=== PATIENT | male | born 1980 | race Caucasian/White ===

== ENCOUNTER → 2018-03-09 07:07 | Outpatient (CLI) | payer OTHER, SELFPAY ==
[2018-03-09 10:48] LABS: BUN 15 mg/dL (7-18); Creatinine, Serum 1.14 mg/dL (0.70-1.30); Glucose 75 mg/dL (74-106)
[2018-03-09 10:49] LABS: Anion Gap 9 (5-15); BUN/Creat Ratio 13.2 RATIO (10-20); Calcium,Total 8.8 mg/dL (8.5-10.1); Chloride 103 mmol/L (98-107); Cholesterol 195 mg/dL (200); EST Glomerular Filtration Rate 76 mL/min (>60); Est Glom Filt Rate - Afr Amer 92 mL/min (>60); High Density Lipoprotein 38 mg/dL; Sodium Level 137 mmol/L (136-145); Triglycerides 148 mg/dL; Very Low Density Lipoprotein 30 mg/dL (5-40)
[2018-03-09 11:01] LABS: Vitamin D,25 Hydroxy 23.7 ng/mL (29.95-100.01)
== END ==
PROVIDERS: Family Provider Family Medicine; PCP Family Medicine; Referring Provider Family Medicine; Visit Provider Family Medicine
DX: Z00.00 Encounter for general adult medical examination without abnormal findings (principal)
CPT/HCPCS: 36415; 80048; 80061; 82306

== ENCOUNTER → 2019-03-06 09:06 | Outpatient (CLI) | payer OTHER, SELFPAY ==
[2018-08-30 06:33] VITALS: BMI 28.1
[2019-03-06 10:48] LABS: Anion Gap 8 (5-15); BUN 20 mg/dL (7-18); BUN/Creat Ratio 17.2 RATIO (10-20); Calcium,Total 9.2 mg/dL (8.5-10.1); Chloride 102 mmol/L (98-107); Cholesterol 177 mg/dL (200); Creatinine, Serum 1.16 mg/dL (0.70-1.30); EST Glomerular Filtration Rate 74 mL/min (>60); Est Glom Filt Rate - Afr Amer 89 mL/min (>60); Glucose 96 mg/dL (74-106); High Density Lipoprotein 42 mg/dL; Potassium 4.1 mmol/L (3.5-5.1); Sodium Level 137 mmol/L (136-145); Triglycerides 164 mg/dL; Very Low Density Lipoprotein 33 mg/dL (5-40)
[2019-03-06 10:52] LABS: Vitamin D,25 Hydroxy 38.7 ng/mL (29.95-100.01)
== END ==
PROVIDERS: Family Provider Family Medicine; PCP Family Medicine; Visit Provider Family Medicine
DX: Z00.00 Encounter for general adult medical examination without abnormal findings (principal); E55.9 Vitamin D deficiency, unspecified
CPT/HCPCS: 36415; 80048; 80061; 82306

== ENCOUNTER → 2020-03-11 09:04 | Outpatient (CLI) | payer OTHER, SELFPAY ==
[2019-05-25 13:44] VITALS: BMI 28.1
[2020-03-11 10:27] LABS: Anion Gap 5 (5-15); BUN 20 mg/dL (7-18); BUN/Creat Ratio 17.4 RATIO (10-20); Calcium,Total 8.7 mg/dL (8.5-10.1); Chloride 105 mmol/L (98-107); Cholesterol 180 mg/dL (200); Creatinine, Serum 1.15 mg/dL (0.70-1.30); EST Glomerular Filtration Rate 74 mL/min (>60); Est Glom Filt Rate - Afr Amer 90 mL/min (>60); Glucose 93 mg/dL (74-106); High Density Lipoprotein 40 mg/dL; Potassium 4.1 mmol/L (3.5-5.1); Sodium Level 137 mmol/L (136-145); Triglycerides 126 mg/dL; Very Low Density Lipoprotein 25 mg/dL (5-40)
== END ==
PROVIDERS: PCP Family Medicine; Visit Provider Family Medicine
DX: Z00.00 Encounter for general adult medical examination without abnormal findings (principal); E55.9 Vitamin D deficiency, unspecified
CPT/HCPCS: 36415; 80048; 80061; 82306

== ENCOUNTER → 2021-02-14 10:14 | Outpatient (CLI) | payer OTHER, SELFPAY ==
[2021-02-14 12:18] LABS: Anion Gap 6 (5-15); BUN 20 mg/dL (7-18); BUN/Creat Ratio 17.5 RATIO (10-20); Chloride 103 mmol/L (98-107); Cholesterol 189 mg/dL (200); Creatinine, Serum 1.14 mg/dL (0.70-1.30); EST Glomerular Filtration Rate 75 mL/min (>60); Est Glom Filt Rate - Afr Amer 90 mL/min (>60); Glucose 92 mg/dL (74-106); High Density Lipoprotein 41 mg/dL; Potassium 4.3 mmol/L (3.5-5.1); Sodium Level 135 mmol/L (136-145); Triglycerides 96 mg/dL; Very Low Density Lipoprotein 19 mg/dL (5-40)
== END ==
PROVIDERS: PCP Family Medicine; Referring Provider Family Medicine; Visit Provider Family Medicine
DX: Z00.00 Encounter for general adult medical examination without abnormal findings (principal)
CPT/HCPCS: 36415; 80048; 80061

== ENCOUNTER 2021-04-21 16:08 | Outpatient (CLI) | payer OTHER, SELFPAY ==
--- NOTE | 2021-04-21 16:13 | RAD_ITS ---
STUDY: X-RAY CHEST REASON FOR EXAM: Male, 40 years old. SOB TECHNIQUE: Frontal and lateral views COMPARISON: None. FINDINGS: Large right pleural effusion opacifying nearly the entire right hemithorax. The left lung is clear. Normal size heart. Normal mediastinum and fazal. Normal visualized pulmonary arteries. Normal visualized aortic arch and descending thoracic aorta. Normal visualized thoracic spine. Normal visualized ribs, clavicles, and shoulders. There is no demonstrated abnormality of the visualized soft tissue structures of the upper abdomen. RAD/Chest PA and Lateral IMPRESSION: Large right pleural effusion. Electronically Signed: Mariano Molina DO at 16:33 EST Tel [phone], Service support ,
[2021-04-21 17:09] LABS: Hematocrit 47.5 % (40-54); Hemoglobin 15.6 g/dL (13.0-16.5); Mean Corp Hgb Conc 32.8 g/dL (32-36); Mean Corpuscular Volume 85.1 fL (80-94); Mean Platelet Vol. 9.5 fl (6.2-12.0); Platelet Count 417 K/mm3 (150-450); RBC Distribution Width CV 11.7 % (11.6-14.6); Red Blood Count 5.58 M/mm3 (4.6-6.2); White Blood Count 7.1 K/mm3 (4.4-11.0)
[2021-04-21 17:43] LABS: D-Dimer Quantitative (DVT/PE) 9.17 FEU/ug/m (0.27-0.49)
[2021-04-21 17:56] LABS: Anion Gap 7 (5-15); BUN 20 mg/dL (7-18); BUN/Creat Ratio 18.2 RATIO (10-20); Calcium,Total 9.3 mg/dL (8.5-10.1); Chloride 103 mmol/L (98-107); EST Glomerular Filtration Rate 78 mL/min (>60); Est Glom Filt Rate - Afr Amer 94 mL/min (>60); Glucose 84 mg/dL (74-106); Potassium 4.1 mmol/L (3.5-5.1); Sodium Level 137 mmol/L (136-145)
== END 2021-04-21 23:59 | disposition home or self-care (01) ==
PROVIDERS: PCP Family Medicine; Referring Provider Family Medicine; Visit Provider Family Medicine
DX: R06.02 Shortness of breath (principal)
CPT/HCPCS: 36415; 71046; 80048; 85027; 85379

== ENCOUNTER 2021-04-21 16:46 | Inpatient (IN) | payer OTHER, SELFPAY ==
[2021-04-21] VITALS (7 sets, daily range): BP systolic 125–156; BP diastolic 76–103; PULSE 98–107; RESP 16–25; TEMP 36.1–36.9; O2SAT 97–99; BMI 31.1; BMI 29.5
--- NOTE | 2021-04-21 17:07 | EDS_ITS ---
HPI History of Present Illness Chief Complaint: Shortness of Breath Informant: patient, spouse/S.O. and PCP Narrative Narrative: 40-year-old male presenting to the emergency department with a chief complaint of pneumothorax. The patient states that he became ill with a cough and runny nose fatigue and some dyspnea back [facility]. Slowly progressed and on Day went to an urgent care was given prednisone and a negative Covid test. He has developed some right upper quadrant or epigastric pain and was to do to follow-up with his primary care doctor after the urgent care visit. When he went there today noticed absent lung sounds and a chest x- ray obtained shows a large pleural effusion on the right side. Noted did not be hypoxic. Patient denies any trauma. He denies any aspirating events. No rashes he notes a 5 pound weight loss but states he really has not had much of an appetite. PFSH PFSH Medical History Non-smoker Medical History no medical history no medical history Home Medications cholecalciferol (vitamin D3) 25 mcg (1,000 unit) capsule 1,000 unit PO DAILY 08/30/18 [History Last Taken Unknown] Allergy/AdvReac Type Severity Reaction Status Date / Time codeine Allergy Nausea Verified 04/21/21 16:48 Iodinated Contrast Media Allergy Nausea Verified 04/21/21 16:48 [CONTRASTS] Surgical History H/O shoulder surgery History of ankle surgery Social History Smoking Status: Never smoker alcohol intake: never ROS ROS ED ROS Narrative Fatigue Constitutional Constitutional ED: Denies chills, fever(s) or weight loss Eyes Eyes: Denies change in vision or diplopia ENT ENT ED: Reports rhinorrhea; Denies ear pain or sore throat Cardiovascular Cardiovascular: Denies chest pain, orthopnea, palpitations or racing heartbeat Respiratory/Chest Respiratory/Chest: Reports cough and dyspnea; Denies orthopnea Gastrointestinal Gastrointestinal: Denies abdominal pain, diarrhea, nausea or vomiting Genitourinary Genitourinary ED: Denies dysuria, hematuria or urinary frequency Musculoskeletal Musculoskeletal: Denies arthralgias or myalgias Integumentary Denies abscess or rash Neurologic Neurologic: Denies headache(s) or weakness Psychiatric Psychiatric: Denies anxiety, depression, suicidal ideation or suicidal thoughts Endocrine Endocrinology: Denies polydipsia, polyphagia or polyuria Allergic/Immunologic Allergic/Immunologic ED: Denies mouth swelling, tongue swelling or urticaria EXAM Physical Exam Const Vital Signs: 04/21/21 16:49 04/21/21 16:54 04/21/21 16:56 Temperature 97 F L Temperature Source Temporal Pulse Rate 103 H 107 H Respiratory Rate 25 H 16 Respiratory Effort Normal Respiratory Depth Normal Respiratory Pattern Normal Blood Pressure 125/76 H 125/76 H Blood Pressure Mean 92 92 Pulse Ox 97 98 Oxygen Delivery Method Room Air Nasal Cannula Nasal Cannula Oxygen Flow Rate (L/min) 2 04/21/21 18:14 Temperature Temperature Source Pulse Rate 98 Respiratory Rate 16 Respiratory Effort Respiratory Depth Respiratory Pattern Blood Pressure 136/79 H Blood Pressure Mean 98 Pulse Ox 98 Oxygen Delivery Method Nasal Cannula Oxygen Flow Rate (L/min) 2 Positive well nourished and well developed General Appearance ED: well developed HEENT Reports normocephalic, head/scalp atraumatic, TM's clear and moist mucous membranes atraumatic Tympanic Membrane ED: Yes TM's clear Eyes PERRL and EOMs intact bilaterally Neck no lymphadenopathy, supple and no JVD Resp normal respiratory effort Resp Narrative: Absent breath sounds on right. There is no crepitance. Cardio regular rhythm and no murmurs Rate: tachycardic GI normal to inspection, nondistended, normoactive bowel sounds and non-tender Palpation: soft Back/Spine no CVA tenderness and normal ROM Extremity normal to inspection General Extremety ED: Negative for edema General Extremity: Negative for edema Neuro oriented x3 and CN's II-XII intact bilaterally Sensorium / Orientation: alert Motor Exam: strength 5/5 throughout Psych mental status grossly normal Mood & Affect: Negative for depressed or tearful Skin no rashes or lesions noted and no wounds MDM MDM MDM Narrative Medical decision making narrative: Basic blood work was obtained which demonstrates elevation of his liver enzymes alk phos and LDH. I personally reviewed the chest x-ray which shows a large pleural effusion on the right. CT the chest without contrast was obtained which demonstrates large pleural effusion and multiple mediastinal and hilar masses along with pleural-based densities. At this point plan will be for admission for thoracentesis and further evaluation. Lab Data Attestation: I reviewed the patient's lab results. Labs: Laboratory Results - last 24 hr 04/21/21 04/21/21 04/21/21 17:10 17:10 17:10 WBC 6.5 RBC 5.27 Hgb 14.8 Hct 44.8 MCV 85.0 MCH 28.1 MCHC 33.0 RDW Std Deviation 35.9 RDW Coeff of Vi 11.6 Plt Count 377 MPV 9.6 Immature Gran % (Auto) 0.500 Neut % (Auto) 48.3 Lymph % (Auto) 35.2 Rains % (Auto) 12.7 H Eos % (Auto) 2.8 Baso % (Auto) 0.5 Absolute Neuts (auto) 3.1 Absolute Lymphs (auto) 2.28 Nucleated RBC % 0 PT 14.1 INR 1.2 APTT 29.8 Sodium 136 Potassium 3.9 Chloride 103 Carbon Dioxide 27.0 Anion Gap 6 BUN 20 H Creatinine 1.16 Estim Creat Clear Calc 80.26 Est GFR (MDRD) Af Amer 88 Est GFR (MDRD) Non-Af 73 BUN/Creatinine Ratio 17.2 Glucose 99 Lactic Acid Calcium 8.9 Total Bilirubin 0.60 Direct Bilirubin 0.29 AST 156 H ALT 313 H Alkaline Phosphatase 157 H Lactate Dehydrogenase 461 H Troponin I High Sens 6 B-Natriuretic Peptide Total Protein 8.2 Albumin 3.0 L Globulin 5.2 H Lipase 203 04/21/21 04/21/21 17:10 17:10 WBC RBC Hgb Hct MCV MCH MCHC RDW Std Deviation RDW Coeff of Vi Plt Count MPV Immature Gran % (Auto) Neut % (Auto) Lymph % (Auto) Rains % (Auto) Eos % (Auto) Baso % (Auto) Absolute Neuts (auto) Absolute Lymphs (auto) Nucleated RBC % PT INR APTT Sodium Potassium Chloride Carbon Dioxide Anion Gap BUN Creatinine Estim Creat Clear Calc Est GFR (MDRD) Af Amer Est GFR (MDRD) Non-Af BUN/Creatinine Ratio Glucose Lactic Acid 1.5 Calcium Total Bilirubin Direct Bilirubin AST ALT Alkaline Phosphatase Lactate Dehydrogenase Troponin I High Sens B-Natriuretic Peptide 8.7 Total Protein Albumin Globulin Lipase Radiography Diagnostic Testing: Clinical Impression(s) from Imaging Studies Chest CT 04/21/21 17:21 IMPRESSION: There is a large right pleural effusion with collapse of the right lung. There are pleural-based densities along the right hemithorax. Malignancy is suspected. The right effusion slightly compresses and deviates the trachea to the left. Mediastinal and right hilar mass lesions. Evaluation is limited without intravenous contrast. Electronically Signed: Mariano Moilna DO at 18:57 EST Tel [phone], Service support , Discharge Plan Dx/Rx/DC Orders Clinical Impression: Pleural effusion, right, Acute dyspnea, Hilar mass, Mass of mediastinum Disposition Disposition: Acute Care Hospital [facility]
--- NOTE | 2021-04-21 17:21 | CT_ITS ---
STUDY: CT CHEST WITHOUT CONTRAST REASON FOR EXAM: Male, 40 years old. Pleural effusion RADIATION DOSAGE (If Supplied By Facility): CTDIvol = ( 11.35 ) mGy, DLP = ( 499.23 ) mGycm TECHNIQUE: Transaxial imaging was performed without the administration of intravenous contrast material. Individualized dose optimization techniques were used for this CT. COMPARISON: None. FINDINGS: There is a large right pleural effusion with collapse of the right lung. There are pleural-based densities along the right hemithorax. Malignancy is suspected. The large effusion slightly compresses and deviates the trachea to the left. Normal heart and pericardium. Mediastinal and right hilar mass lesions. Normal unenhanced pulmonary arteries. Normal aorta arch and descending thoracic aorta. Normal osseous structures. There is no demonstrated abnormality of the visualized upper abdomen. CT/Chest without Contrast IMPRESSION: There is a large right pleural effusion with collapse of the right lung. There are pleural-based densities along the right hemithorax. Malignancy is suspected. The right effusion slightly compresses and deviates the trachea to the left. Mediastinal and right hilar mass lesions. Evaluation is limited without intravenous contrast. Electronically Signed: Mariano Molina DO at 18:57 EST Tel [phone], Service support ,
[2021-04-21 17:29] LABS: Absolute Lymphocyte Count 2.28 X10^3/uL (0.83-4.51); Absolute Neutrophil Count 3.1 X10^3/uL (2.0-7.7); Basophil# 0.03 X10^3/uL; Basophil% 0.5 % (0-1); Eosinophil# 0.18 X10^3/uL; Eosinophils% 2.8 % (0-5); Hematocrit 44.8 % (40-54); Hemoglobin 14.8 g/dL (13.0-16.5); Lymphocyte # 2.28 X10^3/ul (0.83-4.51); Lymphocyte % 35.2 % (19-41); Mean Corpuscular Hgb 28.1 pg (27.0-32.0); Mean Platelet Vol. 9.6 fl (6.2-12.0); Monocyte# 0.82 X10^3/uL; Monocyte% 12.7 % (0-10); NRBC Flagged by Analyzer 0 % (0-5); Neutrophil # 3.13 X10^3/uL (2.7-7.7); Neutrophil % 48.3 % (47-70); Platelet Count 377 K/mm3 (150-450); RBC Distribution Width CV 11.6 % (11.6-14.6); RBC Distribution Width SD 35.9 fl (35.1-43.9); Red Blood Count 5.27 M/mm3 (4.6-6.2); White Blood Count 6.5 K/mm3 (4.4-11.0)
[2021-04-21 17:41] LABS: International Normalized Ratio 1.2; Partial Thromboplast Time 29.8 Seconds (24.1-36.2); Prothrombin Time (Protime)PT. 14.1 SECONDS (11.7-14.9)
[2021-04-21 17:45] LABS: AST(SGOT) 156 U/L (15-37); Alanine Aminotransfer ALT/SGPT 313 U/L (16-61); Alkaline Phosphatase 157 U/L (45-117); Anion Gap 6 (5-15); BUN 20 mg/dL (7-18); BUN/Creat Ratio 17.2 RATIO (10-20); Bilirubin, Direct 0.29 mg/dL (0.00-0.30); Calcium,Total 8.9 mg/dL (8.5-10.1); Chloride 103 mmol/L (98-107); Creatinine, Serum 1.16 mg/dL (0.70-1.30); EST Glomerular Filtration Rate 73 mL/min (>60); Est Glom Filt Rate - Afr Amer 88 mL/min (>60); Estimated Creatinine Clearance 80.26 ml/min; Globulin 5.2 g/dL (2.2-4.2); Glucose 99 mg/dL (74-106); LDH 461 U/L (87-241); Lipase 203 U/L (73-393); Potassium 3.9 mmol/L (3.5-5.1); Protein, Total 8.2 g/dL (6.4-8.2); Sodium Level 136 mmol/L (136-145); Troponin-I HS 6 pg/mL (3.0-78.0)
[2021-04-21 17:49] LABS: Lactic Acid 1.5 mmol/L (0.4-1.9)
[2021-04-21 17:56] LABS: BNP,B-Type NATRIURETIC PEPTIDE 8.7 pg/mL (0-100)
--- NOTE | 2021-04-21 19:33 | PCM.HP.STD ---
HPI - General General Date of Admission: 04/21/21 HPI Narrative BARTOLO ROBERT, is a 40 M with a significant history of vitamin D deficiency who presents to emergency department with a cough and shortness of breath. His symptoms started a day after Thanksgiving with a cough and a cold. Because his symptoms persisted he went to the urgent care and on April 12, 2021. His reports that patient's was originally very active but now he gets very dyspneic with exertion. He was given some steroids. Because his symptoms still persisted he went to see his PCP. A chest x-ray was done and patient was told that he has a collapsed lungs so he was instructed counseled to the emergency department. Also patient report that he has been evaluated recently for right upper quadrant pain and he was told that it may probably be a muscle strain. He reports about 5 pound weight loss with his symptoms which he attributes to a decrease in appetite. [facility] Medical History (Updated 04/21/21 @ 21:43 by Primitivo Cordero) Depression Migraines Non-smoker Vitamin D deficiency Medical History no medical history Home Medications cholecalciferol (vitamin D3) 25 mcg (1,000 unit) capsule 1,000 unit PO DAILY 08/30/18 [History Last Taken 04/21/21] Allergy/AdvReac Type Severity Reaction Status Date / Time codeine Allergy Nausea Verified 04/21/21 16:48 Iodinated Contrast Media Allergy Nausea Verified 04/21/21 16:48 [CONTRASTS] Family History (Updated 04/21/21 @ 19:[address] Kobi Mccann MD) Other Diabetes Heart disease Hypertension Surgical History H/O shoulder surgery History of ankle surgery Social History Smoking Status: Never smoker alcohol intake: never ROS ROS Narrative Constitutional: Reports anorexia and weight loss. Denies fever, or chills. Eyes: Denies blurry vision, change in eye color, change in vision, discharge from eye(s), double vision, erythema, eye pain, loss of vision or other HEENT: Denies abnormal hearing, dysphagia, ear pain, epistaxis, headache(s), hearing loss, nasal congestion, nasal discharge, post nasal drip, sinus pressure, sore throat or other Cardiovascular: Denies chest pain or palpitations. Reports dyspnea with exertion Respiratory/Chest: Reports cough, and excessive phlegm production. Denies wheezes. Gastrointestinal: Reports right upper quadrant pain. Denies coffee ground emesis, constipation, diarrhea, dyspepsia, hematemesis, hematochezia, loose stools, melena, nausea, vomiting or other Genitourinary: Denies burning urination, difficulty urinating, dysuria, hematuria, nocturia, urinary frequency, urinary hesitancy, urinary incontinence, urinary urgency or other Musculoskeletal: Denies arthralgias, back pain, joint pain, joint stiffness, joint swelling, myalgias, neck pain or other Neurologic: Denies abnormal gait, abnormal speech, confusion, disequilibrium, dizziness, focal weakness, headache(s), numbness, paresthesias, seizure-like activity, seizures, syncope, tingling, tremor(s) or other Psychiatric: Denies anxiety, depression, homicidal ideation, suicidal ideation or other Endocrinology: Denies change in body appearance, cold intolerance, excessive sweating, heat intolerance, polydipsia, polyuria or other Hematologic/Lymphatic: Denies anemia, easy bleeding, easy bruising, lymphadenopathy or other Integumentary: Denies rashes Allergic/Immunologic: Denies rhinitis, hives, eczema, asthma or other Vital Signs Vital Signs Vital Signs: 04/21/21 16:49 04/21/21 16:54 04/21/21 16:56 Temperature 97 F L Temperature Source Temporal Pulse Rate 103 H 107 H Respiratory Rate 25 H 16 Respiratory Effort Normal Respiratory Depth Normal Respiratory Pattern Normal Blood Pressure 125/76 H 125/76 H Blood Pressure Mean 92 92 Pulse Ox 97 98 Oxygen Delivery Method Room Air Nasal Cannula Nasal Cannula Oxygen Flow Rate (L/min) 2 04/21/21 18:14 Temperature Temperature Source Pulse Rate 98 Respiratory Rate 16 Respiratory Effort Respiratory Depth Respiratory Pattern Blood Pressure 136/79 H Blood Pressure Mean 98 Pulse Ox 98 Oxygen Delivery Method Nasal Cannula Oxygen Flow Rate (L/min) 2 Weight Weight: 93.1 kg Body Mass Index (BMI) 31.1 Physical Exam Narrative Physical exam: General: Well-nourished, well-developed. Head: Normocephalic, atraumatic, no tenderness Eyes: PERRLA, EOMI ENT, no trauma, moist mucous membranes, no rhinorrhea Neck: Nontender, full range of motion, no spinal tenderness, deformities, step-off CVS: Regular rate and rhythm. S1-S2 present. No murmur, gallop or rub. Respiratory : No lung sounds auscultated on right posterior lung chou. Lung sounds clear on all left chou. No wheezing Abdomen: Soft, nontender, nondistended, normal bowel sounds, no masses : Deferred Back: Nontender, no CVA tenderness, no midline spinal tenderness, deformities, step-offs Extremities: Nontender full range of motion, no trauma Skin: Normal color, no trauma, abrasions Neuro: Alert, oriented, cranial nerves II through XII grossly intact. Psychiatry: Normal mood. Normal affect. Not depressed. Not anxious. Results Lab / Micro Data Result Diagrams: 04/21/21 17:10 04/21/21 17:10 Labs: Laboratory Results - last 24 hr 04/21/21 17:10: WBC 6.5, RBC 5.27, Hgb 14.8, Hct 44.8, MCV 85.0, MCH 28.1, MCHC 33.0, RDW Std Deviation 35.9, RDW Coeff of Vi 11.6, Plt Count 377, MPV 9.6, Immature Gran % (Auto) 0.500, Neut % (Auto) 48.3, Lymph % (Auto) 35.2, [place] % (Auto) 12.7 H, Eos % (Auto) 2.8, Baso % (Auto) 0.5, Absolute Neuts (auto) 3.1, Absolute Lymphs (auto) 2.28, Nucleated RBC % 0 04/21/21 17:10: PT 14.1, INR 1.2, APTT 29.8 04/21/21 17:10: Sodium 136, Potassium 3.9, Chloride 103, Carbon Dioxide 27.0, Anion Gap 6, BUN 20 H, Creatinine 1.16, Estim Creat Clear Calc 80.26, Est GFR (MDRD) Af Amer 88, Est GFR (MDRD) Non-Af 73, BUN/Creatinine Ratio 17.2, Glucose 99, Calcium 8.9, Total Bilirubin 0.60, Direct Bilirubin 0.29, AST 156 H, ALT 313 H, Alkaline Phosphatase 157 H, Lactate Dehydrogenase 461 H, Troponin I High Sens 6, Total Protein 8.2, Albumin 3.0 L, Globulin 5.2 H, Lipase 203 04/21/21 17:10: Lactic Acid 1.5 04/21/21 17:10: B-Natriuretic Peptide 8.[address] 04/21/21 17:21 IMPRESSION: There is a large right pleural effusion with collapse of the right lung. There are pleural-based densities along the right hemithorax. Malignancy is suspected. The right effusion slightly compresses and deviates the trachea to the left. Mediastinal and right hilar mass lesions. Evaluation is limited without intravenous contrast. Electronically Signed: Mariano Molina DO at 18:57 EST Tel [phone], Service support , Assessment & Plan Assessment/Plan (1) Pleural effusion, right: (2) Elevated liver enzymes: PLAN: Right pleural effusion Chest x-ray taken outpatient was independently interpreted: Chest x-ray showed large right pleural effusion and I with agree radiologist interpretation. Chest CTA shows collapse of right lung; large right upper lobe air effusion; and pleural-based densities tracheal deviation; mediastinal and right hilar mass lesions. Malignancy is very high on differential diagnosis. Diagnostic ultrasound thoracentesis ordered. Fluid studies with cytology ordered. CBC reviewed showed normal white count. Coagulation studies was unremarkable. Consult pulmonology. Elevated liver enzymes Review of Emergency department labs showed elevated AST, ALT, alkaline phosphatase, and LDH. Albumin was low at 3.0. And globulin was high at 5.2. Could be due to malignancy. Check acute hepatitis panel. Check ultrasound. N.p.o. for ultrasound DVT prophylaxis: High risk but patient because of ordered thoracentesis will order SCD. No chemical thromboprophylaxis at this time. Charges/Coding Visit Charges Inpatient E&M: 85721 Init Hosp L3
[2021-04-21] MEDS: guaiFENesin 1,200 MG Tablet 1200 MG PO (22:15)
[2021-04-22] VITALS (8 sets, daily range): BP systolic 104–150; BP diastolic 54–94; PULSE 93–118; RESP 16–18; TEMP 36.5–36.8; O2SAT 92–98
--- NOTE | 2021-04-22 | IMM_PTH ---
PATIENT: BARTOLO ROBERT LOC: MS2 U#:[id number] AGE/SX: 40/M ROOM: [facility] RE04/21/[address]: Dr. Tawny Arroyo MD : 1980 BED: 1 DIS: 04/23/2021 SPEC #: [id number] RECD: 04/23/21 12:35 STATUS: SOUDiomedes REQ #: [id number] SHEREE: 04/22/21 00:[address]: Kobi Mccann DEPT: IMMUNOHISTOCHEMISTRY RECD BY: Juani Siegel ENTERED: 04/23/21 12:37 SP TYPE: IMMUNO OTHR DR: MD Dr. Pipo Flores MD Dr. Paul Nielsen, MD Tissues: THORACIC FLUID Procedures: NAPSIN A (add) Carlos Eduardo Ret (add) CD20 (add) CD3 (add) CD45 (add) CD5 (add) CD79A (add) CK5-6 (add) CK7 (add) CK8 (add) KI-67 (add) TTF1 (add) Vimentin (add) Pankeratin (initial) PHYSICIAN & [place] [phone] SPECIMEN INFORMATION: Tissue Source: Thoracentesis fluid Clinical Info: Pleural effusion Specimen Number: [id number] CPT code: 85650, 69575 x13 METHODOLOGY: Deparaffinized sections of prefer/formalin-fixed tissue or PAP/DQ stained slides are incubated with monoclonal/polyclonal antibodies/oligonucleotide probes. Localization is made via biotin free immunoperoxidase method. Appropriate controls are performed and reacted as expected. Results on target cell population are indicated in the following table: RESULTS: ANTIBODY / CLONE RESULT AE1-3 (AE1/AE3/PCK26) negative CK7 (OV-TL12/30) negative CK8 (38htnaZ86) negative CD3 (PS1) positive CD5 (SP10) positive CD20 (L26) positive CD45 (RP2/18) positive CD79a (11E3) positive Vimentin (V9) positive TTF-1 (8G7G3/1) negative Napsin A (Rabbit Polyclonal) negative CALRET (polyclonal) negative CK5-6 (D5 & 1684) negative Ki-67 (30-9) positive, very low These tests were developed and their performance characteristics determined by [facility]. They may not have been cleared or approved by the U.S. Food and Drug Administration. The FDA has determined that such clearance or approval is not necessary. The above immunohistochemical/dualISH markers are ordered and reviewed by the Pathologist. INTERPRETATION: Thoracentesis fluid: Negative for carcinoma. Lymphocytes are polytypic in nature. SJ:syed 04/25/2021 Case has been reviewed in consultation with Dr. Brock who concurs with the above diagnosis. IDC:AM
--- NOTE | 2021-04-22 04:05 | PCS.PANDOC ---
PANDEMIC DOCUMENTATION INITIATED: Date: 04/21/21 Time: 2300
--- NOTE | 2021-04-22 05:55 | US_ITS ---
STUDY: ABDOMINAL ULTRASOUND - RIGHT UPPER QUADRANT REASON FOR VISIT: Male, 40 years old Elevated liver enzymes; concerned for tumor -- scanning 7:15 am TECHNIQUE: Ultrasound evaluation of the right upper quadrant was performed with real-time and static bedoya-scale imaging. TECHNICAL QUALITY: Adequate. COMPARISON: None. FINDINGS: Liver: The liver measures 14.2 cm. There is increased echogenicity consistent with fatty infiltration. The bile ducts are within normal limits. There is hepatic color flow. The direction of portal flow is hepatopetal. There is no demonstrated mass lesion. Gallbladder: Normal distended gallbladder. The gallbladder wall measures 2.6 mm. There is a negative sonographic Villafana''s sign. There is no pericholecystic fluid. There are no gallstones. Common Bile Duct (C.B.D.): The common bile duct measures 3.2 mm. Pancreas: Normal size of the head, body and tail of the pancreas. There is increased echogenicity of the pancreas. There is no demonstrated pancreatic mass or cyst. Right Kidney: Normal size of the right kidney. The right kidney measures 11.5 cm x 6.5 cm x 4.8 cm. Normal renal cortex. The right cortex measures 2.1 cm. There is no demonstrated renal mass or cyst. There is no right hydronephrosis. US/Liver IMPRESSION: Fatty infiltration of the liver. Electronically Signed: Conner Pierre MD at 10:01 EST , Service support ,
--- NOTE | 2021-04-22 07:48 | PCM.PN.HOSP ---
Subjective Subjective Follow-up on acute massive pleural effusion: Patient was seen and examined. He denied any new complaints. He is comfortable on 2 L of oxygen. Denied any fever or chills Objective Data Objective Data Vital Signs: Vital Signs Temp Pulse Resp BP Pulse Ox 98.1 F 99 18 137/85 H 96 04/22/21 04:30 04/22/21 04:30 04/22/21 04:30 04/22/21 04:30 04/22/21 04:30 Oxygen Flow Rate (L/min) 2 Oxygen Delivery Method Nasal Cannula Weight: 87.9 kg Body Mass Index (BMI) 29.5 Intake & Output: Intake and Output for Last 24 Hours 04/20/21 04/21/21 04/22/21 23:59 23:59 23:59 Intake Total 300 / 300 Balance 300 / 300 Lab / Micro Data Result Diagrams: 04/22/21 08:30 04/22/21 08:30 Labs: Laboratory Results - last 24 hr 04/21/21 17:10: WBC 6.5, RBC 5.27, Hgb 14.8, Hct 44.8, MCV 85.0, MCH 28.1, MCHC 33.0, RDW Std Deviation 35.9, RDW Coeff of Vi 11.6, Plt Count 377, MPV 9.6, Immature Gran % (Auto) 0.500, Neut % (Auto) 48.3, Lymph % (Auto) 35.2, [place] % (Auto) 12.7 H, Eos % (Auto) 2.8, Baso % (Auto) 0.5, Absolute Neuts (auto) 3.1, Absolute Lymphs (auto) 2.28, Nucleated RBC % 0 04/21/21 17:10: PT 14.1, INR 1.2, APTT 29.8 04/21/21 17:10: Sodium 136, Potassium 3.9, Chloride 103, Carbon Dioxide 27.0, Anion Gap 6, BUN 20 H, Creatinine 1.16, Estim Creat Clear Calc 80.26, Est GFR (MDRD) Af Amer 88, Est GFR (MDRD) Non-Af 73, BUN/Creatinine Ratio 17.2, Glucose 99, Calcium 8.9, Total Bilirubin 0.60, Direct Bilirubin 0.29, AST 156 H, ALT 313 H, Alkaline Phosphatase 157 H, Lactate Dehydrogenase 461 H, Troponin I High Sens 6, Total Protein 8.2, Albumin 3.0 L, Globulin 5.2 H, Lipase 203 04/21/21 17:10: Lactic Acid 1.5 04/21/21 17:10: B-Natriuretic Peptide 8.7 Radiography Diagnostic Testing: Radiology Impression Chest CT 04/21/21 17:21 IMPRESSION: There is a large right pleural effusion with collapse of the right lung. There are pleural-based densities along the right hemithorax. Malignancy is suspected. The right effusion slightly compresses and deviates the trachea to the left. Mediastinal and right hilar mass lesions. Evaluation is limited without intravenous contrast. Electronically Signed: Mariano Molina DO at 18:57 EST Tel [phone], Service support , Physical Exam Narrative Physical exam: General: Alert, Oriented x3, Cooperative, No apparent distress, Well developed, on 2 L of oxygen HEENT: Atraumatic Oral: Moist Mucosa Neck: Supple Lungs: Decreased air entry from right middle to lower lung zone, no wheezes heard Cardiovascular: HS I+II, regular, no murmurs Abdomen: Bowel Sounds Present, Soft, Non Tender Extremities: No edema Assessment & Plan Assessment/Plan (1) Pleural effusion, right: (2) Elevated liver enzymes: PLAN: 1. Acute massive right pleural effusion, confirmed on admitting chest x-ray and CTA of the chest There is associated right lung collapse, tracheal deviation, mediastinal or hilar masses Patient is going for ultrasound-guided thoracocentesis Pulmonology consulted, will follow up on results 2. Elevated liver enzymes, likely secondary to fatty liver, trending down Ultrasound of liver shows fatty liver Hepatitis profile pending 3. DVT prophylaxis?SCDs Charges/Coding Visit Charges Inpatient E&M: 81867 Subs Hosp L3
[2021-04-22 08:37] LABS: Absolute Lymphocyte Count 1.46 X10^3/uL (0.83-4.51); Absolute Neutrophil Count 6.1 X10^3/uL (2.0-7.7); Basophil# 0.02 X10^3/uL; Basophil% 0.2 % (0-1); Eosinophil# 0.06 X10^3/uL; Eosinophils% 0.7 % (0-5); Hemoglobin 15.3 g/dL (13.0-16.5); Lymphocyte # 1.46 X10^3/ul (0.83-4.51); Lymphocyte % 17.3 % (19-41); Mean Corp Hgb Conc 33.3 g/dL (32-36); Mean Corpuscular Hgb 28.4 pg (27.0-32.0); Mean Corpuscular Volume 85.5 fL (80-94); Mean Platelet Vol. 9.3 fl (6.2-12.0); Monocyte# 0.84 X10^3/uL; Monocyte% 9.9 % (0-10); NRBC Flagged by Analyzer 0 % (0-5); Neutrophil # 6.05 X10^3/uL (2.7-7.7); Neutrophil % 71.7 % (47-70); Platelet Count 360 K/mm3 (150-450); RBC Distribution Width CV 11.9 % (11.6-14.6); RBC Distribution Width SD 36.7 fl (35.1-43.9); Red Blood Count 5.38 M/mm3 (4.6-6.2); White Blood Count 8.5 K/mm3 (4.4-11.0)
[2021-04-22 09:11] LABS: ALB/GLOB Ratio 0.6 RATIO (0.9-2.4); AST(SGOT) 97 U/L (15-37); Alanine Aminotransfer ALT/SGPT 252 U/L (16-61); Albumin, Serum 3.1 g/dL (3.2-5.0); Alkaline Phosphatase 149 U/L (45-117); Anion Gap 7 (5-15); BUN 19 mg/dL (7-18); BUN/Creat Ratio 17.1 RATIO (10-20); Calcium,Total 9.6 mg/dL (8.5-10.1); Chloride 101 mmol/L (98-107); Creatinine, Serum 1.11 mg/dL (0.70-1.30); EST Glomerular Filtration Rate 77 mL/min (>60); Est Glom Filt Rate - Afr Amer 93 mL/min (>60); Estimated Creatinine Clearance 83.87 ml/min; Globulin 5.3 g/dL (2.2-4.2); Glucose 105 mg/dL (74-106); LDH 415 U/L (87-241); Potassium 4.2 mmol/L (3.5-5.1); Protein, Total 8.4 g/dL (6.4-8.2); Sodium Level 134 mmol/L (136-145)
--- NOTE | 2021-04-22 09:30 | US_ITS ---
PROCEDURE: ULTRASOUND GUIDED THORACENTESIS. DATE: 04/22/2021. INDICATION: Male, 40 years old. Right pleural effusion PHYSICIAN: Conner Pierre M.D. PROCEDURE: The risks, benefits, and alternatives to the procedure were explained to the patient. The specific risks of bleeding, infection, and pneumothorax requiring chest tube insertion were discussed and accepted. Written informed consent was obtained. Ultrasonographic evaluation of the right lower pleural space was carried out. An adequate pocket was identified. The patient was placed in the sitting, upright position. The overlying skin was prepped and draped in sterile fashion. 1% lidocaine was administered subcutaneously for local anesthesia. Under ultrasound guidance, a 5 Belarusian thoracentesis needle/catheter system was advanced into the right posterior lower pleural fluid collection. Approximately 1700 mL of bloody fluid was drained. The catheter was removed, and a sterile dressing was applied. A specimen was collected and sent to the laboratory for analysis, as requested by the referring clinician. The patient tolerated the procedure well. A chest x-ray was ordered. US/Thoracentesis W US IMPRESSION: Ultrasound-guided right thoracentesis. Electronically Signed: Conner Pierre MD at 12:41 EST , Service support ,
--- NOTE | 2021-04-22 11:30 | RAD_ITS ---
STUDY: X-RAY CHEST REASON FOR EXAM: Male, 40 years old. Post thoracentesis TECHNIQUE: AP inspiration and expiration views. COMPARISON: Comparison is made with prior examination dated 04/21/2021. FINDINGS: The patient is status post right thoracentesis. No evidence of pneumothorax. Residual right pleural-parenchymal changes persist with findings suggestive of masses in the right upper lobe. RAD/Chest Insp/Exp 2 View IMPRESSION: Status post right thoracentesis. No evidence of pneumothorax. Right pulmonary masses. The left lung is clear. Electronically Signed: Conner Pierre MD at 12:42 EST , Service support ,
--- NOTE | 2021-04-22 11:40 | FLU_PTH ---
PATIENT: BARTOLO ROBERT LOC: MS2 U#:[id number] AGE/SX: 40/M ROOM: [facility] [place] RE04/21/[address]: Dr. Tawny Arroyo MD : 1980 BED: 1 DIS: 04/23/2021 SPEC #: [id number] RECD: 04/22/21 12:25 STATUS: ELMER REQ #: [id number] SHEREE: 04/22/21 11:[address]: Kobi Mccann DEPT: CYTOLOGY RECD BY: Kamla Sanchez ENTERED: 04/22/21 12:51 SP TYPE: Fluid OTHR DR: MD Dr. Pipo Flores MD Dr. Joseph Agyepong, MD Dr. Paul Nielsen, MD Tissues: Pleural fluid, NOS Procedures: Special Stain Group II Surgery Specimen Level IV Cytospin Fluid Comments: @ Ordering doctor for SSII edited from to DR.JAGYEP Crenshaw by CAROL at 04/23/21 0903 @ Ordering doctor for SUIV edited from to DR.JAGYEP Crenshaw by CAROL at 04/23/21 0903 @ Ordering doctor for CYSPIN edited from to DR.JAGYEP Crenshaw by CAROL at 04/23/21 0903 @ Submitting doctor edited from to DR.JAGYEP Crenshaw by RGOSCARLETT at 04/23/21 0903 HEADER OPERATION: Thoracentesis right PRE-OP DIAGNOSIS: Pleural effusion TISSUE SUBMITTED: Thoracentesis fluid for cytology DIAGNOSIS CYTOLOGY Thoracentesis fluid for cytology (cytospin and cell block): Negative for malignant cells. Consistent with lymphocytic effusion. See comment. SJ:syed 04/25/2021 COMMENT Immunohistochemistry (RF22-17) is negative for carcinoma and shows lymphocytes to be polytypic in nature. Flow cytometry study from [facility] Culture shows no evidence of B or T-cell lymphoma. The complete report is viewable in patient?s EMR. Please also make reference to additional S22-58, mediastinal mass, core biopsy. Case has been reviewed in consultation with Dr. Brock who concurs with the above diagnosis. IDC:AM CYTOLOGY STUDY Slides are reviewed. CYTOLOGY GROSS Received is 90 ml of dark red cloudy fluid labeled with the patient's name and and designated per the requisition as thoracentesis. Submitted for cytology preparation including cell block. / syed 04/22/2021 TC:5 CPT: 47674, 14803
[2021-04-22 12:26] LABS: Cytology, Body Fluid / CSF SEE PATHOLOGY REPORT
--- NOTE | 2021-04-22 12:35 | CASEMGMT ---
RN CM Face to Face with patient for initial transition planning/care coordination assessment. RN CM introduced self and role at [facility]. Patient lying in bed, alert and oriented. Patient willing to participate in assessment and is able to answer all questions appropriately. Care providers, pharmacy, and demographics verified. Patient wishes to discharge home, denies need for home health at this time. Patient states he has no further needs or concerns at this time. CM to follow for discharge planning needs that may arise. PCP: Am[facility]car Specialists: none Preferred Pharmacy: [facility] Insurance: [employer] Prescription Benefit: yes Living Will/HPOA: yes, Autumn García LNOK: Living Arrangements: Patient lives with and 3 young sons in a 2 story home with bed and bath on first floor. Patient is independent and able to ambulate stairs. Transportation: self/ DME/HHC: Patient denies DME. No previous HHC Disposition Plan: Patient to discharge home with family support and follow-up plans in place. Rachael CARIAS, RN, CM
[2021-04-22 13:11] LABS: Body Fluid Mononuclear WBC # 2.754 10^3/uL; Body Fluid Mononuclear WBC % 99.3 %; Body Fluid Polynuclear WBC % 0.7 %; Body Fluid Total Cells Counted 2.811 10^3/ul; Red Cell Count/Body Fluid 0.074 10^6/ul; White Blood Count/Body Fluid 2.774 10^3/uL
[2021-04-22 13:23] LABS: Glucose, Body Fluid 85 mg/dL (40-70); LDH,Body Fluid 1399 Units/l (Not Establ.); Protein, Body Fluid 5.3 g/dL (Not Establ.)
--- NOTE | 2021-04-22 13:25 | CASEMGMT ---
Tertiary facilities in-network with patient's insurance: [facility], [facility], , [facility].
[2021-04-22 14:16] LABS: Auto B Fluid Analyzer BKGD Ct COUNTS W/IN LIMITS (W/IN LIMITS); Source- Body Fluid THORACENTESIS
[2021-04-22 14:17] LABS: Appearance/Body Fluid SL CLDY; Color/Body Fluid RED
[2021-04-22 14:23] LABS: Body Fluid QC Type(s) BF1Q; Lymphocytes 83 %; Mesothelial Cells 1 %; Monocytes 14 %; Neutrophil (Segs) 2 %
--- NOTE | 2021-04-22 15:36 | CT_ITS ---
STUDY: CT CHEST, ABDOMEN T PELVIS WITH CONTRAST REASON FOR EXAM: Male, 40 years old. Exudative pleural effusion RADIATION DOSAGE (If Supplied By Facility): CTDIvol = ( 14.58 ) mGy, DLP = ( 1592.77 ) mGycm TECHNIQUE: Transaxial imaging was performed following intravenous administration of IV 100mL Isovue-370. Individualized dose optimization techniques were used for this CT. COMPARISON: No relevant priors. FINDINGS: CHEST Significant right pleural effusion with slight interval reduction. There is significant collapse of the right lung Patchy right pulmonary infiltrates. There are pleural-based irregular masses. Mediastinal, right paratracheal and right hilar masses are noted. There is compression of the trachea. Normal heart and pericardium. Normal unenhanced pulmonary arteries. Normal aorta arch and descending thoracic aorta. Normal osseous structures. There is a 1.5 cm periesophageal nodule. ABDOMEN Fatty liver. Normal gallbladder and extrahepatic biliary system. Normal spleen. Normal pancreas. Normal bilateral adrenal glands. Normal right kidney. Normal left kidney. Normal visualized stomach. Normal small intestine. Normal colon. The appendix is visualized and appears normal. Normal abdominal aorta. Normal inferior vena cava. Normal retroperitoneum. Normal abdominal wall. Normal osseous structures. PELVIS Normal urinary bladder. There is no pelvic fluid. There is no pelvic lymphadenopathy or mass lesion. Normal visualized pelvic arteries. CT/CT Chest, Abd, Pel w/Contrast IMPRESSION: Significant right pleural effusion with slight interval reduction. There is significant collapse of the right lung Patchy right pulmonary infiltrates. There are pleural-based irregular masses. Mediastinal, right paratracheal and right hilar masses are noted. There is compression of the trachea. Paraesophageal nodule. Malignancy is suspected. Electronically Signed: Mariano Molina DO at 18:56 EST Tel [phone], Service support ,
--- NOTE | 2021-04-22 15:54 | CON.PCM.CC_ITS ---
Assessment & Plan Assessment/Plan (1) Pleural effusion, right: (2) Hilar mass: PLAN: RECOMMENDATIONS: 1. Obtain CTA of chest abdomen and pelvis 2. Potential biopsy pending results 3. May complete biopsy as an outpatient pending on findings 4. Repeat chest x-ray in a.m. if patient becomes more symptomatic 5. Walking oximetry prior to discharge IMPRESSIONS: 1. Acute respiratory insufficiency secondary to new onset right exudative pleural effusion Patient with thoracentesis and over 1700 cc removed. Chest x-ray still shows significant shadow, but CT was suggestive of loculated appearance. Patient does have what appears to be hilar adenopathy versus pleural-based masses. Fluid from thoracentesis is suggestive of a lymphocytic exudate, which is concerning for TB or more likely malignancy. Patient does not have any TB risk factors. Will obtain a CTA of the chest, abdomen and pelvis. If patient has difficulty getting biopsy, may complete as an outpatient. Patient will need a walking oximetry prior to discharge. If patient becomes more symptomatic, a repeat chest x-ray can be obtained in the morning. If patient has significant recurrence, transfer to a tertiary center for VATS procedure would be a consid eration. Given age, lymphoma is a significant risk. Will attempt to send fluid for flow cytometry. 2. Weight loss/hepatitis Complicates care, management, recovery and prognosis. Patient may have an element of congestive hepatology. Liver ultrasound showed some fatty liver disease. Patient is reportedly just a social drinker. HPI Consult Data Date of Consult: 04/22/21 HPI Narrative HPI Narrative: BARTOLO ROBERT is a 40 M, with past medical history listed below, who presents to [facility] 04/21/2021 secondary to shortness of breath and reported pneumothorax. Patient reportedly had become ill with rhinorrhea, cough and dyspnea back around [facility]. Patient felt that this had slowly progressed and on Anali went to an urgent care center where he was given prednisone and had a negative Covid test. Patient had developed some right upper quadrant discomfort and epigastric pain. Patient was seen by his PCP who then sent him in for evaluation by the ER. Patient was not hypoxic and denied any trauma. Patient did not have any aspiration events. Patient did report a 5 pound weight loss, but had attributed this to decreased appetite. In the ER, patient was tachycardic at 107 bpm, but normotensive and afebrile. Patient was saturating well on room air. Laboratory work-up was relatively unremarkable with a normal CBC, coagulation studies and chemistry. Patient did have some elevated liver enzymes and LDH. Albumin was slightly decreased at 3 and lactic acid was normal. BNP was within normal limits. A chest x-ray was noted to have a large right-sided pleural effusion. This was subsequently followed up with a noncontrasted CT showing a large right loculated pleural eff usion with collapse of the right lung. There does appear to be some pleural- based densities with tracheal deviation. Patient denies any history of smoking. Patient describes himself as a social drinker, drinking 3-4 drinks per week. Patient does not report any intoxication or aspiration events. Patient does not have any previous lung history. Patient reports some right upper quadrant discomfort, but no nausea or vomiting. No hemoptysis has been reported. Patient is not taking any herbal supplements. Patient does report a history of nausea associated with IV contrast. Patient does have some young children that like to roughhouse but there have been no incidences where he felt that he had sustained serious injury. Review of systems otherwise negative from a constitutional, HEENT, respiratory, cardiovascular, GI, genitourinary, musculoskeletal, skin, neurologic, psychiatric and hematologic system unless stated above. [facility] Medical History (Updated 04/21/21 @ 21:43 by Primitivo Cordero) Depression Migraines Non-smoker Vitamin D deficiency Medical History no medical history Home Medications cholecalciferol (vitamin D3) 25 mcg (1,000 unit) capsule 1,000 unit PO DAILY 08/30/18 [History Last Taken 04/21/21] Allergy/AdvReac Type Severity Reaction Status Date / Time codeine Allergy Nausea Verified 04/21/21 16:48 Iodinated Contrast Media Allergy Nausea Verified 04/21/21 16:48 [CONTRASTS] Family History (Updated 04/21/21 @ 19:[address] Kobi Mccann MD) Other Diabetes Heart disease Hypertension Surgical History H/O shoulder surgery History of ankle surgery Social History Smoking Status: Never smoker alcohol intake: never ROS ROS Narrative See HPI Physical Exam Const alert, oriented x3 and no apparent distress General Appearance: cooperative and well developed HEENT normocephalic, head/scalp atraumatic and moist oral mucous membranes Eyes PERRL and EOMs intact bilaterally Neck full ROM and no lymphadenopathy Chest inspection of chest normal Resp normal respiratory effort and no use of accessory muscles Effort and Inspection: able to speak in complete sentences Auscultation: clear to auscultation bilaterally; Negative for rales, rhonchi or wheezes Percussion: dullness Mid: right and Lower: right Cardio regular rate, regular rhythm, S1 normal heart sound, S2 normal heart sound, no murmurs, no rub and no gallops GI normal to inspection, nondistended, normoactive bowel sounds no CVA tenderness Extremity no clubbing, cyanosis or edema Skin no rashes or lesions noted Neuro oriented x3, CN's II-XII intact bilaterally, moves all extremities and no focal motor deficits Psych cooperative and affect normal Lab / Micro Data Result Diagrams: 04/22/21 08:30 04/22/21 08:30 Labs: Laboratory Results - last 24 hr 04/21/21 17:10: WBC 6.5, RBC 5.27, Hgb 14.8, Hct 44.8, MCV 85.0, MCH 28.1, MCHC 33.0, RDW Std Deviation 35.9, RDW Coeff of Vi 11.6, Plt Count 377, MPV 9.6, Immature Gran % (Auto) 0.500, Neut % (Auto) 48.3, Lymph % (Auto) 35.2, [place] % (Auto) 12.7 H, Eos % (Auto) 2.8, Baso % (Auto) 0.5, Absolute Neuts (auto) 3.1, Absolute Lymphs (auto) 2.28, Nucleated RBC % 0 04/21/21 17:10: PT 14.1, INR 1.2, APTT 29.8 04/21/21 17:10: Sodium 136, Potassium 3.9, Chloride 103, Carbon Dioxide 27.0, Anion Gap 6, BUN 20 H, Creatinine 1.16, Estim Creat Clear Calc 80.26, Est GFR (MDRD) Af Amer 88, Est GFR (MDRD) Non-Af 73, BUN/Creatinine Ratio 17.2, Glucose 99, Calcium 8.9, Total Bilirubin 0.60, Direct Bilirubin 0.29, AST 156 H, ALT 313 H, Alkaline Phosphatase 157 H, Lactate Dehydrogenase 461 H, Troponin I High Sens 6, Total Protein 8.2, Albumin 3.0 L, Globulin 5.2 H, Lipase 203 04/21/21 17:10: Lactic Acid 1.5 04/21/21 17:10: B-Natriuretic Peptide 8.7 04/22/21 08:30: WBC 8.5, RBC 5.38, Hgb 15.3, Hct 46.0, MCV 85.5, MCH 28.4, MCHC 33.3, RDW Std Deviation 36.7, RDW Coeff of Vi 11.9, Plt Count 360, MPV 9.3, Immature Gran % (Auto) 0.200, Neut % (Auto) 71.7 H, Lymph % (Auto) 17.3 L, [place] % (Auto) 9.9, Eos % (Auto) 0.7, Baso % (Auto) 0.2, Absolute Neuts (auto) 6.1, Absolute Lymphs (auto) 1.46, Nucleated RBC % 0 04/22/21 08:30: Sodium 134 L, Potassium 4.2, Chloride 101, Carbon Dioxide 26.0, Anion Gap 7, BUN 19 H, Creatinine 1.11, Estim Creat Clear Calc 83.87, Est GFR (MDRD) Af Amer 93, Est GFR (MDRD) Non-Af 77, BUN/Creatinine Ratio 17.1, Glucose 105, Calcium 9.6, Total Bilirubin 0.70, AST 97 H, ALT 252 H, Alkaline Phosphatase 149 H, Lactate Dehydrogenase 415 H, Total Protein 8.4 H, Albumin 3.1 L, Globulin 5.3 H, Albumin/Globulin Ratio 0.6 L 04/22/21 11:40: Fluid Glucose 85 H, Fluid Total Protein 5.3, Fluid LDH 1399 04/22/21 11:40: Fluid Source THORACENTESIS, Fluid Color RED, Fluid Appearance SL CLDY, Fluid WBC 2.774, Fluid RBC 0.074, Fluid Tot Cell Count 2.811, Fld Polynuclear WBCs # 0.020, Fld Polynuclear WBCs % 0.7, Fluid Mononuclear WBCs 2.754, Fld Mononuclear WBCs % 99.3, Fluid Neutrophils 2, Fluid Lymphocytes 83, Fluid Monocytes 14, Fld Mesothelial Cells 1, Fl Pathologist Comment May follow, Fluid Comment 2 SEE COMMENT Micro: Microbiology 04/22/21 11:40 Fluid - Thoracentesis Fluid Gram Stain - Final Radiology Impression Chest CT 04/21/21 17:21 IMPRESSION: There is a large right pleural effusion with collapse of the right lung. There are pleural-based densities along the right hemithorax. Malignancy is suspected. The right effusion slightly compresses and deviates the trachea to the left. Mediastinal and right hilar mass lesions. Evaluation is limited without intravenous contrast. Electronically Signed: Mariano Molina DO at 18:57 EST Tel [phone], Service support , Liver Ultrasound 04/22/21 05:55 IMPRESSION: Fatty infiltration of the liver. Electronically Signed: Conner Pierre MD at 10:01 EST , Service support , Thoracentesis Ultrasound 04/22/21 09:30 IMPRESSION: Ultrasound-guided right thoracentesis. Electronically Signed: Conner Pierre MD at 12:41 EST , Service support , Chest X-Ray 04/22/21 11:30 IMPRESSION: Status post right thoracentesis. No evidence of pneumothorax. Right pulmonary masses. The left lung is clear. Electronically Signed: Conner Pierre MD at 12:42 EST , Service support , Charges/Coding Visit Charges Inpatient E&M: 87441 Init Hosp L2
[2021-04-22] MEDS: 0.9% Saline Lock 10 ML Syringe IV (16:18)
[2021-04-22] MEDS: DiphenhydrAMINE 50 MG/ML Syringe IV (16:18)
[2021-04-22] MEDS: guaiFENesin 1,200 MG Tablet 1200 MG PO (22:03)
[2021-04-22] MEDS: LORazepam 0.5 MG Tablet PO (22:03)
[2021-04-23] VITALS (11 sets, daily range): BP systolic 102–134; BP diastolic 63–91; PULSE 92–111; RESP 16–18; TEMP 36.6–37.9; O2SAT 34–98; BMI 29.6
--- NOTE | 2021-04-23 | ASPIGT_PTH ---
PATIENT: BARTOLO ROBERT LOC: MS2 U#:[id number] AGE/SX: 40/M ROOM: [facility] [id number] RE04/21/[address]: Dr. Tawny Arroyo MD : 1980 BED: 1 DIS: 04/23/2021 SPEC #: [id number] RECD: 04/23/21 11:00 STATUS: ELMER JAVI #: [id number] SHEREE: 04/23/21 00:[address]: Pipo Lee DEPT: SURGICAL PATHOLOGY RECD BY: Roseanne Tamayo ENTERED: 04/23/21 13:32 SP TYPE: ASP RAD OTHR DR: MD Dr. Kobi Flores MD Dr. Paul Nielsen, MD Tissues: Pleural cavity, NOS Procedures: FNA Specimen Adequacy Special Stain Group II Surgery Specimen Level IV Imprint (control) HEADER OPERATION: Right mediastinal mass CT-guided needle core biopsy PRE-OP DIAGNOSIS: Pleural mass TISSUE SUBMITTED: Right mediastinal mass 18-gauge x7 MICROSCOPIC DIAGNOSIS Right mediastinal mass, CT-guided needle core biopsy: Malignant, necrotic small blue cell neoplasm See comment. AM:syed 04/29/2021 COMMENT The specimen is evaluated at the time of biopsy by Dr. Walsh. Immediate Evaluation = Numerous lymphocytes are noted. Immunohistochemistry ([id number]) does not favor a lymphoma. This case was discussed with Dr. Lee on 04/28/2021. Re-biopsy of lesion for procurement of additional tissue is recommended. An addendum will follow definitive classification of neoplasm. Case has been reviewed in consultation with Dr. Walsh who concurs with the above diagnosis. IDC:SJ MICROSCOPIC DESCRIPTION Slides are reviewed. GROSS DESCRIPTION Received in fixative is one container labeled with the patient's name and designated mediastinal mass, CT-guided core biopsy. The specimen consists of multiple irregular fragments of morse soft tissue that in aggregate measure 1 x 0.2 x 0.1 cm. The specimen is totally submitted in one cassette. A core is submitted for flow cytometry studies. Five touch imprints are prepared at the time of core biopsy. / SJ:rg 04/23/21 TC:0 [facility]: [id number], [id number] ADDENDUM ADDENDUM ADDENDUM ADDENDUM ADDENDUM ADDENDUM ADDENDUM 05/27/2021 11:43 ADDENDUM 06/03/2021 14:11 ADDENDUM 09/29/2021 09:52 ADDENDUM 05/27/2021 11:43 ADDENDUM 05/27/2021 11:43 ADDENDUM 05/27/2021 11:43 ADDENDUM 05/27/2021 11:43 This case was seen in consultation with Dr. 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 The complete consultative report is viewable in EMR. Case has been reviewed in consultation with Dr. Walsh who concurs with the above diagnosis. IDC:SJ FISH probe XL EWSR1 (22q12) cancelled on block due to insufficient lesional tissue seen ([employer] This addendum is added to incorporate an outside pathology consultation report. The case was examined at [facility] (#[id number]) and the following diagnosis was rendered. 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 Please see complete above mentioned consultation report in EMR
--- NOTE | 2021-04-23 | IMM_PTH ---
PATIENT: BARTOLO ROBERT LOC: MS2 U#:[id number] AGE/SX: 40/M [place] [facility] [id number]04/21/[address]: Dr. Tawny Arroyo MD : 1980 BED: 1 DIS: 04/23/2021 SPEC #: [id number] RECD: 04/24/21 14:17 STATUS: SOUDiomedes REQ #: [id number] SHEREE: 04/23/21 00:[address]: Pipo Lee DEPT: IMMUNOHISTOCHEMISTRY RECD BY: Juani Siegel ENTERED: 04/24/21 14:20 SP TYPE: IMMUNO OTHR DR: MD Dr. Kobi Flores MD Dr. Paul Nielsen, MD Tissues: Mediastinum, NOS Procedures: Synapto (add) RCC (add) Thyroglobulin (add) NAPSIN A (add) BCL-2 (add) BCL-6 (add) CD10 (add) CD138 (add) CD15 (add) CD20 (add) CD23 (add) CD3 (add) CD30 (add) CD43 (add) CD45 (add) CD5 (add) CD56 (add) CD79A (add) CEA (add) CHROMO (add) CK14 (add) CK20 (add) CK7 (add) CK8 (add) POZO-2 (add) CYCLIN (add) NATALIE (add) HEP PAR (add) KAPPA (add) KI-67 (add) LAMBDA (add) MPO (add) P53 (add) TTF1 (add) Vimentin (add) 34BE12 (add) MUM1 (add) C-MYC (add) Pankeratin (initial) P40 (add) PSAP (add) NSE (add) S-100 (add) PHYSICIAN & INSTITUTION [address] [address] SPECIMEN INFORMATION: Tissue Source: Right mediastinal mass Clinical Info: Right mediastinal mass Specimen Number: [id number] CPT code: 14707, 97740 x42 METHODOLOGY: Deparaffinized sections of prefer/formalin-fixed tissue or PAP/DQ stained slides are incubated with monoclonal/polyclonal antibodies/oligonucleotide probes. Localization is made via biotin free immunoperoxidase method. Appropriate controls are performed and reacted as expected. Results on target cell population are indicated in the following table: RESULTS: ANTIBODY / CLONE RESULT AE1-3 (AE1/AE3/PCK26) negative CK7 (OV-TL12/30) negative CK8 (46cowhJ68) negative CK20 (KS20.8) negative POZO-2 (SP21) negative Vimentin (V9) positive 34BE12 (34BE12) negative S-100 (4C4.9) negative CD56 (123C3.D5) positive, focal Chromo (LK2H10) negative Synapto (polyclonal) negative NSE Neuron Specific Enolase positive TTF-1 (8G7G3/1) negative Napsin A (Rabbit Polyclonal) negative HepPar (OCh1E5) negative RCC (PN-15) negative PSAP (PASE/4LJ) negative Thyro (2H11+6E1) negative CK14 (LL002) negative P40 (BC28) negative NATALIE (E29) negative CEA (11-7/TF-3HB-1) negative P53 (DO-7) positive, 5% Ki-67 (30-9) positive, 75% CD3 (PS1) negative CD5 (SP10) negative CD10 (56C6) negative CD15 (MMA) negative CD20 (L26) negative CD23 (1B12) negative CD30 (Irving-H2) negative CD43 (L60) negative CD45 (RP2/18) negative CD79a (11E3) negative CD138 (B-A38) negative BCL-2 (bcl-2/100/D5) negative BCL-6 (BQ663B/A8) negative Cyclin D1/BCL-1 (SP4) negative MUM1 (MRQ-43) negative C-MYC (Y69) positive MPO (polyclonal) negative Wren (polyclonal) negative Lambda (polyclonal) negative These tests were developed and their performance characteristics determined by [facility]. They may not have been cleared or approved by the U.S. Food and Drug Administration. The FDA has determined that such clearance or approval is not necessary. The above immunohistochemical/dualISH markers are ordered and reviewed by the Pathologist. INTERPRETATION: Right mediastinal mass, biopsy: Malignant necrotic small blue cell neoplasm. See comment. AM:syed 04/29/2021 Comment: The findings are consistent with malignant neoplasm with blue cell morphology. There is no evidence of lymphoma. FLOW studies were cancelled due to paucity of viable tumor cells. Additional studies will be performed on re-biopsied issue for a more definitive classification and an addendum will follow. Case has been reviewed in consultation with Dr. Walsh who concurs with the above diagnosis. IDC:ERIKA
[2021-04-23 05:48] LABS: Absolute Neutrophil Count 7.3 X10^3/uL (2.0-7.7); Basophil# 0.01 X10^3/uL; Basophil% 0.1 % (0-1); Eosinophil# 0.03 X10^3/uL; Eosinophils% 0.3 % (0-5); Hematocrit 46.1 % (40-54); Hemoglobin 15.5 g/dL (13.0-16.5); Lymphocyte % 17.7 % (19-41); Mean Corp Hgb Conc 33.6 g/dL (32-36); Mean Corpuscular Hgb 28.8 pg (27.0-32.0); Mean Corpuscular Volume 85.5 fL (80-94); Mean Platelet Vol. 9.5 fl (6.2-12.0); Monocyte# 1.01 X10^3/uL; Monocyte% 9.9 % (0-10); NRBC Flagged by Analyzer 0 % (0-5); Neutrophil # 7.28 X10^3/uL (2.7-7.7); Neutrophil % 71.6 % (47-70); Platelet Count 393 K/mm3 (150-450); RBC Distribution Width CV 11.8 % (11.6-14.6); RBC Distribution Width SD 36.6 fl (35.1-43.9); Red Blood Count 5.39 M/mm3 (4.6-6.2); White Blood Count 10.2 K/mm3 (4.4-11.0)
[2021-04-23 06:12] LABS: ALB/GLOB Ratio 0.6 RATIO (0.9-2.4); AST(SGOT) 55 U/L (15-37); Alanine Aminotransfer ALT/SGPT 189 U/L (16-61); Albumin, Serum 3.1 g/dL (3.2-5.0); Alkaline Phosphatase 143 U/L (45-117); Anion Gap 10 (5-15); BUN 22 mg/dL (7-18); BUN/Creat Ratio 20.4 RATIO (10-20); Calcium,Total 9.8 mg/dL (8.5-10.1); Chloride 101 mmol/L (98-107); Creatinine, Serum 1.08 mg/dL (0.70-1.30); EST Glomerular Filtration Rate 79 mL/min (>60); Est Glom Filt Rate - Afr Amer 96 mL/min (>60); Globulin 5.5 g/dL (2.2-4.2); Glucose 110 mg/dL (74-106); Potassium 4.1 mmol/L (3.5-5.1); Protein, Total 8.6 g/dL (6.4-8.2); Sodium Level 135 mmol/L (136-145)
[2021-04-23 07:08] LABS: HEPATITIS B SURFACE AG Negative (Negative); Hepatitis A IgM Antibody Negative (Negative); Hepatitis B Core AB IgM Negative (Negative)
--- NOTE | 2021-04-23 08:13 | PN.CC_ITS ---
Assessment & Plan Assessment/Plan (1) Pleural effusion, right: (2) Hilar mass: PLAN: RECOMMENDATIONS: 1. Obtain CT-guided biopsy later today 2. Await flow cytometry from pleural fluid 3. Okay to discharge if no complications from CT-guided biopsy 4. Patient will follow up in our office once pathology results are available 5. Walking oximetry prior to discharge IMPRESSIONS: 1. Acute respiratory insufficiency secondary to new onset right exudative pleural effusion Patient with thoracentesis and over 1700 cc removed. Chest x-ray still shows significant shadow, but CT was suggestive of loculated appearance. Patient does have what appears to be hilar adenopathy versus pleural-based masses. Fluid from thoracentesis is suggestive of a lymphocytic exudate, which is concerning for TB or more likely malignancy. Patient does not have any TB risk factors. Findings on CT scan are suggestive of possible lymphoma. Patient will have a CT-guided biopsy today. If able to tolerate this, anticipate discharge later today. Once biopsy results are available, patient will have an outpatient office appointment with myself. Patient does not need to remain hospitalized waiting on results. 2. Weight loss/hepatitis Complicates care, management, recovery and prognosis. Patient may have an element of congestive hepatology. Liver ultrasound showed some fatty liver disease. Patient is reportedly just a social drinker. Subjective Subjective Patient is doing well this morning. Patient states he is having a cough pr oductive of green sputum, but no fever overnight. Patient is not reporting any chest pain. Patient has not had any significant dyspnea on exertion. Objective Data Objective Data Vital Signs: Vital Signs Temp Pulse Resp BP Pulse Ox 37.9 C H 104 H 18 123/81 H 94 04/23/21 07:00 04/23/21 07:00 04/23/21 07:00 04/23/21 07:00 04/23/21 07:00 Oxygen Flow Rate (L/min) [4] 3 Oxygen Flow Rate (L/min) [3] 3 Oxygen Flow Rate (L/min) [2] 3 Oxygen Flow Rate (L/min) [1 ( 3 Initial Baseline)] Oxygen Flow Rate (L/min) 2 Oxygen Delivery Method [4] Nasal Cannula Oxygen Delivery Method [3] Nasal Cannula Oxygen Delivery Method [2] Nasal Cannula Oxygen Delivery Method [1 ( Nasal Cannula Initial Baseline)] Oxygen Delivery Method Room Air Weight: 87.9 kg Body Mass Index (BMI) 29.5 Intake & Output: Intake and Output for Last 24 Hours 04/21/21 04/22/21 04/23/21 23:59 23:59 23:59 Intake Total 800 / 800 Output Total 1700 / 1700 Balance -900 / -900 Lab / Micro Data Result Diagrams: 04/23/21 05:15 04/23/21 05:15 Labs: Laboratory Results - last 24 hr 04/22/21 08:30: WBC 8.5, RBC 5.38, Hgb 15.3, Hct 46.0, MCV 85.5, MCH 28.4, MCHC 33.3, RDW Std Deviation 36.7, RDW Coeff of Vi 11.9, Plt Count 360, MPV 9.3, Immature Gran % (Auto) 0.200, Neut % (Auto) 71.7 H, Lymph % (Auto) 17.3 L, [place] % (Auto) 9.9, Eos % (Auto) 0.7, Baso % (Auto) 0.2, Absolute Neuts (auto) 6.1, Absolute Lymphs (auto) 1.46, Nucleated RBC % 0 04/22/21 08:30: Sodium 134 L, Potassium 4.2, Chloride 101, Carbon Dioxide 26.0, Anion Gap 7, BUN 19 H, Creatinine 1.11, Estim Creat Clear Calc 83.87, Est GFR (MDRD) Af Amer 93, Est GFR (MDRD) Non-Af 77, BUN/Creatinine Ratio 17.1, Glucose 105, Calcium 9.6, Total Bilirubin 0.70, AST 97 H, ALT 252 H, Alkaline Phosphatase 149 H, Lactate Dehydrogenase 415 H, Total Protein 8.4 H, Albumin 3.1 L, Globulin 5.3 H, Albumin/Globulin Ratio 0.6 L 04/22/21 11:40: Fluid Glucose 85 H, Fluid Total Protein 5.3, Fluid LDH 1399 04/22/21 11:40: Fluid Source THORACENTESIS, Fluid Color RED, Fluid Appearance SL CLDY, Fluid WBC 2.774, Fluid RBC 0.074, Fluid Tot Cell Count 2.811, Fld Polynuclear WBCs # 0.020, Fld Polynuclear WBCs % 0.7, Fluid Mononuclear WBCs 2.754, Fld Mononuclear WBCs % 99.3, Fluid Neutrophils 2, Fluid Lymphocytes 83, Fluid Monocytes 14, Fld Mesothelial Cells 1, Fl Pathologist Comment May follow, Fluid Comment 2 SEE COMMENT 04/23/21 05:15: WBC 10.2, RBC 5.39, Hgb 15.5, Hct 46.1, MCV 85.5, MCH 28.8, MCHC 33.6, RDW Std Deviation 36.6, RDW Coeff of Vi 11.8, Plt Count 393, MPV 9.5, Immature Gran % (Auto) 0.400, Neut % (Auto) 71.6 H, Lymph % (Auto) 17.7 L, [place] % (Auto) 9.9, Eos % (Auto) 0.3, Baso % (Auto) 0.1, Absolute Neuts (auto) 7.3, Absolute Lymphs (auto) 1.80, Nucleated RBC % 0 04/23/21 05:15: Sodium 135 L, Potassium 4.1, Chloride 101, Carbon Dioxide 24.0, Anion Gap 10, BUN 22 H, Creatinine 1.08, Estim Creat Clear Calc 86.20, Est GFR (MDRD) Af Amer 96, Est GFR (MDRD) Non-Af 79, BUN/Creatinine Ratio 20.4 H, Glucose 110 H, Calcium 9.8, Total Bilirubin 0.60, AST 55 H, ALT 189 H, Alkaline Phosphatase 143 H, Total Protein 8.6 H, Albumin 3.1 L, Globulin 5.5 H, Albumin/Globulin Ratio 0.6 L Micro: Microbiology 04/22/21 11:40 Fluid - Thoracentesis Fluid Gram Stain - Final Radiography Diagnostic Testing: Radiology Impression Liver Ultrasound 04/22/21 05:55 IMPRESSION: Fatty infiltration of the liver. Electronically Signed: Conner Pierre MD at 10:01 EST , Service support , Thoracentesis Ultrasound 04/22/21 09:30 IMPRESSION: Ultrasound-guided right thoracentesis. Electronically Signed: Conner Pierre MD at 12:41 EST , Service support , Chest X-Ray 04/22/21 11:30 IMPRESSION: Status post right thoracentesis. No evidence of pneumothorax. Right pulmonary masses. The left lung is clear. Electronically Signed: Conner Pierre MD at 12:42 EST , Service support , Chest/Abdomen/Pelvis CT 04/22/21 15:36 IMPRESSION: Significant right pleural effusion with slight interval reduction. There is significant collapse of the right lung Patchy right pulmonary infiltrates. There are pleural-based irregular masses. Mediastinal, right paratracheal and right hilar masses are noted. There is compression of the trachea. Paraesophageal nodule. Malignancy is suspected. Electronically Signed: Mariano Molina DO at 18:56 EST Tel [phone], Service support , Physical Exam Const alert, oriented x3 and no apparent distress General Appearance: cooperative and well developed HEENT normocephalic, head/scalp atraumatic and moist oral mucous membranes Eyes PERRL and EOMs intact bilaterally Neck full ROM and no lymphadenopathy Chest inspection of chest normal Resp normal respiratory effort and no use of accessory muscles Effort and Inspection: able to speak in complete sentences Auscultation: clear to auscultation bilaterally; Negative for rales, rhonchi or wheezes Percussion: dullness Mid: right and Lower: right Cardio regular rate, regular rhythm, S1 normal heart sound, S2 normal heart sound, no murmurs, no rub and no gallops GI normal to inspection, nondistended, normoactive bowel sounds no CVA tenderness Extremity no clubbing, cyanosis or edema Skin no rashes or lesions noted Neuro oriented x3, CN's II-XII intact bilaterally, moves all extremities and no focal motor deficits Psych cooperative and affect normal Charges/Coding Visit Charges Inpatient E&M: 29292 Subs Hosp L2
--- NOTE | 2021-04-23 11:25 | CT_ITS ---
PROCEDURE: CT GUIDED CORE NEEDLE BIOPSY OF A right upper mediastinal LESION INDICATION: Male, 40 years old. Mediastinal and pleural masses. PHYSICIAN: Dr. ADELITA STEVENS CONSENT: Written informed consent was obtained having explained the risks, benefits and alternatives in detail with the patient who accepted the risks and agreed to proceed. Laboratory review and clinical assessment was performed. CONSCIOUS SEDATION PROTOCOL: The Drugs used were: 2 mg Versed, IV., and 50 mcg Fentanyl, IV. The sedation time was: 24 minutes. Conscience sedation was started 11:28 AM and terminated at 11:52 AM. The conscious sedation protocol was independently monitored. RADIATION DOSAGE (If Supplied By Facility): CTDIvol = ( 10 ) mGy, DLP = ( 494.54 ) mGycm Individualized dose optimization techniques were used for this CT. TECHNIQUE: The patient was placed in the prone position. A noncontrast CT was performed to localize the lesion in the upper right mediastinum . The skin surface was prepped and draped in a sterile fashion. 1% lidocaine was used for local anesthesia. Using CT guidance, a 18-gauge coaxial biopsy device was advanced to the periphery of the lesion. A total of 7 core specimens were obtained. The specimens were placed in a formalin solution. A post procedure CT demonstrated no adverse sequelae or pneumothorax. The patient tolerated the procedure well without adverse event. A negative biopsy does not exclude malignancy. Further imaging or clinical followup based on patient condition and degree of clinical suspicion for malignancy. Suggest rebiopsy, if biopsy results do not match with clinical scenario. CT/Biopsy/Inj or Needle Placement IMPRESSION: 1. CT directed core needle biopsy of the right upper mediastinal mass using CT image guidance with image documentation as described. Pathology results are pending. 2. Conscious Sedation protocol utilized with independent monitoring. Electronically Signed: Conner Pierre MD at 12:24 EST , Service support ,
[2021-04-23] MEDS: fentaNYL 100 MCG/2 ML Ampul IV (11:28)
[2021-04-23] MEDS: Midazolam 2 MG/2 ML Syringe IV (11:29)
[2021-04-23] MEDS: Lidocaine 2% (20 ml mdv) 20 ML Vial INFILT (11:30)
[2021-04-23] MEDS: 0.9% Saline Lock 10 ML Syringe IV (11:31)
--- NOTE | 2021-04-23 13:01 | PN.HOSP_ITS ---
Subjective Subjective Follow-up on acute massive pleural effusion: Patient was seen and examined. He had a CT-guided biopsy of right mediastinal upper mass today. Patient overnight developed low-grade fevers. COVID-19 PCR is negative. Objective Data Objective Data Vital Signs: Vital Signs Temp Pulse Resp BP Pulse Ox 98.8 F 101 H 16 118/84 H 93 04/23/21 10:51 04/23/21 12:47 04/23/21 12:47 04/23/21 12:47 04/23/21 12:47 Oxygen Flow Rate (L/min) [6] 2 Oxygen Flow Rate (L/min) [5] 2 Oxygen Flow Rate (L/min) [4] 2 Oxygen Flow Rate (L/min) [3] 2 Oxygen Flow Rate (L/min) [2] 2 Oxygen Flow Rate (L/min) [1 ( 2 Initial Baseline)] Oxygen Flow Rate (L/min) 2 Oxygen Delivery Method [6] Nasal Cannula Oxygen Delivery Method [5] Nasal Cannula Oxygen Delivery Method [4] Nasal Cannula Oxygen Delivery Method [3] Nasal Cannula Oxygen Delivery Method [2] Nasal Cannula Oxygen Delivery Method [1 ( Nasal Cannula Initial Baseline)] Oxygen Delivery Method Room Air Weight: 88.451 kg Body Mass Index (BMI) 29.6 Intake & Output: Intake and Output for Last 24 Hours 04/21/21 04/22/21 04/23/21 23:59 23:59 23:59 Intake Total 800 / 800 Output Total 1700 / 1700 Balance -900 / -900 Lab / Micro Data Result Diagrams: 04/23/21 05:15 04/23/21 05:15 Labs: Laboratory Results - last 24 hr 04/22/21 11:40: Fluid Glucose 85 H, Fluid Total Protein 5.3, Fluid LDH 1399 04/22/21 11:40: Fluid Source THORACENTESIS, Fluid Color RED, Fluid Appearance SL CLDY, Fluid WBC 2.774, Fluid RBC 0.074, Fluid Tot Cell Count 2.811, Fld Polynuclear WBCs # 0.020, Fld Polynuclear WBCs % 0.7, Fluid Mononuclear WBCs 2.754, Fld Mononuclear WBCs % 99.3, Fluid Neutrophils 2, Fluid Lymphocytes 83, Fluid Monocytes 14, Fld Mesothelial Cells 1, Fl Pathologist Comment May follow, Fluid Comment 2 SEE COMMENT 04/23/21 05:15: WBC 10.2, RBC 5.39, Hgb 15.5, Hct 46.1, MCV 85.5, MCH 28.8, MCHC 33.6, RDW Std Deviation 36.6, RDW Coeff of Vi 11.8, Plt Count 393, MPV 9.5, Immature Gran % (Auto) 0.400, Neut % (Auto) 71.6 H, Lymph % (Auto) 17.7 L, [place] % (Auto) 9.9, Eos % (Auto) 0.3, Baso % (Auto) 0.1, Absolute Neuts (auto) 7.3, Absolute Lymphs (auto) 1.80, Nucleated RBC % 0 04/23/21 05:15: Sodium 135 L, Potassium 4.1, Chloride 101, Carbon Dioxide 24.0, Anion Gap 10, BUN 22 H, Creatinine 1.08, Estim Creat Clear Calc 86.20, Est GFR (MDRD) Af Amer 96, Est GFR (MDRD) Non-Af 79, BUN/Creatinine Ratio 20.4 H, Glucose 110 H, Calcium 9.8, Total Bilirubin 0.60, AST 55 H, ALT 189 H, Alkaline Phosphatase 143 H, Total Protein 8.6 H, Albumin 3.1 L, Globulin 5.5 H, Albumin/Globulin Ratio 0.6 L 04/23/21 10:05: COVID-19 (ANALISA) Not Detected Micro: Microbiology 04/22/21 11:40 Fluid - Thoracentesis Fluid Gram Stain - Final 04/22/21 11:40 Fluid - Thoracentesis Fluid Body Fluid Culture - Preliminary No growth-Final to follow Radiography Diagnostic Testing: Radiology Impression Chest/Abdomen/Pelvis CT 04/22/21 15:36 IMPRESSION: Significant right pleural effusion with slight interval reduction. There is significant collapse of the right lung Patchy right pulmonary infiltrates. There are pleural-based irregular masses. Mediastinal, right paratracheal and right hilar masses are noted. There is compression of the trachea. Paraesophageal nodule. Malignancy is suspected. Electronically Signed: Mariano Molina DO at 18:56 EST Tel [phone], Service support , Biopsy CT 04/23/21 11:25 IMPRESSION: 1. CT directed core needle biopsy of the right upper mediastinal mass using CT image guidance with image documentation as described. Pathology results are pending. 2. Conscious Sedation protocol utilized with independent monitoring. Electronically Signed: Conner Pierre MD at 12:24 EST , Service support , Physical Exam Narrative Physical exam: General: Alert, Oriented x3, Cooperative, No apparent distress, Well developed, comfortable, off oxygen HEENT: Atraumatic Oral: Moist Mucosa Neck: Supple Lungs: Decreased air entry from right middle to lower lung zone, no wheezes heard Cardiovascular: HS I+II, regular, no murmurs Abdomen: Bowel Sounds Present, Soft, Non Tender Extremities: No edema Assessment & Plan Assessment/Plan (1) Pleural effusion, right: (2) Elevated liver enzymes: PLAN: 1. Acute hypoxic respiratory insufficiency secondary to acute massive right pleural effusion, exudative in nature Status post thoracocentesis on 04/22/21; 1700 mils of reddish fluid was removed Pleural effusion seen on on admitting chest x-ray and CTA of the chest with associated right lung collapse, tracheal deviation, mediastinal or hilar masses Patient remains on 2 L of oxygen 2. Probable malignancy, repeat chest x-ray post right thoracocentesis shows right pulmonary masses. CT of the abdomen and pelvis shows persistent collapse of the right lung, pleural-based irregular masses, mediastinal, right paratracheal and right hilar masses with compression of the trachea Status post CT-guided biopsy of right upper mediastinal lesion today Information Assurance Officer following 3. Elevated liver enzymes, likely secondary to fatty liver, continues to trend down Ultrasound of liver shows fatty liver Hepatitis profile pending 4. DVT prophylaxis?SCDs Charges/Coding Visit Charges Inpatient E&M: 73486 Subs Hosp L3
[2021-04-23 13:17] LABS: Pathologist Comment/Body Fluid Reviewed
[2021-04-23 14:08] LABS: Hep C Antibodies <0.1 s/co ratio (0.0-0.9)
--- NOTE | 2021-04-23 14:17 | PCM.DC ---
Discharge Instructions Diet Discharge Diet: No restrictions Activity Discharge Activity: Return to Normal Activity Weight Bearing Status: Weight bearing as tolerated Follow Up Care Test Results: Test results from this visit will be discussed in further detail at your follow-up appointment, if applicable. Discharge Plan Admission Admit Date/Time: 04/21/21 19:24 Primary Reason for Your Visit: Acute right pleural effusion Attending Provider: Tawny Arroyo Primary Care Provider: Trey Fitzgerald Consulting Providers: Pipo Lee Instructions Patient Instructions: Image-Guided Biopsy, Procedural Sedation Additional Instructions / Restrictions: Continue to use incentive spirometer. Follow-up with pulmonology as scheduled Discharge Orders/Prescriptions Prescriptions: No Action cholecalciferol (vitamin D3) 1,000 unit capsule 1,000 unit capsule 1,000 unit PO DAILY RF: 0 Referrals / Follow Up: Pipo Lee MD [STAFF PHYSICIAN] - In 1 Week Trey Fitzgerald MD [Primary Care Provider] - Within 2 Weeks Disposition Disposition (needs filled in before D/C Order can be placed): Home, Self Care
--- NOTE | 2021-04-23 14:19 | PCM.DC.SUM ---
Providers Date of Admission: 04/21/21 Date of Discharge: 04/23/21 Primary Care Physician: Dr. Trey Fitzgerald MD Consultations 04/21/21 21:12 Consult: Budget Consultant / Pulmonary Medicine Routine Consulting Provider: Pipo Lee Reason for Consult: Pleural effusion and masses EMERGENT Consult: No MD Notified: Yes Date Notified: 04/22/21 Time Notified: 07:28 Method of Notification: Verbal Reason For Visit: RIGHT PLEURAL EFFUSION Diagnosis Discharge Diagnosis (1) Pleural effusion, right: Status: Acute Code(s): J90 - Pleural effusion, not elsewhere classified (2) Elevated liver enzymes: Status: Acute Code(s): R74.8 - Abnormal levels of other serum enzymes Medications at Discharge Home Medications cholecalciferol (vitamin D3) 25 mcg (1,000 unit) capsule 1,000 unit PO DAILY 08/30/18 Hospital Course Operations None Procedures None Summary of Care Provided Minutes Spent on Discharge: 45 Hospital Course: 38-year-old male who presents with progressive shortness of breath ongoing for some days. Patient admits to dyspnea on exertion. Chest x-ray was done in the outpatient that showed collapsed right lung with massive pleural effusion was asked to come to the emergency room. Patient underwent thoracocentesis on 04/22/21 that showed exudative pleural effusion with pulmonary masses, pleural-based masses and mediastinal and hilar adenopathy. Patient was off oxygen after thoracocentesis. He had CT-guided biopsy of the right upper mediastinal masses. Patient was evaluated for home oxygen and did not qualify. He was encouraged to use his incentive spirometer and monitor his oxygen saturations. He will follow-up within a week with pulmonology in the outpatient. Physical Exam Narrative See progress note Weight / BMI Weight Weight: 88.451 kg Body Mass Index (BMI) 29.6 ABG / Lab / Microbiology Data Result Diagrams: 04/23/21 05:15 04/23/21 05:15 Laboratory: Laboratory Results - last 24 hr 04/21/21 17:10: Hepatitis A IgM Ab Negative, Hep Bs Antigen Negative, Hep B Core IgM Ab Negative, Hepatitis C Ab (EIA) <0.1 04/22/21 11:40: Fluid Neutrophils 2, Fluid Lymphocytes 83, Fluid Monocytes 14, Fld Mesothelial Cells 1, Fl Pathologist Comment Reviewed 04/23/21 05:15: WBC 10.2, RBC 5.39, Hgb 15.5, Hct 46.1, MCV 85.5, MCH 28.8, MCHC 33.6, RDW Std Deviation 36.6, RDW Coeff of Vi 11.8, Plt Count 393, MPV 9.5, Immature Gran % (Auto) 0.400, Neut % (Auto) 71.6 H, Lymph % (Auto) 17.7 L, [place] % (Auto) 9.9, Eos % (Auto) 0.3, Baso % (Auto) 0.1, Absolute Neuts (auto) 7.3, Absolute Lymphs (auto) 1.80, Nucleated RBC % 0 04/23/21 05:15: Sodium 135 L, Potassium 4.1, Chloride 101, Carbon Dioxide 24.0, Anion Gap 10, BUN 22 H, Creatinine 1.08, Estim Creat Clear Calc 86.20, Est GFR (MDRD) Af Amer 96, Est GFR (MDRD) Non-Af 79, BUN/Creatinine Ratio 20.4 H, Glucose 110 H, Calcium 9.8, Total Bilirubin 0.60, AST 55 H, ALT 189 H, Alkaline Phosphatase 143 H, Total Protein 8.6 H, Albumin 3.1 L, Globulin 5.5 H, Albumin/Globulin Ratio 0.6 L 04/23/21 10:05: COVID-19 (ANALISA) Not Detected Microbiology: Microbiology 04/22/21 11:40 Fluid - Thoracentesis Fluid Gram Stain - Final 04/22/21 11:40 Fluid - Thoracentesis Fluid Body Fluid Culture - Preliminary No growth-Final to follow Radiography Diagnostic Testing: Radiology Impression Chest/Abdomen/Pelvis CT 04/22/21 15:36 IMPRESSION: Significant right pleural effusion with slight interval reduction. There is significant collapse of the right lung Patchy right pulmonary infiltrates. There are pleural-based irregular masses. Mediastinal, right paratracheal and right hilar masses are noted. There is compression of the trachea. Paraesophageal nodule. Malignancy is suspected. Electronically Signed: Mariano Molina DO at 18:56 EST Tel [phone], Service support , Biopsy CT 04/23/21 11:25 IMPRESSION: 1. CT directed core needle biopsy of the right upper mediastinal mass using CT image guidance with image documentation as described. Pathology results are pending. 2. Conscious Sedation protocol utilized with independent monitoring. Electronically Signed: Conner Pierre MD at 12:24 EST , Service support , D/C Instructions Discharge Diet: No restrictions Weight Bearing Status: Weight bearing as tolerated Meaningful Use Info Meaningful Use Diagnoses (Choose all that apply): None applicable Discharge Plan Admission Admit Date/Time: 04/21/21 19:24 Primary Reason for Your Visit: Acute right pleural effusion Attending Provider: Tawny Arroyo Primary Care Provider: Trey Fitzgerald Consulting Providers: Pipo Lee Instructions Patient Instructions: Image-Guided Biopsy, Procedural Sedation Additional Instructions / Restrictions: Continue to use incentive spirometer. Monitor your oxygen levels with a pulse ox. Follow-up with pulmonology as scheduled Discharge Orders/Prescriptions Prescriptions: Continued cholecalciferol (vitamin D3) 1,000 unit capsule 1,000 unit capsule 1,000 unit PO DAILY RF: 0 Referrals / Follow Up: Pipo Lee MD [STAFF PHYSICIAN] - In 1 Week Trey Fitzgerald MD [Primary Care Provider] - Within 2 Weeks Disposition Disposition (needs filled in before D/C Order can be placed): Home, Self Care Charges/Coding Visit Charges Inpatient E&M: 41278 Disch Hosp
== END 2021-04-23 15:30 | disposition home or self-care (01) | DRG 167 ==
LOC: ED 18:00 → MS2 20:43
PROVIDERS: Internal Medicine Critical Care Medicine; Admitting Provider Hospitalist; Emergency Provider Emergency Medicine; PCP Family Medicine; Visit Provider Internal Medicine
DX: J90 Pleural effusion, not elsewhere classified (principal); C38.3 Malignant neoplasm of mediastinum, part unspecified; J98.19 Other pulmonary collapse; J39.8 Other specified diseases of upper respiratory tract; K76.0 Fatty (change of) liver, not elsewhere classified; R19.8 Other specified symptoms and signs involving the digestive system and abdomen; E55.9 Vitamin D deficiency, unspecified; R59.0 Localized enlarged lymph nodes; R63.4 Abnormal weight loss; Z68.31 Body mass index [BMI] 31.0-31.9, adult
CPT/HCPCS: 32555; 36415; 71046; 71250; 71260; 74177; 76705; 77012; 80048; 80053; 80074; 80076; 82945; 83605; 83615; 83690; 83880; 84157; 84484; 85025; 85610; 85730; 87070; 87075; 87205; 87635; 88108; 88172; 88305; 88313; 88341; 88342; 89050; 97802; 99156; 99285; J7040; Q9967; A4216; U0003; U0005

== ENCOUNTER 2021-05-02 08:13 | Outpatient (CLI) | payer OTHER, SELFPAY ==
--- NOTE | 2021-05-02 08:16 | NM_ITS ---
CLINICAL: 40-year-old male with reported history of carcinoma of the lung. WHOLE BODY 99m Tc MDP RADIONUCLIDE BONE SCINTIGRAPHY COMPARISON: CT of the chest, abdomen and pelvis reports 04/22/2021, FDG PET CT study report 04/30/2021 FINDINGS: Following the intravenous administration of 26.0 mCi of 99m Tc MDP, whole body bone images reveal: 1. Increased radiopharmaceutical concentration is defined in the right posterior lateral ninth rib, bilateral inferior pubic ramus, the right femoral neck. 2. Enhanced tracer uptake is observed in the acromioclavicular compartments of both shoulders, patellofemoral compartment of the right knee. 3. The remaining skeletal structures are scintigraphically unremarkable with normal-appearing renal images and urinary bladder activity identified. There is facilitated uptake visualized in the bilateral maxilla most consistent with periodontal disease and/or periostitis. NM/Bone Scan Whole Body IMPRESSION: 1. The increase in tracer uptake observed in the right posterior lateral ninth rib, right-left inferior pubic ramus and right femoral neck may be further investigated with plain film radiography in the setting of known primary breast carcinoma. 2. Degenerative arthritis appears expressed in the bilateral shoulders, the right knee. Electronically Signed: Bienvenido Stover DO at 13:19 EST Tel , Service support ,
== END 2021-05-02 23:59 | disposition short-term general hospital (02) ==
LOC: NM 08:16
PROVIDERS: PCP Family Medicine; Referring Provider Internal Medicine Medical Oncology; Visit Provider Internal Medicine Medical Oncology
DX: R91.8 Other nonspecific abnormal finding of lung field (principal)
CPT/HCPCS: 78306; A9503

== ENCOUNTER 2021-05-05 10:17 | Outpatient (CLI) | payer OTHER, SELFPAY ==
--- NOTE | 2021-05-05 10:17 | MRI_ITS ---
STUDY: MRI BRAIN WITH AND WITHOUT CONTRAST REASON FOR EXAM: Male, 40 years old. INITIAL STAGING TECHNIQUE: Standardized multiplanar fat and water weighted pulse sequences were obtained. IV 18 CC DOTAREM was administered for the contrast portion of the examination. COMPARISON: None. FINDINGS: Normal size of the ventricles and extra-axial spaces for the patient''s age. Normal white matter tracts of the supratentorial brain. Normal bilateral basal ganglia. Normal thalami. There is no extra-axial fluid accumulation. There is no enhancing intra-axial or extra-axial abnormality. Normal sella turcica, pituitary gland, infundibular stalk, optic chiasm and hypothalamus. Normal tectal plate and pineal gland. Normal midbrain, cassandra and medulla. Normal cerebellum. Normal basal cisterns. Normal bilateral temporal bones. Normal bilateral internal auditory canals. MRI/Brain W/WO Contrast IMPRESSION: No evidence of intracranial metastatic disease. Electronically Signed: Dante Arreguin MD at 11:52 EST Tel , Service support ,
== END 2021-05-05 23:59 | disposition short-term general hospital (02) ==
LOC: MRI 10:17
PROVIDERS: PCP Family Medicine; Referring Provider Internal Medicine Medical Oncology; Visit Provider Internal Medicine Medical Oncology
DX: R91.8 Other nonspecific abnormal finding of lung field (principal)
CPT/HCPCS: 70553; A9575

== ENCOUNTER 2021-05-07 08:54 | Outpatient (CLI) | payer OTHER, SELFPAY ==
[2021-05-07] VITALS (8 sets, daily range): BP systolic 115–138; BP diastolic 76–92; PULSE 94–104; RESP 14–27; TEMP 36.6; O2SAT 90–98; BMI 27.0
--- NOTE | 2021-05-07 08:55 | CT_ITS ---
PROCEDURE: CT GUIDED CORE NEEDLE BIOPSY OF A right anterior pleural-based LUNG LESION INDICATION: Male, 40 years old. Pathology requesting more tissue for diagnosis PHYSICIAN: Dr. ADELITA Scott CONSENT: Written informed consent was obtained having explained the risks, benefits and alternatives in detail with the patient who accepted the risks and agreed to proceed. Laboratory review and clinical assessment was performed. CONSCIOUS SEDATION PROTOCOL: The Drugs used were: 3 mg Versed, IV., and 75 mcg Fentanyl, IV. The sedation time was: 26 minutes. Conscious sedation was started at 9:54 AM and terminated at 1020 The conscious sedation protocol was independently monitored. RADIATION DOSAGE (If Supplied By Facility): CTDIvol = ( 13 ) mGy, DLP = ( 418.26 ) mGycm Individualized dose optimization techniques were used for this CT. TECHNIQUE: The patient was placed in the supine position. A noncontrast CT was performed to localize the lesion in the anterior right pleural space . The skin surface was prepped and draped in a sterile fashion. 1% lidocaine was used for local anesthesia. Using CT guidance, a 18-gauge coaxial biopsy device was advanced to the periphery of the lesion. A total of 6 core specimens were obtained. The specimens were placed in a formalin solution. A post procedure CT demonstrated no adverse sequelae or pneumothorax. The patient tolerated the procedure well without adverse event. A negative biopsy does not exclude malignancy. Further imaging or clinical followup based on patient condition and degree of clinical suspicion for malignancy. Suggest rebiopsy, if biopsy results do not match with clinical scenario. CT/Biopsy/Inj or Needle Placement IMPRESSION: 1. CT directed core needle biopsy of the pleural-based mass in the right anterior hemithorax using CT image guidance with image documentation as described. Pathology results are pending. 2. Conscious Sedation protocol utilized with independent monitoring. Electronically Signed: Conner Pierre MD at 10:43 EST , Service support ,
[2021-05-07] MEDS: fentaNYL 100 MCG/2 ML Ampul IV ×2 (09:54→10:15)
[2021-05-07] MEDS: Midazolam 2 MG/2 ML Syringe IV ×2 (09:57→10:16)
[2021-05-07] MEDS: Lidocaine 2% (20 ml mdv) 20 ML Vial INFILT (10:00)
--- NOTE | 2021-05-07 10:00 | ASPIGT_PTH ---
PATIENT: BARTOLO ROBERT LOC: CT U#:[id number] AGE/SX: 40/M ROOM: RE05/07/[address]: Dr. Pipo Lee MD : 1980 BED: DIS: 05/07/2021 SPEC #: [id number] RECD: 05/07/21 10:56 STATUS: [facility] #: [id number] SHEREE: 05/07/21 10:[address]: Pipo Lee DEPT: SURGICAL PATHOLOGY RECD BY: Kamla Sanchez ENTERED: 05/07/21 10:56 SP TYPE: ASP RAD OTHR DR: Dr. Trey Fitzgerald MD Tissues: Lung, NOS Procedures: FNA Specimen Adequacy Special Stain Group II Surgery Specimen Level IV Imprint (control) HEADER OPERATION: CT-guided lung biopsy PRE-OP DIAGNOSIS: Lung lesions TISSUE SUBMITTED: Right pleural mass 18-gauge x6 MICROSCOPIC DIAGNOSIS Right pleural mass, CT-guided core biopsy: Small round blue cell tumor, favor Bay-like sarcoma. See comment. AM:syed 05/20/2021 COMMENT The specimen is evaluated at the time of biopsy by Dr. Walsh. Immediate Evaluation = Malignant cells present. Small round blue cell tumor. This case was seen in consultation with Dr. Chand of [facility]. Please see the complete consultative report in EMR. Case has been reviewed in consultation with Dr. Walsh who concurs with the above diagnosis. KHADIJAH:ERIAK MICROSCOPIC DESCRIPTION Slides are reviewed. GROSS DESCRIPTION Received in fixative is one container labeled with the patient's name and designated right lung mass, CT-guided core biopsy. The specimen consists of multiple irregular fragments of morse soft tissue that in aggregate measure 2 x 0.1 x 0.1 cm. The specimen is totally submitted in one cassette. Six touch imprints are prepared at the time of core biopsy. / ERIKA:syed 05/07/2021 TC:0 [facility]: [id number] ADDENDUM ADDENDUM ADDENDUM ADDENDUM ADDENDUM ADDENDUM ADDENDUM ADDENDUM ADDENDUM ADDENDUM 06/03/2021 14:20 ADDENDUM 09/29/2021 09:55 ADDENDUM 06/03/2021 14:20 ADDENDUM 06/03/2021 14:20 ADDENDUM 06/03/2021 14:20 ADDENDUM 06/03/2021 14:20 This case was seen in consultation with Dr. Chand of [facility] and a diagnosis of ?round cell sarcoma? was identified. The complete consultation report in viewable in EMR. 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 Additional molecular testing (E.G., NGS) is recommended to confirm the diagnosis. FISH is positive for EWSR1 Break Apart Rearrangement on block V32-223-2. Comment: An EWSR1 translocation is present, which is seen in a variety of sarcomas, including Bay?s sarcoma/PNET. Histopathologic correlation is suggested for further characterization. The complete report is viewable in patient?s EMR. This addendum is added to incorporate an outside pathology consultation report. The case was examined at [facility] (#[id number]) and the following diagnosis was rendered. Pleura, right, biopsy: EWSR1 rearranged round cell sarcoma, favor Bay sarcoma. Please see complete above mentioned consultation report in EMR
[2021-05-07] MEDS: 0.9% Saline Lock 10 ML Syringe IV (10:02)
--- NOTE | 2021-05-07 10:28 | RAD_ITS ---
STUDY: X-RAY CHEST REASON FOR EXAM: Male, 40 years old. Post lung space bx -- Immediately post lung biopsy TECHNIQUE: AP inspiration and expiration views following right pleural biopsy. COMPARISON: Comparison is made with prior examination dated 05/06/2021. FINDINGS: No evidence of pneumothorax on the immediate post right lung biopsy radiographs. RAD/Chest Insp/Exp 2 View IMPRESSION: No evidence of pneumothorax on the immediate post right lung biopsy radiographs. Electronically Signed: Conner Pierre MD at 10:52 EST , Service support ,
== END 2021-05-07 23:59 | disposition home or self-care (01) ==
LOC: CT 08:55
PROVIDERS: PCP Family Medicine; Referring Provider Internal Medicine Critical Care Medicine; Visit Provider Internal Medicine Critical Care Medicine
DX: C38.4 Malignant neoplasm of pleura (principal); J91.0 Malignant pleural effusion; E55.9 Vitamin D deficiency, unspecified
CPT/HCPCS: 32408; 71046; 77012; 88172; 88305; 88313; 99156; J7040; A4216

== ENCOUNTER 2021-05-13 11:53 | Outpatient (CLI) | payer OTHER, SELFPAY ==
--- NOTE | 2021-05-13 11:54 | US_ITS ---
PROCEDURE: ULTRASOUND GUIDED THORACENTESIS. DATE: 05/13/2021. INDICATION: Male, 40 years old. Right pleural effusion. PHYSICIAN: Conner Pierre M.D. PROCEDURE: The risks, benefits, and alternatives to the procedure were explained to the patient. The specific risks of bleeding, infection, and pneumothorax requiring chest tube insertion were discussed and accepted. Written informed consent was obtained. Ultrasonographic evaluation of the right lower pleural space was carried out. An adequate pocket was identified. The patient was placed in the sitting, upright position. The overlying skin was prepped and draped in sterile fashion. 1% lidocaine was administered subcutaneously for local anesthesia. Under ultrasound guidance, a 5 Upper Sorbian thoracentesis needle/catheter system was advanced into the right posterior lower pleural fluid collection. Approximately 850 mL of blood tinged fluid was drained. The catheter was removed, and a sterile dressing was applied. The patient tolerated the procedure well. A chest x-ray was ordered. US/Thoracentesis W US IMPRESSION: Ultrasound-guided right thoracentesis. Electronically Signed: Conner Pierre MD at 13:12 EST ,
[2021-05-13 12:10] VITALS: BP 114/72; BP 116/71; BP 128/79; BP 131/78; PULSE 101; PULSE 106; PULSE 112; PULSE 99; RESP 26; RESP 30; RESP 31; TEMP 36.9; O2SAT 93; O2SAT 95; O2SAT 96
[2021-05-13] MEDS: Lidocaine 2% (20 ml mdv) 20 ML Vial INFILT (12:15)
--- NOTE | 2021-05-13 12:22 | RAD_ITS ---
STUDY: X-RAY CHEST REASON FOR EXAM: Male, 40 years old. Pneumothorax -- immediately post thoracentesis TECHNIQUE: AP inspiration and expiration views. COMPARISON: Comparison is made with prior examination dated 05/07/2021. FINDINGS: The patient is status post right thoracentesis. No evidence of pneumothorax. RAD/Chest Insp/Exp 2 View IMPRESSION: No evidence of pneumothorax on the immediate post right thoracentesis images. Electronically Signed: Conner Pierre MD at 12:42 EST ,
[2021-05-13 12:30] VITALS: BP 131/78; PULSE 101; RESP 30; O2SAT 93
== END 2021-05-13 23:59 | disposition home or self-care (01) ==
LOC: US 11:54
PROVIDERS: PCP Family Medicine; Referring Provider Internal Medicine Critical Care Medicine; Visit Provider Internal Medicine Critical Care Medicine
DX: J93.9 Pneumothorax, unspecified (principal)
CPT/HCPCS: 32555; 71046

== ENCOUNTER 2021-05-20 11:54 | Outpatient (CLI) | payer OTHER, SELFPAY ==
--- NOTE | 2021-05-20 11:57 | US_ITS ---
PROCEDURE: ULTRASOUND GUIDED THORACENTESIS. DATE: 05/20/2021.. INDICATION: Male, 40 years old. Right pleural effusion. PHYSICIAN: Conner Pierre M.D. PROCEDURE: The risks, benefits, and alternatives to the procedure were explained to the patient. The specific risks of bleeding, infection, and pneumothorax requiring chest tube insertion were discussed and accepted. Written informed consent was obtained. Ultrasonographic evaluation of the right lower pleural space was carried out. An adequate pocket was identified. The patient was placed in the sitting, upright position. The overlying skin was prepped and draped in sterile fashion. 1% lidocaine was administered subcutaneously for local anesthesia. Under ultrasound guidance, a 5French thoracentesis needle/catheter system was advanced into the right posterior lower pleural fluid collection. Approximately 900 mL of blood tinged fluid was drained. The catheter was removed, and a sterile dressing was applied. The patient tolerated the procedure well. A chest x-ray was ordered. US/Thoracentesis W US IMPRESSION: Ultrasound-guided thoracentesis. Electronically Signed: Conner Pierre MD at 13:14 EST ,
[2021-05-20 12:17] VITALS: BP 109/76; BP 121/85; BP 127/77; BP 132/76; PULSE 101; PULSE 103; PULSE 107; RESP 26; TEMP 36.5; O2SAT 93; O2SAT 95
[2021-05-20] MEDS: Lidocaine 2% (20 ml mdv) 20 ML Vial INFILT (12:17)
--- NOTE | 2021-05-20 12:30 | RAD_ITS ---
STUDY: X-RAY CHEST REASON FOR EXAM: Male, 40 years old. PNEUMOTHORAX TECHNIQUE: AP inspiration and expiration views. COMPARISON: Comparison is made with prior study dated 05/13/2021. FINDINGS: The patient is status post right thoracentesis. No evidence of pneumothorax. RAD/Chest Insp/Exp 2 View IMPRESSION: Status post right thoracentesis. There is no evidence of pneumothorax. Electronically Signed: Conner Pierre MD at 12:43 EST ,
== END 2021-05-20 23:59 | disposition short-term general hospital (02) ==
PROVIDERS: PCP Family Medicine; Referring Provider Internal Medicine Critical Care Medicine; Visit Provider Internal Medicine Critical Care Medicine
DX: J90 Pleural effusion, not elsewhere classified (principal); R91.8 Other nonspecific abnormal finding of lung field
CPT/HCPCS: 32555; 71046

== ENCOUNTER 2021-05-27 09:00 | Outpatient (CLI) | payer OTHER, SELFPAY ==
--- NOTE | 2021-05-27 09:02 | US_ITS ---
PROCEDURE: ULTRASOUND GUIDED THORACENTESIS. DATE: 05/27/2021.. INDICATION: Male, 40 years old. Right pleural effusion. PHYSICIAN: Conner Pierre M.D. PROCEDURE: The risks, benefits, and alternatives to the procedure were explained to the patient. The specific risks of bleeding, infection, and pneumothorax requiring chest tube insertion were discussed and accepted. Written informed consent was obtained. Ultrasonographic evaluation of the right lower pleural space was carried out. An adequate pocket was identified. The patient was placed in the sitting, upright position. The overlying skin was prepped and draped in sterile fashion. 1% lidocaine was administered subcutaneously for local anesthesia. Under ultrasound guidance, a 5 Beninese thoracentesis needle/catheter system was advanced into the right posterior lower pleural fluid collection. Approximately 200 mL of kenzie-colored fluid was drained. The catheter was removed, and a sterile dressing was applied. The patient tolerated the procedure well. A chest x-ray was ordered. US/Thoracentesis W US IMPRESSION: Ultrasound-guided right thoracentesis. Electronically Signed: Conner Pierre MD at 10:15 EST ,
[2021-05-27] MEDS: Lidocaine 2% (20 ml mdv) 20 ML Vial INFILT (09:35)
--- NOTE | 2021-05-27 09:41 | RAD_ITS ---
STUDY: X-RAY CHEST REASON FOR EXAM: Male, 40 years old. Post thoracentesis TECHNIQUE: AP inspiration and expiration views. COMPARISON: Comparison is made with prior study dated 05/20/2021. FINDINGS: The patient is status post right thoracentesis. No evidence of pneumothorax. Stable right pleural and mediastinal masses. RAD/Chest Insp/Exp 2 View IMPRESSION: Status post right thoracentesis. No evidence of pneumothorax. Electronically Signed: Conner Pierre MD at 9:51 EST ,
[2021-05-27 09:45] VITALS: BP 115/67; BP 126/86; BP 127/75; PULSE 104; PULSE 108; RESP 24; RESP 28; TEMP 35.8; O2SAT 93; O2SAT 94; O2SAT 95
--- NOTE | 2021-05-27 10:45 | NURSING ---
Pt going to [facility] this afternoon to meet with a new oncologist to determine best plan of care for his cancer. Pt was referred by Dr. Zhou due to the potential need for inpatient chemotherapy. Pt and are made aware if he needs a thoracentesis while not in [place] in the future the order can be faxed to our radiology department so he would not have to go to [place] for a thoracentesis procedure.
== END 2021-05-27 23:59 | disposition home or self-care (01) ==
LOC: US 09:01
PROVIDERS: PCP Family Medicine; Referring Provider Internal Medicine Critical Care Medicine; Visit Provider Internal Medicine Critical Care Medicine
DX: C80.1 Malignant (primary) neoplasm, unspecified (principal); J91.0 Malignant pleural effusion
CPT/HCPCS: 32555; 71046

== ENCOUNTER 2021-06-10 15:12 | Inpatient (IN) | payer OTHER, SELFPAY ==
[2021-06-10] VITALS (12 sets, daily range): BP systolic 135–153; BP diastolic 79–92; PULSE 119–131; RESP 20–35; TEMP 36.8–37.9; O2SAT 90–96; BMI 26.4; BMI 26.9
--- NOTE | 2021-06-10 16:57 | EX.ED.DYSGE1 ---
HPI History of Present Illness Chief Complaint: Fever Detail of Chief Complaint: Temperature 100.7 status post chemo. Informant: patient and spouse/S.O. Onset/Context/Timing Onset: Today Context: Sudden Onset Timing: Intermittent Quality: Temperature 100.7. 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 He denies headache. Eyes visual, ocular auditory sense. Does complain of sore throat he has not looked in his throat. He states it hurts to swallow liquids or solids. He is short of breath and has been short of breath due to the malignant pleural effusion and mass because of significant compression of his right lung. He does report mild congestion which is chronic. He does have mild cough which is chronic. He denies increased chest pain. He denies increased dyspnea on exertion or dyspnea at rest. He denies abdominal pain, nausea, vomiting diarrhea. He denies dysuria, frequency, urgency or hematuria. He denies rash or any skin lesions. He denies paresthesia, anesthesia or motor weakness. Prior similar symptoms: No Recent Illness/Hospitalization: Yes [facility] Medical History (Updated 06/10/21 @ 18:[address] Lam Kelly MD) Depression Bay sarcoma Migraines Non-smoker Vitamin D deficiency Home Medications cholecalciferol (vitamin D3) 25 mcg PO DAILY 06/10/21 [History Last Taken 06/10/21] methylphenidate HCl 5 mg PO BID 06/10/21 [History Last Taken 06/10/21] nortriptyline 50 mg PO QHS 06/10/21 [History Last Taken 06/09/21] ondansetron HCl 8 mg PO TID PRN 06/10/21 [History Last Taken Unknown] oxycodone 5 - 10 mg PO Q4H PRN PRN 06/10/21 [History Last Taken 06/10/21 12:00] oxycodone myristate [Xtampza ER] 18 mg PO BID 06/10/21 [History Last Taken 06/10/21] prochlorperazine maleate 10 mg PO TID PRN 06/10/21 [History Last Taken Unknown] sennosides [senna] 17.2 mg PO QHS 06/10/21 [History Last Taken 06/09/21] Allergy/AdvReac Type Severity Reaction Status Date / Time codeine Allergy Nausea Verified 06/10/21 15:16 Iodinated Contrast Media Allergy Nausea Verified 06/10/21 15:16 [CONTRASTS] Family History Other Diabetes Heart disease Hypertension Surgical History H/O shoulder surgery History of ankle surgery History of thoracentesis Social History (Updated 06/10/21 @ 17:[address] Lam Kelly MD) household members: spouse Smoking Status: Never smoker alcohol intake: never substance use type: does not use ROS ROS ED Constitutional Constitutional ED: Reports fever(s); Denies chills, subjective or sweats Eyes Eyes: Denies blurry vision, change in vision or diplopia ENT ENT ED: Reports rhinorrhea and sore throat; Denies ear pain Cardiovascular Cardiovascular: Denies chest pain, orthopnea, palpitations, paroxysmal nocturnal dyspnea or racing heartbeat Respiratory/Chest Respiratory/Chest: Reports cough, dyspnea, dyspnea on exertion and sputum; Denies orthopnea or paroxysmal nocturnal dyspnea Gastrointestinal Gastrointestinal: Denies abdominal pain, constipation, diarrhea, melena, nausea or vomiting Genitourinary Genitourinary ED: Denies dysuria, hematuria or urinary frequency Musculoskeletal Musculoskeletal: Denies arthralgias, back pain, myalgias or neck pain Integumentary Denies abscess, Abrasions or rash Neurologic Neurologic: Denies headache(s) or weakness Endocrine Endocrinology: Denies polydipsia, polyphagia or polyuria Hematologic/Lymphatic Hematologic/Lymphatic: Denies anemia, easy bleeding or easy bruising EXAM Physical Exam Const Vital Signs: 06/10/21 15:14 06/10/21 16:56 06/10/21 16:57 Temperature 98.3 F 99.2 F H Temperature Source Temporal Oral Pulse Rate 131 H 123 H Respiratory Rate 22 H 26 H Respiratory Effort Short of Breath Labored Respiratory Pattern Tachypnea Blood Pressure 148/92 H 140/82 H Blood Pressure Mean 110 101 Pulse Ox 96 93 Oxygen Delivery Method Room Air Room Air Oxygen Flow Rate (L/min) 06/10/21 16:58 06/10/21 18:00 06/10/21 18:06 Temperature 99.2 F H 99.9 F H Temperature Source Oral Temporal Pulse Rate 119 H Respiratory Rate 29 H Respiratory Effort Respiratory Pattern Blood Pressure 135/81 H Blood Pressure Mean 99 Pulse Ox 90 92 Oxygen Delivery Method Room Air Nasal Cannula Oxygen Flow Rate (L/min) 1 06/10/21 18:48 Temperature 100.3 F H Temperature Source Oral Pulse Rate 120 H Respiratory Rate 22 H Respiratory Effort Respiratory Pattern Blood Pressure 135/81 H Blood Pressure Mean 99 Pulse Ox 94 Oxygen Delivery Method Nasal Cannula Oxygen Flow Rate (L/min) 1 Patient is tachypneic which he states is normal since April Positive well nourished and well developed General Appearance ED: well developed; Negative for cyanotic, diaphoretic, NAD or pallor HEENT Reports TM's clear; Denies moist mucous membranes HEENT Narrative: Patient findings consistent with thrush. Negative for trauma or tenderness Tympanic Membrane ED: Yes TM's clear Eyes PERRL and EOMs intact bilaterally General Eye ED: Negative for pale conjunctiva or scleral icterus Neck no lymphadenopathy, supple and no JVD Chest Wall Negative for inspection of chest normal or palpation of chest normal Chest Narrative: Patient has a erythematous warm blanching rash consistent with cellulitis between the anterior and posterior axillary line on the right side. Resp No normal respiratory effort and No clear to auscultation bilaterally Auscultation: rales right and diminished lung sounds right Cardio regular rhythm, S1 normal heart sound, S2 normal heart sound and no murmurs Rate: tachycardic GI normal to inspection, nondistended, normoactive bowel sounds, non-tender and non-distended Palpation: soft Back/Spine no CVA tenderness Cervical Spine: Negative for cervical spine tenderness Thoracic Spine / Upper Back: Negative for thoracic spinal tenderness or paraspinal muscle tenderness Lumbar Spine / Lower Back: Negative for lumbar spinal tenderness Extremity normal to inspection General Extremety ED: Negative for edema or tenderness General Extremity: Negative for edema Neuro oriented x3, CN's II-XII intact bilaterally and no sensory deficits noted Sensorium / Orientation: alert Motor Exam: strength 5/5 throughout Psych mental status grossly normal Skin No no rashes or lesions noted and no wounds General Skin Exam: Negative for jaundice or pallor MDM MDM MDM Narrative Medical decision making narrative: Febrile immune suppressed patient. Based on exam he has thrush and evidence of cellulitis. ED neutropenic order set was initiated and he was started on Unasyn for the cellulitis and Diflucan for the thrush. Lab Data Attestation: I reviewed the patient's lab results. Labs: Laboratory Results - last 24 hr 06/10/21 06/10/21 06/10/21 17:38 17:38 17:38 WBC 0.1 L* RBC 3.72 L Hgb 10.6 L Hct 30.6 L MCV 82.3 MCH 28.5 MCHC 34.6 RDW Std Deviation 39.2 RDW Coeff of Vi 13.1 Plt Count 93 L MPV 9.9 Neut % (Auto) Not Reportable Absolute Neuts (auto) 0.0 L Absolute Lymphs (auto) 0.04 L Total Counted 20 Neutrophils % (Manual) 5 L Lymphocytes % (Manual) 40 Monocytes % (Manual) 25 H Metamyelocytes % 10 H Myelocytes % 20 H Diff Path Review May foll Platelet Estimate MOD DEC RBC Morphology NORM C+C Anisocytosis RARE Sodium 124 L Potassium 4.1 Chloride 91 L Carbon Dioxide 25.0 Anion Gap 8 BUN 17 Creatinine 0.61 L Estim Creat Clear Calc 152.62 Est GFR (MDRD) Af Amer 184 Est GFR (MDRD) Non-Af 152 BUN/Creatinine Ratio 27.7 H Glucose 99 Serum Osmolality Lactic Acid 1.4 Calcium 8.6 Total Bilirubin 3.00 H AST 58 H ALT 37 Alkaline Phosphatase 110 Total Protein 6.9 Albumin 2.3 L Globulin 4.6 H Albumin/Globulin Ratio 0.5 L 06/10/21 17:38 WBC RBC Hgb Hct MCV MCH MCHC RDW Std Deviation RDW Coeff of Vi Plt Count MPV Neut % (Auto) Absolute Neuts (auto) Absolute Lymphs (auto) Total Counted Neutrophils % (Manual) Lymphocytes % (Manual) Monocytes % (Manual) Metamyelocytes % Myelocytes % Diff Path Review Platelet Estimate RBC Morphology Anisocytosis Sodium Potassium Chloride Carbon Dioxide Anion Gap BUN Creatinine Estim Creat Clear Calc Est GFR (MDRD) Af Amer Est GFR (MDRD) Non-Af BUN/Creatinine Ratio Glucose Serum Osmolality 260 L Lactic Acid Calcium Total Bilirubin AST ALT Alkaline Phosphatase Total Protein Albumin Globulin Albumin/Globulin Ratio Radiography Chest X-Ray - ED: 1 View and Read by ED Physician (Large right sided lung mass with pleural effusion. Left parenchyma is unchanged from prior. There is no obvious infiltrate.) Rhythm Strip Rhythm Strip: Sinus Tach Rate: 128 Discharge Plan Triage Chief Complaint: Fever ED Provider: Lam Kelly Dx/Rx/DC Orders Clinical Impression: Cellulitis, trunk, Pancytopenia with fever, Acute hyponatremia, Candidiasis of mouth, Bay's sarcoma Prescriptions: No Action sennosides [senna] 8.6 mg Tablet 17.2 mg PO QHS RF: 0 ondansetron HCl 8 mg tablet 8 mg PO TID PRN (Reason: Nausea) RF: 0 methylphenidate HCl 5 mg tablet 5 mg PO BID RF: 0 prochlorperazine maleate 10 mg tablet 10 mg PO TID PRN (Reason: Nausea) RF: 0 nortriptyline 25 mg capsule 50 mg PO QHS RF: 0 oxycodone 5 mg tablet 5 - 10 mg PO Q4H PRN PRN (Reason: Pain) RF: 0 cholecalciferol (vitamin D3) 25 mcg (1,000 unit) Capsule 25 mcg PO DAILY RF: 0 Xtampza ER 18 mg cap,sprinkl,ER12hr(DONT CRUSH) 18 mg PO BID RF: 0 Primary Care Provider: Trey Fitzgerald Referrals: Trey Fitzgerald MD [Primary Care Provider] - Disposition Disposition: Acute Care Hospital [facility]
[2021-06-10] MEDS: 0.9% Normal Saline 1,000 ML 250 ML IV (17:45)
[2021-06-10] MEDS: Fluconazole 100 MG Tablet 200 MG PO (17:46)
[2021-06-10 17:48] LABS: Hematocrit 30.6 % (40-54); Hemoglobin 10.6 g/dL (13.0-16.5); Mean Corp Hgb Conc 34.6 g/dL (32-36); Mean Corpuscular Hgb 28.5 pg (27.0-32.0); Mean Corpuscular Volume 82.3 fL (80-94); Mean Platelet Vol. 9.9 fl (6.2-12.0); POSITIVE COUNT YES; POSITIVE DIFFERENTIAL YES; POSITIVE MORPHOLOGY YES; Platelet Count 93 K/mm3 (150-450); RBC Distribution Width CV 13.1 % (11.6-14.6); RBC Distribution Width SD 39.2 fl (35.1-43.9); Red Blood Count 3.72 M/mm3 (4.6-6.2)
--- NOTE | 2021-06-10 18:00 | RAD_ITS ---
STUDY: X-RAY CHEST REASON FOR EXAM: Male, 40 years old. Fever TECHNIQUE: Frontal and lateral views of the chest. COMPARISON: 05/27/2021 FINDINGS: Almost complete opacification right hemithorax due to pleural effusion and edema. Left lung remains relatively clear. New right IJ MediPort terminates in the superior vena cava. No pneumothorax. Normal size heart. Normal mediastinum and fazal. Normal visualized pulmonary arteries. Normal visualized aortic arch and descending thoracic aorta. Normal visualized thoracic spine. Normal visualized ribs, clavicles, and shoulders. There is no demonstrated abnormality of the visualized soft tissue structures of the upper abdomen. RAD/Chest PA and Lateral IMPRESSION: Large right pleural effusion increased since the previous exam. Right IJ catheter in the SVC. No pneumothorax. Electronically Signed: Joselito Bonilla MD at 19:36 EST ,
[2021-06-10 18:07] LABS: ALB/GLOB Ratio 0.5 RATIO (0.9-2.4); AST(SGOT) 58 U/L (15-37); Alanine Aminotransfer ALT/SGPT 37 U/L (16-61); Albumin, Serum 2.3 g/dL (3.2-5.0); Alkaline Phosphatase 110 U/L (45-117); Anion Gap 8 (5-15); BUN 17 mg/dL (7-18); BUN/Creat Ratio 27.7 RATIO (10-20); Calcium,Total 8.6 mg/dL (8.5-10.1); Chloride 91 mmol/L (98-107); Creatinine, Serum 0.61 mg/dL (0.70-1.30); EST Glomerular Filtration Rate 152 mL/min (>60); Est Glom Filt Rate - Afr Amer 184 mL/min (>60); Estimated Creatinine Clearance 152.62 ml/min; Globulin 4.6 g/dL (2.2-4.2); Glucose 99 mg/dL (74-106); Potassium 4.1 mmol/L (3.5-5.1); Protein, Total 6.9 g/dL (6.4-8.2); Sodium Level 124 mmol/L (136-145)
[2021-06-10 18:26] LABS: Lactic Acid 1.4 mmol/L (0.4-1.9)
[2021-06-10 18:32] LABS: Differential Indicated MANUAL DIFF
[2021-06-10 18:34] LABS: White Blood Count 0.1 K/mm3 (4.4-11.0)
[2021-06-10 18:44] LABS: Lymphocyte 40 % (19-41); Metamyelocyte 10 % (0-1); Monocyte 25 % (0-10); Myelocyte 20 % (0-0); Neutrophil-Segmented 5 % (47-70); Osmolality, Serum 260 mOsm/KG (275-295); Total Cells Counted 20 (MANUAL DIFF)
[2021-06-10 18:48] LABS: Absolute Lymphocyte Count 0.04 X10^3/uL (0.83-4.51)
[2021-06-10 18:49] LABS: Platelet Estimate MOD DEC (ADEQ)
[2021-06-10 18:50] LABS: Anisocytosis RARE; Red Cell Morphology NORM C+C NORMAL (NORM C&C)
--- NOTE | 2021-06-10 18:52 | HP.PCM.HOS_ITS ---
HPI - General General Date of Admission: 06/10/21 Date of Service: 06/10/21 Chief Complaint: Fever, sore throat, recent chemotherapy HPI Narrative The patient is a 40 y/o M w/ PMHx: Depression and Anxiety, Chronic migraines, recent diagnosis Bay cell sarcoma initially following with Dr. Zhou however referred to tertiary facility therefore transitioned to [facility] for inpatient chemotherapy following with Oncology at [facility], history of recent [facility] admission Wednesday-Wednesday with tachycardia and dyspnea secondary to R sided malignant effusion which could not be removed with radiology as well as CT surgery evaluation with eventual discharge to home on no abx therapy who no presents to the [facility] ED on 06/10/21 with onset fever, T 100.7 with ongoing unchanged mild cough, congestion with noted oral thrush on ED evaluation with incidentally noted R lateral flank small area of cellulitis with mild discomfort to palpation as well as increased warmth to touch. Of note patient's most recent chemotherapy was approximately 1 week prior to current presentation. He notes the most recent thoracentesis of the right side was approximately 2 weeks prior to current presentation. Work-up in the ED included T up to 100.3, heart rate 131, BP 140/92, respiratory rate 22, 96% on room air, CBC with WC 0.1, hemoglobin 10.6, platelet 93 with lymphopenia and neutropenia, BMP with sodium 124, chloride 91, BUN/creatinine 17/0.61, lactic acid 1.4, total bilirubin 3.0, AST/ALT 58/37, chest x-ray with a large right pleural effusion increased since the prior chest x-ray done at [facility], evidence right IJ catheter in the SVC, no evidence of any pneumothoraces, blood culture x2 pending per ED. In the ED patient ministered normal saline, oral fluconazole 200 mg p.o. x1, IV Unasyn. [facility] Medical History (Updated 06/10/21 @ 19:[address] Alaina Bullard MD) Depression Bay sarcoma Migraines Non-smoker Vitamin D deficiency Home Medications cholecalciferol (vitamin D3) 25 mcg PO DAILY 06/10/21 [History Last Taken 06/10/21] methylphenidate HCl 5 mg PO BID 06/10/21 [History Last Taken 06/10/21] nortriptyline 50 mg PO QHS 06/10/21 [History Last Taken 06/09/21] ondansetron HCl 8 mg PO TID PRN 06/10/21 [History Last Taken Unknown] oxycodone 5 - 10 mg PO Q4H PRN PRN 06/10/21 [History Last Taken 06/10/21 12:00] oxycodone myristate [Xtampza ER] 18 mg PO BID 06/10/21 [History Last Taken 06/10/21] prochlorperazine maleate 10 mg PO TID PRN 06/10/21 [History Last Taken Unknown] sennosides [senna] 17.2 mg PO QHS 06/10/21 [History Last Taken 06/09/21] Allergy/AdvReac Type Severity Reaction Status Date / Time codeine Allergy Nausea Verified 06/10/21 15:16 Iodinated Contrast Media Allergy Nausea Verified 06/10/21 15:16 [CONTRASTS] Family History (Updated 06/10/21 @ 19:[address] Alaina Bullard MD) Mother Heart disease Hypertension Diabetes Father Hypertension CVA (cerebral vascular accident) Testicular cancer Surgical History (Updated 06/10/21 @ 19:[address] Alaina Bullard MD) H/O shoulder surgery History of ankle surgery History of thoracentesis Social History (Updated 06/10/21 @ 17:[address] Lam Kelly MD) household members: spouse Smoking Status: Never smoker alcohol intake: never substance use type: does not use ROS ROS Narrative Admission Review of Systems: CONSTITUTIONAL: No weight loss, + fever, chills, weakness or fatigue. HEENT: Eyes: No visual loss, blurred vision, double vision or yellow sclerae. Ears, Nose, Throat: No hearing loss, sneezing, congestion, runny nose or sore throat. SKIN: No rash or itching, lesions, wounds. CARDIOVASCULAR: No chest pain, chest pressure or chest discomfort, palpitations, edema, orthopnea, syncopal events. RESPIRATORY: + Shortness of breath, cough, No increased sputum, wheezing, hemoptysis. GASTROINTESTINAL: + Anorexia, No nausea, vomiting, diarrhea, abdominal pain, melena, BRBPR. GENITOURINARY: No dysuria, frequency, urgency or retention. NEUROLOGICAL: + Chronic headaches. No dizziness, syncope, paralysis, ataxia, numbness or tingling in the extremities, focal weakness, change in bowel or bladder control, seizure. MUSCULOSKELETAL: + muscle, back pain, joint pain or stiffness. HEMATOLOGIC: + anemia, bleeding or bruising. LYMPHATICS: No enlarged nodes. No history of splenectomy. PSYCHIATRIC: + history of depression or anxiety. ENDOCRINOLOGIC: No reports of sweating, cold or heat intolerance. No polyuria or polydipsia. ALLERGIES: No history of asthma, hives, eczema or rhinitis. Vital Signs Vital Signs Vital Signs: 06/10/21 15:14 06/10/21 16:56 06/10/21 16:57 Temperature 98.3 F 99.2 F H Temperature Source Temporal Oral Pulse Rate 131 H 123 H Respiratory Rate 22 H 26 H Respiratory Effort Short of Breath Labored Respiratory Pattern Tachypnea Blood Pressure 148/92 H 140/82 H Blood Pressure Mean 110 101 Pulse Ox 96 93 Oxygen Delivery Method Room Air Room Air Oxygen Flow Rate (L/min) 06/10/21 16:58 06/10/21 18:00 06/10/21 18:06 Temperature 99.2 F H 99.9 F H Temperature Source Oral Temporal Pulse Rate 119 H Respiratory Rate 29 H Respiratory Effort Respiratory Pattern Blood Pressure 135/81 H Blood Pressure Mean 99 Pulse Ox 90 92 Oxygen Delivery Method Room Air Nasal Cannula Oxygen Flow Rate (L/min) 1 06/10/21 18:48 Temperature 100.3 F H Temperature Source Oral Pulse Rate 120 H Respiratory Rate 22 H Respiratory Effort Respiratory Pattern Blood Pressure 135/81 H Blood Pressure Mean 99 Pulse Ox 94 Oxygen Delivery Method Nasal Cannula Oxygen Flow Rate (L/min) 1 Weight Weight: 174 lb Body Mass Index (BMI) 26.4 Physical Exam Narrative Physical Examination: General: Awake, alert, oriented x 3 and cooperative, seated upright in the ED bed, fatigued and ill appearing. Skin: Normal color, normal turgor, no icterus, no cyanosis except R lateral flank patch of erythema, warm to touch, mildly tender. HEENT: AT/NC, EOMI, PERRLA, MMM, no carotid bruits or JVD noted. Lungs: Diminished, significantly right-sided especially, mid to base, increased respiratory rate, no ronchi or wheezing. Heart: Tachycardic with regular rhythm; no gallop, rub audible. Abdomen: Soft, NTTP, ND, distant mildly hypoactive BS, no obvious evidence of HSM. Extremities: No cyanosis, clubbing, or edema. Neurological: Patient awake, alert, oriented as noted, cognitive function intac t; pupils equally reactive to light and accommodation, cranial nerves II-XII grossly normal, moving all 4 extremities, no focal deficits, strength moderately to severely go decree secondary to acute presentation and underlying comorbidities Psychiatric: Affect appears flat, fatigued, ill-appearing, no acute evidence of depressive or anxiety feelings. Results Lab / Micro Data Result Diagrams: 06/10/21 17:38 06/10/21 17:38 Labs: Laboratory Results - last 24 hr 06/10/21 17:38: WBC 0.1 L*, RBC 3.72 L, Hgb 10.6 L, Hct 30.6 L, MCV 82.3, MCH 28.5, MCHC 34.6, RDW Std Deviation 39.2, RDW Coeff of Vi 13.1, Plt Count 93 L, MPV 9.9, Neut % (Auto) Not Reportable, Absolute Neuts (auto) 0.0 L, Absolute Lymphs (auto) 0.04 L, Total Counted 20, Neutrophils % (Manual) 5 L, Lymphocytes % (Manual) 40, Monocytes % (Manual) 25 H, Metamyelocytes % 10 H, Myelocytes % 20 H, Diff Path Review August, Platelet Estimate MOD DEC, RBC Morphology NORM C+C, Anisocytosis RARE 06/10/21 17:38: Sodium 124 L, Potassium 4.1, Chloride 91 L, Carbon Dioxide 25.0, Anion Gap 8, BUN 17, Creatinine 0.61 L, Estim Creat Clear Calc 152.62, Est GFR (MDRD) Af Amer 184, Est GFR (MDRD) Non-Af 152, BUN/Creatinine Ratio 27.7 H, Glucose 99, Calcium 8.6, Total Bilirubin 3.00 H, AST 58 H, ALT 37, Alkaline Phosphatase 110, Total Protein 6.9, Albumin 2.3 L, Globulin 4.6 H, Albumin/Globulin Ratio 0.5 L 06/10/21 17:38: Lactic Acid 1.4 06/10/21 17:38: Serum Osmolality 260 L Assessment & Plan Assessment/Plan (1) Cellulitis, trunk: QUALIFIERS: Site of cellulitis of trunk: unspecified site Qualified Code(s): L03.319 - Cellulitis of trunk, unspecified (2) Pancytopenia with fever: (3) Candidiasis of mouth: (4) Acute hyponatremia: PLAN: The patient is a 40 y/o M w/ PMHx: Depression and Anxiety, Chronic migraines, recent diagnosis Bay cell sarcoma with elevated Bilirubin/LFTs initially following with Dr. Zhou however referred to tertiary facility therefore transitioned to [facility] for inpatient chemotherapy following with Oncology at [facility], history of recent [facility] admission Wednesday-Wednesday with tachycardia and dyspnea secondary to R sided malignant effusion which could not be removed with radiology as well as CT surgery evaluation with eventual discharge to home on no abx therapy who no presents to the [facility] ED on 06/10/21 with onset fever, T 100.7 with ongoing unchanged mild cough, congestion with noted oral thrush on ED evaluation with incidentally noted R lateral flank small area of cellulitis with mild discomfort to palpation as well as increased warmth to touch. #1. Acute Sepsis secondary to Acute R lateral flank Cellulitis with Neutropenic fever with pancytopenia on active chemotherapy: Will admit to [facility] telemetry[facility], maintain on IV unasyn pending MRSA screen, plan repeat CBC in AM, monitor erythema outline with VS check, continue IV fluids, continue patient chronic pain regimen, pending blood culture x2 per ED given neutropenic presentation. If necessary may involve [facility] oncology however patient does not follow with them he follows with the [facility] only. #2. Bay cell sarcoma with recent elevated bilirubin, elevated LFTs with significant malignant large R sided effusion with pancytopenia: Patient with recent [facility] admission with inability to drain the right- sided effusion despite several evaluations including by radiology and CT surgery, not candidate for Pleurx catheter secondary to significant tumor burden. Likely this contributes to ongoing tachycardia and dyspnea complaints as well as increased respiratory rate. Patient will benefit from continued ongoing chemotherapy which will hopefully shrink the tumor burden. Ongoing chemotherapy, mag and Phos requested. Will repeat CBC in a.m. with noted pancytopenia upon presentation likely contributing to neutropenic presentation. Will repeat CMP in am as admission T bili 3.0, AST/ALT 58/37, alk phos 110 and has been elevated prior as well. Records requested from recent main admission. #3. Elevated BP without HTN diagnosis: Elevated BP while in the ED, not severe, potentially related with acute presentation, will continue monitor and if appropriate add oral regimen, as needed IV hydralazine in interim. #4. Acute hyponatremia, unclear specific etiology: Sodium level 124, chloride 91, BUN/: 17/0.61, discussed with ED physician and intention for serum osmolality and urine osmolality to be obtained, additionally will request TSH, magnesium, FeNa as well as cortisol level to further evaluate for possible SIADH. In the interim will judiciously hydrate and repeat level in AM. #5. Oral thrush: Will initiate oral nystatin regimen, administered 1 dose oral fluconazole per ED physician. #6. Chronic pain syndrome: Related with patient significant tumor burden, will continue patient's oxycodone regimen. #7. Depression and anxiety/ADHD: We will continue patient's methylphenidate regimen however given that he is not required to focus it may be beneficial especially given his vitals to hold this regimen in the future, not on any anxiety or depressive medications but given his current diagnosis will benefit from continued close evaluation in addition if appropriate as well as counseling. #8. DVT prophylaxis: SCDs, Lovenox cautiously with close continue platelet monitoring. #9. CODE status: Patient HCPOA is his and living will is currently in place. Discussed CODE status at length including difference between FULL code, DNR-CCA and DNR-CC status. Following discussions about the differences in these status, requested Full Code status. Advanced Care Planning Face to Face Time: 16 minutes. Charges/Coding Visit Charges Inpatient E&M: 77106 Init Hosp L3 Procedures Hospitalists Procedures: 26299 Advncd Care Plan 30 Min
--- NOTE | 2021-06-10 19:30 | CASEMGMT ---
SKYLER LEE Assessment: RN CM to room to meet with patient for initial transition planning/care coordination assessment. SKYLER LEE introduced self and role at [facility]. Patient voices understanding and consents to assessment at this time. Patient's Autumn Mcleod present at bedside. Patient is alert and oriented and answers all questions appropriately, lying on ER cart with oxygen per NC, appears fatigued. Care providers, pharmacy, and demographics verified/updated at this time. Admitting Dx: cellulitis, neutropenic fever PCP: Trey Fitzgerald Specialists: Dr. Larry Rondon- oncology ([facility]) Preferred Pharmacy: [facility] Insurance: [employer] Prescription Benefit: yes Living Will/HPOA: Patient reports he has a living will and HPOA is Autumn Mcleod. Patient made aware these forms are not on file at [facility] and may be brought in to be scanned into record. LNOK: Autumn Mcleod Living Arrangements: Patient lives with and three young sons in two story house with 2 steps to enter the home, no handrail present. Patient reports independent with ADLs prior to hospitalization, typically ambulates without the use of an assistive device. Patient currently employed full-time at [employer]. Smoking/ETOH: Never smoker, admits to ETOH use a couple times a week but denies any alcohol intake in the past 3 months Transportation: Patient states he is not currently driving. Patient's transports patient and patient denies transportation concerns. DME/HHC/SNF: Patient denies having any DME in the home and denies need for any DME at this time. Patient does not have home oxygen. Patient denies previous HHC or SNF stays. Patient currently undergoing chemotherapy per [facility]. Patient received first outpatient chemotherapy treatment on 06/03/21. reports plan for chemotherapy will be one outpatient treatment alternating with 5 day inpatient treatment every 2 weeks. First inpatient treatment was previously scheduled for 06/17/2021. Patient has no concerns with going home at time of discharge. Patient's mentions that patient's mother thinks patient would benefit from physical therapy, but patient states, Not right now. CM to follow for any discharge planning/needs. Patient and voice no concerns/needs at this time. Advised patient and to ask for CM if any questions/concerns/needs arise. Voices understanding. Plan: home
[2021-06-10 19:43] LABS: Magnesium 1.7 mg/dL (1.6-2.6); Phosphorus 3.4 mg/dL (2.5-4.9)
[2021-06-10 19:56] LABS: Bacteria 0 SEEN /hpf (None Seen); Mucous, Urine 0 SEEN /hpf (<or=2+); Red Blood Cells-Urine 0 SEEN /hpf (0-5); Squamous Epithelial Cells - UA 0 SEEN /hpf (0-5); White Blood Cells 0 SEEN /hpf (0-5)
[2021-06-10 20:04] LABS: Color, Urine Yellow (Yellow); Glucose, Dipstick Normal (Normal); Leukocyte Esterase-Dipstick 25 /ul (Negative); Nitrite-Dipstick Negative (Negative); Occult Blood-Urine 10 /ul (Negative); Protein-Dipstick 15 mg/dl (Negative); Specific Gravity, Urine 1.015 (1.002-1.030); Urine Clarity Clear (Clear); Urine Urobilinogen 4 mg/dl (Normal)
[2021-06-10 20:13] LABS: Urine Sodium 19 mmol/L (Not Establ.)
[2021-06-10 20:15] LABS: Osmolality, Urine 770 mOsm/KG
[2021-06-10 20:26] LABS: Urine Bilirubin Dipstick 3 mg/dL (Negative)
[2021-06-10 20:28] LABS: Ketone-Dipstick 150 mg/dl (Negative)
[2021-06-10] MEDS: 0.9% Normal Saline 1,000 ML 125 ML IV (21:29)
[2021-06-10] MEDS: Senna Tablet 2 TABLET PO (22:16)
[2021-06-10] MEDS: Nortriptyline 25 MG Capsule 50 MG PO (22:16)
[2021-06-10] MEDS: NYSTATIN 500,000 UNIT/5 ML UDC 500000 UNIT PO (22:16)
[2021-06-10] MEDS: oxyCODONE HCl Cr 10 MG Tablet 20 MG PO (22:16)
[2021-06-11] VITALS (13 sets, daily range): BP systolic 126–151; BP diastolic 81–90; PULSE 108–120; RESP 16–20; TEMP 36.5–37.2; O2SAT 96–97
[2021-06-11] MEDS: 0.9% Normal Saline 1,000 ML 125 ML IV (05:15)
[2021-06-11] MEDS: 0.9% Saline Lock 10 ML Syringe IV (05:26)
[2021-06-11 05:39] LABS: Absolute Lymphocyte Count 0.14 X10^3/uL (0.83-4.51); Absolute Neutrophil Count 0.1 X10^3/uL (2.0-7.7); Hematocrit 29.1 % (40-54); Hemoglobin 10.1 g/dL (13.0-16.5); Lymphocyte # 0.14 X10^3/ul (0.83-4.51); Lymphocyte % 60.9 % (19-41); Mean Corp Hgb Conc 34.7 g/dL (32-36); Mean Corpuscular Hgb 28.4 pg (27.0-32.0); Mean Corpuscular Volume 81.7 fL (80-94); Mean Platelet Vol. 9.7 fl (6.2-12.0); Monocyte# 0.04 X10^3/uL; Monocyte% 17.4 % (0-10); NRBC Flagged by Analyzer 0 % (0-5); Neutrophil # 0.05 X10^3/uL (2.7-7.7); Neutrophil % 21.7 % (47-70); POSITIVE COUNT YES; POSITIVE DIFFERENTIAL YES; POSITIVE MORPHOLOGY YES; Platelet Count 82 K/mm3 (150-450); RBC Distribution Width CV 13.2 % (11.6-14.6); RBC Distribution Width SD 39.1 fl (35.1-43.9); Red Blood Count 3.56 M/mm3 (4.6-6.2); White Blood Count 0.2 K/mm3 (4.4-11.0)
[2021-06-11 05:47] LABS: Differential Indicated SCAN CRITERIA MET
[2021-06-11 06:02] LABS: ALB/GLOB Ratio 0.5 RATIO (0.9-2.4); AST(SGOT) 52 U/L (15-37); Alanine Aminotransfer ALT/SGPT 33 U/L (16-61); Albumin, Serum 2.1 g/dL (3.2-5.0); Alkaline Phosphatase 104 U/L (45-117); Anion Gap 7 (5-15); BUN 15 mg/dL (7-18); BUN/Creat Ratio 27.3 RATIO (10-20); Chloride 94 mmol/L (98-107); Creatinine, Serum 0.55 mg/dL (0.70-1.30); EST Glomerular Filtration Rate 173 mL/min (>60); Est Glom Filt Rate - Afr Amer 210 mL/min (>60); Estimated Creatinine Clearance 169.27 ml/min; Globulin 4.6 g/dL (2.2-4.2); Glucose 87 mg/dL (74-106); Potassium 3.8 mmol/L (3.5-5.1); Protein, Total 6.7 g/dL (6.4-8.2); Sodium Level 126 mmol/L (136-145); Thyroid Stim Hormone (TSH) 1.41 uIU/mL (0.358-3.74)
[2021-06-11 08:16] LABS: CPK Total, Creatine Kinase 27 U/L (39-308)
[2021-06-11] MEDS: oxyCODONE HCl Cr 10 MG Tablet 20 MG PO ×2 (08:35→21:56)
[2021-06-11] MEDS: Enoxaparin 40 MG/0.4 ML Syringe SC (08:36)
[2021-06-11] MEDS: NYSTATIN 500,000 UNIT/5 ML UDC 500000 UNIT PO ×4 (08:36→21:57)
[2021-06-11] MEDS: TBO-FILGRASTIM 480 MCG/0.8 ML ML SC (09:21)
--- NOTE | 2021-06-11 09:37 | PN.HOSP_ITS ---
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 Patient admitted with fever temperature 100.7 ?F, mild cough chest congestion with oral thrush. Right lateral flank cellulitis noted. The patient had most recent chemotherapy 1 week prior to admission. Most recent thoracocentesis was about 2 weeks ago. Objective Data Objective Data Vital Signs: Vital Signs Temp Pulse Resp BP Pulse Ox 98.8 F 115 H 20 H 146/90 H 96 06/11/21 05:08 06/11/21 05:08 06/11/21 05:08 06/11/21 05:08 06/11/21 05:08 Oxygen Flow Rate (L/min) 2 Oxygen Delivery Method Nasal Cannula Weight: 177 lb 11.081 oz Body Mass Index (BMI) 26.9 Intake & Output: Intake and Output for Last 24 Hours 06/09/21 06/10/21 06/11/21 23:59 23:59 23:59 Intake Total 1255.75 / 1255.75 965.66 / 965.66 Output Total 400 / 400 300 / 300 Balance 855.75 / 855.75 665.66 / 665.66 Lab / Micro Data Result Diagrams: 06/11/21 05:30 06/11/21 05:30 Labs: Laboratory Results - last 24 hr 06/10/21 17:38: WBC 0.1 L*, RBC 3.72 L, Hgb 10.6 L, Hct 30.6 L, MCV 82.3, MCH 28.5, MCHC 34.6, RDW Std Deviation 39.2, RDW Coeff of Vi 13.1, Plt Count 93 L, MPV 9.9, Neut % (Auto) Not Reportable, Absolute Neuts (auto) 0.0 L, Absolute Lymphs (auto) 0.04 L, Total Counted 20, Neutrophils % (Manual) 5 L, Lymphocytes % (Manual) 40, Monocytes % (Manual) 25 H, Metamyelocytes % 10 H, Myelocytes % 20 H, Diff Path Review August, Platelet Estimate MOD DEC, RBC Morphology NORM C+C, Anisocytosis RARE 06/10/21 17:38: Sodium 124 L, Potassium 4.1, Chloride 91 L, Carbon Dioxide 25.0, Anion Gap 8, BUN 17, Creatinine 0.61 L, Estim Creat Clear Calc 152.62, Est GFR (MDRD) Af Amer 184, Est GFR (MDRD) Non-Af 152, BUN/Creatinine Ratio 27.7 H, Glucose 99, Calcium 8.6, Total Bilirubin 3.00 H, AST 58 H, ALT 37, Alkaline Phosphatase 110, Total Protein 6.9, Albumin 2.3 L, Globulin 4.6 H, Albumin/Globulin Ratio 0.5 L 06/10/21 17:38: Lactic Acid 1.4 06/10/21 17:38: Serum Osmolality 260 L 06/10/21 17:38: Phosphorus 3.4, Magnesium 1.7 06/10/21 19:45: Urine Color Yellow, Urine Clarity Clear, Urine pH 7.0, Ur Specific [place] 1.015, Urine Protein 15 H, Urine Glucose (UA) Normal, Urine Ketones 150 A*, Urine Occult Blood 10 H, Urine Nitrite Negative, Urine Bilirubin 3 H, Urine Urobilinogen 4 H, Ur Leukocyte Esterase 25 H, Urine RBC 0 SEEN, Urine WBC 0 SEEN, Ur Squamous Epith Cells 0 SEEN, Urine Bacteria 0 SEEN, Urine Mucus 0 SEEN 06/10/21 19:45: Urine Osmolality 770 06/10/21 19:45: Ur Random Sodium 19, Urine Creatinine 105.00 06/11/21 05:30: WBC 0.2 L*, RBC 3.56 L, Hgb 10.1 L, Hct 29.1 L, MCV 81.7, MCH 28.4, MCHC 34.7, RDW Std Deviation 39.1, RDW Coeff of Vi 13.2, Plt Count 82 L, MPV 9.7, Immature Gran % (Auto) 0.000, Neut % (Auto) 21.7 L, Lymph % (Auto) 60.9 H, Josephine % (Auto) 17.4 H, Eos % (Auto) 0.0, Baso % (Auto) 0.0, Absolute Neuts (auto) 0.1 L, Absolute Lymphs (auto) 0.14 L, Nucleated RBC % 0, Diff Path Review August06/11/21 05:30: Sodium 126 L, Potassium 3.8, Chloride 94 L, Carbon Dioxide 25.0, Anion Gap 7, BUN 15, Creatinine 0.55 L, Estim Creat Clear Calc 169.27, Est GFR (MDRD) Af Amer 210, Est GFR (MDRD) Non-Af 173, BUN/Creatinine Ratio 27.3 H, Glucose 87, Calcium 8.0 L, Total Bilirubin 2.80 H, AST 52 H, ALT 33, Alkaline Phosphatase 104, Total Protein 6.7, Albumin 2.1 L, Globulin 4.6 H, Albumin/Globulin Ratio 0.5 L, TSH 1.41 Radiography Diagnostic Testing: Radiology Impression Chest X-Ray 06/10/21 18:00 IMPRESSION: Large right pleural effusion increased since the previous exam. Right IJ catheter in the SVC. No pneumothorax. Electronically Signed: Joselito Bonilla MD at 19:36 EST Reading Location ID and State: [facility] / [place] , Service support , Rhythm Strip Rhythm Strip: Sinus Tach Rate: 128 Physical Exam Narrative Patient is started having mild shortness of breath, right-sided chest discomfort for about 2 months and diagnosed with eating sarcoma about a month ago. Patient initially saw Dr. Ross referred to [facility]. In [facility] there was found mass with complicated pleural effusion, not accessible by IR or CT surgeon on detailed evaluation there. Patient is started on chemotherapy a week ago. Physical exam General: Alert, Oriented x3, Cooperative, BMI 26.9 kg/m? HEENT: Atraumatic, PERRLA, EOMI, Normocephalic Oral: No Gingival or Mucosal Lesions/ Ulcerations Neck: Supple, No JVD, Negative Carotid Bruits Lungs: Air entry severely diminished on the right side. On percussion, dullness starts at sixth intercostal space. No crepitation or rhonchi. Tachypnea dysp chrissy on mild exertion. On 2 L of oxygen Cardiovascular: Sinus tachycardia, Normal S1, Normal S2, No murmurs Abdomen: Bowel Sounds Present, Soft, Non Tender, Non-Distended : No renal angle tenderness. No suprapubic tenderness. Extremities: No edema, Capillary Refill Less than 3 Seconds Skin: Redness induration and tenderness over right flank area about 8 to 9 cm x 2 to 3 cm oval in shape, cellulitis. No bruise or hematoma Musculoskeletal: No Tenderness to Palpation of Joints or Extremities Neurological: Cranial nerves II-XII grossly intact, DTR 2+/4 and Symmetrical, Neuro grossly intact Psych/Mental Status: Normal Affect, Appropriate. Assessment & Plan Assessment/Plan (1) Cellulitis, trunk: QUALIFIERS: Site of cellulitis of trunk: unspecified site Qualified Code(s): L03.319 - Cellulitis of trunk, unspecified (2) Pancytopenia with fever: (3) Candidiasis of mouth: (4) Acute hyponatremia: PLAN: The patient is a 40 y/o M was admitted for neutropenic fever and right flank cellulitis #1. Sepsis due to right lateral flank cellulitis with neutropenic fever: Patient had chemotherapy first time a week ago including clinic main campus. Patient oncologist is Dr. Larry Hodges, [facility]. Patient has fever, severe neutropenia, ANC 0.1 thousand, right malignant pleural effusion with mass with dyspnea. The patient IV antibiotic broadened to vancomycin and Zosyn. High risk for MRSA as patient was in clinic last week. I do not think patient needs antifungal for now. ID consulted for further opinion. Monitor blood cultures, temperature curve. Started on Granix. Patient sent to ER by [facility] oncologist Dr. Lundberg. Chest x-ray image reviewed shows right opacity in the right hemithorax. Patient had ultrasound-guided thoracocentesis in [facility] on May 13 and May 20, 2021. 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 We will try to get the medical record. Unclear why it was not done in the ER. Patient had chest abdomen pelvis CT with IV contrast on April 22, 2021 reported fatty liver, normal gallbladder and extrahepatic duct system. Normal spleen, normal pancreas. Significant right pleural effusion with slight interval reduction with significant collapse of right lung. Mediastinal right paratracheal right hilar masses noted. Pleural-based irregular masses. 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 No evidence of lymphoma. CK is low 27. Discussed with rendering equipment tender Dr. Perry. Ultrasound-guided thoracocentesis ordered. Dr. Granados called. Orders put in for pleural fluid analysis. 3. Elevated liver chemistry, hyperbilirubinemia exact etiology unclear possible due to tumor/chemotherapy: Patient last total bili was normal on 05/06/2021. Admitted with TB 3, most recent 2.8. ALT was high in April 2021 but now normal. AST also trending down. Right upper quadrant sonogram ordered. #3. Elevated BP without HTN diagnosis: Blood pressure is normal 126/83. Was elevated in ED. Might be stress response from shortness of breath. #4. Acute hyponatremia, unclear specific etiology: Serum sodium was normal 136, 135 on April 2021. Sodium is low 124/126 possible chemotherapeutic adverse effect/SIADH. TSH normal. Cortisol high. Urine osmolarity high 770, random sodium 19. Serum osmolarity ordered #5. Oral thrush: oral nystatin regimen, administered 1 dose oral fluconazole per ED physician. #6. Chronic pain syndrome: Related with patient significant tumor burden, will continue patient's oxycodone regimen. #7. Depression and anxiety/ADHD: Patient home methylphenidate held because of nonformulary. #8. DVT prophylaxis: SCDs, Lovenox cautiously with close continue platelet monitoring. Discontinue if platelet count drops less than 50,000 or hemoglobin less than 8 g% #9. CODE status: Patient PHILIP is his and living will is currently in place. Discussed CODE status at length including difference between FULL code, DNR-CCA and DNR-CC status. Following discussions about the differences in these status, requested Full Code status. Advanced Care Planning Face to Face Time: 16 minutes. Total time of the visit including total time spent in counseling or coordination of care, (more than 50% of the total time, spent in obtaining medical information from nurses and other ancillary care providers,explaining to the patient about labs, imaging, diagnosis and management), discussion with consultants ID and automotive product engineer, review of labs and imaging is 35 minutes. Charges/Coding Visit Charges Inpatient E&M: 42662 [facility] Hosp L3
--- NOTE | 2021-06-11 13:16 | PCM.RX.CS ---
Consult Pharmacy has been consulted to manage selected antiobiotic: Vancomycin Type of Consult: New start Suspected Infection: Skin/Soft tissue Prior Doses of Antibiotics Received/Current Regimen: Received 1250mg iv x 1 as initial dose. Labs: Sodium 126 mmol/L (136-145) L 06/11/21 05:30 Potassium 3.8 mmol/L (3.5-5.1) 06/11/21 05:30 Chloride 94 mmol/L (98-107) L 06/11/21 05:30 Carbon Dioxide 25.0 mmol/L (21.0-32.0) 06/11/21 05:30 Anion Gap 7 (5-15) 06/11/21 05:30 BUN 15 mg/dL (7-18) 06/11/21 05:30 Creatinine 0.55 mg/dL (0.70-1.30) L 06/11/21 05:30 Est GFR (MDRD) Af Amer 210 mL/min (>60) 06/11/21 05:30 Est GFR (MDRD) Non-Af 173 mL/min (>60) 06/11/21 05:30 BUN/Creatinine Ratio 27.3 RATIO (10-20) H 06/11/21 05:30 Glucose 87 mg/dL (74-106) 06/11/21 05:30 Weight used for dosin.6 kg Estimated Creatinine Clearance: >100ml/min Goal Trough: 15-20 mcg/mL Pharmacy Plan for Drug Dosing: Will start patient on 1gm iv q8h. Trough level ordered for tomorrow before 4th total dose. Pharmacy Service will continue to monitor and adjust dosing as required. Follow-Up Labs: Trough Vancomycin - 2.24.22@1130 before 1200 dose
--- NOTE | 2021-06-11 13:37 | US_ITS ---
STUDY: SUPERFICIAL ULTRASOUND - RIGHT PLEURAL CAVITY. REASON FOR EXAM: Male, 40 years old. Right malignant effusion TECHNIQUE: A superficial ultrasound was performed with real-time and static bedoya-scale imaging. COMPARISON: None. FINDINGS: Imaging of the right pleural cavity was performed. There is evidence of a combination of the diffuse infiltration with the loculated pleural fluid. The patient and the family decided not to proceed with thoracentesis. US/Chest IMPRESSION: Loculated right pleural effusion. The patient and the family decided to not proceed with the thoracentesis. Electronically Signed: Conner Pierre MD at 9:18 EST ,
--- NOTE | 2021-06-11 14:35 | NURSING ---
Patient off unit to US.
[2021-06-11 15:16] LABS: Osmolality, Serum 149 mOsm/KG (275-295)
[2021-06-11 15:20] LABS: Pathologist Review Reviewed
--- NOTE | 2021-06-11 17:05 | CON.PCM.ID_ITS ---
Assessment & Plan Assessment/Plan (1) Cellulitis, trunk: QUALIFIERS: Site of cellulitis of trunk: unspecified site Qualified Code(s): L03.319 - Cellulitis of trunk, unspecified (2) Pancytopenia with fever: PLAN: On empiric vanc/zosyn. Recent admit to [facility] after starting chemo. He is not sure what prophylaxis for infection he has been on. Covid vaccine x2. Has erythema on R flank, does not appear to be connected to thoracentesis (last was several weeks ago). Shingles is on differential dx, but appearance is not consistent. Temps improved with vanc/zosyn. Will follow cxs, cont nystatin. Pulm to see. Would recommend thoracentesis if possible. Will follow, thank you, d/w nursing (3) Bay's sarcoma: (4) Candidiasis of mouth: HPI Consult Data Date of Consult: 06/11/21 HPI Narrative HPI Narrative: BARTOLO ROBERT, is a 40 M who presented 06/10 with fever, chills. Dx with Bay sarcoma in April, started on chemo last week via R chest port. Admitted to [facility] with dyspnea the day after, was there for a week, given abx, unable to have thoracentesis. Now with thrush, fever, and new rash on R flank. Had chicken pox as a kid, rash is not painful, no lesions/drainage. Vaccinated for covid x2. Admitted here on vanc/zosyn. Additional history obtained from his . Full ROS performed and neg except as noted above. COUNTS INCLUDE 234 BEDS AT THE [facility] Medical History Depression Bay sarcoma Migraines Non-smoker Vitamin D deficiency Home Medications cholecalciferol (vitamin D3) 25 mcg PO DAILY 06/10/21 [History Last Taken 0 06/10/21] methylphenidate HCl 5 mg PO BID 06/10/21 [History Last Taken 06/10/21] nortriptyline 50 mg PO QHS 06/10/21 [History Last Taken 06/09/21] ondansetron HCl 8 mg PO TID PRN 06/10/21 [History Last Taken Unknown] oxycodone 5 - 10 mg PO Q4H PRN PRN 06/10/21 [History Last Taken 06/10/21 12:00] oxycodone myristate [Xtampza ER] 18 mg PO BID 06/10/21 [History Last Taken 06/10/21] prochlorperazine maleate 10 mg PO TID PRN 06/10/21 [History Last Taken Unknown] sennosides [senna] 17.2 mg PO QHS 06/10/21 [History Last Taken 06/09/21] Allergy/AdvReac Type Severity Reaction Status Date / Time codeine Allergy Nausea Verified 06/10/21 15:16 Iodinated Contrast Media Allergy Nausea Verified 06/10/21 15:16 [CONTRASTS] Family History (Updated 06/10/21 @ 19:[address] Alaina Bullard MD) Mother Heart disease Hypertension Diabetes Father Hypertension CVA (cerebral vascular accident) Testicular cancer Surgical History H/O shoulder surgery History of ankle surgery History of thoracentesis Social History (Updated 06/10/21 @ 17:[address] Lam Kelly MD) household members: spouse Smoking Status: Never smoker alcohol intake: never substance use type: does not use Physical Exam Const alert, oriented x3 and no apparent distress General Appearance: cooperative Exam Limitations: no limitations HEENT normocephalic and head/scalp atraumatic HEENT Narrative: thrush and shallow ulcers in mouth Eyes PERRL and EOMs intact bilaterally Neck supple Resp Resp Narrative: absent breath sounds on R Cardio regular rate and regular rhythm GI soft to palpation, non-tender and non-distended Extremity no clubbing, cyanosis or edema Skin Skin Narrative: Linear erythema on lateral R flank. R chest port nontender, no redness Neuro CN's II-XII intact bilaterally Medical Records Data Medical Nutrition Assessment Dietitian: Malnutrition Criteria Met Start: 06/11/21 13:35 Freq: Status: Active Protocol: Document 06/11/21 13:36 RMA (Rec: 06/11/21 13:36 RMA [id number]) Nutrition Malnutrition Evidence of Malnutrition Exists Yes Malnutrition (severe): Acute Illness/Injury,Chronic Evidenced By Suboptimal Energy Intake ( Severe),Weight Loss (Severe) Clinical Problem Acute Disease or Injury Related Malnutrition Etiology Severe protein/calorie malnutrition in the context of acute/chronic disease related to inadequate oral intake and increased energy expenditure due to sarcoma/chemo Signs/Symptoms as evidenced by 9-10% weight loss x 8 weeks and PO meeting less than 50-75% estimated nutrition needs x past 2 or more months Status Active Problem Recommendation Dietitian Recommendations/Changes Continue regular diet as ordered. Will add 240 ml ensure enlive TID w/ meals. Adjust ONS as needed to optimize PO and prevent further wt loss. Lab / Micro Data Result Diagrams: 06/11/21 05:30 06/11/21 05:30 Labs: Laboratory Results - last 24 hr 06/10/21 17:38: WBC 0.1 L*, RBC 3.72 L, Hgb 10.6 L, Hct 30.6 L, MCV 82.3, MCH 28.5, MCHC 34.6, RDW Std Deviation 39.2, RDW Coeff of Vi 13.1, Plt Count 93 L, MPV 9.9, Neut % (Auto) Not Reportable, Absolute Neuts (auto) 0.0 L, Absolute Lymphs (auto) 0.04 L, Total Counted 20, Neutrophils % (Manual) 5 L, Lymphocytes % (Manual) 40, Monocytes % (Manual) 25 H, Metamyelocytes % 10 H, Myelocytes % 20 H, Diff Path Review Reviewed, Platelet Estimate MOD DEC, RBC Morphology NORM C+C, Anisocytosis RARE 06/10/21 17:38: Sodium 124 L, Potassium 4.1, Chloride 91 L, Carbon Dioxide 25.0, Anion Gap 8, BUN 17, Creatinine 0.61 L, Estim Creat Clear Calc 152.62, Est GFR (MDRD) Af Amer 184, Est GFR (MDRD) Non-Af 152, BUN/Creatinine Ratio 27.7 H, Glucose 99, Calcium 8.6, Total Bilirubin 3.00 H, AST 58 H, ALT 37, Alkaline Phosphatase 110, Total Protein 6.9, Albumin 2.3 L, Globulin 4.6 H, Albumin/Globulin Ratio 0.5 L 06/10/21 17:38: Lactic Acid 1.4 06/10/21 17:38: Serum Osmolality 260 L 06/10/21 17:38: Phosphorus 3.4, Magnesium 1.7 06/10/21 19:45: Urine Color Yellow, Urine Clarity Clear, Urine pH 7.0, Ur Specific [place] 1.015, Urine Protein 15 H, Urine Glucose (UA) Normal, Urine Ketones 150 A*, Urine Occult Blood 10 H, Urine Nitrite Negative, Urine Bilirubin 3 H, Urine Urobilinogen 4 H, Ur Leukocyte Esterase 25 H, Urine RBC 0 SEEN, Urine WBC 0 SEEN, Ur Squamous Epith Cells 0 SEEN, Urine Bacteria 0 SEEN, Urine Mucus 0 SEEN 06/10/21 19:45: Urine Osmolality 770 06/10/21 19:45: Ur Random Sodium 19, Urine Creatinine 105.00 06/11/21 05:30: WBC 0.2 L*, RBC 3.56 L, Hgb 10.1 L, Hct 29.1 L, MCV 81.7, MCH 28.4, MCHC 34.7, RDW Std Deviation 39.1, RDW Coeff of Vi 13.2, Plt Count 82 L, MPV 9.7, Immature Gran % (Auto) 0.000, Neut % (Auto) 21.7 L, Lymph % (Auto) 60.9 H, [place] % (Auto) 17.4 H, Eos % (Auto) 0.0, Baso % (Auto) 0.0, Absolute Neuts (auto) 0.1 L, Absolute Lymphs (auto) 0.14 L, Nucleated RBC % 0, Diff Path Review August06/11/21 05:30: Sodium 126 L, Potassium 3.8, Chloride 94 L, Carbon Dioxide 25.0, Anion Gap 7, BUN 15, Creatinine 0.55 L, Estim Creat Clear Calc 169.27, Est GFR (MDRD) Af Amer 210, Est GFR (MDRD) Non-Af 173, BUN/Creatinine Ratio 27.3 H, Glucose 87, Calcium 8.0 L, Total Bilirubin 2.80 H, AST 52 H, ALT 33, Alkaline Phosphatase 104, Total Protein 6.7, Albumin 2.1 L, Globulin 4.6 H, Albumin/Globulin Ratio 0.5 L, TSH 1.41 06/11/21 05:30: Cortisol 44.50 H 06/11/21 05:30: Total Creatine Kinase 27 L 06/11/21 05:30: Serum Osmolality 149 L Rhythm Strip Rhythm Strip: Sinus Tach Rate: 128 Radiology Impression Chest X-Ray 06/10/21 18:00 IMPRESSION: Large right pleural effusion increased since the previous exam. Right IJ catheter in the SVC. No pneumothorax. Electronically Signed: Bartolo Bonilla MD at 19:36 EST ,
[2021-06-11] MEDS: Vancomycin IV 1,000 MG/200 ML BAG 200 MG IV (20:08)
[2021-06-11] MEDS: BMX LIQUID 180 ML 10 ML PO (20:09)
[2021-06-11] MEDS: Nortriptyline 25 MG Capsule 50 MG PO (21:57)
[2021-06-11] MEDS: Senna Tablet 2 TABLET PO (21:57)
[2021-06-12] VITALS (11 sets, daily range): BP systolic 128–145; BP diastolic 79–88; PULSE 109–126; RESP 16–38; TEMP 36.5–37.1; O2SAT 95–98
--- NOTE | 2021-06-12 | FLU_PTH ---
PATIENT: BARTOLO ROBERT LOC: MS3 U#:[id number] AGE/SX: 40/M ROOM: ND313 RE06/10/[address]: Dr. Clay Banegas MD : 1980 BED: 1 DIS: 06/14/2021 SPEC #: [id number] RECD: 06/12/21 14:34 STATUS: ELMER RERadha #: [id number] SHEREE: 06/12/21 00:[address]: Clay Banegas DEPT: CYTOLOGY RECD BY: Agustín Lomeli ENTERED: 06/13/21 08:30 SP TYPE: Fluid OTHR DR: MD Dr. Pipo Coley MD Dr. Derek Brown, DO Dr. Paul Nielsen, MD Dr. Robert Leininger, MD Christina Muller, RADIO INTERFERENCE INVESTIGATOR-C Tissues: THORACIC FLUID Procedures: Special Stain Group II Surgery Specimen Level IV Cytospin Fluid HEADER OPERATION: Thoracentesis, right PRE-OP DIAGNOSIS: Right pleural effusion TISSUE SUBMITTED: Thoracentesis fluid for cytology DIAGNOSIS CYTOLOGY Thoracentesis fluid for cytology (cytospin and cell block): Scant polymorphous lymphocytes. See comment. AM:syed 06/16/2021 COMMENT The specimen is negative for malignancy. Clinical correlation is suggested. CYTOLOGY STUDY Slides are reviewed. CYTOLOGY GROSS Received is 105 ml of yellow, cloudy fluid labeled with the patient's name and and designated per the requisition as thoracentesis. Submitted for cytology preparation including cell block. / syed 06/13/2021 TC:5 CPT: 95399, 88499
[2021-06-12] MEDS: Vancomycin IV 1,000 MG/200 ML BAG 200 MG IV ×2 (03:21→12:58)
[2021-06-12 06:31] LABS: Absolute Lymphocyte Count 0.34 X10^3/uL (0.83-4.51); Absolute Neutrophil Count 0.1 X10^3/uL (2.0-7.7); Basophil# 0.01 X10^3/uL; Basophil% 1.4 % (0-1); Eosinophil# 0.01 X10^3/uL; Eosinophils% 1.4 % (0-5); Hematocrit 29.4 % (40-54); Lymphocyte # 0.34 X10^3/ul (0.83-4.51); Lymphocyte % 49.3 % (19-41); Mean Corpuscular Hgb 28.1 pg (27.0-32.0); Mean Corpuscular Volume 82.6 fL (80-94); Monocyte# 0.18 X10^3/uL; Monocyte% 26.1 % (0-10); NRBC Flagged by Analyzer 0 % (0-5); Neutrophil # 0.14 X10^3/uL (2.7-7.7); Neutrophil % 20.4 % (47-70); POSITIVE COUNT YES; POSITIVE DIFFERENTIAL YES; POSITIVE MORPHOLOGY YES; Platelet Count 82 K/mm3 (150-450); RBC Distribution Width CV 13.2 % (11.6-14.6); RBC Distribution Width SD 39.8 fl (35.1-43.9); Red Blood Count 3.56 M/mm3 (4.6-6.2); White Blood Count 0.7 K/mm3 (4.4-11.0)
[2021-06-12 06:39] LABS: Differential Indicated SCAN CRITERIA MET
[2021-06-12 07:03] LABS: ALB/GLOB Ratio 0.4 RATIO (0.9-2.4); AST(SGOT) 37 U/L (15-37); Alanine Aminotransfer ALT/SGPT 29 U/L (16-61); Alkaline Phosphatase 98 U/L (45-117); Anion Gap 6 (5-15); BUN 17 mg/dL (7-18); BUN/Creat Ratio 33.5 RATIO (10-20); Calcium,Total 8.2 mg/dL (8.5-10.1); Chloride 94 mmol/L (98-107); Creatinine, Serum 0.51 mg/dL (0.70-1.30); EST Glomerular Filtration Rate 190 mL/min (>60); Est Glom Filt Rate - Afr Amer 230 mL/min (>60); Estimated Creatinine Clearance 182.55 ml/min; Globulin 4.5 g/dL (2.2-4.2); Glucose 84 mg/dL (74-106); LDH 726 U/L (87-241); Magnesium 2.2 mg/dL (1.6-2.6); Phosphorus 2.3 mg/dL (2.5-4.9); Potassium 3.7 mmol/L (3.5-5.1); Protein, Total 6.5 g/dL (6.4-8.2); Sodium Level 127 mmol/L (136-145)
--- NOTE | 2021-06-12 07:29 | PCA ---
sent request for medical records to [facility] havent recieved any back yet
--- NOTE | 2021-06-12 07:45 | PCM.PN.HOSP ---
Subjective Subjective Seen and examined. 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 Last fever on 06/10 evening. Afebrile since then. Seen by ID yesterday, consult reviewed and appreciated. Mild tachycardia. Yesterday patient was taken for thoracocentesis to radiology but he and his requested to wait as told by [facility] physician that it will reaccumulate and might improve after chemotherapy that we know because of malignant effusion and loculation. I explained today that we are trying to get drainage of 1 pocket to get sample for pleural fluid study and analysis Objective Data Objective Data Vital Signs: Vital Signs Temp Pulse Resp BP Pulse Ox 97.9 F 114 H 18 128/83 H 96 06/12/21 03:17 06/12/21 03:17 06/12/21 03:17 06/12/21 03:17 06/12/21 03:17 Oxygen Flow Rate (L/min) 2 Oxygen Delivery Method Nasal Cannula Weight: 177 lb 11.081 oz Body Mass Index (BMI) 26.9 Intake & Output: Intake and Output for Last 24 Hours 06/10/21 06/11/21 06/12/21 23:59 23:59 23:59 Intake Total 1255.75 / 1255.75 2565.41 / 2565.41 250 / 250 Output Total 400 / 400 550 / 550 250 / 250 Balance 855.75 / 855.75 / 0 / 0 Medical Nutrition Assessment Dietitian: Malnutrition Criteria Met Start: 06/11/21 13:35 Freq: Status: Active Protocol: Document 06/11/21 13:36 RMA (Rec: 06/11/21 13:36 RMA [id number]) Nutrition Malnutrition Evidence of Malnutrition Exists Yes Malnutrition (severe): Acute Illness/Injury,Chronic Evidenced By Suboptimal Energy Intake ( Severe),Weight Loss (Severe) Clinical Problem Acute Disease or Injury Related Malnutrition Etiology Severe protein/calorie malnutrition in the context of acute/chronic disease related to inadequate oral intake and increased energy expenditure due to sarcoma/chemo Signs/Symptoms as evidenced by 9-10% weight loss x 8 weeks and PO meeting less than 50-75% estimated nutrition needs x past 2 or more months Status Active Problem Recommendation Dietitian Recommendations/Changes Continue regular diet as ordered. Will add 240 ml ensure enlive TID w/ meals. Adjust ONS as needed to optimize PO and prevent further wt loss. Lab / Micro Data Result Diagrams: 06/12/21 06:00 06/12/21 06:00 Labs: Laboratory Results - last 24 hr 06/10/21 17:38: Diff Path Review Reviewed 06/11/21 05:30: Cortisol 44.50 H 06/11/21 05:30: Total Creatine Kinase 27 L 06/11/21 05:30: Serum Osmolality 149 L 06/12/21 06:00: WBC 0.7 L*, RBC 3.56 L, Hgb 10.0 L, Hct 29.4 L, MCV 82.6, MCH 28.1, MCHC 34.0, RDW Std Deviation 39.8, RDW Coeff of Vi 13.2, Plt Count 82 L, MPV 10.0, Immature Gran % (Auto) 1.400 H, Neut % (Auto) 20.4 L, Lymph % (Auto) 49.3 H, [place] % (Auto) 26.1 H, Eos % (Auto) 1.4, Baso % (Auto) 1.4 H, Absolute Neuts (auto) 0.1 L, Absolute Lymphs (auto) 0.34 L, Nucleated RBC % 0, Diff Path Review May 06/12/21 06:00: Sodium 127 L, Potassium 3.7, Chloride 94 L, Carbon Dioxide 27.0, Anion Gap 6, BUN 17, Creatinine 0.51 L, Estim Creat Clear Calc 182.55, Est GFR (MDRD) Af Amer 230, Est GFR (MDRD) Non-Af 190, BUN/Creatinine Ratio 33.5 H, Glucose 84, Calcium 8.2 L, Phosphorus 2.3 L, Magnesium 2.2, Total Bilirubin 1.70 H, AST 37, ALT 29, Alkaline Phosphatase 98, Lactate Dehydrogenase 726 H, Total Protein 6.5, Albumin 2.0 L, Globulin 4.5 H, Albumin/Globulin Ratio 0.4 L Rhythm Strip Rhythm Strip: Sinus Tach Rate: 128 Physical Exam Narrative . Physical exam General: Alert, Oriented x3, Cooperative, BMI 26.9 kg/m? HEENT: Atraumatic, PERRLA, EOMI, Normocephalic Oral: No Gingival or Mucosal Lesions/ Ulcerations Neck: Supple, No JVD, Negative Carotid Bruits Lungs: Air entry severely diminished on the right side. Right complicated pleural effusion/mass no crepitation or rhonchi. Hypoxia resolved. Cardiovascular: Sinus tachycardia, Normal S1, Normal S2, No murmurs Abdomen: Bowel Sounds Present, Soft, Non Tender, Non-Distended : No renal angle tenderness. No suprapubic tenderness. Extremities: No edema, Capillary Refill Less than 3 Seconds Skin: Right flank cellulitis. No bruise or hematoma Musculoskeletal: No Tenderness to Palpation of Joints or Extremities Neurological: Cranial nerves II-XII grossly intact, DTR 2+/4 and Symmetrical, Neuro grossly intact Psych/Mental Status: Normal Affect, Appropriate. Assessment & Plan Assessment/Plan (1) Cellulitis, trunk: QUALIFIERS: Site of cellulitis of trunk: unspecified site Qualified Code(s): L03.319 - Cellulitis of trunk, unspecified (2) Pancytopenia with fever: (3) Candidiasis of mouth: (4) Acute hyponatremia: PLAN: The patient is a 40 y/o M was admitted for neutropenic fever and right flank cellulitis.Patient is started having mild shortness of breath, right-sided chest discomfort for about 2 months and diagnosed with Bay sarcoma about a month ago. Patient initially saw Dr. Zhou had thoracocentesis with reaccumulation and CT-guided biopsy. Referred to [facility]. In [facility] there was could not get Pleurx catheter due to complicated pleural effusion, not accessible by IR or CT surgeon on detailed evaluation there. Patient had first chemotherapy a week ago prior to admission #1. Sepsis due to right lateral flank cellulitis with neutropenic fever: qSOFA score 1 1/3, tachypnea. Patient had chemotherapy first time a week ago including clinic main campus. Patient oncologist is Dr. Larry Hodges, [facility]. Patient has fever, severe neutropenia, ANC 0.1 thousand, right malignant pleural effusion with mass with dyspnea. The patient IV antibiotic broadened to vancomycin and Zosyn. High risk for MRSA as patient was in clinic last week. I do not think patient needs antifungal for now. ID consulted for further opinion. Monitor blood cultures, temperature curve. Started on Granix. Patient sent to ER by [facility] oncologist Dr. Lundberg. Chest x-ray image reviewed shows right opacity in the right hemithorax. Patient had ultrasound-guided thoracocentesis in [facility] on May 13 and May 20, 2021 with reaccumulation and significantly short period of time. 06/12: Patient is responding with IV antibiotic. Increase in ANC. Platelet count no significant change. Hemoglobin no significant drop. Continue IV antibiotic. Monitor fluid culture and blood cultures x2. 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 We will try to get the medical record. Unclear why it was not done in the ER. Patient had chest abdomen pelvis CT with IV contrast on April 22, 2021 reported fatty liver, normal gallbladder and extrahepatic duct system. Normal spleen, normal pancreas. Significant right pleural effusion with slight interval reduction with significant collapse of right lung. Mediastinal right paratracheal right hilar masses noted. Pleural-based irregular masses. 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 No evidence of lymphoma. CK is low 27. 06/12: Discussed with retail project merchandiser . I discussed with the patient and explained that ultrasound-guided thoracentesis which will be diagnostic with drainage of one pocket. I further communicated with Dr. Pierre. Ultrasound-guided thoracocentesis ordered as it was canceled yesterday because patient and family wanted to wait to see the effect of chemotherapy. Patient had approximately 970 mL of dark kenzie-colored fluid drained. No postprocedure pneumothorax. 3. Elevated liver chemistry, hyperbilirubinemia exact etiology unclear possible due to sepsis or tumor/chemotherapy: Patient last total bili was normal on 05/06/2021. Admitted with TB 3, most recent 2.8. ALT was high in April 2021 but now normal. AST also trending down. Right upper quadrant sonogram ordered. 06/12: AST improved to normal. Total bilirubin 1.7. Right upper quadrant sonogram pending. #3. Elevated BP without HTN diagnosis: Blood pressure is normal 126/83. Was elevated in ED. Might be stress response from shortness of breath. #4. Acute hyponatremia, unclear specific etiology: Serum sodium was normal 136, 135 on April 2021. Sodium is low 124/126 possible chemotherapeutic adverse effect/SIADH. TSH normal. Cortisol high. Urine osmolarity high 770, random sodium 19. Serum osmolarity ordered 06/12: Serum sodium 127. Serum osmolarity 149 much lower than urine osmolarity. 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 Oral thrush: oral nystatin regimen, administered 1 dose oral fluconazole per ED physician. #6. Chronic pain syndrome: Related with patient significant tumor burden, will continue patient's oxycodone regimen. #7. Depression and anxiety/ADHD: Patient home methylphenidate held because of nonformulary. #8. DVT prophylaxis: SCDs, Lovenox cautiously with close continue platelet monitoring. Discontinue if platelet count drops less than 50,000 or hemoglobin less than 8 g% #9. CODE status: Patient PHILIP is his and living will is currently in place. Discussed CODE status at length including difference between FULL code, DNR-CCA and DNR-CC status. Following discussions about the differences in these status, requested Full Code status. Advanced Care Planning Face to Face Time: 16 minutes. Total time of the visit including total time spent in counseling or coordination of care, (more than 50% of the total time, spent in obtaining medical information from nurses and other ancillary care providers,explaining to the patient about labs, imaging, diagnosis and management), discussion with consultants ID and bowling alley attendant, review of labs and imaging is 35 minutes. Charges/Coding Visit Charges Inpatient E&M: 81966 Subs Hosp L3
--- NOTE | 2021-06-12 08:09 | EX.PCM.CONCC ---
Assessment & Plan Assessment/Plan (1) Neutropenic fever: PLAN: RECOMMENDATIONS: 1. Continue empiric antimicrobials per ID recommendations. 2. Proceed with ultrasound-guided thoracentesis. 3. Continue Granix as ordered. 4. Send pleural fluid for LDH, total protein, cell count, culture and cytology. IMPRESSIONS: 1. 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 He was then referred to the emergency department after developing a fever. He has a known right-sided pleural effusion, which is complicated and loculated. He has been on broad-spectrum antimicrobials under the discretion of infectious diseases. There are tentative plans to proceed with a diagnostic thoracentesis today to evaluate the pleural fluid for the presence of potential infection. At the present time, the patient is stable from a respiratory perspective on room air. 2. 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 Continue home medications as indicated. This note was generated with [employer] dictation software. It may contain incorrect words, spelling, and punctuation that were not noted in checking the note before signing. HPI Consult Data Date of Consult: 06/12/21 HPI Narrative Reason for Consultation: Neutropenic fever HPI Narrative: The patient is a 40-year-old male, with a history as outlined below, who presented to the emergency department on June 10 with a fever and pleural effusion. The patient's medical history is significant for a recent diagnosis of Bay like sarcoma. The patient has had multiple thoracenteses since April. 2 separate pleural fluid cytology failed to demonstrate malignant cells. He was just recently last week started on chemotherapy through [facility]. On presentation to the emergency department, the patient was noted to have a low-grade fever and was tachycardic and tachypneic. He was, however, hemodynamically stable. Initial laboratory evaluation revealed evidence of pancytopenia. Chemistry profile was notable for a sodium of 124, Hannah 91 and normal creatinine. Lactate was within normal limits. Total bili was increased at 3.0. Urinalysis was largely unremarkable. The patient was subsequently placed on antimicrobials and admitted to the hospital for further management. [facility] Medical History Depression Bay sarcoma Migraines Non-smoker Vitamin D deficiency Home Medications cholecalciferol (vitamin D3) 25 mcg PO DAILY 06/10/21 [History Last Taken 06/10/21] methylphenidate HCl 5 mg PO BID 06/10/21 [History Last Taken 06/10/21] nortriptyline 50 mg PO QHS 06/10/21 [History Last Taken 06/09/21] ondansetron HCl 8 mg PO TID PRN 06/10/21 [History Last Taken Unknown] oxycodone 5 - 10 mg PO Q4H PRN PRN 06/10/21 [History Last Taken 06/10/21 12:00] oxycodone myristate [Xtampza ER] 18 mg PO BID 06/10/21 [History Last Taken 06/10/21] prochlorperazine maleate 10 mg PO TID PRN 06/10/21 [History Last Taken Unknown] sennosides [senna] 17.2 mg PO QHS 06/10/21 [History Last Taken 06/09/21] Allergy/AdvReac Type Severity Reaction Status Date / Time codeine Allergy Nausea Verified 06/10/21 15:16 Iodinated Contrast Media Allergy Nausea Verified 06/10/21 15:16 [CONTRASTS] Family History (Updated 06/10/21 @ 19:[address] Alaina Bullard MD) Mother Heart disease Hypertension Diabetes Father Hypertension CVA (cerebral vascular accident) Testicular cancer Surgical History H/O shoulder surgery History of ankle surgery History of thoracentesis Social History (Updated 06/10/21 @ 17:[address] Lam Kelly MD) household members: spouse Smoking Status: Never smoker alcohol intake: never substance use type: does not use ROS Constitutional Constitutional: Reports chills and fever(s) Eyes Eyes: Denies blurry vision or change in vision ENT HEENT: Denies dysphagia, epistaxis or headache(s) Cardiovascular Cardiovascular: Reports dyspnea; Denies chest pain Respiratory/Chest Respiratory/Chest: Reports dyspnea; Denies cough Gastrointestinal Gastrointestinal: Denies abdominal pain, diarrhea, nausea or vomiting Genitourinary Genitourinary: Denies difficulty urinating Musculoskeletal Musculoskeletal: Denies arthralgias or back pain Integumentary Integumentary: Reports rash Neurologic Neurologic: Denies abnormal gait or abnormal speech Psychiatric Psychiatric: Denies anxiety or depression Endocrine Endocrinology: Denies fatigue, polydipsia or polyuria Hematologic/Lymphatic Hematologic/Lymphatic: Denies easy bleeding or easy bruising Physical Exam Const alert and no apparent distress Constitutional Narrative: Sitting upright in bed. is present at the bedside. General Appearance: cooperative HEENT normocephalic, head/scalp atraumatic and moist oral mucous membranes Eyes PERRL, EOMs intact bilaterally and conjunctivae normal Neck supple General: trachea midline Resp Resp Narrative: Notably diminished air movement throughout right hemithorax. No accessory muscle use. Cardio regular rate and regular rhythm GI normal to inspection, nondistended, normoactive bowel sounds Extremity no clubbing, cyanosis or edema Skin Skin Narrative: Localized right flank erythema Neuro CN's II-XII intact bilaterally, moves all extremities and no focal motor deficits Psych cooperative and affect normal Medical Records Data Medical Nutrition Assessment Dietitian: Malnutrition Criteria Met Start: 06/11/21 13:35 Freq: Status: Active Protocol: Document 06/11/21 13:36 RMA (Rec: 06/11/21 13:36 RMA [id number]) Nutrition Malnutrition Evidence of Malnutrition Exists Yes Malnutrition (severe): Acute Illness/Injury,Chronic Evidenced By Suboptimal Energy Intake ( Severe),Weight Loss (Severe) Clinical Problem Acute Disease or Injury Related Malnutrition Etiology Severe protein/calorie malnutrition in the context of acute/chronic disease related to inadequate oral intake and increased energy expenditure due to sarcoma/chemo Signs/Symptoms as evidenced by 9-10% weight loss x 8 weeks and PO meeting less than 50-75% estimated nutrition needs x past 2 or more months Status Active Problem Recommendation Dietitian Recommendations/Changes Continue regular diet as ordered. Will add 240 ml ensure enlive TID w/ meals. Adjust ONS as needed to optimize PO and prevent further wt loss. Lab / Micro Data Result Diagrams: 06/12/21 06:00 06/12/21 06:00 Labs: Laboratory Results - last 24 hr 06/10/21 17:38: Diff Path Review Reviewed 06/11/21 05:30: Cortisol 44.50 H 06/11/21 05:30: Total Creatine Kinase 27 L 06/11/21 05:30: Serum Osmolality 149 L 06/12/21 06:00: WBC 0.7 L*, RBC 3.56 L, Hgb 10.0 L, Hct 29.4 L, MCV 82.6, MCH 28.1, MCHC 34.0, RDW Std Deviation 39.8, RDW Coeff of Vi 13.2, Plt Count 82 L, MPV 10.0, Immature Gran % (Auto) 1.400 H, Neut % (Auto) 20.4 L, Lymph % (Auto) 49.3 H, [place] % (Auto) 26.1 H, Eos % (Auto) 1.4, Baso % (Auto) 1.4 H, Absolute Neuts (auto) 0.1 L, Absolute Lymphs (auto) 0.34 L, Nucleated RBC % 0, Diff Path Review August06/12/21 06:00: Sodium 127 L, Potassium 3.7, Chloride 94 L, Carbon Dioxide 27.0, Anion Gap 6, BUN 17, Creatinine 0.51 L, Estim Creat Clear Calc 182.55, Est GFR (MDRD) Af Amer 230, Est GFR (MDRD) Non-Af 190, BUN/Creatinine Ratio 33.5 H, Glucose 84, Calcium 8.2 L, Phosphorus 2.3 L, Magnesium 2.2, Total Bilirubin 1.70 H, AST 37, ALT 29, Alkaline Phosphatase 98, Lactate Dehydrogenase 726 H, Total Protein 6.5, Albumin 2.0 L, Globulin 4.5 H, Albumin/Globulin Ratio 0.4 L Rhythm Strip Rhythm Strip: Sinus Tach Rate: 128 Charges/Coding Visit Charges Inpatient E&M: 50667 Init Hosp L3
--- NOTE | 2021-06-12 08:16 | US_ITS ---
PROCEDURE: ULTRASOUND GUIDED THORACENTESIS. DATE: 06/12/2021. INDICATION: Male, 40 years old. Right pleural effusion. PHYSICIAN: Conner Pierre M.D. PROCEDURE: The risks, benefits, and alternatives to the procedure were explained to the patient. The specific risks of bleeding, infection, and pneumothorax requiring chest tube insertion were discussed and accepted. Written informed consent was obtained. Ultrasonographic evaluation of the right lower pleural space was carried out. An adequate pocket was identified. The patient was placed in the sitting, upright position. The overlying skin was prepped and draped in sterile fashion. 1% lidocaine was administered subcutaneously for local anesthesia. Under ultrasound guidance, a 5 Cuban thoracentesis needle/catheter system was advanced into the right posterior lower pleural fluid collection. Approximately 970 mL of dark kenzie-colored fluid was drained. The catheter was removed, and a sterile dressing was applied. A specimen was collected and sent to the laboratory for analysis, as requested by the referring clinician. The patient tolerated the procedure well. A chest x-ray was ordered. US/Thoracentesis W US IMPRESSION: Ultrasound-guided right thoracentesis. Electronically Signed: Conner Pierre MD at 14:42 EST ,
[2021-06-12] MEDS: oxyCODONE HCl Cr 10 MG Tablet 20 MG PO ×2 (09:24→21:12)
[2021-06-12] MEDS: NYSTATIN 500,000 UNIT/5 ML UDC 500000 UNIT PO ×4 (09:24→21:12)
[2021-06-12] MEDS: BMX LIQUID 180 ML 20 ML PO ×2 (09:27→15:08)
[2021-06-12 09:48] LABS: LDH 691 U/L (87-241)
--- NOTE | 2021-06-12 09:51 | PCM.PN.ID ---
Physical Exam Narrative Feeling better, mouth still sore. No fever. No abd pain, no n/v/d. No pain on R flank. Const alert General Appearance: cooperative HEENT HEENT Narrative: mucositis Resp Resp Narrative: absent breath sounds on R Cardio regular rate and regular rhythm GI soft to palpation, non-tender and non-distended Skin Skin Narrative: R flank erythema, slightly faded ID ID: Route of nutrition/ use of supplements: [] Nutritional Intake: [] IV Site: [] Ahmadi Catheter: [] Assessment & Plan Assessment/Plan (1) Cellulitis, trunk: QUALIFIERS: Site of cellulitis of trunk: unspecified site Qualified Code(s): L03.319 - Cellulitis of trunk, unspecified (2) Pancytopenia with fever: PLAN: On empiric vanc/zosyn. Recent admit to [facility] after starting chemo. He is not sure what prophylaxis for infection he has been on. Covid vaccine x2. Has erythema on R flank, does not appear to be connected to thoracentesis (last was several weeks ago). Shingles is on differential dx, but appearance is not consistent. Temps improved with vanc/zosyn. Will follow cxs, cont nystatin. Pulm following, thora planned. Would send fluid for cell count, diff, LDH, protein, path, de leon-cx. Will follow (3) Bay's sarcoma: (4) Candidiasis of mouth:
[2021-06-12 12:24] LABS: Vancomycin, Trough Level 7.8 ug/mL (5.0-15.0)
--- NOTE | 2021-06-12 13:24 | PCM.RX.CS ---
Consult Type of Consult: Follow-up Suspected Infection: Skin/Soft tissue - Cellulitis (trunk) Labs: Sodium 127 mmol/L (136-145) L 06/12/21 06:00 Potassium 3.7 mmol/L (3.5-5.1) 06/12/21 06:00 Chloride 94 mmol/L (98-107) L 06/12/21 06:00 Carbon Dioxide 27.0 mmol/L (21.0-32.0) 06/12/21 06:00 Anion Gap 6 (5-15) 06/12/21 06:00 BUN 17 mg/dL (7-18) 06/12/21 06:00 Creatinine 0.51 mg/dL (0.70-1.30) L 06/12/21 06:00 Est GFR (MDRD) Af Amer 230 mL/min (>60) 06/12/21 06:00 Est GFR (MDRD) Non-Af 190 mL/min (>60) 06/12/21 06:00 BUN/Creatinine Ratio 33.5 RATIO (10-20) H 06/12/21 06:00 Glucose 84 mg/dL (74-106) 06/12/21 06:00 Vancomycin Trough 7.8 ug/mL (5.0-15.0) 06/12/21 11:30 Goal Trough: 15-20 mcg/mL Pharmacy Plan for Drug Dosing: VANCOMYCIN LEVEL RECEIVED Current Vancomycin Dose: 1000mg Q8H Number of Doses Received: 3 Vancomycin Level: 7.8 Hours Since Last Dose: 8 hours Renal Function: sCr 0.51, CrCl > 100 ml/min Renal Function Trend: stable Vancomycin Plan/Comments: Increase Vancomycin dosing to 1500mg Q8H, to start with next dose at 199906/12/21 Pending Level: Vancomycin trough @ 192906/13/21 Pharmacy Service will continue to monitor and adjust dosing as required. Labs to be done on [date and time ordered]: Vancomycin trough @ 192906/13/21
--- NOTE | 2021-06-12 13:29 | RAD_ITS ---
STUDY: X-RAY CHEST REASON FOR EXAM: Male, 40 years old. POST THORA TECHNIQUE: AP inspiration and expiration views. COMPARISON: Comparison is made with prior examination dated 06/10/2021. FINDINGS: The patient is status post right thoracentesis. There is no evidence of pneumothorax. RAD/Chest Insp/Exp 2 View IMPRESSION: No evidence of pneumothorax following the right thoracentesis. Electronically Signed: Conner Pierre MD at 14:40 EST ,
--- NOTE | 2021-06-12 13:58 | US_ITS ---
STUDY: ABDOMINAL ULTRASOUND - RIGHT UPPER QUADRANT REASON FOR VISIT: Male, 40 years old. ABDOMEN PAIN malignat castro tumor with elevated LFT -- doing at 1300 TECHNIQUE: Ultrasound evaluation of the right upper quadrant was performed with real-time and static bedoya-scale imaging. TECHNICAL QUALITY: Adequate. COMPARISON: US chest 06.11.21 FINDINGS: Liver: There is normal echogenicity of the liver. The bile ducts are within normal limits. There is hepatic color flow. The direction of portal flow is hepatopetal. There is no demonstrated mass lesion. Gallbladder: Normal distended gallbladder. The gallbladder wall measures 1.8 mm. There is a negative sonographic Villafana''s sign. There is no pericholecystic fluid. There is biliary sludge dependent within the gallbladder vs small gallstones. Common Bile Duct (C.B.D.): The common bile duct measures ( in mm): 4.2 Pancreas: Normal size of the head, body of the pancreas. There is normal echogenicity of the pancreas. There is no demonstrated pancreatic mass or cyst. Right Kidney: Normal size of the right kidney. The right kidney measures 13.6 cm. . Normal renal cortex. There is no demonstrated renal mass or cyst. There is no right hydronephrosis. Aorta: It is not visualized. There is too much overlying bowel gas. . Trace ascites. Complex right pleural effusion. US/Abdomen Limited IMPRESSION: There is biliary sludge dependent within the gallbladder vs small gallstones. Trace ascites. Complex right pleural effusion. Please see US chest done yesterday. Electronically Signed: Modesto Streeter MD at 15:58 EST ,
[2021-06-12 14:41] LABS: Cytology, Body Fluid / CSF SEE PATHOLOGY REPORT
[2021-06-12] MEDS: Enoxaparin 40 MG/0.4 ML Syringe SC (14:56)
[2021-06-12] MEDS: TBO-FILGRASTIM 300 MCG/0.5 ML ML SC (14:56)
[2021-06-12 15:02] LABS: Pathologist Review Reviewed
[2021-06-12 15:20] LABS: Body Fluid Mononuclear WBC # 0.074 10^3/uL; Body Fluid Mononuclear WBC % 97.4 %; Body Fluid Polynuclear WBC # 0.002 10^3/uL; Body Fluid Polynuclear WBC % 2.6 %; Body Fluid Total Cells Counted 0.077 10^3/ul; White Blood Count/Body Fluid 0.076 10^3/uL
[2021-06-12 15:24] LABS: Auto B Fluid Analyzer BKGD Ct COUNTS W/IN LIMITS (W/IN LIMITS); Color/Body Fluid YELLOW; Source- Body Fluid THORACENTESIS
[2021-06-12 15:25] LABS: Appearance/Body Fluid CLEAR
[2021-06-12 17:04] LABS: Lymphocytes 89 %; Macrophages 6 %; Mesothelial Cells 1 %; Monocytes 4 %
[2021-06-12 17:07] LABS: Red Cell Count/Body Fluid 1008 /mm3
[2021-06-12 17:08] LABS: Body Fluid QC Type(s) BF1Q
[2021-06-12 17:45] LABS: Glucose, Body Fluid 30 mg/dL (40-70); LDH,Body Fluid > 4000 Units/l (Not Establ.); Protein, Body Fluid 2.5 g/dL (Not Establ.)
[2021-06-12] MEDS: Nortriptyline 25 MG Capsule 50 MG PO (21:12)
[2021-06-12] MEDS: Senna Tablet 2 TABLET PO (21:12)
[2021-06-13] VITALS (11 sets, daily range): BP systolic 141–150; BP diastolic 89–95; PULSE 107–118; RESP 16–20; TEMP 36.8–37.2; O2SAT 95–99
[2021-06-13 06:02] LABS: Hematocrit 29.8 % (40-54); Hemoglobin 10.1 g/dL (13.0-16.5); Mean Corp Hgb Conc 33.9 g/dL (32-36); Mean Corpuscular Hgb 27.8 pg (27.0-32.0); Mean Corpuscular Volume 82.1 fL (80-94); Mean Platelet Vol. 10.5 fl (6.2-12.0); POSITIVE COUNT YES; POSITIVE DIFFERENTIAL YES; POSITIVE MORPHOLOGY YES; Platelet Count 99 K/mm3 (150-450); RBC Distribution Width CV 13.2 % (11.6-14.6); RBC Distribution Width SD 39.8 fl (35.1-43.9); Red Blood Count 3.63 M/mm3 (4.6-6.2)
[2021-06-13 06:03] LABS: Differential Indicated MANUAL DIFF
[2021-06-13 06:22] LABS: Absolute Lymphocyte Count 0.46 X10^3/uL (0.83-4.51); Absolute Neutrophil Count 0.9 X10^3/uL (2.0-7.7); Lymphocyte 23 % (19-41); Monocyte 25 % (0-10); Myelocyte 5 % (0-0); Neutrophil-Band 18 % (0-5); Neutrophil-Segmented 28 % (47-70); Promyelocyte 1 % (0-0); Total Cells Counted 100 (MANUAL DIFF)
[2021-06-13 06:23] LABS: Atypical Lymphocyte 2+ %; Platelet Estimate MOD DEC (ADEQ); Red Cell Morphology NORM C+C NORMAL (NORM C&C)
[2021-06-13 06:38] LABS: ALB/GLOB Ratio 0.4 RATIO (0.9-2.4); AST(SGOT) 28 U/L (15-37); Alanine Aminotransfer ALT/SGPT 25 U/L (16-61); Albumin, Serum 1.8 g/dL (3.2-5.0); Alkaline Phosphatase 97 U/L (45-117); Anion Gap 7 (5-15); BUN 14 mg/dL (7-18); Calcium,Total 8.1 mg/dL (8.5-10.1); Chloride 97 mmol/L (98-107); Creatinine, Serum 0.45 mg/dL (0.70-1.30); EST Glomerular Filtration Rate 217 mL/min (>60); Est Glom Filt Rate - Afr Amer 263 mL/min (>60); Estimated Creatinine Clearance 206.89 ml/min; Globulin 4.4 g/dL (2.2-4.2); Glucose 91 mg/dL (74-106); Phosphorus 2.7 mg/dL (2.5-4.9); Potassium 3.3 mmol/L (3.5-5.1); Protein, Total 6.2 g/dL (6.4-8.2); Sodium Level 129 mmol/L (136-145)
--- NOTE | 2021-06-13 07:15 | PN.CC_ITS ---
Subjective Subjective The patient was seen and examined at the bedside this morning. Events from the last 24 hours have been reviewed. The patient is currently afebrile, hemodynamically stable and maintaining appropriate oxygen saturations on 2 L/min via nasal cannula. The patient underwent ultrasound-guided thoracentesis yesterday with 970 mL of fluid removed. The patient remains pancytopenic. Sodium is somewhat improved today to 129 with a potassium of 3.3. Objective Data Objective Data The patient's most recent lab work, culture data and imaging studies have all been personally reviewed. Blood cultures have shown no growth to date. Pleural fluid cultures are pending. Vital Signs: Vital Signs Temp Pulse Resp BP Pulse Ox 98.5 F 110 H 18 144/91 H 99 06/13/21 02:19 06/13/21 03:51 06/13/21 02:19 06/13/21 02:19 06/13/21 02:19 Oxygen Flow Rate (L/min) [3] 2 Oxygen Flow Rate (L/min) [2] 2 Oxygen Flow Rate (L/min) [1 ( 2 Initial Baseline)] Oxygen Flow Rate (L/min) 2 Oxygen Delivery Method [3] Nasal Cannula Oxygen Delivery Method [2] Nasal Cannula Oxygen Delivery Method [1 ( Nasal Cannula Initial Baseline)] Oxygen Delivery Method Nasal Cannula Weight: 80.6 kg Body Mass Index (BMI) 26.9 Intake & Output: Intake and Output for Last 24 Hours 06/11/21 06/12/21 06/13/21 23:59 23:59 23:59 Intake Total 2565.41 / 2565.41 1030 / 1030 530 / 530 Output Total 550 / 550 1420 / 1770 650 / 650 Balance 2014.41 -390 / -740 -120 / -120 Medical Nutrition Assessment Dietitian: Malnutrition Criteria Met Start: 06/11/21 13:35 Freq: Status: Active Protocol: Document 06/11/21 13:36 RMA (Rec: 06/11/21 13:36 RMA [id number]) Nutrition Malnutrition Evidence of Malnutrition Exists Yes Malnutrition (severe): Acute Illness/Injury,Chronic Evidenced By Suboptimal Energy Intake ( Severe),Weight Loss (Severe) Clinical Problem Acute Disease or Injury Related Malnutrition Etiology Severe protein/calorie malnutrition in the context of acute/chronic disease related to inadequate oral intake and increased energy expenditure due to sarcoma/chemo Signs/Symptoms as evidenced by 9-10% weight loss x 8 weeks and PO meeting less than 50-75% estimated nutrition needs x past 2 or more months Status Active Problem Recommendation Dietitian Recommendations/Changes Continue regular diet as ordered. Will add 240 ml ensure enlive TID w/ meals. Adjust ONS as needed to optimize PO and prevent further wt loss. Lab / Micro Data Attestation: I reviewed the patient's lab results. Result Diagrams: 06/13/21 05:36 06/13/21 05:36 Labs: Laboratory Results - last 24 hr 06/11/21 05:30: Diff Path Review Reviewed 06/12/21 09:25: Lactate Dehydrogenase 691 H 06/12/21 11:30: Vancomycin Trough 7.8 06/12/21 14:10: Fluid Glucose 30 L*, Fluid Total Protein 2.5, Fluid LDH > 4000 06/12/21 14:10: Fluid Source THORACENTESIS, Fluid Color YELLOW, Fluid Appearance CLEAR, Fluid WBC 0.076, Fluid RBC 1008, Fluid Tot Cell Count 0.077, Fld Polynuclear WBCs # 0.002, Fld Polynuclear WBCs % 2.6, Fluid Mononuclear WBCs 0. 074, Fld Mononuclear WBCs % 97.4, Fluid Lymphocytes 89, Fluid Monocytes 4, Fluid Macrophages 6, Fld Mesothelial Cells 1, Fl Pathologist Comment May follow, Fluid Comment 2 SEE COMMENT 06/13/21 05:36: WBC 2.0 L, RBC 3.63 L, Hgb 10.1 L, Hct 29.8 L, MCV 82.1, MCH 27.8, MCHC 33.9, RDW Std Deviation 39.8, RDW Coeff of Vi 13.2, Plt Count 99 L, MPV 10.5, Neut % (Auto) Not Reportable, Absolute Neuts (auto) 0.9 L, Absolute Lymphs (auto) 0.46 L, Total Counted 100, Neutrophils % (Manual) 28 L, Band Neutrophils % 18 H, Lymphocytes % (Manual) 23, Monocytes % (Manual) 25 H, Myelocytes % 5 H, Promyelocytes % 1 H, Diff Path Review May foll, Atypical Lymphocytes 2+, Platelet Estimate MOD DEC, RBC Morphology NORM C+C 06/13/21 05:36: Sodium 129 L, Potassium 3.3 L, Chloride 97 L, Carbon Dioxide 25.0, Anion Gap 7, BUN 14, Creatinine 0.45 L, Estim Creat Clear Calc 206.89, Est GFR (MDRD) Af Amer 263, Est GFR (MDRD) Non-Af 217, BUN/Creatinine Ratio 31.0 H, Glucose 91, Calcium 8.1 L, Phosphorus 2.7, Total Bilirubin 1.50 H, AST 28, ALT 25, Alkaline Phosphatase 97, Total Protein 6.2 L, Albumin 1.8 L, Globulin 4.4 H, Albumin/Globulin Ratio 0.4 L Radiography Diagnostic Testing: Radiology Impression Chest Ultrasound 06/11/21 13:37 IMPRESSION: Loculated right pleural effusion. The patient and the family decided to not proceed with the thoracentesis. Electronically Signed: Conner Pierre MD at 9:18 EST , Thoracentesis Ultrasound 06/12/21 08:16 IMPRESSION: Ultrasound-guided right thoracentesis. Electronically Signed: Conner Pierre MD at 14:42 EST , Chest X-Ray 06/12/21 13:29 IMPRESSION: No evidence of pneumothorax following the right thoracentesis. Electronically Signed: Conner Pierre MD at 14:40 EST , Abdomen Ultrasound 06/12/21 13:58 IMPRESSION: There is biliary sludge dependent within the gallbladder vs small gallstones. Trace ascites. Complex right pleural effusion. Please see US chest done yesterday. Electronically Signed: Modesto Streeter MD at 15:58 EST , Rhythm Strip Rhythm Strip: Sinus Tach Rate: 128 Physical Exam Const alert and no apparent distress Constitutional Narrative: Sitting upright in bed. is present at the bedside. General Appearance: cooperative HEENT normocephalic, head/scalp atraumatic and moist oral mucous membranes Eyes PERRL, EOMs intact bilaterally and conjunctivae normal Neck supple General: trachea midline Resp Resp Narrative: Notably diminished air movement throughout right hemithorax. No accessory muscle use. Cardio regular rate and regular rhythm GI normal to inspection, nondistended, normoactive bowel sounds Extremity no clubbing, cyanosis or edema Skin Skin Narrative: Localized right flank erythema Neuro CN's II-XII intact bilaterally, moves all extremities and no focal motor deficits Psych cooperative and affect normal Charges/Coding Visit Charges Inpatient E&M: 11887 Subs Hosp L2 Assessment/Plan Assessment/Plan (1) Neutropenic fever: CODE(S): D70.9 - Neutropenia, unspecified; R50.81 - Fever presenting with conditions classified elsewhere PLAN: RECOMMENDATIONS: 1. Continue empiric antimicrobials per ID recommendations. 2. Continue Granix as ordered. 3. Wean supplemental oxygen to maintain saturations at or above 90%. 4. Encourage incentive spirometer use and mobilize patient as tolerated. IMPRESSIONS: 1. 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 He was then referred to the emergency department after developing a fever. He has a known right-sided pleural effusion, which is complicated and loculated. He has been on broad-spectrum antimicrobials under the discretion of infectious diseases. Ultrasound-guided thoracentesis was completed on June 12 with 970 mL fluid removed. Per traditional Light's criteria, if at least one of the following three is fulfilled, the fluid would be considered an exudate: 1. Pleural fluid protein/serum protein ratio greater than 0.5 2. Pleural fluid LDH/serum LDH ratio greater than 0.6 3. Pleural fluid LDH greater than two thirds the upper limits of the laboratories normal serum LDH Based upon my review of the patient's pleural fluid analysis, along with serum LDH and total protein levels, the pleural fluid would be considered exudative in nature. I do suspect that the patient's effusion is likely malignant in nature. Unfortunately, he does have a rather complicated pleural space. It is reasonable to continue antimicrobials for now while awaiting finalized culture results. 2. 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 Continue home medications as indicated. This note was generated with [email or web address]comation software. It may contain incorrect words, spelling, and punctuation that were not noted in checking the note before signing.
--- NOTE | 2021-06-13 07:19 | PCM.PN.HOSP ---
Subjective Subjective Patient did not had any fever or chills. On 2 L of oxygen. Thoracocentesis yesterday. Objective Data Objective Data Vital Signs: Vital Signs Temp Pulse Resp BP Pulse Ox 98.5 F 110 H 18 144/91 H 99 06/13/21 02:19 06/13/21 03:51 06/13/21 02:19 06/13/21 02:19 06/13/21 02:19 Oxygen Flow Rate (L/min) [3] 2 Oxygen Flow Rate (L/min) [2] 2 Oxygen Flow Rate (L/min) [1 ( 2 Initial Baseline)] Oxygen Flow Rate (L/min) 2 Oxygen Delivery Method [3] Nasal Cannula Oxygen Delivery Method [2] Nasal Cannula Oxygen Delivery Method [1 ( Nasal Cannula Initial Baseline)] Oxygen Delivery Method Nasal Cannula Weight: 177 lb 11.081 oz Body Mass Index (BMI) 26.9 Intake & Output: Intake and Output for Last 24 Hours 06/11/21 06/12/21 06/13/21 23:59 23:59 23:59 Intake Total 2565.41 / 2565.41 1030 / 1030 530 / 530 Output Total 550 / 550 1420 / 1770 650 / 650 Balance -390 / -740 -120 / -120 Medical Nutrition Assessment Dietitian: Malnutrition Criteria Met Start: 06/11/21 13:35 Freq: Status: Active Protocol: Document 06/11/21 13:36 RMA (Rec: 06/11/21 13:36 RMA [id number]) Nutrition Malnutrition Evidence of Malnutrition Exists Yes Malnutrition (severe): Acute Illness/Injury,Chronic Evidenced By Suboptimal Energy Intake ( Severe),Weight Loss (Severe) Clinical Problem Acute Disease or Injury Related Malnutrition Etiology Severe protein/calorie malnutrition in the context of acute/chronic disease related to inadequate oral intake and increased energy expenditure due to sarcoma/chemo Signs/Symptoms as evidenced by 9-10% weight loss x 8 weeks and PO meeting less than 50-75% estimated nutrition needs x past 2 or more months Status Active Problem Recommendation Dietitian Recommendations/Changes Continue regular diet as ordered. Will add 240 ml ensure enlive TID w/ meals. Adjust ONS as needed to optimize PO and prevent further wt loss. Lab / Micro Data Result Diagrams: 06/13/21 05:36 06/13/21 05:36 Labs: Laboratory Results - last 24 hr 06/11/21 05:30: Diff Path Review Reviewed 06/12/21 09:25: Lactate Dehydrogenase 691 H 06/12/21 11:30: Vancomycin Trough 7.8 06/12/21 14:10: Fluid Glucose 30 L*, Fluid Total Protein 2.5, Fluid LDH > 4000 06/12/21 14:10: Fluid Source THORACENTESIS, Fluid Color YELLOW, Fluid Appearance CLEAR, Fluid WBC 0.076, Fluid RBC 1008, Fluid Tot Cell Count 0.077, Fld Polynuclear WBCs # 0.002, Fld Polynuclear WBCs % 2.6, Fluid Mononuclear WBCs 0.074, Fld Mononuclear WBCs % 97.4, Fluid Lymphocytes 89, Fluid Monocytes 4, Fluid Macrophages 6, Fld Mesothelial Cells 1, Fl Pathologist Comment May follow, Fluid Comment 2 SEE COMMENT 06/13/21 05:36: WBC 2.0 L, RBC 3.63 L, Hgb 10.1 L, Hct 29.8 L, MCV 82.1, MCH 27.8, MCHC 33.9, RDW Std Deviation 39.8, RDW Coeff of Vi 13.2, Plt Count 99 L, MPV 10.5, Neut % (Auto) Not Reportable, Absolute Neuts (auto) 0.9 L, Absolute Lymphs (auto) 0.46 L, Total Counted 100, Neutrophils % (Manual) 28 L, Band Neutrophils % 18 H, Lymphocytes % (Manual) 23, Monocytes % (Manual) 25 H, Myelocytes % 5 H, Promyelocytes % 1 H, Diff Path Review May foll, Atypical Lymphocytes 2+, Platelet Estimate MOD DEC, RBC Morphology NORM C+C 06/13/21 05:36: Sodium 129 L, Potassium 3.3 L, Chloride 97 L, Carbon Dioxide 25.0, Anion Gap 7, BUN 14, Creatinine 0.45 L, Estim Creat Clear Calc 206.89, Est GFR (MDRD) Af Amer 263, Est GFR (MDRD) Non-Af 217, BUN/Creatinine Ratio 31.0 H, Glucose 91, Calcium 8.1 L, Phosphorus 2.7, Total Bilirubin 1.50 H, AST 28, ALT 25, Alkaline Phosphatase 97, Total Protein 6.2 L, Albumin 1.8 L, Globulin 4.4 H, Albumin/Globulin Ratio 0.4 L Micro: Microbiology 06/10/21 17:20 Blood Culture (Wb) - Port Blood Culture - Preliminary No growth in 48 hours. 06/10/21 17:38 Blood Culture (Wb) #2 - Port Blood Culture - Preliminary No growth in 48 hours. Radiography Diagnostic Testing: Radiology Impression Chest Ultrasound 06/11/21 13:37 IMPRESSION: Loculated right pleural effusion. The patient and the family decided to not proceed with the thoracentesis. Electronically Signed: Conner Pierre MD at 9:18 EST , Thoracentesis Ultrasound 06/12/21 08:16 IMPRESSION: Ultrasound-guided right thoracentesis. Electronically Signed: Conner Pierre MD at 14:42 EST , Chest X-Ray 06/12/21 13:29 IMPRESSION: No evidence of pneumothorax following the right thoracentesis. Electronically Signed: Conner Pierre MD at 14:40 EST , Abdomen Ultrasound 06/12/21 13:58 IMPRESSION: There is biliary sludge dependent within the gallbladder vs small gallstones. Trace ascites. Complex right pleural effusion. Please see US chest done yesterday. Electronically Signed: Modesto Streeter MD at 15:58 EST , Rhythm Strip Rhythm Strip: Sinus Tach Rate: 128 Physical Exam Narrative . Physical exam General: Alert, Oriented x3, Cooperative, BMI 26.9 kg/m? HEENT: Atraumatic, PERRLA, EOMI, Normocephalic Oral: No Gingival or Mucosal Lesions/ Ulcerations Neck: Supple, No JVD, Negative Carotid Bruits Lungs: Air entry improved after right thoracocentesis on right side. Right complicated pleural effusion/mass. No crepitation or rhonchi. Cardiovascular: Sinus tachycardia, Normal S1, Normal S2, No murmurs Abdomen: Bowel Sounds Present, Soft, Non Tender, Non-Distended : No renal angle tenderness. No suprapubic tenderness. Extremities: No edema, Capillary Refill Less than 3 Seconds Skin: Right flank cellulitis. No bruise or hematoma Musculoskeletal: No Tenderness to Palpation of Joints or Extremities Neurological: Cranial nerves II-XII grossly intact, DTR 2+/4 and Symmetrical, Neuro grossly intact Psych/Mental Status: Normal Affect, Appropriate. Charges/Coding Visit Charges Inpatient E&M: 68386 Subs Hosp L2 Assessment & Plan Assessment & Plan (1) Cellulitis, trunk: Qualifiers: Site of cellulitis of trunk: unspecified site Qualified Code(s): L03.319 - Cellulitis of trunk, unspecified (2) Pancytopenia with fever: (3) Candidiasis of mouth: (4) Acute hyponatremia: Plan: The patient is a 40 y/o M was admitted for neutropenic fever and right flank cellulitis.Patient is started having mild shortness of breath, right-sided chest discomfort for about 2 months and diagnosed with Bay sarcoma about a month ago. Patient initially saw Dr. Zhou had thoracocentesis with reaccumulation and CT-guided biopsy. Referred to [facility]. In [facility] there was could not get Pleurx catheter due to complicated pleural effusion, not accessible by IR or CT surgeon on detailed evaluation there. Patient had first chemotherapy a week ago prior to admission #1. Sepsis due to right lateral flank cellulitis with neutropenic fever: qSOFA score 1 1/3, tachypnea. Patient had chemotherapy first time a week ago including clinic main campus. Patient oncologist is Dr. Larry Hodges, [facility]. Patient has fever, severe neutropenia, ANC 0.1 thousand, right malignant pleural effusion with mass with dyspnea. The patient IV antibiotic broadened to vancomycin and Zosyn. High risk for MRSA as patient was in clinic last week. I do not think patient needs antifungal for now. ID consulted for further opinion. Monitor blood cultures, temperature curve. Started on Granix. Patient sent to ER by [facility] oncologist Dr. Lundberg. Chest x-ray image reviewed shows right opacity in the right hemithorax. Patient had ultrasound-guided thoracocentesis in [place] on May 13 and May 20, 2021 with reaccumulation and significantly short period of time. 06/12: Patient is responding with IV antibiotic. Increase in ANC. Platelet count no significant change. Hemoglobin no significant drop. Continue IV antibiotic. Monitor fluid culture and blood cultures x2. 06/13: ID follow-up reviewed. Vancomycin stopped. Continue Zosyn. 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 We will try to get the medical record. Unclear why it was not done in the ER. Patient had chest abdomen pelvis CT with IV contrast on April 22, 2021 reported fatty liver, normal gallbladder and extrahepatic duct system. Normal spleen, normal pancreas. Significant right pleural effusion with slight interval reduction with significant collapse of right lung. Mediastinal right paratracheal right hilar masses noted. Pleural-based irregular masses. 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 No evidence of lymphoma. CK is low 27. 06/12: Discussed with real estate subagent . I discussed with the patient and explained that ultrasound-guided thoracentesis which will be diagnostic with drainage of one pocket. I further communicated with Dr. Pierre. Ultrasound-guided thoracocentesis ordered as it was canceled yesterday because patient and family wanted to wait to see the effect of chemotherapy. Patient had approximately 970 mL of dark kenzie-colored fluid drained. No postprocedure pneumothorax. 06/13: Pleural fluid analysis shows exudate with LDH criteria although pleural fluid is less than 0.5 serum protein. Pleural fluid Gram stain shows no organisms or cells. 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 Bandemia 18%. ANC 0.9 thousand improving. Lymphopenia. Overall suggestive of bone marrow is responding well to Granix after chemotherapy induced pancytopenia. 3. Elevated liver chemistry, hyperbilirubinemia exact etiology unclear possible due to sepsis or tumor/chemotherapy: Patient last total bili was normal on 05/06/2021. Admitted with TB 3, most recent 2.8. ALT was high in April 2021 but now normal. AST also trending down. Right upper quadrant sonogram ordered. 06/12: AST improved to normal. Total bilirubin 1.7. Right upper quadrant sonogram pending. Pleural fluids culture and cytology pending. Total cell count 77, polymorphs 2, mononuclear 74, mainly lymphocytes 37.4%. Patient not had fever. #3. Elevated BP without HTN diagnosis: Blood pressure is normal 126/83. Was elevated in ED. Might be stress response from shortness of breath. #4. Acute hyponatremia, unclear specific etiology: Serum sodium was normal 136, 135 on April 2021. Sodium is low 124/126 possible chemotherapeutic adverse effect/SIADH. TSH normal. Cortisol high. Urine osmolarity high 770, random sodium 19. Serum osmolarity ordered 06/12: Serum sodium 127. Serum osmolarity 149 much lower than urine osmolarity. 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 Magnesium level normal. Serum phosphorus on lower side of normal. Potassium and phosphorus replacement. Serum sodium showing improvement 129. #5. Oral thrush: oral nystatin regimen, administered 1 dose oral fluconazole per ED physician. Patient on BMX. #6. Chronic pain syndrome: Related with patient significant tumor burden, will continue patient's oxycodone regimen. #7. Depression and anxiety/ADHD: Patient home methylphenidate held because of nonformulary. #8. DVT prophylaxis: SCDs, Lovenox cautiously with close continue platelet monitoring. Discontinue if platelet count drops less than 50,000 or hemoglobin less than 8 g% #9. Patient has severe protein/calorie malnutrition in the context of acute/chronic disease related to inadequate oral intake and increased energy expenditure due to sarcoma/chemo as evidenced by 9-10% weight loss x 8 weeks and PO meeting less than 50-75% estimated nutrition needs x past 2 or more months Nutrition plan plan: Continue regular diet as ordered. 240 ml ensure enlive TID w/ meals. Phosphorus replacement CODE status: Patient PHILIP is his and living will is currently in place. Discussed CODE status at length including difference between FULL code, DNR-CCA and DNR-CC status. Following discussions about the differences in these status, requested Full Code status. Advanced Care Planning Face to Face Time: 16 minutes. Total time of the visit including total time spent in counseling or coordination of care, (more than 50% of the total time, spent in obtaining medical information from nurses and other ancillary care providers,explaining to the patient about labs, imaging, diagnosis and management), discussion with consultants ID and starbucks clerk, review of labs and imaging is 35 minutes.
[2021-06-13] MEDS: BMX LIQUID 180 ML 20 ML PO (07:44)
[2021-06-13] MEDS: Potassium Chloride Oral Tablet 20 MEQ 40 MEQ PO ×2 (08:53→13:00)
[2021-06-13] MEDS: TBO-FILGRASTIM 300 MCG/0.5 ML ML SC (11:14)
[2021-06-13] MEDS: Enoxaparin 40 MG/0.4 ML Syringe SC (11:14)
[2021-06-13] MEDS: NYSTATIN 500,000 UNIT/5 ML UDC 500000 UNIT PO ×4 (11:14→21:24)
[2021-06-13] MEDS: oxyCODONE HCl Cr 10 MG Tablet 20 MG PO ×2 (11:15→21:24)
--- NOTE | 2021-06-13 11:34 | CASEMGMT ---
SKYLER CM in to pt room, pt with visitor at bedside. Discussed dc planning and pt states he is fine to go home. Denies any homegoing needs including therapy.
[2021-06-13 12:37] LABS: Pathologist Comment/Body Fluid Reviewed
[2021-06-13 12:38] LABS: Pathologist Review Reviewed
[2021-06-13 12:49] LABS: Pathologist Review Reviewed
--- NOTE | 2021-06-13 14:08 | PCM.PN.ID ---
Physical Exam Narrative Feeling better, no fever, breathing easier s/p thora yesterday. Mouth still sore, slightly improved. No n/v/d. Const alert and no apparent distress General Appearance: cooperative Resp Resp Narrative: improved R sided breath sounds Cardio regular rate and regular rhythm GI soft to palpation, non-tender and non-distended Skin Skin Narrative: fading erythema on R lateral abd ID ID: Route of nutrition/ use of supplements: [] Nutritional Intake: [] IV Site: [] Ahmadi Catheter: [] Assessment & Plan Assessment/Plan (1) Cellulitis, trunk: QUALIFIERS: Site of cellulitis of trunk: unspecified site Qualified Code(s): L03.319 - Cellulitis of trunk, unspecified (2) Pancytopenia with fever: PLAN: On empiric vanc/zosyn. Recent admit to [facility] after starting chemo. He is not sure what prophylaxis for infection he has been on. Covid vaccine x2. Has erythema on R flank, improving. Thoracentesis showed exudate, no sign of infection at this time. ANC much improved today. On nystatin for thrush. Will stop vanc, cont zosyn for now. If cont to improve, plan on home with 5 days po keflex 500mg tid for cellulitis. Will follow (3) Bay's sarcoma: (4) Candidiasis of mouth:
[2021-06-13] MEDS: Na Biphos/Potassium Phosphate PACKET 1 PACKET PO ×2 (17:30→21:23)
[2021-06-13] MEDS: Nortriptyline 25 MG Capsule 50 MG PO (21:24)
[2021-06-13] MEDS: Senna Tablet 2 TABLET PO (21:24)
[2021-06-13] MEDS: guaiFENesin 1,200 MG Tablet 1200 MG PO (21:26)
[2021-06-14] VITALS (7 sets, daily range): BP systolic 146–151; BP diastolic 92–99; PULSE 104–122; RESP 16–18; TEMP 36.8–36.9; O2SAT 95–96
[2021-06-14] MEDS: Na Biphos/Potassium Phosphate PACKET 1 PACKET PO (05:44)
[2021-06-14 06:17] LABS: Hematocrit 31.8 % (40-54); Hemoglobin 10.7 g/dL (13.0-16.5); Mean Corp Hgb Conc 33.6 g/dL (32-36); Mean Corpuscular Hgb 27.8 pg (27.0-32.0); Mean Corpuscular Volume 82.6 fL (80-94); Mean Platelet Vol. 10.9 fl (6.2-12.0); POSITIVE COUNT YES; POSITIVE DIFFERENTIAL YES; POSITIVE MORPHOLOGY YES; Platelet Count 121 K/mm3 (150-450); RBC Distribution Width CV 13.5 % (11.6-14.6); RBC Distribution Width SD 40.4 fl (35.1-43.9); Red Blood Count 3.85 M/mm3 (4.6-6.2); White Blood Count 9.9 K/mm3 (4.4-11.0)
[2021-06-14 06:26] LABS: Differential Indicated MANUAL DIFF
[2021-06-14 06:50] LABS: Phosphorus 2.5 mg/dL (2.5-4.9)
[2021-06-14 06:53] LABS: ALB/GLOB Ratio 0.5 RATIO (0.9-2.4); AST(SGOT) 34 U/L (15-37); Alanine Aminotransfer ALT/SGPT 27 U/L (16-61); Albumin, Serum 1.9 g/dL (3.2-5.0); Alkaline Phosphatase 115 U/L (45-117); Anion Gap 7 (5-15); BUN 10 mg/dL (7-18); Calcium,Total 8.1 mg/dL (8.5-10.1); Chloride 97 mmol/L (98-107); Creatinine, Serum 0.45 mg/dL (0.70-1.30); EST Glomerular Filtration Rate 216 mL/min (>60); Est Glom Filt Rate - Afr Amer 261 mL/min (>60); Estimated Creatinine Clearance 206.89 ml/min; Globulin 4.2 g/dL (2.2-4.2); Glucose 79 mg/dL (74-106); Potassium 3.6 mmol/L (3.5-5.1); Protein, Total 6.1 g/dL (6.4-8.2); Sodium Level 130 mmol/L (136-145)
[2021-06-14 07:00] LABS: Lymphocyte 7 % (19-41); Metamyelocyte 17 % (0-1); Monocyte 10 % (0-10); Myelocyte 8 % (0-0); Neutrophil-Band 5 % (0-5); Neutrophil-Segmented 53 % (47-70); Total Cells Counted 100 (MANUAL DIFF)
[2021-06-14 07:03] LABS: Absolute Lymphocyte Count 0.69 X10^3/uL (0.83-4.51); Absolute Neutrophil Count 8.2 X10^3/uL (2.0-7.7); Lymphocyte # 0.69 X10^3/ul (0.83-4.51); Neutrophil # 8.23 X10^3/uL (2.7-7.7)
[2021-06-14 07:04] LABS: Platelet Estimate SLT DEC (ADEQ); Red Cell Morphology NORM C+C NORMAL (NORM C&C)
--- NOTE | 2021-06-14 08:12 | PN.CC_ITS ---
Assessment & Plan Assessment/Plan (1) Neutropenic fever: PLAN: RECOMMENDATIONS: 1. Antimicrobials per ID recommendations. 2. Wean supplemental oxygen to maintain saturations at or above 90%. 3. Encourage incentive spirometer use and mobilize patient as tolerated. 4. Will sign off from a pulmonary perspective. Please call with any additional questions. IMPRESSIONS: 1. 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 He was then referred to the emergency department after developing a fever. He has a known right-sided pleural effusion, which is complicated and loculated. He has been on broad-spectrum antimicrobials under the discretion of infectious diseases. Ultrasound-guided thoracentesis was completed on June 12 with 970 mL fluid removed. Per traditional Light's criteria, if at least one of the following three is fulfilled, the fluid would be considered an exudate: 1. Pleural fluid protein/serum protein ratio greater than 0.5 2. Pleural fluid LDH/serum LDH ratio greater than 0.6 3. Pleural fluid LDH greater than two thirds the upper limits of the laboratories normal serum LDH Based upon my review of the patient's pleural fluid analysis, along with serum LDH and total protein levels, the pleural fluid would be considered exudative in nature. I do suspect that the patient's effusion is likely malignant in nature. Unfortunately, he does have a rather complicated pleural space. Preliminary pleural fluid cultures have not demonstrated any growth to date. 2. 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 Continue home medications as indicated. This note was generated with [employer] dictation software. It may contain incorrect words, spelling, and punctuation that were not noted in checking the note before signing. Subjective Subjective The patient was seen and examined at the bedside this morning. Events from the last 24 hours have been reviewed. The patient is currently afebrile, hemodynamically stable and maintaining appropriate oxygen saturations on 2 L/min via nasal cannula. Blood counts are stable. Breathing quality remains stable. Objective Data Objective Data The patient's most recent lab work, culture data and imaging studies have all been personally reviewed. Blood cultures have shown no growth to date. Pleural fluid cultures have not demonstrated any growth to date. Vital Signs: Vital Signs Temp Pulse Resp BP Pulse Ox 98.4 F 112 H 16 146/92 H 96 06/14/21 03:00 06/14/21 05:52 06/14/21 03:00 06/14/21 03:00 06/14/21 03:00 Oxygen Flow Rate (L/min) [3] 2 Oxygen Flow Rate (L/min) [2] 2 Oxygen Flow Rate (L/min) [1 ( 2 Initial Baseline)] Oxygen Flow Rate (L/min) 2 Oxygen Delivery Method [3] Nasal Cannula Oxygen Delivery Method [2] Nasal Cannula Oxygen Delivery Method [1 ( Nasal Cannula Initial Baseline)] Oxygen Delivery Method Nasal Cannula Weight: 80.6 kg Body Mass Index (BMI) 26.9 Intake & Output: Intake and Output for Last 24 Hours 06/12/21 06/13/21 06/14/21 23:59 23:59 23:59 Intake Total 1030 / 1030 2460 / 2460 400 / 400 Output Total 1420 / 1770 1875 / 1875 875 / 875 Balance -390 / -740 585 / 585 -475 / -475 Medical Nutrition Assessment Dietitian: Malnutrition Criteria Met Start: 06/11/21 13:35 Freq: Status: Active Protocol: Document 06/11/21 13:36 RMA (Rec: 06/11/21 13:36 RMA [id number]) Nutrition Malnutrition Evidence of Malnutrition Exists Yes Malnutrition (severe): Acute Illness/Injury,Chronic Evidenced By Suboptimal Energy Intake ( Severe),Weight Loss (Severe) Clinical Problem Acute Disease or Injury Related Malnutrition Etiology Severe protein/calorie malnutrition in the context of acute/chronic disease related to inadequate oral intake and increased energy expenditure due to sarcoma/chemo Signs/Symptoms as evidenced by 9-10% weight loss x 8 weeks and PO meeting less than 50-75% estimated nutrition needs x past 2 or more months Status Active Problem Recommendation Dietitian Recommendations/Changes Continue regular diet as ordered. Will add 240 ml ensure enlive TID w/ meals. Adjust ONS as needed to optimize PO and prevent further wt loss. Lab / Micro Data Attestation: I reviewed the patient's lab results. Result Diagrams: 06/14/21 05:42 06/14/21 05:42 Labs: Laboratory Results - last 24 hr 06/12/21 06:00: Diff Path Review Reviewed 06/12/21 14:10: Fl Pathologist Comment Reviewed 06/13/21 05:36: Diff Path Review Reviewed 06/14/21 05:42: WBC 9.9, RBC 3.85 L, Hgb 10.7 L, Hct 31.8 L, MCV 82.6, MCH 27.8, MCHC 33.6, RDW Std Deviation 40.4, RDW Coeff of Vi 13.5, Plt Count 121 L, MPV 10.9, Neut % (Auto) Not Reportable, Absolute Neuts (auto) 8.2 H, Absolute Lymphs (auto) 0.69 L, Total Counted 100, Neutrophils % (Manual) 53, Band Neutrophils % 5, Lymphocytes % (Manual) 7 L, Monocytes % (Manual) 10, Metamyelocytes % 17 H, Myelocytes % 8 H, Diff Path Review August, Platelet Estimate SLT DEC, RBC Morphology NORM C+C 06/14/21 05:42: Sodium 130 L, Potassium 3.6, Chloride 97 L, Carbon Dioxide 26.0, Anion Gap 7, BUN 10, Creatinine 0.45 L, Estim Creat Clear Calc 206.89, Est GFR (MDRD) Af Amer 261, Est GFR (MDRD) Non-Af 216, BUN/Creatinine Ratio 22.0 H, Glucose 79, Calcium 8.1 L, Magnesium 2.0, Total Bilirubin 1.40 H, AST 34, ALT 27, Alkaline Phosphatase 115, Total Protein 6.1 L, Albumin 1.9 L, Globulin 4.2, Albumin/Globulin Ratio 0.5 L 06/14/21 05:42: Phosphorus 2.5 Micro: Microbiology 06/12/21 14:10 Fluid - Thoracentesis Fluid Gram Stain - Final 06/12/21 14:10 Fluid - Thoracentesis Fluid Body Fluid Culture - Preliminary No growth-Final to follow 06/10/21 17:20 Blood Culture (Wb) - Port Blood Culture - Preliminary No growth in 48 hours. 06/10/21 17:38 Blood Culture (Wb) #2 - Port Blood Culture - Preliminary No growth in 48 hours. Rhythm Strip Rhythm Strip: Sinus Tach Rate: 128 Physical Exam Const alert and no apparent distress General Appearance: cooperative HEENT normocephalic, head/scalp atraumatic and moist oral mucous membranes Eyes PERRL, EOMs intact bilaterally and conjunctivae normal Neck supple General: trachea midline Resp Resp Narrative: Notably diminished air movement throughout right hemithorax. No accessory muscle use. Cardio regular rate and regular rhythm GI normal to inspection, nondistended, normoactive bowel sounds Extremity no clubbing, cyanosis or edema Skin Skin Narrative: Localized right flank erythema Neuro CN's II-XII intact bilaterally, moves all extremities and no focal motor deficits Psych cooperative and affect normal Charges/Coding Visit Charges Inpatient E&M: 03416 Subs Hosp L2
[2021-06-14] MEDS: Potassium Chloride Oral Tablet 20 MEQ 40 MEQ PO (08:26)
--- NOTE | 2021-06-14 08:39 | DCINST_ITS ---
Discharge Instructions Diet Discharge Diet: Soft diet (Soft, slimy diet for next 5 days this patient has raw mouth from chemotherapy., Mucositis) Activity Discharge Activity: Return to Normal Activity and May Not Drive Dressing / Incision Call your doctor if you observe: Fever of 101 or Higher, Coldness, Increased Pain, Numbness or Tingling, Change in Color, Inability to urinate, Inability to have a bowel movement, Shortness of breath, Dizziness, Fainting spells, Swelling in the ankles, Chest pain, Prolonged hiccupping, Increased palpitations (irregular heartbeat), Calf discomfort and Uncontrolled pain Follow Up Care Test Results: Test results from this visit will be discussed in further detail at your follow-up appointment, if applicable. Discharge Plan Admission Admit Date/Time: 06/10/21 19:24 Primary Reason for Your Visit: Neutropenic fever. Attending Provider: Clay Banegas Primary Care Provider: Trey Fitzgerald Consulting Providers: Sacha Mccord ; Pipo Lee ; Kranthi Perry ; Batool Tavares [employer] Instructions Additional Instructions / Restrictions: Discharge with incentive spirometry and PEP/chest physiotherapy. Follow-up with the [facility] oncology Dr. Nolasco Advised soft slimy food for next 5 days as patient oral, pharyngeal and GI tract is raw from chemotherapy, mucositis Discharge Orders/Prescriptions Prescriptions: New MAGIC MOUTH WASH (BMX) 180 mL suspension 20 ml PO Q6H PRN PRN (Reason: mouth/throat irritatioon) Qty: 180 RF: 0 cephalexin 500 mg tablet 500 mg PO TID Qty: 15 RF: 0 guaifenesin [Mucinex] 600 mg tablet extended release 12hr 600 mg PO BID Qty: 14 RF: 0 Continued sennosides [senna] 8.6 mg Tablet 17.2 mg PO QHS RF: 0 ondansetron HCl 8 mg tablet 8 mg PO TID PRN (Reason: Nausea) RF: 0 methylphenidate HCl 5 mg tablet 5 mg PO BID RF: 0 prochlorperazine maleate 10 mg tablet 10 mg PO TID PRN (Reason: Nausea) RF: 0 nortriptyline 25 mg capsule 50 mg PO QHS RF: 0 oxycodone 5 mg tablet 5 - 10 mg PO Q4H PRN PRN (Reason: Pain) RF: 0 cholecalciferol (vitamin D3) 25 mcg (1,000 unit) Capsule 25 mcg PO DAILY RF: 0 Xtampza ER 18 mg cap,sprinkl,ER12hr(DONT CRUSH) 18 mg PO BID RF: 0 Referrals / Follow Up: Pipo Lee MD [STAFF PHYSICIAN] - Within 2 Weeks (COMPLICATE Effusion) Joel Lundberg MD [STAFF PHYSICIAN] - Within 2 Weeks (for neutropenia fever) Trey Fitzgerald MD [Primary Care Provider] - Within 2 Weeks Disposition Disposition (needs filled in before D/C Order can be placed): Home, Self Care
[2021-06-14] MEDS: NYSTATIN 500,000 UNIT/5 ML UDC 500000 UNIT PO (08:50)
[2021-06-14] MEDS: guaiFENesin 1,200 MG Tablet 1200 MG PO (08:50)
[2021-06-14] MEDS: Enoxaparin 40 MG/0.4 ML Syringe SC (08:50)
[2021-06-14] MEDS: oxyCODONE HCl Cr 10 MG Tablet 20 MG PO (10:19)
--- NOTE | 2021-06-14 11:15 | DS.PCM_ITS ---
Providers Date of Admission: 06/10/21 Date of Discharge: 06/14/21 Primary Care Physician: Dr. Trey Fitzgerald MD Consultations 06/11/21 07:39 Consult: Infectious Disease Routine Consulting Provider: Sacha Mccord Reason for Consult: Neutropenic fever, right flank cellulitis, complex nondrain pleural effusio EMERGENT Consult: No MD Notified: Yes Date Notified: 06/11/21 Time Notified: 07:41 Method of Notification: Text Comments:: Bay cell sarcoma 06/11/21 13:37 Consult: Steam Flattener / Pulmonary Medicine Routine Consulting Provider: Pulmonary Medicine [facility] Reason for Consult: Large right malignant effusion/white out with dyspnea EMERGENT Consult: No Notified: Yes Date Notified: 06/11/21 Time Notified: 13:37 Method of Notification: Verbal Reason For Visit: CELLULITIS, NEUTROPENIC FEVER Diagnosis Discharge Diagnosis (1) Cellulitis, trunk: Status: Acute Code(s): L03.319 - Cellulitis of trunk, unspecified Qualifiers: Site of cellulitis of trunk: unspecified site Qualified Code(s): L03.319 - Cellulitis of trunk, unspecified (2) Pancytopenia with fever: Status: Acute Code(s): D61.818 - Other pancytopenia; R50.81 - Fever presenting with conditions classified elsewhere (3) Candidiasis of mouth: Status: Acute Code(s): B37.0 - Candidal stomatitis (4) Acute hyponatremia: Status: Acute Code(s): E87.1 - Hypo-osmolality and hyponatremia Medications at Discharge Home Medications Xtampza ER 18 mg PO BID 06/10/21 cholecalciferol (vitamin D3) 25 mcg PO DAILY 06/10/21 methylphenidate HCl 5 mg PO BID 06/10/21 nortriptyline 50 mg PO QHS 06/10/21 ondansetron HCl 8 mg PO TID PRN 06/10/21 oxycodone 5 - 10 mg PO Q4H PRN PRN 06/10/21 prochlorperazine maleate 10 mg PO TID PRN 06/10/21 sennosides [senna] 17.2 mg PO QHS 06/10/21 MAGIC MOUTH WASH (BMX) 20 ml PO Q6H PRN PRN #180 ml 06/14/21 cephalexin 500 mg PO TID #15 tab 06/14/21 guaifenesin [Mucinex] 600 mg PO BID #14 tab 06/14/21 Hospital Course Summary of Care Provided Hospital Course: The patient is a 40 y/o M was admitted for neutropenic fever and right flank cellulitis.Patient is started having mild shortness of breath, right-sided chest discomfort for about 2 months and diagnosed with Bay sarcoma about a month ago. Patient initially saw Dr. Zhou had thoracocentesis with reaccumulation and CT-guided biopsy. Thereafter, he was referred to [facility]. In [facility] there was could not get Pleurx catheter due to complicated pleural effusion, not accessible by IR or CT surgeon on detailed evaluation there. Patient had first chemotherapy a week ago prior to admission #1. Sepsis due to right lateral flank cellulitis with neutropenic fever: qSOFA score 1 04/21, tachypnea. Patient had chemotherapy first time a week ago including clinic main campus. Patient oncologist is Dr. Larry Hodges, [facility]. Patient has fever, severe neutropenia, ANC 0.1 thousand, right malignant pleural effusion with mass with dyspnea. The patient IV antibiotic broadened to vancomycin and Zosyn. High risk for MRSA as patient was in clinic last week. I do not think patient needs antifungal for now. ID consulted for further opinion. Monitor blood cultures, temperature curve. Started on Granix. Patient sent to ER by [facility] oncologist Dr. Lundberg. Chest x-ray image reviewed shows right opacity in the right hemithorax. Patient had ultrasound-guided thoracocentesis in [facility] on May 13 and May 20, 2021 with reaccumulation and significantly short period of time. 06/12: Patient is responding with IV antibiotic. Increase in ANC. Platelet count no significant change. Hemoglobin no significant drop. Continue IV antibiotic. Monitor fluid culture and blood cultures x2. 06/13: ID follow-up reviewed. Vancomycin stopped. Continue Zosyn. If continued to improve plan for discharge on 5 days of Keflex 500 mg 3 times daily for cellulitis 06/14: Sepsis resolved. Vancomycin and Zosyn discontinued as per IR recommendation and discharged on 5 days of Keflex 500 mg 3 times daily. 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 We will try to get the medical record. Unclear why it was not done in the ER. Patient had chest abdomen pelvis CT with IV contrast on April 22, 2021 reported fatty liver, normal gallbladder and extrahepatic duct system. Normal spleen, normal pancreas. Significant right pleural effusion with slight interval reduction with significant collapse of right lung. Mediastinal right paratracheal right hilar masses noted. Pleural-based irregular masses. 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 No evidence of lymphoma. CK is low 27. 06/12: Discussed with lawn and tree service spray supervisor . I discussed with the patient and explained that ultrasound-guided thoracentesis which will be diagnostic with drainage of one pocket. I further communicated with Dr. Pierre. Ultrasound-guided thoracocentesis ordered as it was canceled yesterday because patient and family wanted to wait to see the effect of chemotherapy. Patient had approximately 970 mL of dark kenzie-colored fluid drained. No postprocedure pneumothorax. 06/13: Pleural fluid analysis shows exudate with LDH criteria although pleural fluid is less than 0.5 serum protein. Pleural fluid Gram stain shows no organisms or cells. 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 Bandemia 18%. ANC 0.9 thousand improving. Lymphopenia. Overall suggestive of bone marrow is responding well to Granix after chemotherapy induced pancytopenia. 06/14: WBC count normal 9.9 thousand, ANC 8.2 thousand. Patient has metamyelocytes and myelocytes suggestive of bone marrow response. Granix was discontinued 3. Elevated liver chemistry, hyperbilirubinemia exact etiology unclear possible due to sepsis or tumor/chemotherapy: Patient last total bili was normal on 05/06/2021. Admitted with TB 3, most recent 2.8. ALT was high in April 2021 but now normal. AST also trending down. Right upper quadrant sonogram ordered. 06/12: AST improved to normal. Total bilirubin 1.7. Right upper quadrant sonogram pending. Pleural fluids culture and cytology pending. Total cell count 77, polymorphs 2, mononuclear 74, mainly lymphocytes 37.4%. Patient not had fever. 06/14: ALT AST alkaline phosphatase normal. Total bilirubin 1.4. #3. Elevated BP without HTN diagnosis: Blood pressure is normal 126/83. Was elevated in ED. Might be stress response from shortness of breath. #4. Acute hyponatremia, unclear specific etiology: Serum sodium was normal 136, 135 on April 2021. Sodium is low 124/126 possible chemotherapeutic adverse effect/SIADH. TSH normal. Cortisol high. Urine osmolarity high 770, random sodium 19. Serum osmolarity ordered 06/12: Serum sodium 127. Serum osmolarity 149 much lower than urine osmolarity. 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 Magnesium level normal. Serum phosphorus on lower side of normal. Potassium and phosphorus replacement. Serum sodium showing improvement 129. 06/09: Serum sodium 130, potassium 3.6.Serum magnesium and phosphorus are normal. Patient has KDur stuck in throat most probably due to mucositis from chemotherapy with raw GI tract. It went on with swallowing water and patient did not had major complication. Advised soft diet for the next 5 days. Patient is discharged on Magic mouthwash. 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 #5. Oral thrush: oral nystatin regimen, administered 1 dose oral fluconazole per ED physician. Patient on BMX. #6. Chronic pain syndrome: Related with patient significant tumor burden, will continue patient's oxycodone regimen. #7. Depression and anxiety/ADHD: Patient home methylphenidate held because of nonformulary. #8. DVT prophylaxis: SCDs, Lovenox cautiously with close continue platelet monitoring. Discontinue if platelet count drops less than 50,000 or hemoglobin less than 8 g% #9. Patient has severe protein/calorie malnutrition in the context of acute/chronic disease related to inadequate oral intake and increased energy expenditure due to sarcoma/chemo as evidenced by 9-10% weight loss x 8 weeks and PO meeting less than 50-75% estimated nutrition needs x past 2 or more months Nutrition plan plan: Continue regular diet as ordered. 240 ml ensure enlive TID w/ meals. Phosphorus replacement Discharge medication reconciliation done. Discharge follow-up instructions completed. Discharge process discussed with the patient and all questions were answered to patient's satisfaction. Total time spent, exact 35 minutes on discharge meds reconciliation, examina tion, coordination of care with nurses and ancillary staff, review of imaging and blood test and discussion with the patient on follow-up instructions CODE status: Patient PHILIP is his and living will is currently in place. Discussed CODE status at length including difference between FULL code, DNR-CCA and DNR-CC status. Following discussions about the differences in these status, requested Full Code status. Advanced Care Planning Face to Face Time: 16 minutes. Total time of the visit including total time spent in counseling or coordination of care, (more than 50% of the total time, spent in obtaining medical information from nurses and other ancillary care providers,explaining to the patient about labs, imaging, diagnosis and management), discussion with consultants ID and operations professional, review of labs and imaging is 35 minutes. Physical Exam Narrative . Physical exam General: Alert, Oriented x3, Cooperative, BMI 26.9 kg/m? HEENT: Atraumatic, PERRLA, EOMI, Normocephalic Oral: Oral thrush, aphthous ulcer over buccal mucosa, present since admission; improving. Neck: Supple, No JVD, Negative Carotid Bruits Lungs: Air entry improved after right thoracocentesis on right side. Right complicated pleural effusion/mass. No crepitation or rhonchi. Cardiovascular: Sinus tachycardia, Normal S1, Normal S2, No murmurs. Sinus tachycardia most probably from pulmonary origin Abdomen: Mild oropharyngeal dysphagia due to potassium tablet stuck but resolved with swallow of water. Bowel Sounds Present, Soft, Non Tender, Non-Distended : No renal angle tenderness. No suprapubic tenderness. Extremities: No edema, Capillary Refill Less than 3 Seconds Skin: Right flank cellulitis. No bruise or hematoma Musculoskeletal: No Tenderness to Palpation of Joints or Extremities Neurological: Cranial nerves II-XII grossly intact, DTR 2+/4 and Symmetrical, Neuro grossly intact Psych/Mental Status: Normal Affect, Appropriate. Medical Records Data Medical Nutrition Assessment Dietitian: Malnutrition Criteria Met Start: 06/11/21 13:35 Freq: Status: Active Protocol: Document 06/11/21 13:36 RMA (Rec: 06/11/21 13:36 RMA [id number]) Nutrition Malnutrition Evidence of Malnutrition Exists Yes Malnutrition (severe): Acute Illness/Injury,Chronic Evidenced By Suboptimal Energy Intake ( Severe),Weight Loss (Severe) Clinical Problem Acute Disease or Injury Related Malnutrition Etiology Severe protein/calorie malnutrition in the context of acute/chronic disease related to inadequate oral intake and increased energy expenditure due to sarcoma/chemo Signs/Symptoms as evidenced by 9-10% weight loss x 8 weeks and PO meeting less than 50-75% estimated nutrition needs x past 2 or more months Status Active Problem Recommendation Dietitian Recommendations/Changes Continue regular diet as ordered. Will add 240 ml ensure enlive TID w/ meals. Adjust ONS as needed to optimize PO and prevent further wt loss. Weight / BMI Weight Weight: 177 lb 11.081 oz Body Mass Index (BMI) 26.9 ABG / Lab / Microbiology Data Result Diagrams: 06/14/21 05:42 06/14/21 05:42 Laboratory: Laboratory Results - last 24 hr 06/12/21 06:00: Diff Path Review Reviewed 06/12/21 14:10: Fl Pathologist Comment Reviewed 06/13/21 05:36: Diff Path Review Reviewed 06/14/21 05:42: WBC 9.9, RBC 3.85 L, Hgb 10.7 L, Hct 31.8 L, MCV 82.6, MCH 27.8, MCHC 33.6, RDW Std Deviation 40.4, RDW Coeff of Vi 13.5, Plt Count 121 L, MPV 10.9, Neut % (Auto) Not Reportable, Absolute Neuts (auto) 8.2 H, Absolute Lymphs (auto) 0.69 L, Total Counted 100, Neutrophils % (Manual) 53, Band Neutrophils % 5, Lymphocytes % (Manual) 7 L, Monocytes % (Manual) 10, Metamyelocytes % 17 H, Myelocytes % 8 H, Diff Path Review May saira, Platelet Estimate SLT DEC, RBC Morphology NORM C+C 06/14/21 05:42: Sodium 130 L, Potassium 3.6, Chloride 97 L, Carbon Dioxide 26.0, Anion Gap 7, BUN 10, Creatinine 0.45 L, Estim Creat Clear Calc 206.89, Est GFR (MDRD) Af Amer 261, Est GFR (MDRD) Non-Af 216, BUN/Creatinine Ratio 22.0 H, Glucose 79, Calcium 8.1 L, Magnesium 2.0, Total Bilirubin 1.40 H, AST 34, ALT 27, Alkaline Phosphatase 115, Total Protein 6.1 L, Albumin 1.9 L, Globulin 4.2, Albumin/Globulin Ratio 0.5 L 06/14/21 05:42: Phosphorus 2.5 Microbiology: Microbiology 06/12/21 14:10 Fluid - Thoracentesis Fluid Gram Stain - Final 06/12/21 14:10 Fluid - Thoracentesis Fluid Body Fluid Culture - Preliminary No growth-Final to follow 06/10/21 17:20 Blood Culture (Wb) - Port Blood Culture - Preliminary No growth in 48 hours. 06/10/21 17:38 Blood Culture (Wb) #2 - Port Blood Culture - Preliminary No growth in 48 hours. D/C Instructions Discharge Diet: No restrictions Meaningful Use Info Meaningful Use Diagnoses (Choose all that apply): None applicable Discharge Plan Admission Admit Date/Time: 06/10/21 19:24 Primary Reason for Your Visit: Neutropenic fever. Attending Provider: Clay Banegas Primary Care Provider: Trey Fitzgerald Consulting Providers: Sacha Mccord ; Pipo Lee ; Kranthi Perry ; Batool Tavares SURVEILLANCE ANALYST Instructions Additional Instructions / Restrictions: Discharge with incentive spirometry and PEP/chest physiotherapy. Follow-up with the [facility] oncology Dr. Nolasco Advised soft slimy food for next 5 days as patient oral, pharyngeal and GI tract is raw from chemotherapy, mucositis Discharge Orders/Prescriptions Prescriptions: New MAGIC MOUTH WASH (BMX) 180 mL suspension 20 ml PO Q6H PRN PRN (Reason: mouth/throat irritatioon) Qty: 180 RF: 0 cephalexin 500 mg tablet 500 mg PO TID Qty: 15 RF: 0 guaifenesin [Mucinex] 600 mg tablet extended release 12hr 600 mg PO BID Qty: 14 RF: 0 Continued sennosides [senna] 8.6 mg Tablet 17.2 mg PO QHS RF: 0 ondansetron HCl 8 mg tablet 8 mg PO TID PRN (Reason: Nausea) RF: 0 methylphenidate HCl 5 mg tablet 5 mg PO BID RF: 0 prochlorperazine maleate 10 mg tablet 10 mg PO TID PRN (Reason: Nausea) RF: 0 nortriptyline 25 mg capsule 50 mg PO QHS RF: 0 oxycodone 5 mg tablet 5 - 10 mg PO Q4H PRN PRN (Reason: Pain) RF: 0 cholecalciferol (vitamin D3) 25 mcg (1,000 unit) Capsule 25 mcg PO DAILY RF: 0 Xtampza ER 18 mg cap,sprinkl,ER12hr(DONT CRUSH) 18 mg PO BID RF: 0 Referrals / Follow Up: Pipo Lee MD [STAFF PHYSICIAN] - Within 2 Weeks (COMPLICATE Effusion) Joel Lundberg MD [STAFF PHYSICIAN] - Within 2 Weeks (for neutropenia fever) Trey Fitzgerald MD [Primary Care Provider] - Within 2 Weeks Disposition Disposition (needs filled in before D/C Order can be placed): Home, Self Care Charges/Coding Visit Charges Inpatient E&M: 90053 Disch Hosp
[2021-06-16 20:22] LABS: pH, Body Fluid 11254 7.2 (Not Estab.)
[2021-06-17 10:15] LABS: Pathologist Review Reviewed
== END 2021-06-14 11:50 | disposition home or self-care (01) | DRG 871 ==
LOC: ED 18:59 → MS3 20:07
PROVIDERS: Admitting Provider Family Medicine; Emergency Provider Emergency Medicine; PCP Family Medicine; Visit Provider Internal Medicine
DX: A41.9 Sepsis, unspecified organism (principal); E43 Unspecified severe protein-calorie malnutrition; D61.810 Antineoplastic chemotherapy induced pancytopenia; J18.9 Pneumonia, unspecified organism; E22.2 Syndrome of inappropriate secretion of antidiuretic hormone; C49.3 Malignant neoplasm of connective and soft tissue of thorax; B37.0 Candidal stomatitis; J91.0 Malignant pleural effusion; E87.1 Hypo-osmolality and hyponatremia; L03.319 Cellulitis of trunk, unspecified; D70.1 Agranulocytosis secondary to cancer chemotherapy; F41.9 Anxiety disorder, unspecified; E87.6 Hypokalemia; K12.31 Oral mucositis (ulcerative) due to antineoplastic therapy; T45.1X5A Adverse effect of antineoplastic and immunosuppressive drugs, initial encounter; R50.81 Fever presenting with conditions classified elsewhere; F32.A Depression, unspecified; G89.4 Chronic pain syndrome; F90.9 Attention-deficit hyperactivity disorder, unspecified type; R03.0 Elevated blood-pressure reading, without diagnosis of hypertension; Z79.899 Other long term (current) drug therapy
CPT/HCPCS: 32555; 36415; 36591; 71046; 76604; 76705; 80053; 80202; 81001; 82533; 82550; 82570; 82945; 83605; 83615; 83735; 83930; 83935; 83986; 84100; 84157; 84300; 84443; 85025; 87040; 87070; 87075; 87205; 88108; 88305; 88313; 89050; 99284; J7030; J7040; J7050; A4216; J0295; J1447

== ENCOUNTER 2021-08-22 21:00 | Inpatient (IN) | payer OTHER, SELFPAY ==
[2021-08-22] VITALS (8 sets, daily range): BP systolic 96–116; BP diastolic 53–75; PULSE 121–161; RESP 16–27; TEMP 36.9–38.3; O2SAT 88–97; BMI 20.9
--- NOTE | 2021-08-22 21:36 | EX.ED.DYSGE1 ---
HPI History of Present Illness Chief Complaint: Fever Informant: patient and spouse/S.O. 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 He had a week long inpatient chemotherapy last week at the [facility]. Since been feeling fatigue and today has had fevers as high as 101. Runny nose. Says he feels tired. Denies diarrhea. Denies dysuria. Denies any rash. No abdominal pain. Prior similar symptoms: No Recent Illness/Hospitalization: No PFSH PFS Medical History Depression Bay sarcoma Bay's sarcoma Migraines Non-smoker Vitamin D deficiency Home Medications Xtampza ER 18 mg PO BID 06/10/21 [History Last Taken 06/10/21] cholecalciferol (vitamin D3) 25 mcg PO DAILY 06/10/21 [History Last Taken 06/10/21] methylphenidate HCl 5 mg PO BID 06/10/21 [History Last Taken 06/10/21] nortriptyline 50 mg PO QHS 06/10/21 [History Last Taken 06/09/21] ondansetron HCl 8 mg PO TID PRN 06/10/21 [History Last Taken Unknown] oxycodone 5 - 10 mg PO Q4H PRN PRN 06/10/21 [History Last Taken 06/10/21 12:00] prochlorperazine maleate 10 mg PO TID PRN 06/10/21 [History Last Taken Unknown] sennosides [senna] 17.2 mg PO QHS 06/10/21 [History Last Taken 06/09/21] MAGIC MOUTH WASH (BMX) 20 ml PO Q6H PRN PRN #180 ml 06/14/21 [Rx Last Taken Unknown] cephalexin 500 mg PO TID #15 tab 06/14/21 [Rx Last Taken Unknown] guaifenesin [Mucinex] 600 mg PO BID #14 tab 06/14/21 [Rx Last Taken Unknown] dexamethasone 4 mg tablet 4 mg PO DAILY 08/07/21 [History Last Taken Unknown] lactulose 20 gram/30 mL oral solution 20 g PO BID PRN 08/07/21 [History Last Taken Unknown] metoclopramide HCl 5 mg tablet 5 mg PO QACHS 08/07/21 [History Last Taken Unknown] naloxone 4 mg/actuation nasal spray 1 spray INTRANASAL Q2M PRN 08/07/21 [History Last Taken Unknown] polyethylene glycol 3350 17 gram oral powder packet 17 g PO DAILY PRN 08/07/21 [History Last Taken Unknown] Allergy/AdvReac Type Severity Reaction Status Date / Time codeine Allergy Nausea Verified 08/22/21 21:03 Iodinated Contrast Media Allergy Nausea Verified 08/22/21 21:03 [CONTRASTS] Family History Mother Heart disease Hypertension Diabetes Father Hypertension CVA (cerebral vascular accident) Testicular cancer Surgical History H/O shoulder surgery History of ankle surgery History of thoracentesis Social History household members: spouse Smoking Status: Never smoker alcohol intake: never substance use type: does not use ROS ROS ED ROS Narrative Fever. Fatigue. Cough. Review of Systems ROS Unobtainable: Denies due to encephalopathy Constitutional Constitutional ED: Reports fever(s) Eyes Eyes: Denies change in vision ENT ENT ED: Reports rhinorrhea; Denies ear pain Cardiovascular Cardiovascular: Denies chest pain or palpitations Respiratory/Chest Respiratory/Chest: Reports cough; Denies dyspnea Gastrointestinal Gastrointestinal: Denies abdominal pain, constipation, diarrhea, nausea or vomiting Genitourinary Genitourinary ED: Denies dysuria Musculoskeletal Musculoskeletal: Denies myalgias Integumentary Denies abscess or rash Neurologic Neurologic: Denies headache(s) Psychiatric Psychiatric: Denies depression Endocrine Endocrinology: Denies polyuria Allergic/Immunologic Allergic/Immunologic ED: Denies urticaria EXAM Physical Exam Narrative Exam Narrative: 41-year-old male looks thin and cachectic. Vital signs show a heart rate of 161 pulse 100.9. Pulse ox 96%. His blood pressure was initially low at 99/73. H EENT exam mildly dry mucous membranes. Posterior pharynx unremarkable. Neck nontender. No lymphadenopathy. No meningismus. Lungs clear to auscultation bilaterally. Heart tachycardic no murmur rate about 150. Abdomen soft nontender normal bowel sounds no peritoneal signs. Moving all 4 extremities. Equal symmetrical assistant foreman strength. Dorsi plantarflexion intact. Calves are nontender without edema or cords. Back nontender. Skin dry flaking. No cellulitis. Neurologically is awake and alert with no focal motor deficits. Const Vital Signs: 08/22/21 21:00 08/22/21 22:00 08/22/21 22:02 Temperature 100.9 F H 100 F H Temperature Source Oral Oral Pulse Rate 161 H 144 H 145 H Respiratory Rate 16 27 H 26 H Respiratory Effort Blood Pressure 99/73 110/75 116/75 Blood Pressure Mean 81 86 88 Pulse Ox 96 95 96 Oxygen Delivery Method Room Air Room Air Room Air Oxygen Flow Rate (L/min) 08/22/21 22:56 08/22/21 22:57 08/22/21 23:00 Temperature 99.9 F H 99.9 F H 99.9 F H Temperature Source Oral Oral Oral Pulse Rate 140 H 134 H Respiratory Rate 24 H 27 H Respiratory Effort Blood Pressure 97/62 96/53 L Blood Pressure Mean 73 67 Pulse Ox 88 97 Oxygen Delivery Method Room Air Nasal Cannula Oxygen Flow Rate (L/min) 2 08/22/21 23:01 08/22/21 23:18 Temperature Temperature Source Pulse Rate Respiratory Rate Respiratory Effort Normal Non-Labored Blood Pressure Blood Pressure Mean Pulse Ox 88 Oxygen Delivery Method Room Air Oxygen Flow Rate (L/min) Positive well nourished and cachectic; Negative for well developed, obese or unkempt General Appearance ED: cachectic, NAD and pallor; Negative for unkempt, well developed, cyanotic or diaphoretic Nutritional Appearance: cachectic; Negative for obese HEENT Reports dry mucous membranes; Denies moist mucous membranes Negative for trauma or tenderness Mouth ED: Yes dry mucous membranes Mouth: dry mucous membranes Eyes PERRL and EOMs intact bilaterally Neck no lymphadenopathy, supple and no JVD General: Negative for tenderness Chest Wall inspection of chest normal and palpation of chest normal Resp normal respiratory effort and clear to auscultation bilaterally Effort and Inspection: Negative for pain with movement Auscultation: Negative for rales, rhonchi or wheezes Cardio regular rhythm, S1 normal heart sound, S2 normal heart sound and no murmurs; Negative for regular rate Rate: tachycardic GI normal to inspection, nondistended, normoactive bowel sounds, non-tender, non-distended and no masses Inspection: Negative for abdominal distention Auscultation: normoactive bowel sounds Palpation: soft; Negative for tender, guarding or rebound tenderness present Back/Spine no CVA tenderness General Back: Negative for CVA tenderness Cervical Spine: Negative for cervical spine tenderness Thoracic Spine / Upper Back: Negative for paraspinal muscle tenderness Lumbar Spine / Lower Back: Negative for lumbar spinal tenderness Extremity normal to inspection General Extremety ED: Negative for edema or tenderness General Extremity: Negative for edema Neuro oriented x3 Sensorium / Orientation: alert; Negative for orientation impaired, lethargic or stuporous Motor Exam: strength 5/5 throughout; Negative for general weakness Psych mental status grossly normal Appearance: Negative for unkempt Attitude: No agitated Mood & Affect: Negative for depressed or tearful Skin no rashes or lesions noted and no wounds General Skin Exam: pallor; Negative for jaundice MDM MDM MDM Narrative Medical decision making narrative: 41-year-old male immunocompromise due to chemotherapy which he had done last week for Bay's sarcoma in his chest. Concern is for neutropenic fever. He will undergo a septic work-up. Be treated with IV fluids and p.o. Tylenol. Repeat exam at 11:27 PM patient is doing well. Remains tachycardic at 135 after a liter of fluid. Will be given a second liter. Prior history he has had tachycardia in the past. Will also be started on IV Zosyn and vancomycin which been ordered. We do not have a specific source for his fever. I am going to speak to the [facility] to see if they will accept him in transfer they have been having issues with bed availability so he may be admitted here and he and his are fine with that. He has been admitted here before for similar episodes. Lab Data Attestation: I reviewed the patient's lab results. Lab results narrative: CBC shows a white count of 1. H&H is 6.8 and 20. Neutrophils 26 bands of 7. Lymphocytes of 34. PT is 16 INR 1.4. PTT 33. Electrolytes show sodium 123 has been hyponatremic before. Gap of 12. BUN of 15 creatinine 0.6. Glucose 111. Liver enzymes unremarkable except alk phos of 151. Lactic acid 2.5. Urinalysis negative. Chest x-ray shows chronic changes. Labs: Laboratory Results - last 24 hr 08/22/21 08/22/2108/22/22 22:05 22:05 22:05 WBC 1.0 L* RBC 2.40 L Hgb 6.8 L Hct 20.2 L MCV 84.2 MCH 28.3 MCHC 33.7 RDW Std Deviation 49.4 H RDW Coeff of Vi 16.5 H Plt Count 65 L MPV 10.0 Neut % (Auto) Not Reportable Absolute Neuts (auto) 0.3 L Absolute Lymphs (auto) 0.34 L Total Counted 100 Neutrophils % (Manual) 26 L Band Neutrophils % 7 H Lymphocytes % (Manual) 34 Monocytes % (Manual) 29 H Basophils % (Manual) 1 Metamyelocytes % 2 H Blast Cells % 1 H* Diff Path Review May foll Platelet Estimate MOD DEC RBC Morphology N CHROM Hypochromasia 1+ PT 16.5 H INR 1.4 APTT 33.8 Sodium 123 L Potassium 3.9 Chloride 90 L Carbon Dioxide 21.0 Anion Gap 12 BUN 15 Creatinine 0.61 L Estim Creat Clear Calc 138.25 Est GFR (MDRD) Af Amer 186 Est GFR (MDRD) Non-Af 154 BUN/Creatinine Ratio 24.6 H Glucose 111 H Lactic Acid Calcium 7.9 L Total Bilirubin 0.70 AST 22 ALT 32 Alkaline Phosphatase 151 H Total Protein 6.0 L Albumin 2.4 L Globulin 3.6 Albumin/Globulin Ratio 0.7 L Urine Color Urine Clarity Urine pH Ur Specific [place] Urine Protein Urine Glucose (UA) Urine Ketones Urine Occult Blood Urine Nitrite Urine Bilirubin Urine Urobilinogen Ur Leukocyte Esterase Urine RBC Urine WBC Ur Squamous Epith Cells Urine Bacteria Urine Mucus 08/22/21 08/22/21 22:05 22:15 WBC RBC Hgb Hct MCV MCH MCHC RDW Std Deviation RDW Coeff of Vi Plt Count MPV Neut % (Auto) Absolute Neuts (auto) Absolute Lymphs (auto) Total Counted Neutrophils % (Manual) Band Neutrophils % Lymphocytes % (Manual) Monocytes % (Manual) Basophils % (Manual) Metamyelocytes % Blast Cells % Diff Path Review Platelet Estimate RBC Morphology Hypochromasia PT INR APTT Sodium Potassium Chloride Carbon Dioxide Anion Gap BUN Creatinine Estim Creat Clear Calc Est GFR (MDRD) Af Amer Est GFR (MDRD) Non-Af BUN/Creatinine Ratio Glucose Lactic Acid 2.5 H* Calcium Total Bilirubin AST ALT Alkaline Phosphatase Total Protein Albumin Globulin Albumin/Globulin Ratio Urine Color Yellow Urine Clarity Clear Urine pH 6.0 Ur Specific [place] 1.015 Urine Protein 30 H Urine Glucose (UA) Normal Urine Ketones Negative Urine Occult Blood 10 H Urine Nitrite Negative Urine Bilirubin 1 H Urine Urobilinogen 4 H Ur Leukocyte Esterase 25 H Urine RBC 0 SEEN Urine WBC 0 SEEN Ur Squamous Epith Cells 0 SEEN Urine Bacteria 0 SEEN Urine Mucus 0 SEEN Radiography Chest X-Ray - ED: 1 View, Read by ED Physician, Heart, Lungs, Mediastinum, Bony Structures, No Acute Disease and Chronic Changes Diagnostic Testing: Clinical Impression(s) from Imaging Studies Chest X-Ray 08/22/21 22:16 IMPRESSION: Resolution of most of the previously noted right pleural effusion. Small amount of residual pleural fluid likely in the right major fissure and right costophrenic angle. Electronically Signed: Bernard Carr MD at 22:32 EDT , Chest x-ray, portable, single view interpreted by myself and the radiologist. There is residual fluid in the right hemithorax otherwise no acute infiltrate. Rhythm Strip Rhythm Strip: Sinus Tach Rate: 145 Ectopy: None EKG Initial EKG: Attestation: I personally reviewed and interpreted this EKG as follows: Interpretation: No Acute Injury Pattern and Sinus Tachycardia Comments: Sinus tachycardia rate of 145 no acute signs of VA or ischemia. Discharge Plan Triage Chief Complaint: Fever ED Provider: Michael Cedeno Dx/Rx/DC Orders Clinical Impression: Neutropenic fever, Acquired immunocompromised state, History of Bay's sarcoma, Acute hyponatremia, Anemia Prescriptions: No Action dexamethasone 4 mg tablet 4 mg PO DAILY RF: 0 lactulose 20 gram/30 mL solution 20 g PO BID PRNRF: 0 metoclopramide HCl 5 mg tablet 5 mg PO QACHS RF: 0 naloxone 4 mg/actuation spray,non-aerosol 1 spray intranasal Q2M PRNRF: 0 polyethylene glycol 3350 17 gram powder in packet 17 g PO DAILY PRNRF: 0 sennosides [senna] 8.6 mg Tablet 17.2 mg PO QHS RF: 0 ondansetron HCl 8 mg tablet 8 mg PO TID PRN (Reason: Nausea) RF: 0 methylphenidate HCl 5 mg tablet 5 mg PO BID RF: 0 prochlorperazine maleate 10 mg tablet 10 mg PO TID PRN (Reason: Nausea) RF: 0 nortriptyline 25 mg capsule 50 mg PO QHS RF: 0 oxycodone 5 mg tablet 5 - 10 mg PO Q4H PRN PRN (Reason: Pain) RF: 0 cholecalciferol (vitamin D3) 25 mcg (1,000 unit) Capsule 25 mcg PO DAILY RF: 0 Xtampza ER 18 mg cap,sprinkl,ER12hr(DONT CRUSH) 18 mg PO BID RF: 0 MAGIC MOUTH WASH (BMX) 180 mL suspension 20 ml PO Q6H PRN PRN (Reason: mouth/throat irritatioon) Qty: 180 RF: 0 cephalexin 500 mg tablet 500 mg PO TID Qty: 15 RF: 0 guaifenesin [Mucinex] 600 mg tablet extended release 12hr 600 mg PO BID Qty: 14 RF: 0 Primary Care Provider: Trey Fitzgerald Referrals: Trey Fitzgerald MD [Primary Care Provider] - Disposition Disposition: Acute Care Hospital [facility]
--- NOTE | 2021-08-22 21:40 | EKG12_ITS ---
Test Reason : DYSRYTHMIA Blood Pressure : / mmHG Vent. Rate : 145 BPM Atrial Rate : 145 BPM P-R Int : 134 ms QRS Dur : 070 ms QT Int : 262 ms P-R-T Axes : 061 019 072 degrees QTc Int : 406 ms Sinus tachycardia Nonspecific T wave abnormality Abnormal ECG Confirmed by ALEX STEVENS, KYLIE ([id number]), editor newspaper CARLOS TYSON ([id number]) on 08/25/2021 1:24:56 PM Referred By: ALEXYS Confirmed By:KYLIE JOHNSON MD
[2021-08-22] MEDS: 0.9% Normal Saline 1,000 ML 999 ML IV (22:04)
[2021-08-22] MEDS: Acetaminophen 500 MG Tablet 1000 MG PO (22:05)
--- NOTE | 2021-08-22 22:16 | RAD_ITS ---
EXAM: XR CHEST, 1 VIEW CLINICAL INDICATION: cough TECHNIQUE: Frontal view of the chest. This report was created using [employer] report generation technology. COMPARISON: 06/12/2021. FINDINGS: LUNGS AND PLEURAL SPACES: Resolution of most of the previously noted right pleural effusion. Small amount of residual pleural fluid likely in the right major fissure and right costophrenic angle. No pneumothorax. Lungs are clear. HEART: Unremarkable. Cardiac silhouette not enlarged. MEDIASTINUM: Central airways and mediastinal contour are unremarkable. BONES/JOINTS: Unremarkable. SOFT TISSUES: Unremarkable. TUBES, LINES AND DEVICES: No change in the central line. RAD/Chest 1 View (Portable) IMPRESSION: Resolution of most of the previously noted right pleural effusion. Small amount of residual pleural fluid likely in the right major fissure and right costophrenic angle. Electronically Signed: Bernard Carr MD at 22:32 EDT ,
[2021-08-22 22:17] LABS: Hematocrit 20.2 % (40-54); Hemoglobin 6.8 g/dL (13.0-16.5); Mean Corp Hgb Conc 33.7 g/dL (32-36); Mean Corpuscular Hgb 28.3 pg (27.0-32.0); Mean Corpuscular Volume 84.2 fL (80-94); POSITIVE COUNT YES; POSITIVE DIFFERENTIAL YES; POSITIVE MORPHOLOGY YES; Platelet Count 65 K/mm3 (150-450); RBC Distribution Width CV 16.5 % (11.6-14.6); RBC Distribution Width SD 49.4 fl (35.1-43.9)
[2021-08-22 22:23] LABS: Bacteria 0 SEEN /hpf (None Seen); Mucous, Urine 0 SEEN /hpf (<or=2+); Red Blood Cells-Urine 0 SEEN /hpf (0-5); Squamous Epithelial Cells - UA 0 SEEN /hpf (0-5); White Blood Cells 0 SEEN /hpf (0-5)
[2021-08-22 22:27] LABS: Differential Indicated MANUAL DIFF
[2021-08-22 22:27] LABS: Color, Urine Yellow (Yellow); Glucose, Dipstick Normal (Normal); Ketone-Dipstick Negative (Negative); Leukocyte Esterase-Dipstick 25 /ul (Negative); Nitrite-Dipstick Negative (Negative); Occult Blood-Urine 10 /ul (Negative); Protein-Dipstick 30 mg/dl (Negative); Specific Gravity, Urine 1.015 (1.002-1.030); Urine Clarity Clear (Clear); Urine Urobilinogen 4 mg/dl (Normal)
[2021-08-22 22:28] LABS: International Normalized Ratio 1.4; Prothrombin Time (Protime)PT. 16.5 SECONDS (11.7-14.9)
[2021-08-22 22:29] LABS: Partial Thromboplast Time 33.8 Seconds (24.1-36.2)
[2021-08-22 22:36] LABS: ALB/GLOB Ratio 0.7 RATIO (0.9-2.4); AST(SGOT) 22 U/L (15-37); Alanine Aminotransfer ALT/SGPT 32 U/L (16-61); Albumin, Serum 2.4 g/dL (3.2-5.0); Alkaline Phosphatase 151 U/L (45-117); Anion Gap 12 (5-15); BUN 15 mg/dL (7-18); BUN/Creat Ratio 24.6 RATIO (10-20); Calcium,Total 7.9 mg/dL (8.5-10.1); Chloride 90 mmol/L (98-107); Creatinine, Serum 0.61 mg/dL (0.70-1.30); EST Glomerular Filtration Rate 154 mL/min (>60); Est Glom Filt Rate - Afr Amer 186 mL/min (>60); Estimated Creatinine Clearance 138.25 ml/min; Globulin 3.6 g/dL (2.2-4.2); Glucose 111 mg/dL (74-106); Potassium 3.9 mmol/L (3.5-5.1); Sodium Level 123 mmol/L (136-145)
[2021-08-22 22:54] LABS: Lactic Acid 2.5 mmol/L (0.4-1.9)
[2021-08-22 22:57] LABS: Basophil 1 % (0-1); Blast 1 % (0-0); Lymphocyte 34 % (19-41); Metamyelocyte 2 % (0-1); Monocyte 29 % (0-10); Neutrophil-Band 7 % (0-5); Neutrophil-Segmented 26 % (47-70); Total Cells Counted 100 (MANUAL DIFF)
[2021-08-22 22:58] LABS: Hypochromasia 1+; Red Cell Morphology N CHROM NORMAL (NORM C&C)
[2021-08-22 23:00] LABS: Platelet Estimate MOD DEC (ADEQ)
--- NOTE | 2021-08-22 23:00 | PCM.HP.STD ---
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 Work-up in the ED included T1 100.9, heart rate initially 161, BP 99/73, respiratory rate 16, 96% on room air with most recent repeat vitals T99.9, heart rate 140, BP 97/62, respiratory rate 24, 88% on room air, CBC with WC 1, hemoglobin 6.8, platelets 65 with increased bands, coags with INR 1.4, PT 16.5, CMP with sodium 123, chloride 90, BUN/creatinine 15/0.61, glucose 111, lactic acid 2.5, alk phos 151, rapid COVID/influenza negative, blood culture x2 pending per ED, urine culture pending per ED, chest x-ray with resolution of most of the previously noted right pleural effusion with a small amount of residual pleural fluid likely in the right major fissure and right costophrenic angle, urinalysis without evidence of ischemia. In the ED patient ministered Tylenol and normal saline as well as IV zosyn, vanc. ED physician recommended transition to [facility] given significant history and did contact the clinic however patient declined transfer. [facility] Medical History Depression Bay sarcoma Bay's sarcoma Migraines Non-smoker Vitamin D deficiency Home Medications Xtampza ER 18 mg PO BID 06/10/21 [History Last Taken 06/10/21] cholecalciferol (vitamin D3) 25 mcg PO DAILY 06/10/21 [History Last Taken 06/10/21] nortriptyline 50 mg PO QHS 06/10/21 [History Last Taken 06/09/21] ondansetron HCl 8 mg PO TID PRN 06/10/21 [History Last Taken Unknown] oxycodone 5 - 10 mg PO Q4H PRN PRN 06/10/21 [History Last Taken 06/10/21 12:00] sennosides [senna] 17.2 mg PO QHS 06/10/21 [History Last Taken 06/09/21] lactulose 20 gram/30 mL oral solution 20 g PO BID PRN 08/07/21 [History Last Taken Unknown] naloxone 4 mg/actuation nasal spray 1 spray INTRANASAL Q2M PRN 08/07/21 [History Last Taken Unknown] polyethylene glycol 3350 17 gram oral powder packet 17 g PO DAILY PRN 08/07/21 [History Last Taken Unknown] Allergy/AdvReac Type Severity Reaction Status Date / Time codeine Allergy Nausea Verified 08/22/21 21:03 Iodinated Contrast Media Allergy Nausea Verified 08/22/21 21:03 [CONTRASTS] Family History Mother Heart disease Hypertension Diabetes Father Hypertension CVA (cerebral vascular accident) Testicular cancer Surgical History H/O shoulder surgery History of ankle surgery History of thoracentesis Social History household members: spouse Smoking Status: Never smoker alcohol intake: never substance use type: does not use ROS ROS Narrative Admission Review of Systems: CONSTITUTIONAL: No weight loss, + fever, chills, weakness or fatigue. HEENT: Eyes: No visual loss, blurred vision, double vision or yellow sclerae. Ears, Nose, Throat: No hearing loss, sneezing, congestion, runny nose or sore throat. SKIN: No rash or itching, lesions, wounds. CARDIOVASCULAR: + Tachycardia ongoing, No chest pain, chest pressure or chest discomfort, palpitations, edema, orthopnea, syncopal events. RESPIRATORY: No shortness of breath, cough or sputum, wheezing, hemoptysis. GASTROINTESTINAL: + Anorexia, nausea, vomiting, No diarrhea, abdominal pain, melena, BRBPR. GENITOURINARY: No dysuria, frequency, urgency or retention. NEUROLOGICAL: No headache, dizziness, syncope, paralysis, ataxia, numbness or tingling in the extremities, focal weakness, change in bowel or bladder control, seizure. MUSCULOSKELETAL: + muscle, back pain, joint pain or stiffness. HEMATOLOGIC: + anemia, bleeding or bruising. LYMPHATICS: No enlarged nodes. No history of splenectomy. PSYCHIATRIC: No history of depression or anxiety. ENDOCRINOLOGIC: No reports of sweating, cold or heat intolerance. No polyuria or polydipsia. ALLERGIES: No history of asthma, hives, eczema or rhinitis. Vital Signs Vital Signs Vital Signs: 08/22/21 21:00 08/22/21 22:00 08/22/21 22:02 Temperature 100.9 F H 100 F H Temperature Source Oral Oral Pulse Rate 161 H 144 H 145 H Respiratory Rate 16 27 H 26 H Blood Pressure 99/73 110/75 116/75 Blood Pressure Mean 81 86 88 Pulse Ox 96 95 96 Oxygen Delivery Method Room Air Room Air Room Air 08/22/21 22:56 08/22/21 22:57 Temperature 99.9 F H 99.9 F H Temperature Source Oral Oral Pulse Rate 140 H Respiratory Rate 24 H Blood Pressure 97/62 Blood Pressure Mean 73 Pulse Ox 88 Oxygen Delivery Method Room Air Weight Weight: 138 lb Body Mass Index (BMI) 20.9 Physical Exam Narrative Physical Examination: General: Awake, alert, oriented x 3 and cooperative, laying in the ED bed, fatigued and ill-appearing, cachectic. Skin: Normal color, normal turgor, no icterus, no cyanosis. HEENT: AT/NC, EOMI, PERRLA, dry MM, no carotid bruits or JVD noted. Lungs: Significantly diminished right mid to base, mildly decreased effort, mildly increased respiratory rate, no rales, ronchi or wheezing. Heart: Tachycardic with rhythm; no gallop, rub audible. Abdomen: Soft, cachectic, NTTP, ND, moderately hyperactive BS, no obvious HSM. Extremities: No cyanosis, clubbing, or edema. Neurological: Patient awake, alert, oriented as noted, cognitive function intact; pupils equally reactive to light and accommodation, cranial nerves II-XII grossly normal, moving all 4 extremities, no focal deficits, strength severely global decrease secondary to acute presentation. Psychiatric: Affect appears flat, fatigued, ill-appearing, no acute evidence of depressive or anxiety feelings. Results Lab / Micro Data Result Diagrams: 08/22/21 22:05 08/22/21 22:05 Labs: Laboratory Results - last 24 hr 08/22/21 22:05: WBC 1.0 L*, RBC 2.40 L, Hgb 6.8 L, Hct 20.2 L, MCV 84.2, MCH 28.3, MCHC 33.7, RDW Std Deviation 49.4 H, RDW Coeff of Vi 16.5 H, Plt Count 65 L, MPV 10.0, Neut % (Auto) Not Reportable, Total Counted 100, Neutrophils % (Manual) 26 L, Band Neutrophils % 7 H, Lymphocytes % (Manual) 34, Monocytes % (Manual) 29 H, Basophils % (Manual) 1, Metamyelocytes % 2 H, Blast Cells % 1 H*, Platelet Estimate MOD DEC, RBC Morphology N CHROM, Hypochromasia 1+ 08/22/21 22:05: PT 16.5 H, INR 1.4, APTT 33.8 08/22/21 22:05: Sodium 123 L, Potassium 3.9, Chloride 90 L, Carbon Dioxide 21.0, Anion Gap 12, BUN 15, Creatinine 0.61 L, Estim Creat Clear Calc 138.25, Est GFR (MDRD) Af Amer 186, Est GFR (MDRD) Non-Af 154, BUN/Creatinine Ratio 24.6 H, Glucose 111 H, Calcium 7.9 L, Total Bilirubin 0.70, AST 22, ALT 32, Alkaline Phosphatase 151 H, Total Protein 6.0 L, Albumin 2.4 L, Globulin 3.6, Albumin/Globulin Ratio 0.7 L 08/22/21 22:05: Lactic Acid 2.5 H* Micro: Microbiology 08/22/21 22:05 Nasal Secretion SARS-CoV-2 & FLU Antigen (Rapid) - Final Radiology Impression Chest X-Ray 08/22/21 22:16 IMPRESSION: Resolution of most of the previously noted right pleural effusion. Small amount of residual pleural fluid likely in the right major fissure and right costophrenic angle. 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 #1. SIRS with Acute Neutropenic fever with Acute on Chronic pancytopenia on active chemotherapy with associated hypotension: Will admit to PCU, maintain on telemetry, continue judicious fluids maintain on IV BSA vanc and zosyn given unclear source pending MRSA screen, plan repeat CBC in AM, monitor erythema outline with VS check, continue IV fluids, continue patient chronic pain regimen, pending blood culture x2 per ED given neutropenic presentation, obtain respiratory panel, obtain COVID PCR, obtain sputum cx and antigens to be cautious. Local [facility] Oncology consulted per discussion with patient. Patient has been evaluated by ID previously and may add consultation Wednesday if still appropriate. #2. 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 Last chemotherapy ~ 1 week prior. Mag and Phos requested. CBC w/ WBC 1, Hgb 6.8, Plts 65 with increased bands and blasts noted. Last Hgb 06/14/21 10.7, Plts 121. Will order 1 u PRBC for transfusion given Hgb < 7 with repeat CBC in AM. Local [facility] Oncology consulted per discussion with patient. #3. Acute hyponatremia, unclear specific etiology, possibly SIADH: Similar prior presentation, admission Na 123, will continue judicious hydration initially given unclear exact etiology, will obtain TSH, magnesium, FeNa, Osmolality and further alter treatment pending response/results, repeat CMP iN AM. #4. Chronic pain syndrome: Related with patient significant tumor burden, will continue patient's oxycodone regimen. #5. Depression and anxiety/ADHD: Patient previously on methylphenidate, regimen no longer listed. Given significant ongoing illness do recommend continued outpatient evaluation for counseling and medications if needed. #6. Severe protein calorie malnutrition: Evidenced by reducing BMI, obvious muscle and fat loss, cachectic appearing, mag and Phos requested, nutrition consulted. #7. DVT prophylaxis: SCDs, Lovenox cautiously with close continue platelet monitoring. #8. CODE status: Patient PHILIP is his and living will is currently in place. Discussed CODE status at length including difference between FULL code, DNR-CCA and DNR-CC status. Following discussions about the differences in these status, requested Full Code status. Advanced Care Planning Face to Face Time: 16 minutes. Charges/Coding Visit Charges Inpatient E&M: 26823 Init Hosp L3 Procedures Hospitalists Procedures: 30322 Advncd Care Plan 30 Min
[2021-08-22 23:01] LABS: Absolute Lymphocyte Count 0.34 X10^3/uL (0.83-4.51); Absolute Neutrophil Count 0.3 X10^3/uL (2.0-7.7)
[2021-08-22 23:12] LABS: Urine Bilirubin Dipstick 1 mg/dL (Negative)
[2021-08-23] VITALS (39 sets, daily range): BP systolic 85–169; BP diastolic 55–103; PULSE 110–161; RESP 12–31; TEMP 36.3–39.5; O2SAT 90–98; BMI 20.1
[2021-08-23] MEDS: 0.9% Normal Saline 1,000 ML 999 ML IV
[2021-08-23 00:19] LABS: Magnesium 1.4 mg/dL (1.6-2.6); Phosphorus 1.9 mg/dL (2.5-4.9)
[2021-08-23 00:20] LABS: Urine Sodium 27 mmol/L (Not Establ.)
[2021-08-23] MEDS: Vancomycin IV 1,000 MG/200 ML BAG 200 MG IV (00:28)
[2021-08-23 00:30] LABS: Procalcitonin 0.48 ng/mL (0.00-0.09)
[2021-08-23 01:32] LABS: Osmolality, Urine 600 mOsm/KG
[2021-08-23 01:33] LABS: Osmolality, Serum 251 mOsm/KG (275-295)
--- NOTE | 2021-08-23 01:46 | PCM.RX.CS ---
Consult Pharmacy has been consulted to manage selected antiobiotic: Vancomycin Type of Consult: New start Labs: Sodium 123 mmol/L (136-145) L 08/22/21 22:05 Potassium 3.9 mmol/L (3.5-5.1) 08/22/21 22:05 Chloride 90 mmol/L (98-107) L 08/22/21 22:05 Carbon Dioxide 21.0 mmol/L (21.0-32.0) 08/22/21 22:05 Anion Gap 12 (5-15) 08/22/21 22:05 BUN 15 mg/dL (7-18) 08/22/21 22:05 Creatinine 0.61 mg/dL (0.70-1.30) L 08/22/21 22:05 Est GFR (MDRD) Af Amer 186 mL/min (>60) 08/22/21 22:05 Est GFR (MDRD) Non-Af 154 mL/min (>60) 08/22/21 22:05 BUN/Creatinine Ratio 24.6 RATIO (10-20) H 08/22/21 22:05 Glucose 111 mg/dL (74-106) H 08/22/21 22:05 Microbiology: Microbiology 08/22/21 22:05 Nasal Secretion SARS-CoV-2 & FLU Antigen (Rapid) - Final Weight used for dosin kg Estimated Creatinine Clearance: 138 Goal Trough: 15-20 mcg/mL Pharmacy Plan for Drug Dosing: Pharmacy Service will continue to monitor and adjust dosing as required. Medications Vancomycin IV-PHARMACY TO DOSE (1 each/ Sodium Chloride) 500 mls @ 250 mls/hr IV X1 PRN; Protocol PRN Reason: Rx to Dose Vancomycin HCl 750 mg/ Sodium (Chloride) 265 mls @ 250 mls/hr IV Q8H JONY Follow-Up Labs: Trough Vancomycin Labs to be done on [date and time ordered]: 08/24 @ 0000
[2021-08-23 02:09] LABS: Reflex Lactate? Y
[2021-08-23] MEDS: 0.9% Normal Saline 1,000 ML 125 ML IV ×3 (02:23→18:45)
[2021-08-23] MEDS: 0.9% Saline Lock 10 ML Syringe IV ×4 (03:12→17:27)
[2021-08-23 03:42] LABS: Lactic Acid 1.7 mmol/L (0.4-1.9)
[2021-08-23] MEDS: Acetaminophen 325 MG Tablet 650 MG PO ×4 (05:13→20:15)
[2021-08-23 08:09] LABS: Hematocrit 21.9 % (40-54); Hemoglobin 7.5 g/dL (13.0-16.5); Mean Corp Hgb Conc 34.2 g/dL (32-36); Mean Corpuscular Hgb 28.6 pg (27.0-32.0); Mean Corpuscular Volume 83.6 fL (80-94); Mean Platelet Vol. 9.6 fl (6.2-12.0); POSITIVE COUNT YES; POSITIVE DIFFERENTIAL YES; POSITIVE MORPHOLOGY YES; Platelet Count 67 K/mm3 (150-450); RBC Distribution Width CV 15.7 % (11.6-14.6); RBC Distribution Width SD 46.5 fl (35.1-43.9); Red Blood Count 2.62 M/mm3 (4.6-6.2); White Blood Count 2.4 K/mm3 (4.4-11.0)
[2021-08-23 08:12] LABS: Differential Indicated MANUAL DIFF
[2021-08-23 08:42] LABS: ALB/GLOB Ratio 0.7 RATIO (0.9-2.4); AST(SGOT) 19 U/L (15-37); Alanine Aminotransfer ALT/SGPT 25 U/L (16-61); Alkaline Phosphatase 115 U/L (45-117); Anion Gap 8 (5-15); BUN 7 mg/dL (7-18); Calcium,Total 7.3 mg/dL (8.5-10.1); Chloride 96 mmol/L (98-107); Creatinine, Serum 0.39 mg/dL (0.70-1.30); EST Glomerular Filtration Rate 258 mL/min (>60); Est Glom Filt Rate - Afr Amer 312 mL/min (>60); Estimated Creatinine Clearance 207.26 ml/min; Glucose 99 mg/dL (74-106); Magnesium 1.8 mg/dL (1.6-2.6); Potassium 3.3 mmol/L (3.5-5.1); Sodium Level 127 mmol/L (136-145); Thyroid Stim Hormone (TSH) 2.24 uIU/mL (0.358-3.74)
[2021-08-23 08:53] LABS: Phosphorus 3.7 mg/dL (2.5-4.9)
[2021-08-23 09:17] LABS: Eosinophil 1 % (0-5); Lymphocyte 20 % (19-41); Metamyelocyte 3 % (0-1); Monocyte 10 % (0-10); Myelocyte 15 % (0-0); Neutrophil-Band 17 % (0-5); Neutrophil-Segmented 33 % (47-70); Promyelocyte 1 % (0-0); Total Cells Counted 100 (MANUAL DIFF)
[2021-08-23 09:19] LABS: Absolute Neutrophil Count 1.2 X10^3/uL (2.0-7.7); Platelet Estimate MOD (ADEQ); Red Cell Morphology NORM C+C NORMAL (NORM C&C)
[2021-08-23 09:20] LABS: Absolute Lymphocyte Count 0.48 X10^3/uL (0.83-4.51)
[2021-08-23 09:22] LABS: Toxic Granulation 2+
[2021-08-23] MEDS: Enoxaparin 40 MG/0.4 ML Syringe SC (10:30)
[2021-08-23] MEDS: oxyCODONE HCl Cr 10 MG Tablet 20 MG PO ×2 (10:30→21:05)
--- NOTE | 2021-08-23 10:59 | NURSING ---
Dr. Luque, [facility] Oncologist here to see patient and spoke with Dr. Batista in regards to patient plan of care.
[2021-08-23 11:42] LABS: M R Staph aureus DNA By PCR Negative (Negative); Probe Check PASS; Specimen Processing Control PASS
--- NOTE | 2021-08-23 12:15 | CASEMGMT ---
SKYLER LEE assessment: Face to Face with patient for initial transition planning/care coordination assessment. SKYLER LEE introduced self and role at [facility], pt voices understanding and consents to assessment. Pt is sitting up in bed in no distress on 5L nc. Pt is A/Ox4 and answers questions appropriately. Care providers, pharmacy, and demographics verified/updated. Presentation: Pt c/o fever, runny nose, fatigue-last chemo 7 days ago, hx Ewings sarcoma Admitting dx: SIRS, neutropenic fever PCP: [facility] Specialists: SÁNCHEZ [facility]ton main onc [facility]erred [facility]acy[facility] Insurance: [employer] Prescription Benefit: [employer] Living Will/HPOA: Pt has LW/HPOA and is aware that they are not on file at [facility]. Pt states his , Autumn Mcleod, is HPOA. LNOK: Autumn Mcleod, ; Shirley Mcleod, mother Living Arrangements: Pt lives with on main level of 2 story home and states no concerns at home. Pt is independent with ADL's. Transportation: Pt drives self or drives and states no transportation concerns. DME/HHC: Pt states no DME or need for any further DME. Pt states no preference for DME company, if qualifies for home oxygen. Pt states no hx of HHC or SNF. Pt states no concerns with going home at time of discharge. 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 Pt states does not smoke cigarettes or drink ETOH. Pt states no further concerns/needs. CM to follow for home oxygen or any further discharge planning/needs. Advised pt to ask for CM if any further questions/concerns/needs arise, voices understanding. Pt Goal: Home Plan: Home [place] SKYLER LEE
--- NOTE | 2021-08-23 13:54 | PN.HOSP_ITS ---
Subjective Subjective Patient seen and examined. HE says he is feeling better today. He denies any fever, chills, nausea, vomiting or diarrhea. Review of systems is otherwise negative. He remains tachypneic and tachycardic. Objective Data Objective Data Vital Signs: Vital Signs Temp Pulse Resp BP Pulse Ox 98.9 F 118 H 23 H 133/79 H 92 08/23/21 13:00 08/23/21 13:00 08/23/21 13:00 08/23/21 13:00 08/23/21 13:00 Oxygen Flow Rate (L/min) 4 Oxygen Delivery Method Nasal Cannula Weight: 132 lb 4.438 oz Body Mass Index (BMI) 20.1 Intake & Output: Intake and Output for Last 24 Hours 08/21/21 08/22/21 08/23/21 23:59 23:59 23:59 Intake Total 1000 / 1000 3600.25 / 3600.25 Output Total 1150 / 1150 Balance 1000 / 1000 2450.25 / 2450.25 Medical Nutrition Assessment Dietitian: Malnutrition Criteria Met Start: 08/23/21 12:35 Freq: Status: Active Protocol: Document 08/23/21 12:53 RMA (Rec: 08/23/21 12:53 RMA [id number]) Nutrition Malnutrition Evidence of Malnutrition Exists Yes Malnutrition (severe): Chronic Evidenced By Suboptimal Energy Intake ( Severe),Weight Loss (Severe), Physical Changes (Severe) Clinical Problem Chronic Disease or Condition Related Malnutrition Etiology Severe protein-calorie malnutrition in the context of chronic disease/malignancy related to inadequate oral intake and increased energy needs Signs/Symptoms as evidenced by ~31% wt loss x 3 months, BMI 20.1, inadequate oral intake at meals meeting less than 50% estimated nutrition needs x past 2-3 months and moderate to severe muscle and fat wasting in the clavicle, orbitals and temporal regions Status Active Problem Recommendation Dietitian Recommendations/Changes Continue regular diet as ordered. Continue 120ml ensure enlive 4 times per day w/ medpass as ordered. Will add chocolate ensure compact TID w/ meals as tolerated per patient. Lab / Micro Data Result Diagrams: 08/23/21 07:50 08/23/21 07:50 Labs: Laboratory Results - last 24 hr 08/22/21 22:05: WBC 1.0 L*, RBC 2.40 L, Hgb 6.8 L, Hct 20.2 L, MCV 84.2, MCH 28.3, MCHC 33.7, RDW Std Deviation 49.4 H, RDW Coeff of Vi 16.5 H, Plt Count 65 L, MPV 10.0, Neut % (Auto) Not Reportable, Absolute Neuts (auto) 0.3 L, Absolute Lymphs (auto) 0.34 L, Total Counted 100, Neutrophils % (Manual) 26 L, Band Neutrophils % 7 H, Lymphocytes % (Manual) 34, Monocytes % (Manual) 29 H, Basophils % (Manual) 1, Metamyelocytes % 2 H, Blast Cells % 1 H*, Diff Path Review August, Platelet Estimate MOD DEC, RBC Morphology N CHROM, Hypochromasia 1+ 08/22/21 22:05: PT 16.5 H, INR 1.4, APTT 33.8 08/22/21 22:05: Sodium 123 L, Potassium 3.9, Chloride 90 L, Carbon Dioxide 21.0, Anion Gap 12, BUN 15, Creatinine 0.61 L, Estim Creat Clear Calc 138.25, Est GFR (MDRD) Af Amer 186, Est GFR (MDRD) Non-Af 154, BUN/Creatinine Ratio 24.6 H, Glucose 111 H, Calcium 7.9 L, Total Bilirubin 0.70, AST 22, ALT 32, Alkaline Phosphatase 151 H, Total Protein 6.0 L, Albumin 2.4 L, Globulin 3.6, Albumin/Globulin Ratio 0.7 L 08/22/21 22:05: Lactic Acid 2.5 H* 08/22/21 22:05: Phosphorus 1.9 L, Magnesium 1.4 L 08/22/21 22:15: Urine Color Yellow, Urine Clarity Clear, Urine pH 6.0, Ur Specific [place] 1.015, Urine Protein 30 H, Urine Glucose (UA) Normal, Urine Ketones Negative, Urine Occult Blood 10 H, Urine Nitrite Negative, Urine Bilirubin 1 H, Urine Urobilinogen 4 H, Ur Leukocyte Esterase 25 H, Urine RBC 0 SEEN, Urine WBC 0 SEEN, Ur Squamous Epith Cells 0 SEEN, Urine Bacteria 0 SEEN, Urine Mucus 0 SEEN 08/22/21 22:15: Ur Random Sodium 27 08/22/21 23:35: COVID-19 (ANALISA) Not Detected 08/22/21 23:40: Procalcitonin 0.48 H 08/22/21 23:40: Blood Type B POSITIVE, Antibody Screen NEGATIVE, Crossmatch See Detail 08/23/21 00:00: Serum Osmolality 251 L 08/23/21 00:00: Urine Osmolality 600 08/23/21 00:00: Urine Creatinine 128.00 08/23/21 01:47: MRSA (PCR) Negative 08/23/21 03:10: Lactic Acid 1.7 08/23/21 07:50: WBC 2.4 L, RBC 2.62 L, Hgb 7.5 L, Hct 21.9 L, MCV 83.6, MCH 28.6, MCHC 34.2, RDW Std Deviation 46.5 H, RDW Coeff of Vi 15.7 H, Plt Count 67 L, MPV 9.6, Neut % (Auto) Not Reportable, Absolute Neuts (auto) 1.2 L, Absolute Lymphs (auto) 0.48 L, Total Counted 100, Neutrophils % (Manual) 33 L, Band Neutrophils % 17 H, Lymphocytes % (Manual) 20, Monocytes % (Manual) 10, Eosinophils % (Manual) 1, Metamyelocytes % 3 H, Myelocytes % 15 H, Promyelocytes % 1 H, Diff Path Review May foll, Toxic Granulation 2+, Platelet Estimate MOD, RBC Morphology NORM C+C 08/23/21 07:50: Sodium 127 L, Potassium 3.3 L, Chloride 96 L, Carbon Dioxide 23.0, Anion Gap 8, BUN 7, Creatinine 0.39 L, Estim Creat Clear Calc 207.26, Est GFR (MDRD) Af Amer 312, Est GFR (MDRD) Non-Af 258, BUN/Creatinine Ratio 18.0, Glucose 99, Calcium 7.3 L, Magnesium 1.8, Total Bilirubin 0.90, AST 19, ALT 25, Alkaline Phosphatase 115, Total Protein 5.0 L, Albumin 2.0 L, Globulin 3.0, Albumin/Globulin Ratio 0.7 L, TSH 2.24 08/23/21 07:50: Phosphorus 3.7 Micro: Microbiology 08/22/21 22:15 Urine, Clean Catch Legionella Antigen - Final 08/22/21 22:15 Urine, Clean Catch Streptococcus pneumoniae Antigen (M - Final 08/23/21 00:10 Mucosa - Nasopharyngeal Respiratory Panel (PCR) - Final 08/22/21 22:05 Nasal Secretion SARS-CoV-2 & FLU Antigen (Rapid) - Final Radiography Diagnostic Testing: Radiology Impression Chest X-Ray 08/22/21 22:16 IMPRESSION: Resolution of most of the previously noted right pleural effusion. Small amount of residual pleural fluid likely in the right major fissure and right costophrenic angle. Electronically Signed: Bernard Carr MD at 22:32 EDT , Rhythm Strip Rhythm Strip: Sinus Tach Rate: 145 Ectopy: None Physical Exam Const alert, oriented x3 and no apparent distress Exam Limitations: no limitations HEENT head/scalp atraumatic and moist oral mucous membranes Head and Scalp: normocephalic Eyes PERRL, EOMs intact bilaterally and conjunctivae normal Neck no lymphadenopathy and supple Resp Resp Narrative: diminished breath sounds bibasally, no wheezes or crackles. On room air. Tachypneic Cardio regular rhythm, S1 normal heart sound, S2 normal heart sound and no murmurs Cardio Narrative: tachycardic GI normal to inspection, nondistended, normoactive bowel sounds, soft to palpation, non-tender and non-distended Extremity normal to inspection, full ROM and no clubbing, cyanosis or edema Peripheral Pulses: Yes pulses 2+ throughout Skin no rashes or lesions noted Neuro oriented x3, CN's II-XII intact bilaterally and moves all extremities Sensorium / Orientation: awake and alert Psych affect normal Assessment & Plan Assessment/Plan (1) Neutropenic fever: PLAN: Neutropenic fever in a known patient with Bay sarcoma * patient tachypneic and tachycardic * wbc is 2.4; absolute neutrophil count is 1.2 * On IV vancomycin and Zosyn. Blood and urine cultures pending. * Been hydrated with IV fluids. * But discussed with oncologist on-call today Dr. Levine, covering for Dr. Persaud, to continue IV vancomycin and Zosyn for now. If blood cultures are negative and patient remains afebrile for the next 48 hours, to stop vancomycin and continue Zosyn. * #History of Bay sarcoma * Was diagnosed in May 2021. He was sent to [facility] for right-sided pleural effusion and was deemed to not be a candidate for Pleurx catheter. Has had ongoing tachypnea and tachycardia. * To follow-up with oncology on outpatient basis. * #Acute on chronic anemia: Hemoglobin was 6.8. Transfused with 1 unit of packed red blood cells. Hemoglobin has improved to 7.5 #Pancytopenia: Due to doing cycling neutropenic fever. Will trend. #Hyponatremia * Thought to be possibly due to SIADH. * Will monitor sodium. Na is 127 * #Hypokalemia: K is 3.3. Will replace and trend. #Depression and anxiety: Currently not on any medications. Follow-up with PCP on outpatient basis. #: Severe protein calorie malnutrition. Nutrition consulted. DVT prophylaxis: SCDs Charges/Coding Visit Charges Inpatient E&M: 96947 Subs Hosp L3
--- NOTE | 2021-08-23 14:29 | CT_ITS ---
STUDY: CTA CHEST REASON FOR EXAM: Male, 41 years old. Tachycardia TECHNIQUE: The examination was performed with the intravenous administration of 100mL Isovue-370. Post-processing of the angiographic images was performed, with multiplanar reformation and 3D reconstruction. Individualized dose optimization techniques were used for this CT. COMPARISON: 04/22/[address] FINDINGS: Extensive motion artifact limits evaluation of the distal segmental and subsegmental pulmonary artery branches such that distal emboli cannot be excluded. There is no demonstrated large or central pulmonary embolism. No thoracic aortic aneurysm. There is no demonstrated aortic dissection. Normal heart and pericardium. Decreasing mediastinal adenopathy. Bilateral hilar adenopathy. Extensive bilateral airspace disease with both alveolar and groundglass opacities, areas of confluence and air bronchograms, significantly increased in the left lung compared prior study. Significant progression of pleural-based masses with residual soft tissue masses predominantly on the right posteromedially. Decreasing right pleural effusion with minimal left pleural effusion. Extensive periostitis about the right fifth and sixth ribs anterolaterally ninth and 10th ribs posterolaterally. No displaced fractures identified. Adjacent pleural-based soft tissue densities identified. Normal visualized upper abdomen. CT/CTA Chest W/WO Contrast IMPRESSION: Limited CTA examination due to severe motion artifact. No large or central pulmonary embolism. Distal emboli cannot be excluded. 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 Decreasing right pleural effusion, trace left pleural effusion. Periostitis of multiple right ribs without definite fracture. There are adjacent pleural-based soft tissue masses and this may indicate osseous involvement in the neoplastic process. Electronically Signed: Harjeet Simpson MD at 15:49 EDT ,
[2021-08-23] MEDS: Ondansetron 4 MG/2 ML Vial IV (14:37)
[2021-08-23] MEDS: Potassium Chloride Oral Tablet 20 MEQ PO (15:55)
[2021-08-23 17:06] LABS: Allen Test Positive; Base Excess -2 mmol/L (-2 to +2); Bicarbonate 21.3 mmol/L (22-26); Blood Gas Specimen Type ART; O2 Delivery Device Cannula; PO2 59 mmHG (75-100); SITE L Radial; SO2 92 % (95-99); Total Carbon Dioxide 22 mmol/L; pCO2 29.4 mmHg (35-45); pH 7.47 (7.35-7.45)
[2021-08-23] MEDS: Metoprolol Tartrate 5 MG/5 ML Vial IV ×2 (17:27→20:17)
[2021-08-23] MEDS: LORazepam 2 MG/ML Syringe 1 MG IV (17:27)
--- NOTE | 2021-08-23 17:35 | NURSING ---
Report called to [employer]. Patient okay to transfer to ICU bed 4
--- NOTE | 2021-08-23 17:39 | PN.HOSP_ITS ---
Hospitalist Note 16:50 I was informed by patient's nurse that he had become more tachypneic and tachcyardic and was requiring increased oxygen amounts. Looking back through his chart, it appeared he had been tachycardic during previous admissions, but his HR was now going up into the 130s-150s. CXR done on admission showed resolution of most of the previously noted right pleural effusion, and small amount of residual pleural fluid in the right major fissure and right costophrenic angle. Stat CTA of the chest was ordered to rule out a PE. CTA chest waws negative for PE, but showed extensive bilateral airspace disease, infectious vs lymphangitic carcinomatosis, and decreasing right pleural effusion and trace left pleural efffusion. Patient remained tachypneic and was now requiring 9L of oxygen. Stat ABG done also showed pH of 7.47, with pCO2 of 29 and pO2 of 59m, indicating hypoxia and also respiratory alkalosis.I saw patient at bedside. HE was incre asingly diaphoretic and looked tired and anxious. His signficant other was by his bedside. I counseled both he and his significant other that he had taken a turn for the worse and needed to be transferred emergently to the ICU. stat BIPAP ordered. I counseled them that if he didnt do well on BIPAP, he would have to be intubated. Patient is agreeable to intubation and would want CPR as well if needed. Critical care consulted; advanced practice registered nurse informed.
--- NOTE | 2021-08-23 19:00 | NURSING ---
Patient and family expressed wishes to initiate transfer to [facility] for continued as pt is seen there for oncology. MD notified.
--- NOTE | 2021-08-23 19:53 | CPS ---
PLACED ON hfnc FOR BREAK FROM BIPAP, PT TOLERATING WELL, RN AWARE
[2021-08-23] MEDS: Senna Tablet 2 TABLET PO (21:06)
[2021-08-23] MEDS: Nortriptyline 25 MG Capsule 50 MG PO (21:29)
--- NOTE | 2021-08-23 22:46 | CPS ---
placed pt back on BiPAP, increased settings and O2 to maintain SPO2. RN aware
--- NOTE | 2021-08-23 23:00 | NURSING ---
Patient moved from room 4 to 201 for patient and family comfort.
[2021-08-24] VITALS (31 sets, daily range): BP systolic 86–161; BP diastolic 66–104; PULSE 92–158; RESP 12–52; TEMP 36.4–37.8; O2SAT 88–98
--- NOTE | 2021-08-24 00:23 | PN.HOSP_ITS ---
Hospitalist Note Patient and family reported interest in transfer to [facility]. Called and transfer line reported no bed availability. Staff notified family and they noted understanding with continued care at [facility]. Will discuss with daytime hospitalist also.
--- NOTE | 2021-08-24 00:23 | PCM.HOSP.N ---
Hospitalist Note Patient and family reported interest in transfer to [facility]. Called and transfer line reported no bed availability. Staff notified family and they noted understanding with continued care at [facility]. Will discuss with daytime hospitalist also.
[2021-08-24 01:00] LABS: Vancomycin, Trough Level 4.7 ug/mL (5.0-15.0)
--- NOTE | 2021-08-24 01:14 | PCM.RX.CS ---
Consult Pharmacy has been consulted to manage selected antiobiotic: Vancomycin Type of Consult: Follow-up Labs: Sodium 127 mmol/L (136-145) L 08/23/21 07:50 Potassium 3.3 mmol/L (3.5-5.1) L 08/23/21 07:50 Chloride 96 mmol/L (98-107) L 08/23/21 07:50 Carbon Dioxide 23.0 mmol/L (21.0-32.0) 08/23/21 07:50 Anion Gap 8 (5-15) 08/23/21 07:50 BUN 7 mg/dL (7-18) 08/23/21 07:50 Creatinine 0.39 mg/dL (0.70-1.30) L 08/23/21 07:50 Est GFR (MDRD) Af Amer 312 mL/min (>60) 08/23/21 07:50 Est GFR (MDRD) Non-Af 258 mL/min (>60) 08/23/21 07:50 BUN/Creatinine Ratio 18.0 RATIO (10-20) 08/23/21 07:50 Glucose 99 mg/dL (74-106) 08/23/21 07:50 Vancomycin Trough 4.7 ug/mL (5.0-15.0) L 08/24/21 00:20 Microbiology: Microbiology 08/22/21 22:15 Urine, Clean Catch Legionella Antigen - Final 08/22/21 22:15 Urine, Clean Catch Streptococcus pneumoniae Antigen (M - Final 08/23/21 00:10 Mucosa - Nasopharyngeal Respiratory Panel (PCR) - Final 08/22/21 22:05 Nasal Secretion SARS-CoV-2 & FLU Antigen (Rapid) - Final Goal Trough: 15-20 mcg/mL Pharmacy Plan for Drug Dosing: Pharmacy Service will continue to monitor and adjust dosing as required. TROUGH 4.7 @ 7 HRS. INCREASE TO 1250MG Q8H AND FOLLOW UP TROUGH PRIOR TO 4TH DOSE Follow-Up Labs: Trough Vancomycin Labs to be done on [date and time ordered]: 08/25 @ 0100
[2021-08-24] MEDS: Metoprolol Tartrate 5 MG/5 ML Vial IV ×3 (02:11→11:52)
[2021-08-24] MEDS: 0.9% Normal Saline 1,000 ML 125 ML IV (02:45)
[2021-08-24 04:30] LABS: Hematocrit 25.4 % (40-54); Hemoglobin 8.8 g/dL (13.0-16.5); Mean Corp Hgb Conc 34.6 g/dL (32-36); Mean Corpuscular Hgb 28.4 pg (27.0-32.0); Mean Corpuscular Volume 81.9 fL (80-94); Mean Platelet Vol. 9.9 fl (6.2-12.0); POSITIVE COUNT YES; POSITIVE DIFFERENTIAL YES; POSITIVE MORPHOLOGY YES; Platelet Count 111 K/mm3 (150-450); RBC Distribution Width CV 16.1 % (11.6-14.6); RBC Distribution Width SD 46.6 fl (35.1-43.9); White Blood Count 21.4 K/mm3 (4.4-11.0)
[2021-08-24 04:35] LABS: Differential Indicated MANUAL DIFF
[2021-08-24 04:36] LABS: Anisocytosis 1+; Platelet Estimate SLT DEC (ADEQ)
[2021-08-24 04:43] LABS: ALB/GLOB Ratio 0.6 RATIO (0.9-2.4); AST(SGOT) 31 U/L (15-37); Alanine Aminotransfer ALT/SGPT 29 U/L (16-61); Alkaline Phosphatase 151 U/L (45-117); Anion Gap 9 (5-15); BUN 4 mg/dL (7-18); BUN/Creat Ratio 9.2 RATIO (10-20); Calcium,Total 7.5 mg/dL (8.5-10.1); Chloride 93 mmol/L (98-107); Creatinine, Serum 0.43 mg/dL (0.70-1.30); EST Glomerular Filtration Rate 228 mL/min (>60); Est Glom Filt Rate - Afr Amer 275 mL/min (>60); Estimated Creatinine Clearance 187.98 ml/min; Globulin 3.3 g/dL (2.2-4.2); Glucose 110 mg/dL (74-106); Potassium 3.7 mmol/L (3.5-5.1); Protein, Total 5.3 g/dL (6.4-8.2); Sodium Level 126 mmol/L (136-145)
[2021-08-24 04:47] LABS: Absolute Neutrophil Count 17.7 X10^3/uL (2.0-7.7)
[2021-08-24 04:48] LABS: Absolute Lymphocyte Count 0.21 X10^3/uL (0.83-4.51); Lymphocyte 1 % (19-41); Metamyelocyte 1 % (0-1); Monocyte 3 % (0-10); Myelocyte 10 % (0-0); Neutrophil-Band 19 % (0-5); Neutrophil-Segmented 64 % (47-70); Promyelocyte 2 % (0-0); Total Cells Counted 100 (MANUAL DIFF)
--- NOTE | 2021-08-24 05:35 | EX.PCM.CONCC ---
Assessment & Plan Assessment/Plan (1) Neutropenic fever: (2) Acquired immunocompromised state: (3) Anemia: QUALIFIERS: Anemia type: unspecified type Qualified Code(s): D64.9 - Anemia, unspecified (4) Sepsis: PLAN: RECOMMENDATIONS: 1. Wean FiO2 as tolerated to maintain saturations at or above 90%. 2. Continue empiric broad-spectrum antimicrobials. 3. Continue to monitor blood counts daily. Transfuse if hemoglobin drops below 7 g/dL. 4. Agree with consideration for transfer to [facility], per patient request. IMPRESSIONS: 1. 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 He did present to the hospital with neutropenic fever and developed progressive respiratory failure, requiring ICU transfer and initiation of noninvasive positive pressure ventilatory support. CTA chest was limited for the evaluation of distal PE, but did demonstrate bilateral groundglass opacities with areas of confluence, most pronounced at the left hemithorax. The differential for the findings noted on CT imaging would include lymphangitic spread of his cancer versus a primary pulmonary infectious process. The patient has already been initiated on broad-spectrum antimicrobials. Plan to continue supportive measures including BiPAP and heated high flow oxygen as required. Wean FiO2 as tolerated for saturations greater than 90%. 2. Sepsis/neutropenic fever The patient presented with sepsis due to suspected healthcare associated pneumonia with acute sepsis related organ dysfunction as evidenced by lactic acidemia and acute respiratory failure requiring noninvasive positive pressure ventilatory support. Cultures are currently pending. Continue empiric broad-spectrum antimicrobials. If the patient remains here tomorrow, obtain infectious diseases consultation. 3. Pancytopenia Secondary to outpatient chemotherapy regimen. The patient was ultimately transfused 1 unit of packed red blood cells. Continue to monitor counts daily. Transfuse if hemoglobin again drops below 7 g/dL. 4. Depression/anxiety/malnutrition Complicates care, management, recovery and prognosis. Continue home medications as indicated. Obtain nutrition consultation. This note was generated with [id number] software. It may contain incorrect words, spelling, and punctuation that were not noted in checking the note before signing. HPI Consult Data Date of Consult: 08/24/21 HPI Narrative Reason for Consultation: Respiratory failure HPI Narrative: The patient is a 41-year-old male, with a history as outlined below, who presented to the emergency department on August 23 with malaise, fevers and rhinorrhea. 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. The patient just completed another round of chemotherapy last week. He was last seen by his oncologist on August 11. According to the patient and his , a recent PET scan apparently showed favorable changes with regard to his underlying malignancy. On presentation to the emergency department, the patient was noted to be febrile and tachycardic. Initial laboratory evaluation revealed evidence of pancytopenia. Chemistry profile was notable for a sodium of 123, chloride of 90 and creatinine of 0.61. Lactate was elevated at 2.5. Urinalysis was unremarkable. COVID PCR was negative. MRSA screen was negative. CTA chest was obtained. No definitive pulmonary embolism was identified. However, there was extensive bilateral groundglass opacities with areas of confluence, most pronounced throughout the left hemithorax with significant progression of the pleural-based masses noted on the right side. The patient was initially admitted to the progressive care unit where he was managed with empiric antimicrobials. However, throughout the day on August 23, the patient became more tachypneic, tachycardic and hypoxemic. Over concerns for impending respiratory failure, the patient was initiated on BiPAP therapy and transferred to the medical intensive care unit. Overnight, the patient was able to be weaned from BiPAP to heated high flow oxygen, which he is currently tolerating, with an FiO2 requirement of 70%. I did once again confirm with the patient that he wishes to remain full CODE STATUS. The possibility of transfer to [facility] was discussed last night. The overnight hospitalist did attempt to obtain a bed. However, none are apparently available at this time. [facility] Medical History Depression Bay sarcoma Bay's sarcoma Migraines Non-smoker Vitamin D deficiency Home Medications Xtampza ER 18 mg PO BID 06/10/21 [History Last Taken 06/10/21] cholecalciferol (vitamin D3) 25 mcg PO DAILY 06/10/21 [History Last Taken 06/10/21] nortriptyline 50 mg PO QHS 06/10/21 [History Last Taken 06/09/21] ondansetron HCl 8 mg PO TID PRN 06/10/21 [History Last Taken Unknown] oxycodone 5 - 10 mg PO Q4H PRN PRN 06/10/21 [History Last Taken 06/10/21 12:00] sennosides [senna] 17.2 mg PO QHS 06/10/21 [History Last Taken 06/09/21] lactulose 20 gram/30 mL oral solution 20 g PO BID PRN 08/07/21 [History Last Taken Unknown] naloxone 4 mg/actuation nasal spray 1 spray INTRANASAL Q2M PRN 08/07/21 [History Last Taken Unknown] polyethylene glycol 3350 17 gram oral powder packet 17 g PO DAILY PRN 08/07/21 [History Last Taken Unknown] Allergy/AdvReac Type Severity Reaction Status Date / Time codeine Allergy Nausea Verified 08/22/21 21:03 Iodinated Contrast Media Allergy Nausea Verified 08/22/21 21:03 [CONTRASTS] Family History Mother Heart disease Hypertension Diabetes Father Hypertension CVA (cerebral vascular accident) Testicular cancer Surgical History H/O shoulder surgery History of ankle surgery History of thoracentesis Social History household members: spouse Smoking Status: Never smoker alcohol intake: never substance use type: does not use ROS Constitutional Constitutional: Reports fatigue, fever(s), malaise and weakness Eyes Eyes: Denies blurry vision or change in vision ENT HEENT: Reports nasal congestion; Denies dizziness, dysphagia or epistaxis Cardiovascular Cardiovascular: Reports dyspnea; Denies chest pain Respiratory/Chest Respiratory/Chest: Reports cough and dyspnea Gastrointestinal Gastrointestinal: Denies abdominal pain, diarrhea, nausea or vomiting Genitourinary Genitourinary: Denies difficulty urinating Musculoskeletal Musculoskeletal: Denies arthralgias, back pain or joint pain Integumentary Integumentary: Denies lesions, rash or skin ulcer Neurologic Neurologic: Denies abnormal gait or abnormal speech Psychiatric Psychiatric: Denies anxiety or depression Endocrine Endocrinology: Reports fatigue Hematologic/Lymphatic Hematologic/Lymphatic: Denies easy bleeding or easy bruising Physical Exam Const alert and oriented x3 Constitutional Narrative: is present at the bedside. General Appearance: cooperative, ill appearing and frail HEENT normocephalic, head/scalp atraumatic and moist oral mucous membranes Eyes PERRL, EOMs intact bilaterally and conjunctivae normal Neck supple General: trachea midline Chest inspection of chest normal Resp Resp Narrative: Markedly diminished air movement in the right lower lobe. Faint rales in left lower lobe. Effort and Inspection: able to speak in complete sentences and tachypneic Cardio S1 normal heart sound and S2 normal heart sound Rate: tachycardic GI normal to inspection, nondistended, normoactive bowel sounds Extremity no clubbing, cyanosis or edema Skin no rashes or lesions noted Neuro CN's II-XII intact bilaterally, moves all extremities and no focal motor deficits Psych cooperative and affect normal Medical Records Data Medical Nutrition Assessment Dietitian: Malnutrition Criteria Met Start: 08/23/21 12:35 Freq: Status: Active Protocol: Document 08/23/21 12:53 RMA (Rec: 08/23/21 12:53 RMA [id number]) Nutrition Malnutrition Evidence of Malnutrition Exists Yes Malnutrition (severe): Chronic Evidenced By Suboptimal Energy Intake ( Severe),Weight Loss (Severe), Physical Changes (Severe) Clinical Problem Chronic Disease or Condition Related Malnutrition Etiology Severe protein-calorie malnutrition in the context of chronic disease/malignancy related to inadequate oral intake and increased energy needs Signs/Symptoms as evidenced by ~31% wt loss x 3 months, BMI 20.1, inadequate oral intake at meals meeting less than 50% estimated nutrition needs x past 2-3 months and moderate to severe muscle and fat wasting in the clavicle, orbitals and temporal regions Status Active Problem Recommendation Dietitian Recommendations/Changes Continue regular diet as ordered. Continue 120ml ensure enlive 4 times per day w/ medpass as ordered. Will add chocolate ensure compact TID w/ meals as tolerated per patient. Lab / Micro Data Result Diagrams: 08/24/21 04:20 08/24/21 04:20 Labs: Laboratory Results - last 24 hr 08/23/21 01:47: MRSA (PCR) Negative 08/23/21 07:50: WBC 2.4 L, RBC 2.62 L, Hgb 7.5 L, Hct 21.9 L, MCV 83.6, MCH 28.6, MCHC 34.2, RDW Std Deviation 46.5 H, RDW Coeff of Vi 15.7 H, Plt Count 67 L, MPV 9.6, Neut % (Auto) Not Reportable, Absolute Neuts (auto) 1.2 L, Absolute Lymphs (auto) 0.48 L, Total Counted 100, Neutrophils % (Manual) 33 L, Band Neutrophils % 17 H, Lymphocytes % (Manual) 20, Monocytes % (Manual) 10, Eosinophils % (Manual) 1, Metamyelocytes % 3 H, Myelocytes % 15 H, Promyelocytes % 1 H, Diff Path Review August foll, Toxic Granulation 2+, Platelet Estimate MOD, RBC Morphology NORM C+C 08/23/21 07:50: Sodium 127 L, Potassium 3.3 L, Chloride 96 L, Carbon Dioxide 23.0, Anion Gap 8, BUN 7, Creatinine 0.39 L, Estim Creat Clear Calc 207.26, Est GFR (MDRD) Af Amer 312, Est GFR (MDRD) Non-Af 258, BUN/Creatinine Ratio 18.0, Glucose 99, Calcium 7.3 L, Magnesium 1.8, Total Bilirubin 0.90, AST 19, ALT 25, Alkaline Phosphatase 115, Total Protein 5.0 L, Albumin 2.0 L, Globulin 3.0, Albumin/Globulin Ratio 0.7 L, TSH 2.24 08/23/21 07:50: Phosphorus 3.7 08/24/21 00:20: Vancomycin Trough 4.7 L 08/24/21 04:20: WBC 21.4 H, RBC 3.10 L, Hgb 8.8 L, Hct 25.4 L, MCV 81.9, MCH 28.4, MCHC 34.6, RDW Std Deviation 46.6 H, RDW Coeff of Vi 16.1 H, Plt Count 111 L, MPV 9.9, Neut % (Auto) Not Reportable, Absolute Neuts (auto) 17.7 H, Absolute Lymphs (auto) 0.21 L, Total Counted 100, Neutrophils % (Manual) 64, Band Neutrophils % 19 H, Lymphocytes % (Manual) 1 L, Monocytes % (Manual) 3, Metamyelocytes % 1, Myelocytes % 10 H, Promyelocytes % 2 H, Diff Path Review August foll, Platelet Estimate SLT DEC, Anisocytosis 1+ 08/24/21 04:20: Sodium 126 L, Potassium 3.7, Chloride 93 L, Carbon Dioxide 24.0, Anion Gap 9, BUN 4 L, Creatinine 0.43 L, Estim Creat Clear Calc 187.98, Est GFR (MDRD) Af Amer 275, Est GFR (MDRD) Non-Af 228, BUN/Creatinine Ratio 9.2 L, Glucose 110 H, Calcium 7.5 L, Total Bilirubin 0.90, AST 31, ALT 29, Alkaline Phosphatase 151 H, Total Protein 5.3 L, Albumin 2.0 L, Globulin 3.3, Albumin/Globulin Ratio 0.6 L Micro: Microbiology 08/22/21 22:15 Urine, Clean Catch Legionella Antigen - Final 08/22/21 22:15 Urine, Clean Catch Streptococcus pneumoniae Antigen (M - Final 08/23/21 00:10 Mucosa - Nasopharyngeal Respiratory Panel (PCR) - Final ABG Data ABG results: ABG 08/23/21 16:57 Specimen Type ART Sample Site L Radial pH 7.47 H Bicarbonate Actual 21.3 L Total CO2 22 Base Excess -2 O2 Saturation 92 L ABG pCO2 29.4 L ABG pO2 59 L Jared Test Positive O2 Delivery Device Cannula Liter Flow 9.0 Rhythm Strip Rhythm Strip: Sinus Tach Rate: 145 Ectopy: None Radiology Impression Chest CTA 08/23/21 14:29 IMPRESSION: Limited CTA examination due to severe motion artifact. No large or central pulmonary embolism. Distal emboli cannot be excluded. 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 Decreasing right pleural effusion, trace left pleural effusion. Periostitis of multiple right ribs without definite fracture. There are adjacent pleural-based soft tissue masses and this may indicate osseous involvement in the neoplastic process. Electronically Signed: Harjeet Simpson MD at 15:49 EDT Reading Location ID and State: [facility] / [place] Tel , Service support , Charges/Coding Visit Charges Inpatient E&M: 36895 Init Hosp L3
[2021-08-24] MEDS: LORazepam 2 MG/ML Syringe 0.5 MG IV (07:41)
--- NOTE | 2021-08-24 10:08 | PN.HOSP_ITS ---
Subjective Subjective Patient seen and examined. was on BIPAP. He remains very tachycardic and tachypneic. He is also febrile this morning. He still feels very weak. He denies any cough, chest pain, palpitations, dizziness, nausea or vomiting or diarrhea. Review of systems is otherwise negative. WBC is up to 21.4 today. Hb is 8.8. Platelet count is 111. BLood cultures are pending. Objective Data Objective Data Vital Signs: Vital Signs Temp Pulse Resp BP Pulse Ox 100.1 F H 145 H 39 H 157/94 H 92 08/24/21 09:00 08/24/21 09:00 08/24/21 09:00 08/24/21 09:00 08/24/21 09:00 Oxygen Flow Rate (L/min) 60 Oxygen Delivery Method Bi-pap Weight: 142 lb 10.225 oz Body Mass Index (BMI) 20.1 Intake & Output: Intake and Output for Last 24 Hours 08/22/21 08/23/21 08/24/21 23:59 23:59 23:59 Intake Total 1000 / 1000 4598.17 / 4598.17 1325 / 1325 Output Total 2150 / 2150 750 / 750 Balance 1000 / 1000 2448.17 / 2448.17 575 / 575 Medical Nutrition Assessment Dietitian: Malnutrition Criteria Met Start: 08/23/21 12:35 Freq: Status: Active Protocol: Document 08/24/21 09:32 RICHIE (Rec: 08/24/21 09:32 RICHIE [id number]) Nutrition Malnutrition Evidence of Malnutrition Exists Yes Malnutrition (severe): Chronic Evidenced By Suboptimal Energy Intake ( Severe),Weight Loss (Severe), Physical Changes (Severe) Clinical Problem Chronic Disease or Condition Related Malnutrition Etiology Severe protein-calorie malnutrition in the context of chronic disease/malignancy related to inadequate oral intake and increased energy needs Signs/Symptoms as evidenced by ~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 Continue chocolate ensure compact TID w/ meals as tolerated per patient. Lab / Micro Data Result Diagrams: 08/24/21 04:20 08/24/21 04:20 Labs: Laboratory Results - last 24 hr 08/23/21 01:47: MRSA (PCR) Negative 08/24/21 00:20: Vancomycin Trough 4.7 L 08/24/21 04:20: WBC 21.4 H, RBC 3.10 L, Hgb 8.8 L, Hct 25.4 L, MCV 81.9, MCH 28.4, MCHC 34.6, RDW Std Deviation 46.6 H, RDW Coeff of Vi 16.1 H, Plt Count 111 L, MPV 9.9, Neut % (Auto) Not Reportable, Absolute Neuts (auto) 17.7 H, Absolute Lymphs (auto) 0.21 L, Total Counted 100, Neutrophils % (Manual) 64, Band Neutrophils % 19 H, Lymphocytes % (Manual) 1 L, Monocytes % (Manual) 3, Metamyelocytes % 1, Myelocytes % 10 H, Promyelocytes % 2 H, Diff Path Review August, Platelet Estimate SLT DEC, Anisocytosis 1+ 08/24/21 04:20: Sodium 126 L, Potassium 3.7, Chloride 93 L, Carbon Dioxide 24.0, Anion Gap 9, BUN 4 L, Creatinine 0.43 L, Estim Creat Clear Calc 187.98, Est GFR (MDRD) Af Amer 275, Est GFR (MDRD) Non-Af 228, BUN/Creatinine Ratio 9.2 L, Glucose 110 H, Calcium 7.5 L, Total Bilirubin 0.90, AST 31, ALT 29, Alkaline Phosphatase 151 H, Total Protein 5.3 L, Albumin 2.0 L, Globulin 3.3, Albumin/Globulin Ratio 0.6 L Micro: Microbiology 08/22/21 22:15 Urine, Clean Catch Urine Culture - Preliminary Culture exhibits no growth. 08/22/21 22:15 Urine, Clean Catch Legionella Antigen - Final 08/22/21 22:15 Urine, Clean Catch Streptococcus pneumoniae Antigen (M - Final 08/23/21 00:10 Mucosa - Nasopharyngeal Respiratory Panel (PCR) - Final 08/22/21 22:05 Nasal Secretion SARS-CoV-2 & FLU Antigen (Rapid) - Final ABG Data ABG results: ABG 08/23/21 16:57 Specimen Type ART Sample Site L Radial pH 7.47 H Bicarbonate Actual 21.3 L Total CO2 22 Base Excess -2 O2 Saturation 92 L ABG pCO2 29.4 L ABG pO2 59 L Jared Test Positive O2 Delivery Device Cannula Liter Flow 9.0 Radiography Diagnostic Testing: Radiology Impression Chest CTA 08/23/21 14:29 IMPRESSION: Limited CTA examination due to severe motion artifact. No large or central pulmonary embolism. Distal emboli cannot be excluded. 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 Decreasing right pleural effusion, trace left pleural effusion. Periostitis of multiple right ribs without definite fracture. There are adjacent pleural-based soft tissue masses and this may indicate osseous involvement in the neoplastic process. Electronically Signed: Harjeet Simpson MD at 15:49 EDT , Rhythm Strip Rhythm Strip: Sinus Tach Rate: 145 Ectopy: None Physical Exam Const alert and oriented x3 Constitutional Narrative: in moderate respiratory distress, quite anxious also Exam Limitations: no limitations Nutritional Appearance: thin HEENT head/scalp atraumatic and moist oral mucous membranes Head and Scalp: normocephalic Eyes PERRL, EOMs intact bilaterally and conjunctivae normal Neck no lymphadenopathy and supple Resp Resp Narrative: tachypneic, diminished breath sounds bibasally, no wheezes or crackles. 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 * titrate oxygen to maintain sats >90% * wbc is up to 21.4. * on IV vancomycin and zosyn. * CTA chest showed extensive bilateral airspace disease, which is infectious vs lymphangitic carcinomatosis; no evidence of PE; decreasing right pleural effusion and trace left pleural effusion. Adjacent pleural based soft tissue masses and indicate osseous involvement in the neoplastic process. 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 He was sent to [facility] for right-sided pleural effusion and was deemed to not be a candidate for Pleurx catheter. Has had ongoing tachypnea and tachycardia. * To follow-up with oncology on outpatient basis. * #Acute on chronic anemia: Hemoglobin was 8.8. Transfused with 1 unit of packed red blood cells. #Pancytopenia: wbc is up to 21.4 today; Hb is 8.8 and platelets of 111. #Hyponatremia * Thought to be possibly due to SIADH. * Will monitor sodium. Na is 126 * #Hypokalemia: resolved. K is 3.7. #Depression and anxiety: Currently not on any medications. Follow-up with PCP on outpatient basis. #: Severe protein calorie malnutrition. Nutrition consulted. Will monitor. DVT prophylaxis: SCDs Disposition * patient and want him transferrred to [facility]; patient accepted at [facility] MICU. Awaiting a bed. Charges/Coding Visit Charges Inpatient E&M: 86306 Subs Hosp L3
--- NOTE | 2021-08-24 11:13 | NURSING ---
Spoke with [facility] transfer line at [phone] and gave update on patient.
[2021-08-24] MEDS: Dexmedetomidine 1,000 mcg in 0.9% NS 240 mL 24.3 MCG CONT INF (16:15)
--- NOTE | 2021-08-24 16:41 | NURSING ---
[facility] was called for update and was told that they are still working on getting patient a bed.
[2021-08-25] VITALS (33 sets, daily range): BP systolic 81–125; BP diastolic 53–85; PULSE 78–117; RESP 12–50; TEMP 36.8–37.9; O2SAT 92–99
[2021-08-25] MEDS: Albuterol 2.5 MG/3 ML VIAL.NEB. INHALATION (00:18)
[2021-08-25 01:44] LABS: Vancomycin, Trough Level 16.1 ug/mL (5.0-15.0)
--- NOTE | 2021-08-25 01:53 | PCM.RX.CS ---
Consult Pharmacy has been consulted to manage selected antiobiotic: Vancomycin Type of Consult: Follow-up Labs: Sodium 126 mmol/L (136-145) L 08/24/21 04:20 Potassium 3.7 mmol/L (3.5-5.1) 08/24/21 04:20 Chloride 93 mmol/L (98-107) L 08/24/21 04:20 Carbon Dioxide 24.0 mmol/L (21.0-32.0) 08/24/21 04:20 Anion Gap 9 (5-15) 08/24/21 04:20 BUN 4 mg/dL (7-18) L 08/24/21 04:20 Creatinine 0.43 mg/dL (0.70-1.30) L 08/24/21 04:20 Est GFR (MDRD) Af Amer 275 mL/min (>60) 08/24/21 04:20 Est GFR (MDRD) Non-Af 228 mL/min (>60) 08/24/21 04:20 BUN/Creatinine Ratio 9.2 RATIO (10-20) L 08/24/21 04:20 Glucose 110 mg/dL (74-106) H 08/24/21 04:20 Vancomycin Trough 16.1 ug/mL (5.0-15.0) H 08/25/21 01:00 Microbiology: Microbiology 08/24/21 00:20 Sputum, Expectorated/Coughed Gram Stain - Final 08/22/21 22:15 Urine, Clean Catch Urine Culture - Preliminary Culture exhibits no growth. 08/22/21 22:15 Urine, Clean Catch Legionella Antigen - Final 08/22/21 22:15 Urine, Clean Catch Streptococcus pneumoniae Antigen (M - Final 08/23/21 00:10 Mucosa - Nasopharyngeal Respiratory Panel (PCR) - Final 08/22/21 22:05 Nasal Secretion SARS-CoV-2 & FLU Antigen (Rapid) - Final Goal Trough: 15-20 mcg/mL Pharmacy Plan for Drug Dosing: Pharmacy Service will continue to monitor and adjust dosing as required. TROUGH 16.1 AT 7 HRS. NO CHANGES FOLLOW UP TROUGH IN 2 DAYS Follow-Up Labs: Trough Vancomycin Labs to be done on [date and time ordered]: 08/27 @ 0100
[2021-08-25] MEDS: Dexmedetomidine 1,000 mcg in 0.9% NS 240 mL 24.3 MCG CONT INF ×2 (03:00→14:16)
[2021-08-25 04:26] LABS: Hematocrit 22.9 % (40-54); Hemoglobin 7.9 g/dL (13.0-16.5); Mean Corp Hgb Conc 34.5 g/dL (32-36); Mean Corpuscular Hgb 28.5 pg (27.0-32.0); Mean Corpuscular Volume 82.7 fL (80-94); Mean Platelet Vol. 10.2 fl (6.2-12.0); POSITIVE COUNT YES; POSITIVE DIFFERENTIAL YES; POSITIVE MORPHOLOGY YES; Platelet Count 116 K/mm3 (150-450); RBC Distribution Width CV 16.3 % (11.6-14.6); RBC Distribution Width SD 48.8 fl (35.1-43.9); Red Blood Count 2.77 M/mm3 (4.6-6.2)
[2021-08-25 04:33] LABS: Differential Indicated MANUAL DIFF
[2021-08-25 04:37] LABS: White Blood Count 35.6 K/mm3 (4.4-11.0)
[2021-08-25] MEDS: LORazepam 2 MG/ML Syringe 0.5 MG IV (04:45)
[2021-08-25 04:57] LABS: Lymphocyte 2 % (19-41); Metamyelocyte 5 % (0-1); Monocyte 4 % (0-10); Myelocyte 1 % (0-0); Neutrophil-Band 8 % (0-5); Neutrophil-Segmented 80 % (47-70); Total Cells Counted 100 (MANUAL DIFF)
[2021-08-25 04:59] LABS: Absolute Lymphocyte Count 0.71 X10^3/uL (0.83-4.51); Absolute Neutrophil Count 33.5 X10^3/uL (2.0-7.7); Lymphocyte # 0.71 X10^3/ul (0.83-4.51); Neutrophil # 33.45 X10^3/uL (2.7-7.7)
[2021-08-25 05:00] LABS: ALB/GLOB Ratio 0.5 RATIO (0.9-2.4); AST(SGOT) 28 U/L (15-37); Alanine Aminotransfer ALT/SGPT 22 U/L (16-61); Albumin, Serum 1.7 g/dL (3.2-5.0); Alkaline Phosphatase 168 U/L (45-117); Anion Gap 10 (5-15); BUN 12 mg/dL (7-18); BUN/Creat Ratio 25.5 RATIO (10-20); Calcium,Total 7.3 mg/dL (8.5-10.1); Chloride 94 mmol/L (98-107); Creatinine, Serum 0.47 mg/dL (0.70-1.30); EST Glomerular Filtration Rate 207 mL/min (>60); Est Glom Filt Rate - Afr Amer 251 mL/min (>60); Estimated Creatinine Clearance 185.46 ml/min; Globulin 3.1 g/dL (2.2-4.2); Glucose 132 mg/dL (74-106); Potassium 3.8 mmol/L (3.5-5.1); Protein, Total 4.8 g/dL (6.4-8.2); Sodium Level 128 mmol/L (136-145)
[2021-08-25 05:03] LABS: Platelet Estimate SLT DEC (ADEQ)
[2021-08-25 05:05] LABS: Polychromasia 1+; Red Cell Morphology N CYTIC NORMAL (NORM C&C)
--- NOTE | 2021-08-25 07:11 | DS.PCM_ITS ---
Providers Date of Admission: 08/22/21 Date of Discharge: 08/27/21 Primary Care Physician: Dr. Trey Fitzgerald MD Consultations 08/23/21 07:00 Consult: Oncology/Hematology Routine Consulting Provider: [facility] Hem/Onc Michele Reason for Consult: Bay sarcoma, ongoing chemo with [facility], admit w/ neutropenic fever. EMERGENT Consult: No Notified: Yes Date Notified: 08/23/21 Time Notified: 07:42 Method of Notification: Verbal 08/23/21 17:47 Consult: Metal Spinner / Pulmonary Medicine Routine Consulting Provider: [facility] Reason for Consult: acute hypoxic respiratory failure EMERGENT Consult: No Notified: Yes Date Notified: 08/23/21 Time Notified: 17:47 Method of Notification: Text Reason For Visit: SIRS, NEUTROPENIC FEVER Diagnosis Discharge Diagnosis (1) Neutropenic fever: Status: Acute Code(s): D70.9 - Neutropenia, unspecified; R50.81 - Fever presenting with conditions classified elsewhere (2) Anemia: Status: Acute Code(s): D64.9 - Anemia, unspecified Qualifiers: Anemia type: unspecified type Qualified Code(s): D64.9 - Anemia, unspecified (3) Pneumonitis: Status: Acute Code(s): J18.9 - Pneumonia, unspecified organism Medications at Discharge Home Medications Xtampza ER 18 mg PO BID 06/10/21 cholecalciferol (vitamin D3) 25 mcg PO DAILY 06/10/21 nortriptyline 50 mg PO QHS 06/10/21 ondansetron HCl 8 mg PO TID PRN 06/10/21 oxycodone 5 - 10 mg PO Q4H PRN PRN 06/10/21 sennosides [senna] 17.2 mg PO QHS 06/10/21 lactulose 20 gram/30 mL oral solution 20 g PO BID PRN 08/07/21 naloxone 4 mg/actuation nasal spray 1 spray INTRANASAL Q2M PRN 08/07/21 polyethylene glycol 3350 17 gram oral powder packet 17 g PO DAILY PRN 08/07/21 Hospital Course Operations None Procedures 2-D Echocardiogram Summary of Care Provided Minutes Spent on Discharge: 45 Hospital Course: 40-year-old male with past medical history of having cell sarcoma, being followed by oncology in the [facility] [place]. Patient completed a round of chemotherapy a week prior to admission. He last saw his oncologist on August 11. Patient presented to the ED with fever. Found to be tachycardic. Patient had evidence of pancytopenia. His COVID PCR was negative. MRSA screen was negative. CT of the chest showed no PE but showed extensive bilateral groundglass opacities with areas of confluence, most pronounced to the left hemithorax with significant progression of the pleural-based masses on the right side. Patient was initially admitted to the progressive care unit, started on empiric antibiotics -vancomycin and Zosyn. However he became more tachypneic, tachycardic and hypoxic. He was initially initiated on BiPAP and transferred to the ICU. Patient was then transitioned to Airvo. Upon discussion with patient's oncologist and patient and , it was recommended that patient be transferred to the [facility]. Patient stayed throughout his hospital stay waiting on a hospital bed. His blood cultures were negative. Sputum cultures were pending at the time of discharge. Physical Exam Narrative Physical exam: General: Alert, Oriented x3, appears very frail, in moderate respiratory distress, on Bipap HEENT: Atraumatic Oral: Moist Mucosa Neck: Supple Lungs: Diminished to auscultation, few rales at the bases Cardiovascular: HS I+II, regular, no murmurs Abdomen: Bowel Sounds Present, Soft, Non Tender Extremities: No edema Skin: No rashes, No breakdown Neurological: Grossly intact Psych/Mental Status: Appropriate Weight / BMI Weight Weight: 62.5 kg Body Mass Index (BMI) 20.1 ABG / Lab / Microbiology Data Result Diagrams: 08/25/21 04:14 08/25/21 04:14 Laboratory: Laboratory Results - last 24 hr 08/22/21 22:05: Diff Path Review Reviewed 08/23/21 07:50: Diff Path Review Reviewed 08/24/21 04:20: Diff Path Review Reviewed 08/25/21 04:14: Diff Path Review Reviewed 08/25/21 04:14: Phosphorus 3.7, Magnesium 1.8 Microbiology: Microbiology 08/24/21 00:20 Sputum, Expectorated/Coughed Gram Stain - Final 08/24/21 00:20 Sputum, Expectorated/Coughed Respiratory Culture - Preliminary GNR lactose juvenile court judge 08/22/21 22:15 Urine, Clean Catch Urine Culture - Final Culture exhibits no growth. 08/22/21 22:05 Blood Culture (Wb) - Anticubital Left Blood Culture - Preliminary No growth in 48 hours. 08/22/21 22:00 Blood Culture (Wb) - Port Blood Culture - Preliminary No growth in 48 hours. 08/22/21 22:15 Urine, Clean Catch Legionella Antigen - Final 08/22/21 22:15 Urine, Clean Catch Streptococcus pneumoniae Antigen (M - Final 08/23/21 00:10 Mucosa - Nasopharyngeal Respiratory Panel (PCR) - Final 08/22/21 22:05 Nasal Secretion SARS-CoV-2 & FLU Antigen (Rapid) - Final Radiography Diagnostic Testing: Radiology Impression Echocardiogram 08/25/21 08:15 Interpretation Summary Normal LV size. Mild concentric left ventricular hypertrophy. The estimated ejection fraction is 50 %. Mild tricuspid valve insufficiency. Stage 2 diastolic dysfunction. The global longitudinal strain = -14.9% (abnormal). Ordering Physician: Pipo Lee Referring Physician: Trey Fitzgerald Performed By: Evangelist Salazar RCS D/C Instructions Discharge Diet: No restrictions Meaningful Use Info Meaningful Use Diagnoses (Choose all that apply): None applicable Discharge Plan Admission Admit Date/Time: 08/22/21 23:23 Attending Provider: Tawny Arroyo Primary Care Provider: Trey Fitzgerald Consulting Providers: Alaina Bullard ; Pipo Lee ; Kranthi Perry ; Batool Tavares NP ; Darrell Kramer ; Katei Platt ; Joel Lundberg ; Ronaldo Luque ; Trey Persaud ; Ernestina Batista Discharge Orders/Prescriptions Prescriptions: No Action lactulose 20 gram/30 mL solution 20 g PO BID PRN (Reason: see note) RF: 0 naloxone 4 mg/actuation spray,non-aerosol 1 spray intranasal Q2M PRNRF: 0 polyethylene glycol 3350 17 gram powder in packet 17 g PO DAILY PRN (Reason: stool softener) RF: 0 sennosides [senna] 8.6 mg Tablet 17.2 mg PO QHS RF: 0 ondansetron HCl 8 mg tablet 8 mg PO TID PRN (Reason: Nausea) RF: 0 nortriptyline 25 mg capsule 50 mg PO QHS RF: 0 oxycodone 5 mg tablet 5 - 10 mg PO Q4H PRN PRN (Reason: Pain) RF: 0 cholecalciferol (vitamin D3) 25 mcg (1,000 unit) Capsule 25 mcg PO DAILY RF: 0 Xtampza ER 18 mg cap,sprinkl,ER12hr(DONT CRUSH) 18 mg PO BID RF: 0 Referrals / Follow Up: Trey Fitzgerald MD [Primary Care Provider] - Disposition Disposition (needs filled in before D/C Order can be placed): Transfer to Another Type HCF Charges/Coding Visit Charges Inpatient E&M: 25374 Disch Hosp
--- NOTE | 2021-08-25 07:35 | PN.CC_ITS ---
Assessment & Plan Assessment/Plan (1) Neutropenic fever: (2) Acquired immunocompromised state: (3) Anemia: QUALIFIERS: Anemia type: unspecified type Qualified Code(s): D64.9 - Anemia, unspecified (4) Sepsis: PLAN: RECOMMENDATIONS: 1. Wean FiO2 as tolerated to maintain saturations at or above 90%. 2. Continue empiric broad-spectrum antimicrobials. 3. Continue to monitor blood counts daily. Transfuse if hemoglobin drops below 7 g/dL. 4. Agree with consideration for transfer to [facility], per patient request. 5. Obtain old records from [facility]. Possible high-dose steroids if found to be on a checkpoint inhibitor IMPRESSIONS: 1. Acute hypoxemic respiratory failure The patient has a known history of Bay sarcoma currently under management through [facility] oncology. He did present to the hospital with neutropenic fever and developed progressive respiratory failure, requiring ICU transfer and initiation of noninvasive positive pressure ventilatory support. CTA chest was limited for the evaluation of distal PE, but did demonstrate bilateral groundglass opacities with areas of confluence, most pronounced at the left hemithorax. The differential for the findings noted on CT imaging would include lymphangitic spread of his cancer versus a primary pulmonary infectious process. The patient has already been initiated on broad-spectrum antimicrobials. Patient is on significant FiO2 with continuous BiPAP. We will check an echocardiogram for possible CHF. Interstitial pneumonitis would also be a consideration. We will continue to monitor mental status. Patient may require an ABG and possible intubation in the next 24 to 48 hours. [facility] was called with an update. 2. Sepsis/neutropenic fever The patient presented with sepsis due to suspected healthcare associated pneumonia with acute sepsis related organ dysfunction as evidenced by lactic acidemia and acute respiratory failure requiring noninvasive positive pressure ventilatory support. Cultures are currently pending. Continue empiric broad- spectrum antimicrobials. Reasonable to obtain an infectious disease consult. 3. Pancytopenia Secondary to outpatient chemotherapy regimen. The patient was ultimately transfused 1 unit of packed red blood cells. Continue to monitor counts daily. Transfuse if hemoglobin again drops below 7 g/dL. 4. Depression/anxiety/malnutrition Complicates care, management, recovery and prognosis. Continue home medications as indicated. Obtain nutrition consultation. TIME: 35 minutes critical care time spent addressing patient's acute hypoxic re spiratory failure, new neutropenic fever, pancytopenia, review of all data and collaboration with care team Subjective Subjective Patient with continued hypoxia over the last 24 hours. Patient has not been able to come off of BiPAP therapy. [facility] was called and they do not have a bed available at this time. Outpatient oncology records were never received in my office. is unaware of the exact medications the patient is receiving, but is very clear that he did not have respiratory complaints initially and was brought in only for an elevated temperature. Patient opens his eyes to voice, but is not but readily interacting. did reiterate the patient is a full code and would be intubated if necessary. Patient did have issues with anxiety overnight and was given Ativan. Objective Data Objective Data Vital Signs: Vital Signs Temp Pulse Resp BP Pulse Ox 37.0 C 88 44 H 93/63 97 08/25/21 06:00 08/25/21 06:31 08/25/21 06:31 08/25/21 06:00 08/25/21 06:31 Oxygen Flow Rate (L/min) 60 Oxygen Delivery Method Bi-pap Weight: 62.5 kg Body Mass Index (BMI) 20.1 Intake & Output: Intake and Output for Last 24 Hours 08/23/21 08/24/21 08/25/21 23:59 23:59 23:59 Intake Total 4598.17 / 4598.17 3275.83 / 3300.13 410.97 / 410.97 Output Total 2150 / 2150 1400 / 1550 700 / 700 Balance 2448.17 / 2448.17 1875.83 / 1750.13 -289.03 / -289.03 Medical Nutrition Assessment Dietitian: Malnutrition Criteria Met Start: 08/23/21 12:35 Freq: Status: Active Protocol: Document 08/24/21 09:32 RICHIE (Rec: 08/24/21 09:32 RICHIE [id number]) Nutrition Malnutrition Evidence of Malnutrition Exists Yes Malnutrition (severe): Chronic Evidenced By Suboptimal Energy Intake ( Severe),Weight Loss (Severe), Physical Changes (Severe) Clinical Problem Chronic Disease or Condition Related Malnutrition Etiology Severe protein-calorie malnutrition in the context of chronic disease/malignancy related to inadequate oral intake and increased energy needs Signs/Symptoms as evidenced 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 Continue chocolate ensure compact TID w/ meals as tolerated per patient. Lab / Micro Data Result Diagrams: 08/25/21 04:14 08/25/21 04:14 Labs: Laboratory Results - last 24 hr 08/25/21 01:00: Vancomycin Trough 16.1 H 08/25/21 04:14: WBC 35.6 H*, RBC 2.77 L, Hgb 7.9 L, Hct 22.9 L, MCV 82.7, MCH 28.5, MCHC 34.5, RDW Std Deviation 48.8 H, RDW Coeff of Vi 16.3 H, Plt Count 116 L, MPV 10.2, Neut % (Auto) Not Reportable, Absolute Neuts (auto) 33.5 H, Absolute Lymphs (auto) 0.71 L, Total Counted 100, Neutrophils % (Manual) 80 H, Band Neutrophils % 8 H, Lymphocytes % (Manual) 2 L, Monocytes % (Manual) 4, Metamyelocytes % 5 H, Myelocytes % 1 H, Diff Path Review May foll, Platelet Estimate SLT DEC, RBC Morphology N CYTIC, Polychromasia 1+ 08/25/21 04:14: Sodium 128 L, Potassium 3.8, Chloride 94 L, Carbon Dioxide 24.0, Anion Gap 10, BUN 12, Creatinine 0.47 L, Estim Creat Clear Calc 185.46, Est GFR (MDRD) Af Amer 251, Est GFR (MDRD) Non-Af 207, BUN/Creatinine Ratio 25.5 H, Glucose 132 H, Calcium 7.3 L, Total Bilirubin 0.70, AST 28, ALT 22, Alkaline Phosphatase 168 H, Total Protein 4.8 L, Albumin 1.7 L, Globulin 3.1, Albumin/Globulin Ratio 0.5 L Micro: Microbiology 08/24/21 00:20 Sputum, Expectorated/Coughed Gram Stain - Final 08/22/21 22:15 Urine, Clean Catch Urine Culture - Preliminary Culture exhibits no growth. 08/22/21 22:15 Urine, Clean Catch Legionella Antigen - Final 08/22/21 22:15 Urine, Clean Catch Streptococcus pneumoniae Antigen (M - Final 08/23/21 00:10 Mucosa - Nasopharyngeal Respiratory Panel (PCR) - Final 05/06/22 22:05 Nasal Secretion SARS-CoV-2 & FLU Antigen (Rapid) - Final Rhythm Strip Rhythm Strip: Sinus Tach Rate: 145 Ectopy: None Physical Exam Const Constitutional Narrative: and brother are present at the bedside. Good BiPAP synchrony General Appearance: cooperative, lethargic, ill appearing, frail and on BiPAP HEENT normocephalic, head/scalp atraumatic and moist oral mucous membranes Eyes PERRL, EOMs intact bilaterally and conjunctivae normal Neck supple General: trachea midline Chest inspection of chest normal Resp Resp Narrative: Markedly diminished air movement in the right lower lobe. Faint rales in left lower lobe. Effort and Inspection: able to speak in complete sentences and tachypneic Cardio S1 normal heart sound and S2 normal heart sound Rate: tachycardic GI normal to inspection, nondistended, normoactive bowel sounds Extremity no clubbing, cyanosis or edema Skin no rashes or lesions noted Neuro CN's II-XII intact bilaterally, moves all extremities and no focal motor deficits Psych cooperative and affect normal Charges/Coding Procedures Hospitalists Procedures: 34966 Critial Care 1st Hr
--- NOTE | 2021-08-25 08:15 | ECHOD_ITS ---
Reason For Study: CHF Procedure This was a 2D Doppler, Color Flow transthoracic echocardiogram. Myocardial strain analysis was performed in this exam to aid in the assessment of cardiac function. Technically difficult due to respiratory issues and BIPAP. Exam performed portable in ICU/CCU. Left Ventricle Normal LV size. Mild concentric left ventricular hypertrophy. The estimated ejection fraction is 50 %. Stage 2 diastolic dysfunction. There is borderline global hypokinesis of the left ventricle. Right Ventricle Normal RV size. Normal systolic function. Atria Normal left atrium. Normal right atrium. Mitral Valve Normal mitral valve. Trivial mitral valve insufficiency. Tricuspid Valve Normal tricuspid valve. Mild tricuspid valve insufficiency. Pulmonic Valve Normal pulmonic valve. Pericardium/Pleural No pericardial effusion. MMode/2D Measurements & Calculations LVIDd: 4.1 cm IVSd: 1.4 cm LA dimension: 3.3 cm LVIDs: 3.2 cm LVPWd: 1.3 cm RVDd: 3.4 cm FS: 21.6 % LAV(MOD-bp): 47.8 ml LA A4 area: 11.8 cm2 RA A4 area: 12.3 cm2 LAV(MOD-bp) Indexed: 27.5 ml/m2 LAV(MOD-sp2): 56.7 ml LAV(MOD-sp4): 29.9 ml Time Measurements MV dec time: 0.21 sec Doppler Measurements & Calculations MV E max shree: 73.2 cm/sec Lat Peak E' Shree: 11.0 cm/sec Med Peak E' Shree: 7.6 cm/sec MV A max shree: 42.7 cm/sec E/E' lat: 6.6 E/E' med: 9.7 MV E/A: 1.7 Ao V2 max: 100.6 cm/sec LV V1 max: 94.4 cm/sec PA V2 max: 79.0 cm/sec Ao max P.0 mmHg LV V1 max P.6 mmHg TR max shree: 233.5 cm/sec TR max P.8 mmHg ECHO/Echo Complete Interpretation Summary Normal LV size. Mild concentric left ventricular hypertrophy. The estimated ejection fraction is 50 %. Mild tricuspid valve insufficiency. Stage 2 diastolic dysfunction. The global longitudinal strain = -14.9% (abnormal). Ordering Physician: Pipo Lee Referring Physician: Trey Fitzgerald Performed By: Evangelist Salazar RCS
--- NOTE | 2021-08-25 09:33 | PCM.PN.HOSP ---
Subjective Subjective Follow-up on acute hypoxic respiratory failure/pneumonia/neutropenic fever: Patient was seen and examined. Remains on BiPAP. Patient appears to be in mild to moderate respiratory distress. Denies any fever or chills Objective Data Objective Data Vital Signs: Vital Signs Temp Pulse Resp BP Pulse Ox 98.6 F 88 44 H 93/63 97 08/25/21 06:00 08/25/21 06:31 08/25/21 06:31 08/25/21 06:00 08/25/21 06:31 Oxygen Flow Rate (L/min) 60 Oxygen Delivery Method Bi-pap Weight: 62.5 kg Body Mass Index (BMI) 20.1 Intake & Output: Intake and Output for Last 24 Hours 08/23/21 08/24/21 08/25/21 23:59 23:59 23:59 Intake Total 4598.17 / 4598.17 3275.83 / 3300.13 508.17 / 508.17 Output Total 2150 / 2150 1400 / 1550 700 / 700 Balance 2448.17 / 2448.17 1875.83 / 1750.13 -191.83 / -191.83 Medical Nutrition Assessment Dietitian: Malnutrition Criteria Met Start: 08/23/21 12:35 Freq: Status: Active Protocol: Document 08/24/21 09:32 RICHIE (Rec: 08/24/21 09:32 RICHIE [id number]) Nutrition Malnutrition Evidence of Malnutrition Exists Yes Malnutrition (severe): Chronic Evidenced By Suboptimal Energy Intake ( Severe),Weight Loss (Severe), Physical Changes (Severe) Clinical Problem Chronic Disease or Condition Related Malnutrition Etiology Severe protein-calorie malnutrition in the context of chronic disease/malignancy related to inadequate oral intake and increased energy needs Signs/Symptoms as evidenced by ~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 Continue chocolate ensure compact TID w/ meals as tolerated per patient. Lab / Micro Data Result Diagrams: 08/25/21 04:14 08/25/21 04:14 Labs: Laboratory Results - last 24 hr 08/25/21 01:00: Vancomycin Trough 16.1 H 08/25/21 04:14: WBC 35.6 H*, RBC 2.77 L, Hgb 7.9 L, Hct 22.9 L, MCV 82.7, MCH 28.5, MCHC 34.5, RDW Std Deviation 48.8 H, RDW Coeff of Vi 16.3 H, Plt Count 116 L, MPV 10.2, Neut % (Auto) Not Reportable, Absolute Neuts (auto) 33.5 H, Absolute Lymphs (auto) 0.71 L, Total Counted 100, Neutrophils % (Manual) 80 H, Band Neutrophils % 8 H, Lymphocytes % (Manual) 2 L, Monocytes % (Manual) 4, Metamyelocytes % 5 H, Myelocytes % 1 H, Diff Path Review August, Platelet Estimate SLT DEC, RBC Morphology N CYTIC, Polychromasia 1+ 08/25/21 04:14: Sodium 128 L, Potassium 3.8, Chloride 94 L, Carbon Dioxide 24.0, Anion Gap 10, BUN 12, Creatinine 0.47 L, Estim Creat Clear Calc 185.46, Est GFR (MDRD) Af Amer 251, Est GFR (MDRD) Non-Af 207, BUN/Creatinine Ratio 25.5 H, Glucose 132 H, Calcium 7.3 L, Total Bilirubin 0.70, AST 28, ALT 22, Alkaline Phosphatase 168 H, Total Protein 4.8 L, Albumin 1.7 L, Globulin 3.1, Albumin/Globulin Ratio 0.5 L Micro: Microbiology 08/24/21 00:20 Sputum, Expectorated/Coughed Gram Stain - Final 08/24/21 00:20 Sputum, Expectorated/Coughed Respiratory Culture - Preliminary GNR lactose inspector metal fabricating 08/22/21 22:15 Urine, Clean Catch Urine Culture - Final Culture exhibits no growth. 08/22/21 22:05 Blood Culture (Wb) - Anticubital Left Blood Culture - Preliminary No growth in 48 hours. 08/22/21 22:00 Blood Culture (Wb) - Port Blood Culture - Preliminary No growth in 48 hours. 08/22/21 22:15 Urine, Clean Catch Legionella Antigen - Final 08/22/21 22:15 Urine, Clean Catch Streptococcus pneumoniae Antigen (M - Final 08/23/21 00:10 Mucosa - Nasopharyngeal Respiratory Panel (PCR) - Final 08/22/21 22:05 Nasal Secretion SARS-CoV-2 & FLU Antigen (Rapid) - Final Rhythm Strip Rhythm Strip: Sinus Tach Rate: 145 Ectopy: None Physical Exam Narrative Physical exam: General: Alert, Oriented x3, appears very frail, in moderate respiratory distress, on Bipap HEENT: Atraumatic Oral: Moist Mucosa Neck: Supple Lungs: Diminished to auscultation, few rales at the bases Cardiovascular: HS I+II, regular, no murmurs Abdomen: Bowel Sounds Present, Soft, Non Tender Extremities: No edema Skin: No rashes, No breakdown Neurological: Grossly intact Psych/Mental Status: Appropriate Assessment & Plan Assessment/Plan (1) Neutropenic fever: PLAN: 1. 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 Portuguese Tutor following Awaiting transfer to [facility] 2. Sepsis due to neutropenic fever secondary to chemotherapy in a known patient with Bay sarcoma WBC count is 35.6, up from 21.4 Urine Legionella and strep coccal antigen negative, respiratory panel negative Blood cultures(08/22/2021) negative x48 hours Continue on IV vancomycin and Zosyn 3. 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 Acute on chronic anemia, hemoglobin today is 7.9, Status post 1 unit packed RBC transfusion on 08/23/2021 Transfuse if hemoglobin is less than 7 5. Pancytopenia secondary to #2 and 3 6.Hyponatremia secondary to SIADH, improved, sodium is 128 7. Hypokalemia, resolved 8. Severe protein calorie malnutrition, tare weigher consulted, continue supplements 9.DVT prophylaxis: SCDs Charges/Coding Visit Charges Inpatient E&M: 31773 Subs Hosp L3
[2021-08-25] MEDS: 0.9% Saline Lock 10 ML Syringe IV ×3 (10:05→21:44)
--- NOTE | 2021-08-25 10:10 | CPS ---
per MD changed pt to AVAPS for increased WOB
[2021-08-25 13:04] LABS: Pathologist Review Reviewed
[2021-08-25 13:05] LABS: Pathologist Review Reviewed
[2021-08-25 13:07] LABS: Pathologist Review Reviewed
[2021-08-25 13:08] LABS: Pathologist Review Reviewed
--- NOTE | 2021-08-25 13:31 | CASEMGMT ---
SW spoke with RN regarding how patient and family coping. Currently patient needs rest. RN encouraged patient's to go home and take care of herself for a little while. SW will continue to follow and support patient and family when appropriate. Bhakti PRO
[2021-08-25] MEDS: Enoxaparin 40 MG/0.4 ML Syringe SC (14:19)
[2021-08-25 14:56] LABS: Magnesium 1.8 mg/dL (1.6-2.6); Phosphorus 3.7 mg/dL (2.5-4.9)
[2021-08-25] MEDS: Acetaminophen 650 MG Suppository RC (18:42)
--- NOTE | 2021-08-25 18:48 | PCM.HOSP.N ---
Hospitalist Note Notified by Dr. Arroyo that patient blood pressure is decreasing and that she was notified by nursing. Spoke to Dione RN and ICU regarding patient blood pressure trend which has been slowly decreasing over the course of the day. At Dr. Barber's request I spoke with Dr. Lee who was agreeable to the plan of a 500 mL bolus x1 and a dose of Tylenol as patient is borderline febrile. Dr. Lee stated that if patient did not respond appropriately to fluids he would prefer patient be started on pressors for better blood pressure control.
--- NOTE | 2021-08-25 20:19 | CON.PCM.ON_ITS ---
Assessment & Plan Assessment/Plan (1) Neutropenic fever: Status: Acute Code(s): D70.9 - Neutropenia, unspecified; R50.81 - Fever presenting with conditions classified elsewhere Plan: The patient is a 41 yo male who was diagnosed with Ewings sarcoma and has been receiving chemotherapy with VDC/IE. Presented with NF and developed rapid onset of hypoxemic respiratory failure associated with extensive bilateral airspace disease with alveolar and ground glass opacities despite broad spectrum antibiotics. The rapid onset, increasing WBC count, sputum culture results and persistent fever are suggestive of bacterial pneumonia although chemotherapy induced pneumonitis is certainly in the differential. Discussed with Dr. Lee. Recommendations: -While awaiting transfer, broaden antibiotic coverage with cefepime. -Begin empiric high dose steroids. -Respiratory support. -Transfuse RBCs to maintain Hgb > 7.5 g/dL. -Will follow. (2) Anemia: Status: Acute Code(s): D64.9 - Anemia, unspecified Qualifiers: Anemia type: unspecified type Qualified Code(s): D64.9 - Anemia, unspecified (3) Pneumonitis: Status: Acute Code(s): J18.9 - Pneumonia, unspecified organism HPI Consult Data Date of Service:: 08/26/21 PCP / Referring Provider: Dr. Trey Fitzgerald MD Attending: Dr. Tawny Arroyo MD Chief Complaint Chief Complaint: Neutropenic fever History of Present Illness History of Present Illness: The patient is a 41-year-old male who first developed shortness of breath in the fall of 2020. Symptoms worsened and he developed pain in the RUQ that extended around to the back. Eventually seen by his primary care provider in early April 2021 with an x-ray that revealed a large right pleural effusion. He had a thoracentesis 04/22/2021. CT of the chest, abdomen, and pelvis showed right pleural nodules, a mass in the right lung with partial collapse. There was compression of the trachea. 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 MRI of the brain with revealed no evidence of disease. PET scan with abnormal uptake in the right upper lung, precarinal mediastinum, and pleura of the right lung. He has been undergoing chemotherapy at [facility] with vincristine, doxorubicin and cyclophosp hamide alternating with ifosfamide and etoposide. Most recent imaging was a PET scan 07/25/2021: Lungs and tracheobronchial tree: Substantial interval improvement of the extensive pleural-based lesions compared to the prior study. ?The most prominent residual uptake is in the posteromedial right lower lobe measuring approximately 5.6 x 1.9 cm on 4:152 with interval development of calcification and medially increased uptake, max SUV 3.2, previously 9.0 x 5.8 cm with max SUV 12.5, when measured similarly. ?Significantly improved aeration of the right lung. ?Given the lack of intravenous contrast and nondiagnostic images, no new/worsening soft tissue abnormality. ?There are new patchy left upper lobe groundglass opacities, most prominently 1.0 x 0.6 cm on 4:128, not FDG avid. Pleura and pericardium: Moderate-large non-FDG avid right pleural effusion. No pericardial effusion He most recently received inpatient ifosfamide and etoposide 08/11 through 08/15. Presented to the ED 08/22 with c/o fever. Temp was 100.9 and total WBC count was 1,000. Rapid Covid and influenza negative. Lactic acid 2.5. Was started on vancomycin and Zosyn and admitted. Had no c/o cough on presentation. CTA results noted. On 08/23, had progressive respiratory failure and was transferred to the ICU. BC remain negative. Sputum growing rare lactose fermenting GNRs. Currently on BiPAP. Advanced Directives Power of Handle Lathe Operator: Yes Living Will: Yes [facility] Medical History Depression Bay sarcoma Bay's sarcoma Migraines Non-smoker Vitamin D deficiency Home Medications Xtampza ER 18 mg PO BID 06/10/21 [History Last Taken 06/10/21] cholecalciferol (vitamin D3) 25 mcg PO DAILY 06/10/21 [History Last Taken 06/10/21] nortriptyline 50 mg PO QHS 06/10/21 [History Last Taken 06/09/21] ondansetron HCl 8 mg PO TID PRN 06/10/21 [History Last Taken Unknown] oxycodone 5 - 10 mg PO Q4H PRN PRN 06/10/21 [History Last Taken 06/10/21 12:00] sennosides [senna] 17.2 mg PO QHS 06/10/21 [History Last Taken 06/09/21] lactulose 20 gram/30 mL oral solution 20 g PO BID PRN 08/07/21 [History Last Taken Unknown] naloxone 4 mg/actuation nasal spray 1 spray INTRANASAL Q2M PRN 08/07/21 [History Last Taken Unknown] polyethylene glycol 3350 17 gram oral powder packet 17 g PO DAILY PRN 08/07/21 [History Last Taken Unknown] Allergy/AdvReac Type Severity Reaction Status Date / Time codeine Allergy Nausea Verified 08/22/21 21:03 Iodinated Contrast Media Allergy Nausea Verified 08/22/21 21:03 [CONTRASTS] Family History Mother Heart disease Hypertension Diabetes Father Hypertension CVA (cerebral vascular accident) Testicular cancer Surgical History H/O shoulder surgery History of ankle surgery History of thoracentesis Social History household members: spouse Smoking Status: Never smoker alcohol intake: never substance use type: does not use Physical Exam Const alert Constitutional Narrative: Acutely ill appearing. Eyes no scleral icterus Neck no lymphadenopathy Chest Chest Narrative: Tachypnea with labored respirations. Resp Effort and Inspection: symmetric chest movement and labored Cardio regular rhythm GI GI Narrative: Non-distended. Skin no jaundice Vital Signs Temperature 100.3 F H 08/25/21 19:00 Temperature Source Core 08/25/21 19:00 Pulse Rate 84 08/25/21 19:00 Pulse Strength Normal (2+) 08/25/21 10:00 Respiratory Rate 33 H 08/25/21 19:00 Respiratory Effort Labored 08/25/21 16:00 Respiratory Depth Shallow 08/25/21 16:00 Respiratory Pattern Tachypnea 08/25/21 16:00 Blood Pressure 93/59 L 08/25/21 19:00 Blood Pressure Mean 70 08/25/21 19:00 Blood Pressure Source Monitor 08/25/21 19:00 Blood Pressure Position Semi-Fowlers 08/25/21 19:00 Blood Pressure Location Right Arm 08/25/21 19:00 Pulse Ox 97 08/25/21 19:00 Oxygen Delivery Method Bi-pap 08/25/21 19:00 Oxygen Flow Rate (L/min) 60 08/24/21 08:00 Fraction of Inspired Oxygen (FIO2) 55 08/25/21 19:00 Laboratory Results - last 24 hr 08/22/21 22:05: Diff Path Review Reviewed 08/23/21 07:50: Diff Path Review Reviewed 08/24/21 04:20: Diff Path Review Reviewed 08/25/21 01:00: Vancomycin Trough 16.1 H 08/25/21 04:14: WBC 35.6 H*, RBC 2.77 L, Hgb 7.9 L, Hct 22.9 L, MCV 82.7, MCH 28.5, MCHC 34.5, RDW Std Deviation 48.8 H, RDW Coeff of Vi 16.3 H, Plt Count 116 L, MPV 10.2, Neut % (Auto) Not Reportable, Absolute Neuts (auto) 33.5 H, Absolute Lymphs (auto) 0.71 L, Total Counted 100, Neutrophils % (Manual) 80 H, Band Neutrophils % 8 H, Lymphocytes % (Manual) 2 L, Monocytes % (Manual) 4, Metamyelocytes % 5 H, Myelocytes % 1 H, Diff Path Review Reviewed, Platelet Estimate SLT DEC, RBC Morphology N CYTIC, Polychromasia 1+ 08/25/21 04:14: Sodium 128 L, Potassium 3.8, Chloride 94 L, Carbon Dioxide 24.0, Anion Gap 10, BUN 12, Creatinine 0.47 L, Estim Creat Clear Calc 185.46, Est GFR (MDRD) Af Amer 251, Est GFR (MDRD) Non-Af 207, BUN/Creatinine Ratio 25.5 H, Glucose 132 H, Calcium 7.3 L, Total Bilirubin 0.70, AST 28, ALT 22, Alkaline Phosphatase 168 H, Total Protein 4.8 L, Albumin 1.7 L, Globulin 3.1, Albumin/Globulin Ratio 0.5 L 08/25/21 04:14: Phosphorus 3.7, Magnesium 1.8 Microbiology 08/24/21 00:20 Sputum, Expectorated/Coughed Gram Stain - Final 08/24/21 00:20 Sputum, Expectorated/Coughed Respiratory Culture - Preliminary GNR lactose dietary director 08/22/21 22:15 Urine, Clean Catch Urine Culture - Final Culture exhibits no growth. 08/22/21 22:05 Blood Culture (Wb) - Anticubital Left Blood Culture - Preliminary No growth in 48 hours. 08/22/21 22:00 Blood Culture (Wb) - Port Blood Culture - Preliminary No growth in 48 hours. Diagnostic Data Chest X-Ray 08/22/21 22:16 IMPRESSION: Resolution of most of the previously noted right pleural effusion. Small amount of residual pleural fluid likely in the right major fissure and right costophrenic angle. Electronically Signed: Bernard Carr MD at 22:32 EDT , Chest CTA 08/23/21 14:29 IMPRESSION: Limited CTA examination due to severe motion artifact. No large or central pulmonary embolism. Distal emboli cannot be excluded. 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 Decreasing right pleural effusion, trace left pleural effusion. Periostitis of multiple right ribs without definite fracture. There are adjacent pleural-based soft tissue masses and this may indicate osseous involvement in the neoplastic process. Electronically Signed: Harjeet Simpson MD at 15:49 EDT , Echocardiogram 08/25/21 08:15 Interpretation Summary Normal LV size. Mild concentric left ventricular hypertrophy. The estimated ejection fraction is 50 %. Mild tricuspid valve insufficiency. Stage 2 diastolic dysfunction. The global longitudinal strain = -14.9% (abnormal). Ordering Physician: Pipo Lee Referring Physician: Trey Fitzgerald Performed By: Evangelist Salazar RCS
[2021-08-25] MEDS: HYDROmorphone 0.5 MG/0.5 ML SYRINGE IV (21:44)
--- NOTE | 2021-08-25 21:56 | NURSING ---
[id number] called report to Bernard HOLLAND at [facility] MICU. pt is going to G51 bed 7. at bedside and informed. CC set up transport and they should be here around 2200. chart copied and will be sent with pt
--- NOTE | 2021-08-25 22:11 | NURSING ---
[facility] transport here, verbal report given, chart copied and given, family at bedside.
--- NOTE | 2021-08-26 07:11 | PCM.DC ---
Discharge Instructions Follow Up Care Test Results: Test results from this visit will be discussed in further detail at your follow-up appointment, if applicable. Discharge Plan Admission Admit Date/Time: 08/22/21 23:23 Attending Provider: Tawny Arroyo Primary Care Provider: Trey Fitzgerald Consulting Providers: Alaina Bullard ; Pipo Lee ; Kranthi Perry ; Batool Tavares NP ; Darrell Kramer ; Katie Platt ; Joel Lundberg ; Ronaldo Luque ; Trey Persaud ; Ernestina Batista Discharge Orders/Prescriptions Prescriptions: No Action lactulose 20 gram/30 mL solution 20 g PO BID PRN (Reason: see note) RF: 0 naloxone 4 mg/actuation spray,non-aerosol 1 spray intranasal Q2M PRNRF: 0 polyethylene glycol 3350 17 gram powder in packet 17 g PO DAILY PRN (Reason: stool softener) RF: 0 sennosides [senna] 8.6 mg Tablet 17.2 mg PO QHS RF: 0 ondansetron HCl 8 mg tablet 8 mg PO TID PRN (Reason: Nausea) RF: 0 nortriptyline 25 mg capsule 50 mg PO QHS RF: 0 oxycodone 5 mg tablet 5 - 10 mg PO Q4H PRN PRN (Reason: Pain) RF: 0 cholecalciferol (vitamin D3) 25 mcg (1,000 unit) Capsule 25 mcg PO DAILY RF: 0 Xtampza ER 18 mg cap,sprinkl,ER12hr(DONT CRUSH) 18 mg PO BID RF: 0 Referrals / Follow Up: Trey Fitzgerald MD [Primary Care Provider] - Disposition Disposition (needs filled in before D/C Order can be placed): Transfer to Another Type [facility]
== END 2021-08-25 22:25 | disposition other institution (70) | DRG 871 ==
LOC: ED 23:33 → PCU 08-23 00:53 → ICU 08-23 17:54
PROVIDERS: Internal Medicine Critical Care Medicine; Student in an Organized Health Care Education/Training Program; Admitting Provider Family Medicine; Emergency Provider Emergency Medicine; PCP Family Medicine; Visit Provider Internal Medicine
DX: A41.9 Sepsis, unspecified organism (principal); J15.0 Pneumonia due to Klebsiella pneumoniae; J96.01 Acute respiratory failure with hypoxia; E43 Unspecified severe protein-calorie malnutrition; D61.810 Antineoplastic chemotherapy induced pancytopenia; D84.9 Immunodeficiency, unspecified; E22.2 Syndrome of inappropriate secretion of antidiuretic hormone; E87.2 Acidosis; C41.9 Malignant neoplasm of bone and articular cartilage, unspecified; C77.1 Secondary and unspecified malignant neoplasm of intrathoracic lymph nodes; E87.1 Hypo-osmolality and hyponatremia; E87.3 Alkalosis; J90 Pleural effusion, not elsewhere classified; J70.4 Drug-induced interstitial lung disorders, unspecified; G43.709 Chronic migraine without aura, not intractable, without status migrainosus; F41.9 Anxiety disorder, unspecified; E87.6 Hypokalemia; E55.9 Vitamin D deficiency, unspecified; R50.81 Fever presenting with conditions classified elsewhere; G89.4 Chronic pain syndrome; T45.1X5A Adverse effect of antineoplastic and immunosuppressive drugs, initial encounter; F32.A Depression, unspecified; F90.9 Attention-deficit hyperactivity disorder, unspecified type; Z68.20 Body mass index [BMI] 20.0-20.9, adult; Z79.891 Long term (current) use of opiate analgesic; Z79.899 Other long term (current) drug therapy
CPT/HCPCS: 36415; 36591; 36600; 71045; 71275; 80053; 80202; 81001; 82570; 82803; 83605; 83735; 83930; 83935; 84100; 84145; 84300; 84443; 85025; 85610; 85730; 86850; 86900; 86901; 86920; 86922; 87040; 87070; 87077; 87086; 87186; 87205; 87428; 87449; 87633; 87635; 87641; 93005; 93306; 94002; 94003; 94640; 97802; 99251; 99282; J7030; J7040; J7050; P9016; Q9957; Q9967; A4216; G0463; J2405; U0003; U0005

== ENCOUNTER 2022-06-26 16:17 | Emergency (ER) | payer OTHER, SELFPAY ==
[2022-06-26] VITALS (12 sets, daily range): BP systolic 122–134; BP diastolic 88–91; PULSE 91–131; RESP 16–35; TEMP 36.7–37; O2SAT 76–98; BMI 27.1
--- NOTE | 2022-06-26 16:21 | EKG12_ITS ---
Test Reason : SOB Blood Pressure : / mmHG Vent. Rate : 122 BPM Atrial Rate : 122 BPM P-R Int : 154 ms QRS Dur : 070 ms QT Int : 314 ms P-R-T Axes : 066 010 038 degrees QTc Int : 447 ms Sinus tachycardia Otherwise normal ECG When compared with ECG of 22-AUG-2021 21:48, Nonspecific T wave abnormality no longer evident in Lateral leads Confirmed by ALEX STEVENS, KYLIE ([id number]), newspaper photo editor CARLOS TYSON ([id number]) on 06/30/2022 10:57:05 AM Referred By: Confirmed By:KYLIE JOHNSON MD
--- NOTE | 2022-06-26 16:21 | ED.RN ---
UPON PT WALKING INTO TRIAGE ROOM PULSE OX NOTED TO BE 76% ON RA. PT SAT IN CHAIR AND TOOK A COUPLE DEEP BREATHS. PULSE OX UP TO 88% RA.
--- NOTE | 2022-06-26 16:22 | CT_ITS ---
STUDY: CTA CHEST REASON FOR EXAM: Male, 42 years old. Dyspnea, tachycardia, hypoxic, history of small blue cell lung cancer RADIATION DOSAGE (If Supplied By Facility): CTDIvol = ( 12.71 ) mGy, DLP = ( 461.95 ) mGycm TECHNIQUE: The examination was performed with the intravenous administration of 100mL Isovue-370. Post-processing of the angiographic images was performed, with multiplanar reformation and 3D reconstruction. Individualized dose optimization techniques were used for this CT. COMPARISON: 08/23/2021 FINDINGS: Normal enhancement of the main pulmonary artery and right and left pulmonary arteries. Normal enhancement of the bilateral peripheral pulmonary arteries. There is no demonstrated pulmonary embolism. Normal thoracic aorta and visualized great vessels. There is no demonstrated aortic dissection. Normal heart and pericardium. Mediastinal and bilateral hilar adenopathy. Normal visualized trachea and bronchi. Marked progression of bilateral masses and nodules consistent with the clinical history. Scattered areas of groundglass opacity bilaterally. Bilateral pleural effusions. Normal chest wall structures. No acute or aggressive bony abnormality. No acute findings in the upper abdomen. CT/CTA Chest W/WO Contrast IMPRESSION: Normal CTA chest examination, without a demonstrated pulmonary embolism or arterial dissection. Marked progression of bilateral pulmonary masses and nodules consistent with the clinical history. 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 Bilateral pleural effusions. Electronically Signed: Harjeet Simpson MD at 17:22 EST ,
--- NOTE | 2022-06-26 16:26 | ED.RN ---
PT NOTED TO BE 78% ON ROOM AIR. PT PLACED ON 5L NC AT THIS TIME.
--- NOTE | 2022-06-26 16:28 | ED.VIS.DYS ---
HPI History of Present Illness Chief Complaint: Shortness of Breath Detail of Chief Complaint: Acute onset of dyspnea Informant: patient, spouse/S.O. and PCP (Dr. Trey Persaud has oncologist call prior to his arrival.) Onset/Context/Timing Onset: Today and Hours Context: sudden Timing: Continuous Quality: Positive for Dyspnea on exertion and - (He does report change in voice.); Negative for Orthopnea, PND or Wheezing Current Severity: Mild Maximum Severity: Severe Worsened by: Exertion Relieved by: Nothing and - (Improved with oxygen) Associated Symptoms other; Negative for cough, rhinorrhea, post nasal drip, ear pain, fever, sore throat, subjective, chills, sweats, clear sputum, white sputum, yellow sputum or green sputum Chest Pain: Positive for None Narrative Narrative: Patient is a 42-year-old male with history of Bay's-like sarcoma. He underwent aggressive chemotherapy, 12 cycles. He completed a cluster of radiation therapy in April. He was seen for the first time by Dr. Trey Persaud yesterday. He required antiemetics and hydration. He was seen again today for hydration. Blood work revealed an elevated alkaline phosphatase. Ultrasound of the gallbladder was obtained. Ultrasound revealed multiple mets to the liver. Patient has history of multiple pulmonary nodules that are bilateral. He contacted Dr. Goins because of the abrupt onset of shortness of breath. He informed Dr. Goins that his pulse ox was 86% on room air. When he arrived his pulse ox was 76% on room air. He denies history of PE or DVT. He denies leg pain, swelling discoloration. He has chronic back pain. This is unchanged from prior. There is no pleuritic component noted. Patient has no GI symptoms. Patient has no symptoms. PE Risk Factors: Positive for Cancer; Negative for OCP + Smoking + > 35, Prior DVT or PE, Recent immobilization, Recent surgery or Recent travel Prior similar symptoms: No Recent Illness/Hospitalization: Yes [facility] Medical History Depression Bay sarcoma Bay's sarcoma Migraines Non-smoker Vitamin D deficiency Home Medications cholecalciferol (vitamin D3) 25 mcg (1,000 unit) capsule 25 mcg PO DAILY SUPPLEMENT 06/10/21 [History Last Taken 06/25/22] ondansetron HCl 8 mg tablet 8 mg PO TID PRN Nausea 06/10/21 [History Last Taken 06/26/22] oxycodone 5 mg tablet 5 - 10 mg PO Q4H PRN PRN Pain 06/10/21 [History Last Taken 06/26/22] lactulose 20 gram/30 mL oral solution 20 g PO BID PRN see note 08/07/21 [History Last Taken Unknown] polyethylene glycol 3350 17 gram oral powder packet 17 g PO DAILY PRN stool softener 08/07/21 [History Last Taken 06/26/22] metoprolol succinate 25 mg tablet,extended release 24 hr 25 mg PO DAILY HTN 06/26/22 [History Last Taken 06/26/22] oxycodone myristate 9 mg capsule sprinkle extended release 12 hr(DON'T CRUSH) (Xtampza ER) 9 mg PO BID PAIN 06/26/22 [History Last Taken 06/26/22] Allergy/AdvReac Type Severity Reaction Status Date / Time codeine Allergy Nausea Verified 03/13/22 09:22 Family History Mother Heart disease Hypertension Diabetes Father Hypertension CVA (cerebral vascular accident) Testicular cancer Surgical History H/O shoulder surgery History of ankle surgery History of thoracentesis Social History household members: spouse Smoking Status: Never smoker alcohol intake: never substance use type: does not use ROS ROS ED Constitutional Constitutional ED: Reports weight loss; Denies chills, fever(s) or sweats Eyes Eyes: Denies blurry vision, change in vision or diplopia ENT ENT ED: Denies ear pain, rhinorrhea or sore throat Cardiovascular Cardiovascular: Reports racing heartbeat; Denies chest pain, orthopnea, palpitations or paroxysmal nocturnal dyspnea Respiratory/Chest Respiratory/Chest: Reports cough, dyspnea and dyspnea on exertion; Denies orthopnea, paroxysmal nocturnal dyspnea or sputum Gastrointestinal Gastrointestinal: Denies abdominal pain, nausea or vomiting Genitourinary Genitourinary ED: Denies dysuria, hematuria or urinary frequency Musculoskeletal Musculoskeletal: Reports back pain; Denies arthralgias, myalgias or neck pain Integumentary Denies abscess, Abrasions or rash Neurologic Neurologic: Denies headache(s), paresthesias or weakness Psychiatric Psychiatric: Reports depression; Denies anxiety Endocrine Endocrinology: Denies cold intolerance or heat intolerance Hematologic/Lymphatic Hematologic/Lymphatic: Denies easy bleeding or easy bruising EXAM Physical Exam Const Vital Signs: 06/26/22 16:18 06/26/22 16:17 06/26/22 16:25 Temperature 98.6 F Temperature Source Temporal Pulse Rate 131 H 127 H Respiratory Rate 28 H 35 H Respiratory Effort Respiratory Depth Respiratory Pattern Blood Pressure 134/91 H Blood Pressure Mean 105 Pulse Ox 86 76 78 Oxygen Delivery Method Room Air Room Air Room Air Oxygen Flow Rate (L/min) 06/26/22 16:21 06/26/22 16:32 06/26/22 17:21 Temperature Temperature Source Pulse Rate 117 H Respiratory Rate 16 Respiratory Effort Short of Breath Respiratory Depth Normal Respiratory Pattern Tachypnea Blood Pressure Blood Pressure Mean Pulse Ox 95 Oxygen Delivery Method Nasal Cannula Room Air Nasal Cannula Oxygen Flow Rate (L/min) 5 5 06/26/22 17:38 06/26/22 18:09 06/26/22 19:02 Temperature Temperature Source Pulse Rate 128 H 113 H Respiratory Rate 28 H 21 H Respiratory Effort Respiratory Depth Respiratory Pattern Blood Pressure Blood Pressure Mean Pulse Ox 98 97 97 Oxygen Delivery Method Nasal Cannula Room Air Room Air Oxygen Flow Rate (L/min) 2 06/26/22 20:21 Temperature Temperature Source Pulse Rate 122 H Respiratory Rate 20 H Respiratory Effort Respiratory Depth Respiratory Pattern Blood Pressure Blood Pressure Mean Pulse Ox 92 Oxygen Delivery Method Nasal Cannula Oxygen Flow Rate (L/min) 2 Positive well nourished and well developed Constitutional Narrative: Patient is tachycardic and tachypneic. He appears pale. General Appearance ED: well developed and pallor; Negative for NAD HEENT Reports dry mucous membranes HEENT Narrative: Head is atraumatic normocephalic. Ears normal. Nares patent. Mouth ED: Yes dry mucous membranes Mouth: dry mucous membranes Eyes PERRL and EOMs intact bilaterally General Eye ED: Yes pale conjunctiva; Negative for scleral icterus Neck no lymphadenopathy, supple, no meningeal signs and no JVD Resp No normal respiratory effort and No clear to auscultation bilaterally Resp Narrative: Patient has inspiratory stridor and possible mild expiratory stridor. Breath sounds are symmetric. Cardio regular rhythm, S1 normal heart sound, S2 normal heart sound and no murmurs Rate: tachycardic GI non-tender, non-distended and no masses Auscultation: normoactive bowel sounds Palpation: soft Back/Spine no CVA tenderness Extremity normal to inspection Extremity Narrative: There is no asymmetry, swelling, discoloration, leg vein distention, palpable cords or tenderness along the distribution of the deep venous system. Neuro oriented x3, CN's II-XII intact bilaterally and no sensory deficits noted Sunil Coma Scale: document GCS findings Spontaneous Obeys Commands Oriented 15 Psych Mood & Affect: depressed Skin no wounds and skin turgor normal General Skin Exam: pallor; Negative for jaundice Lesions: no lesions MDM MDM MDM Narrative Medical decision making narrative: Frontal diagnoses include pulmonary embolus, pneumonia, airway obstruction due to multiple metastatic lesions. Patient also has metastasis to liver which she was unaware of. Patient is presently on 5 L of oxygen by nasal cannula. His saturation is 98%. EKG was obtained to determine there is evidence of right heart strain. I received a call from Dr. Trey Persaud at 1721. He agrees there is no pulmonary embolus. The radiologist not read the CAT scan. He informed me that the lesions on the left side are essentially new from 9 days ago. He is planning on coming to the emergency room to talk to the patient and his . Patient should be palliative care possible hospice. Dr. Persaud did speak with the patient and his . They are requesting transfer to [facility]. [place] was asked to contact the transfer line. Dr. Persaud states he would speak to the oncologist. Spoke with Dr. Dean the MICU physician at [facility]. After discussion in agreement patient does not require MICU. The transfer personnel will contact oncologist on-call and plan is direct admission to medical oncology. Patient was excepted by Dr. Keys oncologist at [facility]. She will speak with Dr. Hodges regarding patient's care plan. Total time including history, physical, documentation, consultation with local oncologist, transfer line, MICU physician and oncologist at [facility] is 35 minutes. History & Record Review Discussion w/independent historian: Patient, Significant other and Other (Poke to Dr. Trey Persaud his oncologist prior to arrival. He informed of patient's history, therapy, and reason he is now seen patient. He is now seeing patient for salvage chemotherapy.) Additional record(s) reviewed:: Prior inpatient record (Patient initially biopsied at [facility]. His follow-up care was in [place] at the [facility].) and Prior outpatient record (Dr. Goins's notes) Lab Data Attestation: I reviewed the patient's lab results. Lab results narrative: White count is normal. Patient is mildly anemic with a H&H of 10.1 and 29.7. Coags are normal Labs: Laboratory Results - last 24 hr 06/26/22 06/26/22 06/26/22 16:38 16:38 16:38 WBC 10.1 RBC 3.25 L Hgb 10.1 L Hct 29.7 L MCV 91.4 MCH 31.1 MCHC 34.0 RDW Std Deviation 47.4 H RDW Coeff of Vi 14.3 Plt Count 137 L MPV 9.9 PT 15.2 H INR 1.2 APTT 32.9 Sodium 133 L Potassium 5.2 H Chloride 100 Carbon Dioxide 26.0 Anion Gap 7 BUN 10 Creatinine 1.01 Estim Creat Clear Calc 90.30 Est GFR (MDRD) Af Amer 103 Est GFR (MDRD) Non-Af 85 BUN/Creatinine Ratio 9.9 L Glucose 98 Lactic Acid Calcium 9.3 Total Bilirubin 0.70 Direct Bilirubin 0.09 AST 148 H ALT 30 Alkaline Phosphatase 225 H Total Protein 6.5 Albumin 2.3 L Globulin 4.2 06/26/22 16:38 WBC RBC Hgb Hct MCV MCH MCHC RDW Std Deviation RDW Coeff of Vi Plt Count MPV PT INR APTT Sodium Potassium Chloride Carbon Dioxide Anion Gap BUN Creatinine Estim Creat Clear Calc Est GFR (MDRD) Af Amer Est GFR (MDRD) Non-Af BUN/Creatinine Ratio Glucose Lactic Acid 1.7 Calcium Total Bilirubin Direct Bilirubin AST ALT Alkaline Phosphatase Total Protein Albumin Globulin Radiography Diagnostic Testing: Clinical Impression(s) from Imaging Studies Chest CTA 06/26/22 16:22 IMPRESSION: Normal CTA chest examination, without a demonstrated pulmonary embolism or arterial dissection. Marked progression of bilateral pulmonary masses and nodules consistent with the clinical history. 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 Bilateral pleural effusions. Electronically Signed: Harjeet Simpson MD at 17:22 EST , Skin was reviewed by me. There are liver mets that were not mentioned by the radiologist. This is best seen on the coronal views. Rhythm Strip Rhythm Strip: Sinus Tach Rate: 127 Ectopy: None EKG Initial EKG: Attestation: I personally reviewed and interpreted this EKG as follows: Interpretation: Sinus Tachycardia (Sinus tachycardia with a rate of 122. Other than sinus tachycardia the EKG is normal. NH interval is 154 ms. Cures duration 70 ms. QT duration 314 ms. [place] is normal.) Management Discussion w/another healthcare provider: Ward Nurse Treatment and Re-Evaluation :: Patient and family have been told that Dr. Trey Presaud will see them. Discharge Plan Triage Chief Complaint: Shortness of Breath ED Provider: Lam Kelly Dx/Rx/DC Orders Clinical Impression: Acute respiratory failure with hypoxia, Cancer related pain, Pneumonitis, Bay's sarcoma, Cancer, metastatic to liver, Cancer, metastatic to lung, Anemia due to chronic illness, Bilateral pleural effusion Prescriptions: No Action lactulose 20 gram/30 mL solution 20 g PO BID PRN (Reason: see note) polyethylene glycol 3350 17 gram powder in packet 17 g PO DAILY PRN (Reason: stool softener) ondansetron HCl 8 mg tablet 8 mg PO TID PRN (Reason: Nausea) oxycodone 5 mg tablet 5 - 10 mg PO Q4H PRN PRN (Reason: Pain) Label Comments: TAKE 1 TO 2 TABLETS BY MOUTH EVERY 4 HOURS NEEDED FOR PAIN FOR UP TO 14 DAYS cholecalciferol (vitamin D3) 25 mcg (1,000 unit) Capsule 25 mcg PO DAILY metoprolol succinate 25 mg tablet extended release 24 hr 25 mg PO DAILY Xtampza ER 9 mg cap,sprinkl,ER12hr(DONT CRUSH) 9 mg PO BID Label Comments: TAKE 1 CAPSULE BY MOUTH TWICE DAILY Primary Care Provider: Trey Fitzgerald Referrals: Trey Fitzgerald MD [Primary Care Provider] -
[2022-06-26] MEDS: Ondansetron 4 MG/2 ML Vial IV (16:46)
[2022-06-26 16:51] LABS: Hematocrit 29.7 % (40-54); Hemoglobin 10.1 g/dL (13.0-16.5); Mean Corpuscular Hgb 31.1 pg (27.0-32.0); Mean Corpuscular Volume 91.4 fL (80-94); Mean Platelet Vol. 9.9 fl (6.2-12.0); Platelet Count 137 K/mm3 (150-450); RBC Distribution Width CV 14.3 % (11.6-14.6); RBC Distribution Width SD 47.4 fl (35.1-43.9); Red Blood Count 3.25 M/mm3 (4.6-6.2); White Blood Count 10.1 K/mm3 (4.4-11.0)
[2022-06-26 16:57] LABS: International Normalized Ratio 1.2; Prothrombin Time (Protime)PT. 15.2 SECONDS (11.7-14.9)
[2022-06-26 16:58] LABS: Partial Thromboplast Time 32.9 Seconds (24.1-36.2)
[2022-06-26 17:34] LABS: AST(SGOT) 148 U/L (15-37); Alanine Aminotransfer ALT/SGPT 30 U/L (16-61); Albumin, Serum 2.3 g/dL (3.2-5.0); Alkaline Phosphatase 225 U/L (45-117); Anion Gap 7 (5-15); BUN 10 mg/dL (7-18); BUN/Creat Ratio 9.9 RATIO (10-20); Bilirubin, Direct 0.09 mg/dL (0.00-0.30); Calcium,Total 9.3 mg/dL (8.5-10.1); Chloride 100 mmol/L (98-107); Creatinine, Serum 1.01 mg/dL (0.70-1.30); EST Glomerular Filtration Rate 85 mL/min (>60); Est Glom Filt Rate - Afr Amer 103 mL/min (>60); Globulin 4.2 g/dL (2.2-4.2); Glucose 98 mg/dL (74-106); Lactic Acid 1.7 mmol/L (0.4-1.9); Potassium 5.2 mmol/L (3.5-5.1); Protein, Total 6.5 g/dL (6.4-8.2); Sodium Level 133 mmol/L (136-145)
--- NOTE | 2022-06-26 17:48 | ED.RN ---
dr kumar at bedside
[2022-06-26] MEDS: HYDROmorphone 0.5 MG/0.5 ML SYRINGE IV ×2 (20:18→23:48)
== END 2022-06-27 00:01 | disposition short-term general hospital (02) ==
LOC: ED 17:05
PROVIDERS: Emergency Provider Emergency Medicine; PCP Family Medicine; Visit Provider Emergency Medicine
DX: J96.01 Acute respiratory failure with hypoxia (principal); C78.7 Secondary malignant neoplasm of liver and intrahepatic bile duct; C78.02 Secondary malignant neoplasm of left lung; C78.01 Secondary malignant neoplasm of right lung; C41.9 Malignant neoplasm of bone and articular cartilage, unspecified; J18.9 Pneumonia, unspecified organism; G89.3 Neoplasm related pain (acute) (chronic); D63.0 Anemia in neoplastic disease; J90 Pleural effusion, not elsewhere classified
CPT/HCPCS: 36591; 71275; 80048; 80076; 83605; 85027; 85610; 85730; 87811; 93005; 96374; 96375; 96376; 99284; Q9967; A4216; J2405

== ENCOUNTER → 2022-08-07 | Outpatient (CLI) | payer OTHER, SELFPAY ==
[2022-08-07] VITALS (7 sets, daily range): BP systolic 99–114; BP diastolic 57–69; PULSE 96–120; RESP 16; TEMP 35.6–36.2; O2SAT 97–100; BMI 23.6
[2022-08-07] MEDS: 0.9 % NaCl (Sterile) Posiflush 10 mL IV (08:15)
[2022-08-07] MEDS: 0.9% NaCl VAD Flush IV (12:42)
== END | disposition home or self-care (01) ==
LOC: MEDOUTP 08:06
PROVIDERS: PCP Family Medicine; Referring Provider Internal Medicine Hematology & Oncology; Visit Provider Internal Medicine Hematology & Oncology
DX: D64.81 Anemia due to antineoplastic chemotherapy (principal); C41.9 Malignant neoplasm of bone and articular cartilage, unspecified
CPT/HCPCS: 36430; 86644; 86850; 86900; 86901; 86920; 86922; J7040; P9016; P9040; A4216

== ENCOUNTER 2022-08-14 08:30 | Outpatient (CLI) | payer OTHER, SELFPAY ==
[2022-08-14] MEDS: 0.9 % NaCl (Sterile) Posiflush 10 mL IV (08:40)
[2022-08-14 08:53] VITALS: BP 109/66; PULSE 123; RESP 18; TEMP 36.2; O2SAT 95
[2022-08-14 09:16] VITALS: BP 95/57; PULSE 111; RESP 16; TEMP 35.9; O2SAT 94
[2022-08-14 09:32] VITALS: BP 100/61; PULSE 116; RESP 16; TEMP 36.1; O2SAT 93
[2022-08-14 09:59] VITALS: BP 101/57; PULSE 113; RESP 16; TEMP 36.2; O2SAT 96
[2022-08-14 10:59] VITALS: BP 101/66; PULSE 107; RESP 16; TEMP 35.9
[2022-08-14 11:41] VITALS: BP 99/72; PULSE 105; RESP 16; TEMP 36.2; O2SAT 94
[2022-08-14] MEDS: 0.9% NaCl VAD Flush IV (11:42)
== END 2022-08-14 08:31 | disposition home or self-care (01) ==
LOC: MEDOUTP 08:30
PROVIDERS: PCP Family Medicine; Referring Provider Internal Medicine Hematology & Oncology; Visit Provider Internal Medicine Hematology & Oncology
DX: D64.81 Anemia due to antineoplastic chemotherapy (principal)
CPT/HCPCS: 36430; 86850; 86900; 86901; 86920; 86922; 86965; J7040; P9016; P9035; A4216